=== PATIENT | male | born 1930 | race Caucasian/White ===

== ENCOUNTER → 2017-01-24 | Outpatient (CLI) | payer MEDICARE ==
[~2017-01-24] MED LIST: ALLO100T51 PO; ASPI-558 PO; CARV25TA28 PO; Famotidine; LORTAB; LOSA50TA17 PO; PROSTATE MEDICATION; SIMV20TA89 PO; Vitamin C; multivitamin
== END ==
LOC: NEU 09:52
PROVIDERS: ATTEND Psychiatry & Neurology Neurology
DX: M47.812 Spondylosis without myelopathy or radiculopathy, cervical region (principal); G56.03 Carpal tunnel syndrome, bilateral upper limbs
CPT/HCPCS: 95886; 95911

== ENCOUNTER → 2017-02-15 | Outpatient (CLI) | payer MEDICARE ==
[~2017-02-15] MED LIST changes: -ALLO100T51 PO; +FAMO20TA8 PO; +FERR-70 PO; -Famotidine; +HYDR-3989 PO; -LORTAB; +LOSA100T44 PO; -LOSA50TA17 PO; +NITR4.1S SL; -PROSTATE MEDICATION; -Vitamin C; -multivitamin
== END ==
LOC: LAB 09:10
PROVIDERS: ATTEND Orthopaedic Surgery
DX: Z01.810 Encounter for preprocedural cardiovascular examination (principal); I10 Essential (primary) hypertension; Z95.1 Presence of aortocoronary bypass graft
CPT/HCPCS: 93005

== ENCOUNTER 2017-02-22 05:46 | Day surgery (SDC) | payer MEDICARE ==
--- NOTE | 2017-02-12 15:49 | NUR ---
PMH, allergies meds reviewed and documented. Admits to difficulty breathing with intake of 'too much' potatoes, states he thinks he is more sensitive to potatoes now than when he was younger. I did advise him he should avoid potatoes since his reactions are becoming more severe. Preop and DOS instructions given including handout of postop CTR instructions, handwritten instructions of which medications to take the morning of surgery along with fasting instructions, Surgical Services pamphlet, and my contact information.
--- NOTE | 2017-02-19 15:00 | NUR ---
Cardiac clearance Dr Mariscal notified that patient has admitted to having chest pain less than 2 weeks ago and is now stating it was a month ago, as well as written communication from Dr Vasquez. Dr Mariscal will plan to do the surgery under local with RN monitor. 4--17 at 0830am Patient notified of above plan and patient agrees. OR central scheduler and OR supervisor beater room notified.
[2017-02-22] VITALS (9 sets, daily range): BP systolic 104–166; BP diastolic 68–77; PULSE 58–75; RESP 16–24; TEMP 97.7; O2SAT 94–97; Ht 180.3 cm; Wt 86.7 kg
[~2017-02-22] VITALS: Ht 180.3 cm; Wt 86.7 kg
[~2017-02-22 05:46] MED LIST changes: +NAPR220T61 PO
--- OUTSIDE RECORDS SUMMARY | 2017-02-22 05:50 | XMS REPORT | Continuity of Care Document ---
Author Author [facility] Amb[facility] Address [address] [place] [address] Phone Unavailable Care Team Providers Care Surface Room Shop Optician Name Role Phone Tayo Gee PP Unavailable Payers Payer name Insurance type Covered republican ID Authorization(s) Unknown Problems Condition Effective Dates (start - stop) Clinical Status Skin nodule - *Acute Hypertension - *Chronic CAD (coronary artery disease) - *Chronic Actinic keratoses - *Chronic Stable angina - *Stable Serous otitis media - *Resolved BPH (benign prostatic hyperplasia) - *Stable Hypercholesterolemia - *Chronic CAD (coronary artery disease) - *Chronic Hypertension - *Chronic Hypercholesterolemia - *Controlled BPH associated with nocturia - *Chronic Osteoarthritis of left knee - *Chronic Iron deficiency anemia - *Chronic Insomnia - *Chronic DENISE on CPAP - *Controlled CAD (coronary artery disease) - *Chronic Hypertension - *Chronic Acute serous otitis media of right ear - *Acute Hypercholesterolemia - *Chronic BPH (benign prostatic hyperplasia) - *Chronic Low back pain - *Chronic Exertional angina - *Chronic Thrombocytopenia - *Chronic Angina pectoris - *Stable CAD (coronary artery disease) - *Chronic Hypertension - *Chronic Hypercholesterolemia - *Chronic Visit for suture removal - *Stable CAD, Unspecified - *Controlled AC POLIO NOS-TYPE NOS - PURE HYPERCHOLESTEROLEM - GOUT NOS - OVERWEIGHT - MALIGNANT HYPERTENSION - ANGINA PECTORIS NEC/NOS - COR ATH UNSP VSL NTV/GFT - BPH W/O URINARY OBS/LUTS - IMPOTENCE, ORGANIC ORIGN - OSTEOARTHROS NOS-ANKLE - LUMBOSACRAL SPONDYLOSIS - LUMB/LUMBOSAC DISC DEGEN - LUMBAGO - LUMBOSACRAL NEURITIS NOS - UNEQUAL LEG LENGTH - IDIOPATHIC SCOLIOSIS - ACQ SPONDYLOLISTHESIS - Diarrhea - *Acute Weight loss - *Acute CAD (coronary artery disease) - *Acute Hypertension - *Acute Other and unspecified hyperlipidemia - *Chronic Hypercholesterolemia - *Chronic Fatigue / Malaise - *Chronic Hypertension, Unspecified - *Chronic CAD, Unspecified - *Chronic Angina - *Chronic CAD (coronary artery disease) - *Chronic Hypertension - *Chronic Angina pectoris - *Stable Dizziness - *Resolved Other and unspecified hyperlipidemia - *Chronic Diarrhea - *Resolved CAD (coronary artery disease) - *Chronic Actinic keratosis - *Chronic Hypertension - *Chronic Other and unspecified hyperlipidemia - *Chronic Angioedema - *Resolved Visit for suture removal - *Stable Actinic keratosis - CAD (coronary artery disease) - *Chronic Chest pain - Intermittent Hypertension - *Chronic Hypercholesterolemia - *Chronic Other malignant neoplasm of skin of other and unspecified parts of face - Basal cell carcinoma of nose - *Acute Dermatophytosis of nail - *Chronic Pain in limb - *Chronic Flat foot - *Chronic Hypertension, Benign - *Chronic Fatigue / Malaise - *Chronic CAD (coronary artery disease) - *Chronic Hypercholesterolemia - *Chronic Bursitis, knee - *Acute CAD (coronary artery disease) - *Chronic Angina pectoris - *Stable Cataracts, bilateral - *Chronic Hypertension - *Chronic BPH - *Controlled Flu - *Acute Gastroenteritis - *Acute Influenza Vaccine - Family History Family Member Diagnosis Age At Onset Status Father (Alive) Congestive heart failure 70 () Yes Father (Alive) CAD 62 Yes Sister (Unknown) Cancer - breast Yes Brother (Unknown) CAD Yes Maternal aunt (Unknown) CAD Yes Cousin (Alive) Cancer - breast Yes Mother (Unknown) old age Yes Mother (Unknown) multi-infarct dementia Yes Sister (Unknown) Hypertension Yes Cousin (Alive) Cancer - leukemia Yes Maternal aunt (Unknown) Cancer - leukemia Yes Mother (Unknown) Cancer - breast Yes Social History Social History Element Description Quantity Unknown Allergies, Adverse Reactions, Alerts Substance Reaction Severity Status LATEX Rash mild Medications Medication Instructions Dosage Effective Dates (start - stop) Status losartan 100 mg tablet take 1 Tablet (100MG) by oral route every day 100 MG - Active Vitamin C 250 mg tablet take 1 by Oral route every day 0 - Active ferrous sulfate ER 325 mg (65 mg iron) capsule,extended release spray 1 Capsule by Oral route every day 0 - Active multivitamin tablet take 1 by Oral route every day 0 - Active aspirin 81 mg tablet,delayed release take 1 tablet (81MG) by oral route every day 81 MG - Active simvastatin 20 mg tablet Take 1 tablet by mouth at bedtime. - Active allopurinol 100 mg tablet Take 1 tablet by mouth every day. - Active finasteride 5 mg tablet Take 1 tablet by mouth at bedtime. - Active fluticasone 50 mcg/actuation Nasal [place], Susp inhale 2 spray (100MCG) by intranasal route every day in each nostril 100 MCG - Active carvedilol 25 mg tablet Take 1 tablet by mouth 2 times a day. - Active Nitrolingual 0.4 mg/dose [place] Take as directed. - Active Lortab 5 mg-500 mg tablet Take 1 tablet by mouth twice a day as needed. - Active famotidine 20 mg tablet Take 1 tablet by mouth twice a day. - Active Immunizations Vaccine Date Status Comments Flu (split) (3 yrs or older) completed Flu (split) (3 yrs or older) completed Results Test Name Date and Time Measure Units Reference Range Abnormal Flag Comments Unknown Vital Signs Date / Time: Height Weight Pulse Rate Blood Pressure Temperature /08:45:00 69.85 in 180.00 lbs 72 /min 104/58 mm[Hg] 97.5 F Procedures Procedure Date DESTRUC BENIGN/PREMAL,1ST LESION DESTRUC BENIGN/PREMAL,2-14 LESIONS Encounters Encounter Location Date Patient Visit [facility] Patient Visit [facility] Patient Visit [facility] Patient Visit [facility] Patient Visit [facility] Patient Visit [facility] Patient Visit [facility] Patient Visit [facility] Patient Visit [facility] Patient Visit [facility] Patient [facility] Patient Visit [facility] Patient Visit [facility] Patient [facility] Patient Visit [facility] Patient Visit [facility] Patient Visit [facility] Patient Visit [facility] Patient Visit [facility] Patient Visit [facility] Pod Patient Visit [facility] Patient Visit [facility] Patient Visit [facility] Patient Visit [facility] Patient Visit [facility] Advance Directives Directive Effective Date Unknown
--- OUTSIDE RECORDS SUMMARY | 2017-02-22 05:50 | XMS REPORT | Referral Summary ---
Author Organization Unknown Address Unknown Phone Unavailable Care Team Providers Care Senior Programmer Name Role Phone Francy Gee Primary Care Physician [phone] Encounter VC Date(s): 11/17/14 - 11/17/14 [facility] Yepez, Mehran, Family Medicine [address] [place] [address] [place] [id number] Discharge Diagnosis: Benign essential hypertension Discharge Diagnosis: Hyperlipidemia Discharge Diagnosis: Lumbago Discharge Diagnosis: Chronic cough Discharge Diagnosis: Left ventricular hypertrophy Discharge Diagnosis: Bronchiectasis Discharge Diagnosis: Angina Discharge Diagnosis: CAD (coronary artery disease) Discharge Disposition: Home or Self Care Attending Physician: Tayo Gee MD Admitting Physician: Tayo Gee MD Referring Physician: Tayo Gee MD Vital Signs Most recent to 1 oldest [Reference Range]: Temperature Tympanic 35.6 degC [36.6-38.1 degC] *LOW* (11/17/14 8:24 AM) Peripheral Pulse 100 bpm Rate [60-100 bpm] (11/17/14 8:24 AM) Blood Pressure 122/58 mmHg [90-140/60-90 mmHg] (11/17/14 8:24 AM) Problem List Condition Effective Dates Status Health Status Informant L4-5 Resolved stable(Confirmed) Actinic Active keratoses(Confirmed) Acute Active bronchitis(Confirmed ) Anemia(Confirmed) Active Angina(Confirmed) Active Benign essential Active hypertension(Confirm ed) Benign prostatic Active hypertrophy(Confirme d) Bronchiectasis(Confi Active rmed) CAD (coronary artery Active disease)(Confirmed) T11 compression Active deformity(Confirmed) Degenerated disc Active lumbar(Confirmed) Erectile Active dysfunction(Confirme d) Gout(Confirmed) Active Hernia - 3 hernias Active on the left, 2 on the right(Confirmed) High Active cholesterol(Confirme d) Hyperlipidemia(Confi Active rmed) Idiopathic scoliosis Active and kyphoscoliosis(Confi rmed) Cerumen Active impaction(Confirmed) Left ventricular Active hypertrophy(Confirme d) Leg length Active discrepancy(Confirme d) Lumbago(Confirmed) Active 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 ) Osteoarthritis(Confi Active rmed) Overweight(Confirmed Active ) Polio(Confirmed) 1939 Active Primary Active hypercholesterolemia (Confirmed) Prostatism(Confirmed Active ) Thoracic or Active lumbosacral neuritis or radiculitis(Confirme d) Need for Active pneumococcal vaccine(Confirmed) Allergies, Adverse Reactions, Alerts Substance Reaction Severity Status Latex rash Active Medications allopurinol 100 mg oral tablet See Instructions, TAKE ONE TABLET BY MOUTH EVERY DAY, # 90 tabs, 3 Refill(s), eRx: [facility] #[id number], TAKE ONE TABLET BY MOUTH EVERY DAY Special Instructions: TAKE ONE TABLET BY MOUTH EVERY DAY Start Date: 08/07/14 Status: Ordered Aspirin Low Dose 81 mg, Oral, Daily, 0 Refill(s) Start Date: 07/09/14 Status: Ordered carvedilol 25 mg oral tablet 1 tabs, Oral, BID, 0 Refill(s) Start Date: 07/09/14 Status: Ordered famotidine 20 mg oral tablet 1 tabs, Oral, BID, 0 Refill(s) Start Date: 07/09/14 Status: Ordered ferrous sulfate 325 mg, Oral, Daily, 0 Refill(s) Start Date: 07/09/14 Status: Ordered fluticasone 50 mcg/inh nasal spray 2 sprays, Nasal, Daily, 0 Refill(s) Start Date: 07/09/14 Status: Ordered losartan 100 mg oral tablet 0.5 tabs, Oral, Daily, 0 Refill(s) Start Date: 07/09/14 Status: Ordered multivitamin 1 tablet, Oral, Daily, 0 Refill(s) Start Date: 07/09/14 Status: Ordered Nitromist 0.4 mg sublingual spray 0.4 mg, SubLingual, q5min, # 1 bottles, 1 Refill(s), Pharmacy: [facility] #[id number], 0.4 mg SubLingual q5min Start Date: 11/04/14 Status: Ordered Roy 5 mg-325 mg oral tablet 1 tabs, Oral, BID, as needed for pain, # 60 tabs, 0 Refill(s) Start Date: 11/17/14 Status: Ordered simvastatin 20 mg oral tablet See Instructions, TAKE ONE TABLET BY MOUTH EVERY NIGHT AT BEDTIME, # 90 tabs, 1 Refill(s), eRx: [facility] #[id number], TAKE ONE TABLET BY MOUTH EVERY NIGHT AT BEDTIME Special Instructions: TAKE ONE TABLET BY MOUTH EVERY NIGHT AT BEDTIME Start Date: 07/06/14 Status: Ordered triamcinolone 0.1% topical ointment [place], Topical, BID, to skin rash, 0 Refill(s) Start Date: 07/09/14 Status: Ordered Results No data available for this section Immunizations Vaccine Date Refusal Reason hepatitis A adult vaccine 02/27/97 hepatitis A adult vaccine 12/26/95 influenza virus vaccine, inactivated1 07/31/14 influenza virus vaccine, live 07/30/13 influenza virus vaccine, live 08/12/12 pneumococcal 13-valent conjugate vaccine 07/31/14 pneumococcal 23-polyvalent vaccine 10/11/09 pneumococcal 23-polyvalent vaccine 09/05/96 poliovirus vaccine, inactivated 03/18/97 tetanus-diphth toxoids (Td) adult/adol 05/18/06 tetanus-diphth toxoids (Td) adult/adol 02/20/00 tetanus-diphth toxoids (Td) adult/adol 12/20/94 zoster vaccine live 09/29/08 1Result Comment: [07/31/2014] See scanned document Procedures Procedure Date Related Diagnosis Body Site RT L5-S1 TRANSLAMINAR 06/10/12 LUMBAR TRANSLAMINAL L5-S1 04/10/11 RT L4-5/L5-S1 TRANSFORAMINAL 03/28/11 Cholecystectomy 2010 CABG -[address] Skelton 2008 Cardiac catheterization 2008 Placement of coronary stent 2006 Angioplasty with 2 stents 2005 Flexible sigmoidoscopy 2003 left foot synoivial cyst excision 2003 Hospital admission for chest pain 2002 Angioplasty with 2 stents 2001 left foot synoivial cyst excision 2001 Placement of 2 coronary stents 2001 Placement of coronary stent 2000 Appendectomy 1997 Cardiac catheterization 09/1997 Cardiac catheterization 03/1997 Angioplasty with 1 stent 1995 Hemorrhoid operation 1992 5 hernia repairs, maria e inguinal 1980 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 People with chronic back pain often go through certain periods that are more intense (flare-ups ). CAUSES Chronic back pain can be caused by wear and tear (degeneration ) on different structures in your back. These structures include: The bones of your spine (vertebrae ) and the joints surrounding your spinal cord and nerve roots (facets ). The strong, fibrous tissues that connect your vertebrae (ligaments ). Degeneration of these structures may result in pressure on your nerves. This can lead to constant pain. HOME CARE INSTRUCTIONS Avoid bending, heavy lifting, prolonged sitting, and activities which make the problem worse. Take brief periods of rest throughout the day to reduce your pain. Lying down or standing usually is better than sitting while you are resting. Take [id number] or prescription medicines only as directed by your caregiver. SEEK IMMEDIATE MEDICAL CARE IF: You have weakness or numbness in one of your legs or feet. You have trouble controlling your bladder or bowels. You have nausea, vomiting, abdominal pain, shortness of breath, or fainting. Document Released: 11/22/2005 Document Revised: 01/06/2013 Document Reviewed: [facility] Patient Information 2014 [employer]. Bronchiectasis Bronchiectasis is the destruction and widening of the large airways caused by mucous blockage. It is one of the chronic obstructive pulmonary diseases (COPD) . It is often complicated by bronchitis and emphysema. You can be born with it ( congenital bronchiectasis). It also may develop later in life. When the lungs cannot get rid of mucus, it gathers in the airways. The blockage leads to infection. This causes a soreness (inflammation ) in the air passageways. The inflammation causes the air passageways to weaken and widen. The weakened passages can then become scarred and deformed. This begins a cycle which may continue to worsen. CAUSES Bronchiectasis often begins in childhood and in the about half of these cases come from cystic fibrosis. Recurrent lung infections are another common cause. Abnormal lung defenses a person is born. Foreign bodies or other blockage in the lungs are other causes. Breathing in food particles regularly while eating is an example. It is also caused from a defect in the lining of the lungs. SYMPTOMS Symptoms vary from patient to patient but can include: Coughing which is worse lying down. Shortness of breath and wheezing. Weakness, weight loss, and fatigue. With infections the mucus may be discolored, contain blood and smell badly. DIAGNOSIS Tests for diagnosing bronchiectasis may include: Chest X-rays or CT scans. Breathing tests which tell your caregiver how your lungs are working. Sputum cultures to check for infection. Blood testing and tests for other related diseases or causes such as cystic fibrosis or tuberculosis may be done. HOME CARE INSTRUCTIONS Cough suppressants may be used if you cannot rest; however cough is a protective mechanism for clearing our lungs and is one reason for avoiding cough suppressants if able as they take away this protection. Your caregiver may prescribe an expectorant to loosen the mucus to be coughed up. Only take [id number] or prescription medicines for pain, discomfort, or fever as directed by your caregiver. A cold steam vaporizer or humidifier in your room or home may help loosen secretions. Cough is most often worse at night. Sleeping in a semi-upright position in a recliner or using a couple pillows will help. Obtain rest as needed. Make arrangements for a follow-up visit. Avoid cigarette smoke and lung irritants. Smoking is a common cause of bronchitis and can contribute to pneumonia. Stopping this habit is an important self help. Stay inside when pollution and ozone levels are high. Stay current with vaccinations and immunizations. Avoid sedatives and antihistamines which tend to thicken the mucus in the lungs. Always try to stay well hydrated by drinking plenty of water. Antibiotics are often given for infection. Take them as directed. Medications called bronchodilators are often used to make the air passages larger. Physical therapy methods should be learned so you can know how to clear mucus more easily from your lungs. PROGNOSIS Bronchiectasis varies in severity from patient to patient. When lung infections are treated immediately, bronchiectasis is less likely to develop. When it does develop, following the above instructions will help with the outcome. Lung transplants or removing a portion of a lung are sometimes done for severe cases. is uncommon but can be caused by massive bleeding into the lungs. SEEK IMMEDIATE MEDICAL CARE IF: You develop more pus like (purulent ) sputum, have uncontrolled temperature , or become progressively more ill (debilitated ). This is especially true if you are elderly or sick from another disease. You cannot control your cough with suppressants and are losing sleep. You begin coughing up blood. You develop chest pain or increasing shortness of breath. You develop pain which is getting worse or is uncontrolled with medications. You develop an oral temperature above 102 F (38.9 C) or as instructed, after not having a temperature for one or more days (afebrile ). If any of the symptoms which brought you initially into the emergency room are getting worse rather than better. MAKE SURE YOU: Understand these instructions. Will watch your condition. Will get help right away if you are not doing well or get worse. Document Released: 08/11/2008 Document Revised: 01/06/2013 Document Reviewed: [facility] Patient Information 2014 [employer]. No follow up information was provided. Extracted from: Title: CAD, chronic cough Author: Tayo Gee MD Date: 11/17/14 Impression and Plan Diagnosis Lumbago (ICD9 724.2, Discharge, Medical). Left ventricular hypertrophy (ICD9 429.3, Discharge, Medical). Hyperlipidemia (ICD9 272.4, Discharge, Medical). Chronic cough (ICD9 786.2, Discharge, Medical). CAD (coronary artery disease) (ICD9 414.00, Discharge, Medical). Bronchiectasis (ICD9 494.0, Discharge, Medical). Benign essential hypertension (ICD9 401.1, Discharge, Medical). Angina (ICD9 413.9, Discharge, Medical). Plan: We will try to get a CT of the chest (high resolution) approved by [employer]. This is needed to further evaluate your chronic cough and the best treatment. Get an Acapella flutter device for use at home twice a day for your bronchiectasis. Continue your present meds otherwise. See me in one month for re-evaluation of your coughing. , Consider training by respiratory therapy in pulmonary toilet.. Orders Orders (Selected) Outpatient Orders Ordered Office Visit Level 5 Est 80877: Future (On Hold) CT Chest High Resolution: . Dx/Order Association Plan: Diagnosis: Angina Comment: Ordered: Office Visit Level 5 Est [id number]; 11/17/14 8:57:00 WHISTLE PUNK, Bronchiectasis | Benign essential hypertension | Angina | CAD (coronary artery disease) | Hyperlipidemia Diagnosis: Benign essential hypertension Comment: Ordered: Office Visit Level 5 Est [id number]; 11/17/14 8:57:00 WHISTLE PUNK, Bronchiectasis | Benign essential hypertension | Angina | CAD (coronary artery disease) | Hyperlipidemia Diagnosis: Bronchiectasis Comment: Ordered: Office Visit Level 5 Est [id number]; 11/17/14 8:57:00 WHISTLE [place]UNK, Bronchiectasis | Benign essential hypertension | Angina | CAD (coronary artery disease) | Hyperlipidemia Diagnosis: CAD (coronary artery disease) Comment: Ordered: Office Visit Level 5 Est [id number]; 11/17/14 8:57:00 WHISTLE [place]UNK, Bronchiectasis | Benign essential hypertension | Angina | CAD (coronary artery disease) | Hyperlipidemia Diagnosis: Chronic cough Comment: Ordered: Office Visit Level 5 Est [id number]; 11/17/14 8:57:00 WHISTLE PUNK, Bronchiectasis | Benign essential hypertension | Angina | CAD (coronary artery disease) | Hyperlipidemia Diagnosis: Hyperlipidemia Comment: Ordered: Office Visit Level 5 Est [id number]; 11/17/14 8:57:00 WHISTLE [place]UNK, Bronchiectasis | Benign essential hypertension | Angina | CAD (coronary artery disease) | Hyperlipidemia Diagnosis: Left ventricular hypertrophy Comment: Diagnosis: Lumbago Comment: Ordered: Office Visit Level 5 Est [id number]; 11/17/14 8:57:00 WHISTLE [place]UNK, Bronchiectasis | Benign essential hypertension | Angina | CAD (coronary artery disease) | Hyperlipidemia Additional Orders: Comment: Future Orders: CT Chest High Resolution,*Est. 11/17/14 due within 1 months, Routine, Reason: Other (please specify), Bronchiectasis | Chronic cough End of Orders ."
--- OUTSIDE RECORDS SUMMARY | 2017-02-22 05:50 | XMS REPORT | Continuity of Care Document ---
Author Author [facility] Organization [facility] Address Unknown Phone Unavailable Allergies Active Description Code Type Severity Reaction Onset Reported/Identified Relationship to Patient Clinical Status Yes Latex Other N/A rash 07/09/2014 Yes Levaquin NKMA N/A tendonitis 12/01/2014 Yes Spiriva NKMA N/A dry cough and bloodshot eye 10/13/2015 Medications Problems Procedures Results Encounters ACCT No. Visit Date/Time Discharge Status Pt. Type Provider Facility Loc./Unit Complaint [id number] 12/18/2013 13:32:00 12/18/2013 23 :59:59 CLS Outpatient [id number] 11/24/2013 16:20:00 11/24/2013 23 :59:59 CLS Outpatient [id number] 11/06/2013 14:15:00 11/06/2013 23 :59:59 CLS Outpatient [id number] 08/26/2013 08:43:00 08/26/2013 23 :59:59 CLS Outpatient
--- OUTSIDE RECORDS SUMMARY | 2017-02-22 05:50 | XMS REPORT | Referral Summary ---
Author Author Via [facility] Yepez [place], Family Medicine Organization [facility] Yepez, Mehran, [facility] Address Unknown Phone Unavailable Care Team Providers Care Ring Spinner Name Role Phone Francy Gee Primary Care Physician [phone] Encounter VC Date(s): 08/03/15 - 08/03/15 [facility] SHERRON Yepez [place], [address] [place] [id number] Discharge Disposition: 01-Home or Self Care Attending Physician: Tayo Gee MD Admitting Physician: Tayo Gee MD Vital Signs Most recent to 1 oldest [Reference Range]: Temperature Tympanic 36.1 degC [36.6-38.1 degC] *LOW* (08/03/15 7:23 AM) Peripheral Pulse 68 bpm Rate [60-100 bpm] (08/03/15 7:23 AM) Blood Pressure 148/62 mmHg [90-140/60-90 mmHg] *HI* (08/03/15 7:23 AM) Problem List Condition Effective Dates Status Health Status Informant L4-5 Resolved stable(Confirmed) Actinic Active keratoses(Confirmed) Acute Active bronchitis(Confirmed ) Anemia(Confirmed) Active Angina(Confirmed) Active Benign essential Active hypertension(Confirm ed) Benign prostatic Active hypertrophy(Confirme d) Bronchiectasis(Confi Active rmed) Chronic obstructive Active pulmonary disease (COPD)(Confirmed) CAD (coronary artery Active disease)(Confirmed) T11 compression Active deformity(Confirmed) Degenerated disc Active lumbar(Confirmed) Erectile Active dysfunction(Confirme d) Gout(Confirmed) Active Hernia - 3 hernias Active on the left, 2 on the right(Confirmed) High Active cholesterol(Confirme d) Idiopathic scoliosis Active and kyphoscoliosis(Confi rmed) Cerumen Active impaction(Confirmed) Left ventricular Active hypertrophy(Confirme d) Leg length Active discrepancy(Confirme d) Lumbago(Confirmed) Active 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 ) Lung mass(Confirmed) Active Hyperlipidemia(Confi Active rmed) Need for influenza Active vaccination(Confirme d) DENISE on Active CPAP(Confirmed) Osteoarthritis(Confi Active rmed) Overweight(Confirmed Active ) Pain of right Active calf(Confirmed) Polio(Confirmed) 1939 Active Primary Active hypercholesterolemia (Confirmed) Prostatism(Confirmed Active ) Snores(Confirmed) Active Right leg Active swelling(Confirmed) Thoracic or Active lumbosacral neuritis or radiculitis(Confirme d) Need for Active pneumococcal vaccine(Confirmed) Allergies, Adverse Reactions, Alerts Substance Reaction Severity Status Latex rash Active Levaquin tendonitis Active Spiriva dry cough and bloodshot eye Active Medications allopurinol 100 mg oral tablet See Instructions, TAKE ONE TABLET BY MOUTH EVERY DAY, # 90 tabs, 2 Refill(s), eRx: [facility] #[id number], TAKE ONE TABLET BY MOUTH EVERY DAY Start Date: 08/16/15 Status: Ordered Aspirin Low Dose 81 mg, Oral, Daily, 0 Refill(s) Start Date: 07/09/14 Status: Ordered carvedilol 25 mg oral tablet See Instructions, TAKE ONE TABLET BY MOUTH THREE TIMES A DAY, # 270 tabs, 2 Refill(s), eRx: [facility] #[id number], TAKE ONE TABLET BY MOUTH THREE TIMES A DAY Start Date: 01/17/16 Status: Ordered famotidine 20 mg oral tablet See Instructions, TAKE ONE TABLET BY MOUTH TWICE A DAY, # 180 tabs, 1 Refill(s) , eRx: [facility] #[id number], TAKE ONE TABLET BY MOUTH TWICE A DAY Start Date: 06/28/15 Status: Ordered ferrous sulfate 325 mg (65 mg elemental iron) oral tablet 325 mg 1 tabs, Oral, Daily, 0 Refill(s) Start Date: 08/03/15 Status: Ordered losartan 100 mg oral tablet See Instructions, TAKE ONE TABLET BY MOUTH DAILY, # 90 tabs, eRx: [facility] #[id number], TAKE ONE TABLET BY MOUTH DAILY Start Date: 11/15/15 Status: Ordered multivitamin 1 tablet, Oral, Daily, 0 Refill(s) Start Date: 07/09/14 Status: Ordered Nitromist 0.4 mg sublingual spray 0.4 mg, SubLingual, q5min, # 1 bottles, 1 Refill(s), Pharmacy: [facility] #[id number], 0.4 mg SubLingual q5min Start Date: 11/04/14 Status: Ordered [place] 5 mg-325 mg oral tablet 1 tabs, Oral, BID, as needed for pain, # 60 tabs, 0 Refill(s) Start Date: 01/27/16 Status: Ordered ProAir HFA 90 mcg/inh inhalation aerosol 2 puffs, Inhalation, QID, as needed for wheezing, # 18 g, 11 Refill(s), Pharmacy : [facility] #[id number] Start Date: 11/03/15 Status: Ordered simvastatin 20 mg oral tablet See Instructions, TAKE ONE TABLET BY MOUTH EVERY NIGHT AT BEDTIME, # 90 tabs, 2 Refill(s), eRx: [facility] #[id number], TAKE ONE TABLET BY MOUTH EVERY NIGHT AT BEDTIME Start Date: 10/25/15 Status: Ordered Results Hematology Most recent to 1 oldest [Reference Range]: WBC [4.8-10.8 8.1 10*3/uL 10*3/uL] (08/03/15 8:53 AM) RBC [4.60-6.20] 4.49 *LOW* (08/03/15 8:53 AM) Hgb [14.0-18.0 14.1 gm/dL gm/dL] (08/03/15 8:53 AM) Hct [42.0-52.0 %] 43.0 % (08/03/15 8:53 AM) MCV [82.0-99.0 fL] 95.8 fL (08/03/15 8:53 AM) MCH [27.0-32.0 pg] 31.4 pg (08/03/15 8:53 AM) MCHC [32.0-36.0 32.8 gm/dL gm/dL] (08/03/15 8:53 AM) RDW [11.5-14.5 %] 12.5 % (08/03/15 8:53 AM) Platelet [150-400 160 10*3/uL 10*3/uL] (08/03/15 8:53 AM) MPV [8.8-14.8 fL] 11.1 fL (08/03/15 8:53 AM) Immature 0.4 % Granulocytes (08/03/15 8:53 AM) [0.0-1.0 %] Neutrophils [51-75 59 % %] (08/03/15 8:53 AM) Lymphocytes [20-46 29 % %] (08/03/15 8:53 AM) Monocytes [4-11 %] 10 % (08/03/15 8:53 AM) Eosinophils [0-4 %] 2 % (08/03/15 8:53 AM) Basophils [0-2 %] 0 % (08/03/15 8:53 AM) Neutro Absolute 4.80 10*3 [1.90-7.00 10*3] (08/03/15 8:53 AM) Lymph Absolute 2.32 10*3 [0.80-3.30 10*3] (08/03/15 8:53 AM) Arthur Absolute 0.81 10*3 [0.30-1.00 10*3] (08/03/15 8:53 AM) Eos Absolute 0.16 10*3 [0.00-0.50 10*3] (08/03/15 8:53 AM) Baso Absolute 0.01 10*3 [0.00-0.20 10*3] (08/03/15 8:53 AM) Chemistry Most recent to 1 oldest [Reference Range]: Sodium Lvl [135-144 139 mEq/L mEq/L] (08/03/15 8:53 AM) Potassium Lvl 4.2 mEq/L [3.5-5.2 mEq/L] (08/03/15 8:53 AM) Chloride [99-111 105 mEq/L mEq/L] (08/03/15 8:53 AM) CO2 [23-31 mEq/L] 26 mEq/L (08/03/15 8:53 AM) AGAP [3-20] 8 (08/03/15 8:53 AM) BUN [8-26 mg/dL] 23 mg/dL (08/03/15 8:53 AM) Glucose Lvl [70-99 112 mg/dL mg/dL] *HI* (08/03/15 8:53 AM) Creatinine Lvl 1.06 mg/dL [0.72-1.25 mg/dL] (08/03/15 8:53 AM) eGFR [>60 mL/min] >60 mL/min 1 (08/03/15 8:53 AM) Calcium Lvl 9.1 mg/dL [8.9-10.5 mg/dL] (08/03/15 8:53 AM) Albumin Lvl [3.4-4.8 4.0 gm/dL gm/dL] (08/03/15 8:53 AM) Total Protein 6.8 gm/dL [6.2-8.1 gm/dL] (08/03/15 8:53 AM) Globulin [1.8-4.0 2.8 gm/dL gm/dL] (08/03/15 8:53 AM) ALT [0-55 U/L] 26 U/L (08/03/15 8:53 AM) AST [5-34 U/L] 22 U/L (08/03/15 8:53 AM) Alk Phos [40-150 68 U/L U/L] (08/03/15 8:53 AM) Bili Total [0.2-1.2 0.6 mg/dL mg/dL] (08/03/15 8:53 AM) Chol [0-199 mg/dL] 128 mg/dL (08/03/15 8:53 AM) Trig [0-149 mg/dL] 128 mg/dL (08/03/15 8:53 AM) HDL [40-84 mg/dL] 44 mg/dL (08/03/15 8:53 AM) LDL [0-130 mg/dL] 58 mg/dL (08/03/15 8:53 AM) VLDL Cholesterol 26 mg/dL [0-28 mg/dL] (08/03/15 8:53 AM) Cardiac Risk 2.9 [0.0-5.7] (08/03/15 8:53 AM) 1Result Comment: Multiply eGFR results by 1.21 for race. Urinalysis Most recent to 1 oldest [Reference Range]: UA Color Yellow (08/03/15 9:30 AM) UA Appear Clear (08/03/15 9:30 AM) UA pH [5.0-8.0] 5.5 (08/03/15 9:30 AM) UA Leuk Est Negative [Negative] (08/03/15 9:30 AM) UA Nitrite Negative [Negative] (08/03/15 9:30 AM) UA Protein Negative [Negative] (08/03/15 9:30 AM) UA Glucose Negative [Negative] (08/03/15 9:30 AM) UA Ketones Negative [Negative] (08/03/15 9:30 AM) UA Urobilinogen 0.2 mg/dL [<1.0 mg/dL] (08/03/15 9:30 AM) UA Bili [Negative] Negative (08/03/15 9:30 AM) UA Blood [Negative] Negative (08/03/15 9:30 AM) UA Spec Grav 1.024 [1.003-1.030] (08/03/15 9:30 AM) Type Clean Catch (08/03/15 9:30 AM) Immunizations Vaccine Date Refusal Reason tetanus/diphth/pertuss (Tdap) adult/adol 10/13/15 hepatitis A adult vaccine 02/27/97 hepatitis A adult vaccine 12/26/95 influenza virus vaccine, inactivated 08/03/15 influenza virus vaccine, inactivated1 07/31/14 influenza virus [...] L5-S1 04/10/11 RT L4-5/L5-S1 TRANSFORAMINAL 03/28/11 Cholecystectomy 2009 CABG -[address] Skelton 2009 Cardiac catheterization 2008 Placement of coronary stent [...] Angioplasty with 1 stent 1995 Hemorrhoid operation 1991 5 hernia repairs, maria e inguinal 1980 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 This makes it difficult for the lungs to get rid of mucus. As a result , mucus gathers in the airways, and this often leads to lung infections. Infection can cause inflammation in the airways, which may further weaken and damage the bronchi. CAUSES Bronchiectasis may be present at (congenital) or may develop later in life. Sometimes there is no apparent cause. Some common causes include: Cystic fibrosis. Recurrent lung infections (such as pneumonia, tuberculosis, or fungal infections). Foreign bodies or other blockages in the lungs. Breathing in fluid, food, or other foreign objects (aspiration). SIGNS AND SYMPTOMS Common symptoms include: A daily cough that brings up mucus and lasts for more than 3 weeks. Frequent lung infections (such as pneumonia, tuberculosis, or fungal infections). Shortness of breath and wheezing. Weakness and fatigue. DIAGNOSIS Various tests may be done to help diagnose bronchiectasis. Tests may include: Chest X-rays or CT scans. Breathing tests to help determine how your lungs are working. Sputum cultures to check for infection. Blood tests and other tests to check for related diseases or causes, such as cystic fibrosis. TREATMENT Treatment varies depending on the severity of the condition. Medicines may be given to loosen the mucus to be coughed up (expectorants), to relax the muscles of the air passages (bronchodilators), or to prevent or treat infections ( antibiotics). Physical therapy methods may be recommended to help clear mucus from the lungs. For severe cases, surgery may be done to remove the affected part of the lung. HOME CARE INSTRUCTIONS Get plenty of rest. Only take [id number] or prescription medicines as directed by your health care provider. If antibiotic medicines were prescribed, take them as directed. Finish them even if you start to feel better. Avoid sedatives and antihistamines unless otherwise directed by your health care provider. These medicines tend to thicken the mucus in the lungs. Perform any breathing exercises or techniques to clear the lungs as directed by your health care provider. Drink enough fluids to keep your urine clear or pale yellow. Consider using a cold steam vaporizer or humidifier in your room or home to help loosen secretions. If the cough is worse at night, try sleeping in a semi-upright position in a recliner or using a couple of pillows. Avoid cigarette smoke and lung irritants. If you smoke, quit. Stay inside when pollution and ozone levels are high. Stay current with vaccinations and immunizations. Follow up with your health care provider as directed. SEEK MEDICAL CARE IF: You cough up more thick, discolored mucus (sputum) that is yellow to green in color. You have a fever or persistent symptoms for more than 23 days. You cannot control your cough and are losing sleep. SEEK IMMEDIATE MEDICAL CARE IF: You cough up blood. You have chest pain or increasing shortness of breath. You have pain that is getting worse or is uncontrolled with medicines. You have a fever and your symptoms suddenly get worse. MAKE SURE YOU: Understand these instructions. Will watch your condition. Will get help right away if you are not doing well or get worse. Document Released: 08/11/2008 Document Revised: 10/20/2014 Document Reviewed: [facility] Patient Information [address] [facility] [address] [facility]. This information is not intended to replace advice given to you by your health care provider. Make sure you discuss any questions you have with your health care provider. No follow up information was provided. Extracted from: Title: Male physical Author: Tayo Gee MD Date: 08/03/15 Impression and Plan Diagnosis Benign essential hypertension (EPI25-XF I10, Working, Medical). Benign prostatic hypertrophy (GMS70-ZA N40.0, Working, Medical). Bronchiectasis (OLX79-LY J47.9, Working, Medical). CAD (coronary artery disease) (JVG11-RS I25.10, Working, Medical). Chronic diarrhea (KNO61-VN R19.7, Working, Medical). Chronic obstructive pulmonary disease (COPD) (CSU09-NS J44.9, Working, Medical). Hyperlipidemia (GZK34-RU E78.2, Working, Medical). Need for influenza vaccination (ZQJ61-IB Z23, Working, Medical). DENISE on CPAP (BVR26-YQ G47.33, Working, Medical). Plan: 1) Flu shot today. 2) Fasting lab today. 3) Continue your routine meds the same. 4) Continue your healthy diet and exercise on most days. 5) See me in 3-4 months for recheck of everything. 6) Bilateral ear wash done today for your cerumen impaction. . Orders Orders (Selected) Outpatient Orders Ordered Office Visit Level 5 Est 85575: influenza virus vaccine, inactivated: 0.5 mL, IntraMuscular, Once Future (On Hold) CBC w/ Differential: CMP: Endomysial Antibody IgA-Jamison: Fasting Lipid Profile: Routine Urinalysis: . Dx/Order Association Plan: Diagnosis: Benign essential hypertension Comment: Ordered: Office Visit Level 5 Est 65875; 08/03/15 8:05:00 CDT, CAD (coronary artery disease) | Chronic obstructive pulmonary disease (COPD) | Benign essential hypertension | DENISE on CPAP | Chronic diarrhea Diagnosis: Benign prostatic hypertrophy Comment: Diagnosis: Bronchiectasis Comment: Diagnosis: CAD (coronary artery disease) Comment: Ordered: Office Visit Level 5 Est 90665; 08/03/15 8:05:00 CDT, CAD (coronary artery disease) | Chronic obstructive pulmonary disease (COPD) | Benign essential hypertension | DENISE on CPAP | Chronic diarrhea Diagnosis: Chronic diarrhea Comment: Ordered: Office Visit Level 5 Est 51547; 08/03/15 8:05:00 CDT, CAD (coronary artery disease) | Chronic obstructive pulmonary disease (COPD) | Benign essential hypertension | DENISE on CPAP | Chronic diarrhea Diagnosis: Chronic obstructive pulmonary disease (COPD) Comment: Ordered: Office Visit Level 5 Est 63790; 08/03/15 8:05:00 CDT, CAD (coronary artery disease) | Chronic obstructive pulmonary disease (COPD) | Benign essential hypertension | DENISE on CPAP | Chronic diarrhea Diagnosis: Hyperlipidemia Comment: Diagnosis: Need for influenza vaccination Comment: Ordered: influenza virus vaccine, inactivated; 0.5 mL, IntraMuscular, Once, First Dose: 08/03/15 8:16:00 CDT, Stop Date: 08/03/15 8:16: 00 CDT Diagnosis: DENISE on CPAP Comment: Ordered: Office Visit Level 5 Est 72174; 08/03/15 8:05:00 CDT, CAD (coronary artery disease) | Chronic obstructive pulmonary disease (COPD) | Benign essential hypertension | DENISE on CPAP | Chronic diarrhea Diagnosis: Benign prostatic hypertrophy Comment: Diagnosis: Benign essential hypertension Comment: Diagnosis: Chronic diarrhea Comment: Diagnosis: Benign essential hypertension Comment: Diagnosis: Hyperlipidemia Comment: Additional Orders: Comment: Ordered: ferrous sulfate 325 mg (65 mg elemental iron) oral tablet, 325 mg 1 tabs, Oral, Daily, 0 Refill(s) End of Orders ."
--- OUTSIDE RECORDS SUMMARY | 2017-02-22 05:50 | XMS REPORT | Referral Summary ---
Author Organization Unknown Address Unknown Phone Unavailable Care Team Providers Care Fleece Tier Name Role Phone Francy Gee Primary Care Physician [phone] Encounter VC Date(s): 12/09/14 - 12/09/14 [facility] Yepez, [place], Pulmonary [address] [place], [place] [address] Discharge Diagnosis: Lung mass Discharge Disposition: Home or Self Care Attending Physician: Luisa Raymond MD Admitting Physician: Luisa Raymond MD Vital Signs No data available for this section Problem List Condition Effective Dates Status Health [...] Status Latex rash Active Levaquin tendonitis Active Medications allopurinol 100 mg oral tablet See Instructions, TAKE ONE TABLET BY MOUTH EVERY DAY, # 90 tabs, 3 Refill(s), eRx: [facility] #[id number], TAKE ONE TABLET BY MOUTH EVERY DAY Special Instructions: TAKE ONE TABLET BY MOUTH EVERY DAY Start Date: 08/07/14 Status: Ordered Aspirin Low Dose 81 mg, Oral, Daily, 0 Refill(s) Start Date: 07/09/14 Status: Ordered carvedilol 25 mg oral tablet 1 tabs, Oral, TID, # 270 tabs, 3 Refill(s), Pharmacy: [facility] #[id number], DOSAGE CHANGE, 1 tabs Oral TID Start Date: 11/30/14 Status: Ordered famotidine 20 mg oral tablet See Instructions, TAKE ONE TABLET BY MOUTH TWICE A DAY, # 180 tabs, 2 Refill(s) , eRx: [facility] #[id number], TAKE ONE TABLET BY MOUTH TWICE A DAY Special Instructions: TAKE ONE TABLET BY MOUTH TWICE A DAY Start Date: 11/30/14 Status: Ordered ferrous sulfate 325 mg, Oral, [...] q5min, # 1 bottles, 1 Refill(s), Pharmacy: [facility] #[id number], 0.4 mg SubLingual q5min Start Date: 11/04/14 Status: Ordered [place] 5 mg-325 mg oral tablet 1 tabs, Oral, BID, as needed for pain, # 60 tabs, 0 Refill(s) Start Date: 11/17/14 Status: Ordered simvastatin 20 mg oral tablet See Instructions, TAKE ONE TABLET BY MOUTH EVERY NIGHT AT BEDTIME, # 90 tabs, 1 Refill(s), eRx: [facility] #[id number], TAKE ONE TABLET BY MOUTH EVERY NIGHT [...] left hand 194 Hospital admission for polio 0 Tonsillectomy 1935 CIII LEFT ANKLE PAIN CIII LLE CELLULITIS Colonoscopy Herniorrhaphy - 3 total, 1 on the left and 2 on the right1 15 hernia repairs: 3 on the left, 2 on the right, between 1965 and 1979 Social History Social History Type Response Smoking Status Never smoker Assessment and Plan No data available for this section
--- OUTSIDE RECORDS SUMMARY | 2017-02-22 05:51 | XMS REPORT | Referral Summary ---
Author Author [facility] [place], Family Medicine Organization [facility] Yepez, Mehran, [facility] Address Unknown Phone Unavailable Care Team Providers Care Water Softener Servicer And Installer Name Role Phone Francy Gee Primary Care Physician [phone] Encounter VC Date(s): 11/03/15 - 11/03/15 [facility]ERR[facility] Yepez [place], [address] [place] [id number] Discharge Disposition: 01-Home or Self Care Attending Physician: Tayo Gee MD Admitting Physician: aTyo Gee MD Vital Signs Most recent to 1 oldest [Reference Range]: Temperature Tympanic 35.9 degC [36.6-38.1 degC] *LOW* (11/03/15 8:23 AM) Peripheral Pulse 72 bpm Rate [60-100 bpm] (11/03/15 8:23 AM) Blood Pressure 154/84 mmHg [90-140/60-90 mmHg] *HI* (11/03/15 8:23 AM) SpO2 98 % (11/03/15 8:23 AM) Problem List Condition Effective Dates Status [...] ) Pain of right Active calf(Confirmed) Polio(Confirmed) 194 Active Primary Active hypercholesterolemia (Confirmed) Prostatism(Confirmed Active [...] DAY, # 90 tabs, 2 Refill(s), eRx: [facility] #[id number], TAKE ONE TABLET BY MOUTH EVERY DAY Start Date: 08/16/15 Status: Ordered Aspirin Low Dose 81 mg, Oral, Daily, 0 Refill(s) Start Date: 07/09/14 Status: Ordered carvedilol 25 mg oral tablet 25 mg 1 tabs, Oral, BID, # 270 tabs, 3 Refill(s), Pharmacy: [facility] # [id number], 1 tabs Oral TID Start Date: 11/30/14 Status: Ordered famotidine 20 mg oral tablet See Instructions, TAKE ONE TABLET BY MOUTH TWICE A DAY, # 180 tabs, 1 Refill(s) , eRx: [facility] #[id number], TAKE ONE TABLET BY MOUTH TWICE A DAY Start Date: 06/28/15 Status: Ordered ferrous sulfate 325 mg (65 mg elemental iron) oral tablet 325 mg 1 tabs, Oral, Daily, 0 Refill(s) Start Date: 08/03/15 Status: Ordered losartan 100 mg oral tablet See Instructions, TAKE ONE HALF TABLET BY MOUTH EVERY DAY, # 90 tabs, 1 Refill(s ), eRx: [facility] #[id number], TAKE ONE TABLET BY MOUTH EVERY DAY Start Date: 01/18/15 Status: Ordered multivitamin 1 tablet, Oral, Daily, 0 Refill(s) Start Date: 07/09/14 Status: Ordered Nitromist 0.4 mg sublingual spray 0.4 mg, SubLingual, q5min, # 1 bottles, 1 Refill(s), Pharmacy: [facility] #[id number], 0.4 mg SubLingual q5min Start Date: 11/04/14 Status: Ordered [place] 5 mg-325 mg oral tablet 1 tabs, Oral, BID, as needed for pain, # 60 tabs, 0 Refill(s) Start Date: 10/26/15 Status: Ordered ProAir HFA 90 mcg/inh inhalation aerosol 2 puffs, Inhalation, QID, as needed for wheezing, # 18 g, 11 Refill(s), Pharmacy : [facility] #[id number] Start Date: 11/03/15 Status: Ordered simvastatin 20 mg oral tablet See Instructions, TAKE ONE TABLET BY MOUTH EVERY NIGHT AT BEDTIME, # 90 tabs, 2 Refill(s), eRx: [facility] #[id number], TAKE ONE TABLET BY MOUTH EVERY NIGHT AT BEDTIME Start Date: 10/25/15 Status: Ordered Results No data available for this section Immunizations Vaccine Date Refusal Reason tetanus/diphth/pertuss (Tdap) [...] Cholecystectomy 2010 CABG -[address] Skelton 2009 Cardiac [...] left hand 1949 Hospital admission for polio 1940 Tonsillectomy 1936 CIII LEFT ANKLE PAIN CIII LLE CELLULITIS Colonoscopy Herniorrhaphy - 3 total, 1 on the left and 2 on the right1 15 hernia repairs: 3 on the left, 2 on the right, between 1965 and 1979 Social History Social History Type Response Smoking Status Never smoker Assessment and Plan Extracted from: Title: Ambulatory Patient Education Author: Tayo Gee MD Date: Family Medicine Bronchiectasis Bronchiectasis is a condition [...] INSTRUCTIONS Get plenty of rest. Only take [id number] or prescription medicines as directed by your [...] Released: 08/11/2008 Document Revised: 10/20/2014 Document Reviewed: [employer] Patient Information 2015 [employer]. This information is not intended to replace advice given to you by your health care provider. Make sure you discuss any questions you have with your health care provider. Home Health Care Cellulitis Cellulitis is an infection of the skin and the tissue beneath it. The infected area is usually red and tender. Cellulitis occurs most often in the arms and lower legs. CAUSES Cellulitis is caused by bacteria that enter the skin through cracks or cuts in the skin. The most common types of bacteria that cause cellulitis are staphylococci and streptococci. SIGNS AND SYMPTOMS Redness and warmth. Swelling. Tenderness or pain. Fever. DIAGNOSIS Your health care provider can usually determine what is wrong based on a physical exam. Blood tests may also be done. TREATMENT Treatment usually involves taking an antibiotic medicine. HOME CARE INSTRUCTIONS Take your antibiotic medicine as directed by your health care provider. Finish the antibiotic even if you start to feel better. Keep the infected arm or leg elevated to reduce swelling. Apply a warm cloth to the affected area up to 4 times per day to relieve pain. Take medicines only as directed by your health care provider. Keep all follow-up visits as directed by your health care provider. SEEK MEDICAL CARE IF: You notice red streaks coming from the infected area. Your red area gets larger or turns dark in color. Your bone or joint underneath the infected area becomes painful after the skin has healed. Your infection returns in the same area or another area. You notice a swollen bump in the infected area. You develop new symptoms. You have a fever. SEEK IMMEDIATE MEDICAL CARE IF: You feel very sleepy. You develop vomiting or diarrhea. You have a general ill feeling (malaise) with muscle aches and pains. MAKE SURE YOU: Understand these instructions. Will watch your condition. Will get help right away if you are not doing well or get worse. Document Released: 07/25/2006 Document Revised: 03/01/2015 Document Reviewed: [facility] Patient Information 2015 [facility]. This information is not intended to replace advice given to you by your health care provider. Make sure you discuss any questions you have with your health care provider. No follow up information was provided. Extracted from: Title: CAD, HTN Author: Tayo Gee MD Date: 11/03/15 Impression and Plan Diagnosis Cellulitis of left foot (OWQ18-SG L03.116, Working, Medical). CAD (coronary artery disease) (BZW52-VI I25.10, Working, Medical). Benign essential hypertension (GLR26-UH I10, Working, Medical). Primary hypercholesterolemia (ZBX18-KE E78.0, Working, Medical). Bronchiectasis (QED35-JO J47.9, Working, Medical). Plan: 1) Continue your current meds. 2) Use the Mupirocin ointment to the left foot for 2-3 more weeks. 3) See me in 6 months and as needed.. Orders Orders (Selected) Outpatient Orders Ordered Office Visit Level 4 Est 25809: Prescriptions Prescribed ProAir HFA 90 mcg/inh inhalation aerosol: 2 puffs, Inhalation, QID, PRN: as needed for wheezing, 18 g, 11 Refill(s). Dx/Order Association Plan: Diagnosis: Benign essential hypertension Comment: Ordered: Office Visit Level 4 Est 04222; 11/03/15 8:47:00 FERRY HAND, Cellulitis of left foot | CAD (coronary artery disease) | Bronchiectasis | Benign essential hypertension Diagnosis: Bronchiectasis Comment: Ordered: Office Visit Level 4 Est 49100; 11/03/15 8:47:00 FERRY HAND, Cellulitis of left foot | CAD (coronary artery disease) | Bronchiectasis | Benign essential hypertension Diagnosis: CAD (coronary artery disease) Comment: Ordered: Office Visit Level 4 Est 20020; 11/03/15 8:47:00 FERRY HAND, Cellulitis of left foot | CAD (coronary artery disease) | Bronchiectasis | Benign essential hypertension Diagnosis: Cellulitis of left foot Comment: Ordered: Office Visit Level 4 Est 57549; 11/03/15 8:47:00 FERRY HAND, Cellulitis of left foot | CAD (coronary artery disease) | Bronchiectasis | Benign essential hypertension Diagnosis: Primary hypercholesterolemia Comment: Additional Orders: Comment: Ordered: ProAir HFA 90 mcg/inh inhalation aerosol,2 puffs, Inhalation, QID, as needed for wheezing, # 18 g, 11 Refill(s), Pharmacy: [facility] #[id number] End of Orders ."
--- OUTSIDE RECORDS SUMMARY | 2017-02-22 05:51 | XMS REPORT | Referral Summary ---
Author Author [facility] Ye[facility] [place], Pulmonary Organization [facility] [place], Pulmonary Address Unknown Phone Unavailable Care Team Providers Care White Work Cleaner Name Role Phone Francy Gee Primary Care Physician [phone] Encounter [facility] [id number] Date(s): 04/06/15 - 04/06/15 [facility] [address] [place] [address] Discharge Diagnosis: Emphysema/COPD Discharge Diagnosis: Abnormal chest CT Discharge Diagnosis: Cough Discharge Disposition: 01-Home or Self Care Attending Physician: Luisa Raymond MD Admitting Physician: Luisa Raymond MD Vital Signs Most recent to 1 oldest [Reference Range]: Peripheral Pulse 68 bpm Rate [60-100 bpm] (04/06/15 9:18 AM) Respiratory Rate 20 br/min [14-20 br/min] (04/06/15 9:18 AM) Blood Pressure 112/60 mmHg [90-140/60-90 mmHg] (04/06/15 9:18 AM) SpO2 95 % (04/06/15 9:18 AM) Problem List Condition Effective Dates Status [...] DAY, # 90 tabs, 2 Refill(s), eRx: [facility] #[id number], TAKE ONE TABLET BY MOUTH EVERY DAY Start Date: 08/16/15 Status: Ordered Aspirin Low Dose 81 mg, Oral, Daily, 0 Refill(s) Start Date: 07/09/14 Status: Ordered carvedilol 25 mg oral tablet 25 mg 1 tabs, Oral, BID, # 270 tabs, 3 Refill(s), Pharmacy: [facility] # [id number], 1 tabs Oral TID Start Date: 11/30/14 Status: Ordered famotidine 20 mg oral tablet See Instructions, TAKE ONE TABLET BY MOUTH TWICE A DAY, # 180 tabs, 1 Refill(s) , eRx: [facility] #[id number], TAKE ONE TABLET BY MOUTH TWICE A DAY Start Date: 06/28/15 Status: Ordered ferrous sulfate 325 mg (65 mg elemental iron) oral tablet 325 mg 1 tabs, Oral, Daily, 0 Refill(s) Start Date: 08/03/15 Status: Ordered losartan 100 mg oral tablet See Instructions, TAKE ONE HALF TABLET BY MOUTH EVERY DAY, # 90 tabs, 1 Refill(s ), eRx: [facility] #[id number], TAKE ONE TABLET BY MOUTH EVERY DAY Start Date: 01/18/15 Status: Ordered multivitamin 1 tablet, Oral, Daily, 0 Refill(s) Start Date: 07/09/14 Status: Ordered Nitromist 0.4 mg sublingual spray 0.4 mg, SubLingual, q5min, # 1 bottles, 1 Refill(s), Pharmacy: [facility] #[id number], 0.4 mg SubLingual q5min Start Date: 11/04/14 Status: Ordered [place] 5 mg-325 mg oral tablet 1 tabs, Oral, BID, as needed for pain, # 60 tabs, 0 Refill(s) Start Date: 08/26/15 Status: Ordered ProAir HFA 90 mcg/inh inhalation aerosol 2 puffs, Inhalation, QID, as needed for wheezing, 0 Refill(s) Start Date: 12/21/14 Status: Ordered simvastatin 20 mg oral tablet See Instructions, TAKE ONE TABLET BY MOUTH EVERY NIGHT AT BEDTIME, # 90 tabs, eRx: [facility] #[id number], TAKE ONE TABLET BY MOUTH EVERY NIGHT AT BEDTIME Start Date: 07/19/15 Status: Ordered Spiriva 2.5 mcg, Inhalation, Daily, 0 Refill(s) Start Date: 08/17/15 Status: Ordered Spiriva Respimat 60 inhalation aerosol 2 puffs, Inhalation, Daily, # 1 Each, 3 Refill(s), Pharmacy: [facility] # [id number] Start Date: 08/12/15 Status: Ordered Results No data available for [...] 1995 Hemorrhoid operation 1991 5 hernia repairs, mari ae inguinal 1980 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 It can help heal the body or may be a reaction to an irritated airway. A cough may only last 2 or 3 weeks (acute ) or may last more than 8 weeks (chronic ). CAUSES Acute cough: Viral or bacterial infections. Chronic cough: Infections. Allergies. Asthma. Post-nasal drip. Smoking. Heartburn or acid reflux. Some medicines. Chronic lung problems (COPD). Cancer. SYMPTOMS Cough. Fever. Chest pain. Increased breathing rate. High-pitched whistling sound when breathing (wheezing ). Colored mucus that you cough up (sputum ). TREATMENT A bacterial cough may be treated with antibiotic medicine. A viral cough must run its course and will not respond to antibiotics. Your caregiver may recommend other treatments if you have a chronic cough. HOME CARE INSTRUCTIONS Only take [id number] or prescription medicines for pain, discomfort, or fever as directed by your caregiver. Use cough suppressants only as directed by your caregiver. Use a cold steam vaporizer or humidifier in your bedroom or home to help loosen secretions. Sleep in a semi-upright position if your cough is worse at night. Rest as needed. Stop smoking if you smoke. SEEK IMMEDIATE MEDICAL CARE IF: You have pus in your sputum. Your cough starts to worsen. You cannot control your cough with suppressants and are losing sleep. You begin coughing up blood. You have difficulty breathing. You develop pain which is getting worse or is uncontrolled with medicine. You have a fever. MAKE SURE YOU: Understand these instructions. Will watch your condition. Will get help right away if you are not doing well or get worse. Document Released: 04/12/2012 Document Revised: 01/06/2013 Document Reviewed: [facility] Patient Information 2014 [employer]. No follow up information was provided. Extracted from: Title: Office Visit Note Author: Luisa Raymond Date: 04/06/15 Alea CANTU Assessment/Plan 1.Emphysema/COPD Improved exercise capacity Controlled Noexacerbations advised to use rescue inhaler when needed 2.Abnormal chest CT Improved aeration with no change in size of the pleural based lesion. 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 repeat ct chest in 6 months. 3.Cough DDX post nasal drip vs acid reflux disease advised to use Flonase for 1 month and call with any change in status continue with H2 blockers, might need to add a PPI.
--- OUTSIDE RECORDS SUMMARY | 2017-02-22 05:51 | XMS REPORT | Continuity of Care Document ---
Author Author Stuart Vasquez MD Ambulatory Address [address] [place] [address] Phone Care Team Providers Care High Wire Artist Name Role Phone Tayo Gee PP Unavailable Payers Payer name Insurance type Covered alliance party ID Authorization(s) Unknown Problems Condition Effective Dates (start - stop) Clinical Status CAD, Unspecified - Uncertain CAD (coronary artery disease) - *Chronic Hypertension [...] *Chronic Visit for suture removal - *Stable Skin nodule - *Acute Diarrhea - *Chronic Rectal bleeding - Intermittent Stable angina - *Stable CAD (coronary artery disease) - *Chronic Eczema - Intermittent CAD, Unspecified - *Chronic Angina effort - *Chronic [place] (myocardial infarction) - *Chronic History of coronary artery bypass surgery - *Chronic Essential hypertension - *Chronic CAD, Unspecified - *Controlled AC POLIO NOS-TYPE [...] limb - *Chronic Flat foot - *Chronic Skin nodule - *Acute Hypertension - *Chronic CAD (coronary artery disease) - *Chronic Actinic keratoses - *Chronic Stable angina - *Stable Serous otitis media - *Resolved BPH (benign prostatic hyperplasia) - *Stable Hypercholesterolemia - *Chronic Hypertension, Benign - *Chronic Fatigue / Malaise - *Chronic CAD (coronary artery disease) - *Chronic Hypercholesterolemia - *Chronic Bursitis, knee - *Acute CAD (coronary artery disease) - *Chronic Angina pectoris - *Stable Cataracts, bilateral - *Chronic Hypertension - *Chronic BPH - *Controlled Flu - *Acute Gastroenteritis - *Acute Dermatophytosis of nail - *Chronic Pain in limb - *Chronic Influenza Vaccine - Family History Family Member [...] Dosage Effective Dates (start - stop) Status Vitamin C 250 mg tablet take 1 [...] route every day 81 MG - Active allopurinol 100 mg tablet Take 1 tablet by mouth every day. - Active fluticasone 50 mcg/actuation nasal spray,suspension inhale 2 spray (100MCG) by intranasal route every day in each nostril 100 MCG - Active Nitrolingual 0.4 mg/dose spray Take as directed. - Active famotidine 20 mg tablet Take 1 tablet by mouth twice a day. - Active triamcinolone acetonide 0.1 % topical ointment apply by topical route 2 times every day a thin layer to the affected area(s) 0 - Active simvastatin 20 mg tablet Take 1 tablet by mouth at bedtime. - Active losartan 100 mg tablet take 1 Tablet (100MG) by oral route every day 100 MG - Active carvedilol 25 mg tablet take 1 tablet (25MG) by oral route 3 times every day with food 25 MG - Active [place] 5 mg-325 mg tablet take 1 tablet by oral route 2 times every day as needed for pain - Active Immunizations Vaccine Date Status Comments Flu (split) (3 yrs or older) completed Flu (split) (3 yrs or older) completed Results Test Name Date and Time Measure Units Reference Range Abnormal Flag Comments Unknown Vital Signs Date / Time: Height Weight Pulse Rate Blood Pressure Temperature /13:32:00 69.85 in 188.00 lbs 72 /min 150/77 mm[Hg] Procedures Procedure Date HT MUSCLE IMAGE SPECT, MULT Encounters Encounter Location Date Patient Visit [facility] [place] Patient Visit [facility] Patient Visit [facility] Advance Directives Directive Effective Date Unknown
--- OUTSIDE RECORDS SUMMARY | 2017-02-22 05:51 | XMS REPORT | Referral Summary ---
Author Author [facility], Family Medicine Organization [facility] Yepez [place], [facility] Address Unknown Phone Unavailable Care Team Providers Care Supervisor Metal Hanging Name Role Phone Francy Gee Primary Care Physician [phone] Encounter [facility] Date(s): 03/28/16 - 03/28/16 [facility]ERRON Yepez [place], [address] [place] [id number] Discharge Diagnosis: Cellulitis of great toe, right Discharge Disposition: 01-Home or Self Care Attending Physician: Carmelita Howard APRN Admitting Physician: Carmelita Howard APRN Vital Signs Most recent to 1 oldest [Reference Range]: Temperature Tympanic 36.0 degC [36.6-38.1 degC] *LOW* (03/28/16 10:04 AM) Peripheral Pulse 68 bpm Rate [60-100 bpm] (03/28/16 10:04 AM) Respiratory Rate 16 br/min [14-20 br/min] (03/28/16 10:04 AM) Blood Pressure 160/76 mmHg [90-140/60-90 mmHg] *HI* (03/28/16 10:04 AM) Problem List Condition Effective Dates Status [...] rmed) Need for influenza Active vaccination(Confirme d) DNEISE on Active CPAP(Confirmed) Osteoarthritis(Confi Active rmed) Overweight(Confirmed [...] dry cough and bloodshot eye Active Medications Aleve 220 mg oral tablet 220 mg 1 tabs, Oral, q8hr, as needed for pain, 0 Refill(s) Start Date: 02/15/16 Status: Ordered allopurinol 100 mg oral tablet See Instructions, TAKE ONE TABLET BY MOUTH EVERY DAY, # 90 tabs, 2 Refill(s), eRx: [facility] #[id number], TAKE ONE TABLET BY MOUTH EVERY DAY Start Date: 08/16/15 Status: Ordered Aspirin Low Dose 81 mg, Oral, Daily, 0 Refill(s) Start Date: 07/09/14 Status: Ordered carvedilol 25 mg oral tablet See Instructions, TAKE ONE TABLET BY MOUTH THREE TIMES A DAY, # 270 tabs, 2 Refill(s), eRx: [facility] #[id number], TAKE ONE TABLET BY MOUTH THREE TIMES A DAY Start Date: 01/17/16 Status: Ordered famotidine 20 mg oral tablet See Instructions, TAKE ONE TABLET BY MOUTH TWICE A DAY, # 180 tabs, 1 Refill(s) , eRx: [facility] #[id number], TAKE ONE TABLET BY MOUTH TWICE A DAY Start Date: 06/28/15 Status: Ordered ferrous sulfate 325 mg (65 mg elemental iron) oral tablet 325 mg 1 tabs, Oral, Daily, 0 Refill(s) Start Date: 08/03/15 Status: Ordered Keflex 500 mg oral capsule 500 mg 1 caps, Oral, q8hr, X 10 days, # 30 caps, 0 Refill(s), Pharmacy: [facility] #[id number], 1 caps Oral q8hr,x10 days Start Date: 03/28/16 Stop Date: 04/07/16 Status: Ordered losartan 100 mg oral tablet See Instructions, TAKE ONE TABLET BY MOUTH DAILY, # 90 tabs, eRx: [facility] #[id number], TAKE ONE TABLET BY MOUTH DAILY Start Date: 11/15/15 Status: Ordered multivitamin 1 tablet, Oral, Daily, 0 Refill(s) Start Date: 07/09/14 Status: Ordered Nitromist 0.4 mg sublingual spray 0.4 mg, SubLingual, q5min, # 1 bottles, 1 Refill(s), Pharmacy: [facility] #[id number], 0.4 mg SubLingual q5min Start Date: 11/04/14 Status: Ordered [place] 5 mg-325 mg oral tablet 1 tabs, Oral, BID, as needed for pain, # 60 tabs, 0 Refill(s) Start Date: 03/28/16 Status: Ordered ProAir HFA 90 mcg/inh inhalation aerosol 2 puffs, Inhalation, QID, as needed for wheezing, # 18 g, 11 Refill(s), Pharmacy : [facility] #[id number] Start Date: 11/03/15 Status: Ordered simvastatin 20 mg oral tablet See Instructions, TAKE ONE TABLET BY MOUTH EVERY NIGHT AT BEDTIME, # 90 tabs, 2 Refill(s), eRx: [facility] #[id number], TAKE ONE TABLET BY MOUTH EVERY NIGHT [...] 1991 5 hernia repairs, maria e inguinal 1979 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 Recommend he soak it for 10 minutesonce a day to keep the nail bed soft as it grows out. Keep clean and dry. Protect with the dressing. Call the office if fails to improve. Refill for [place] provided for chronic pain. Ordered: Office Visit Level 3 Est 13043 Orders: cephalexin, 500 mg 1 caps, Oral, q8hr, X 10 days, # 30 caps, 0 Refill( s), Pharmacy: [facility] #[id number], 1 caps Oral q8hr,x10 days HYDROcodone-acetaminophen, 1 tabs, Oral, BID, as needed for pain, # 60 tabs, 0 Refill(s) Addendum I reviewed this chart, the patient's medical history, and the by Douglas, Resident's/BIOMEDICAL EQUIPMENT TECH's/PA/RN's/PharmD's documented findings, and concur with the assessment and [place] DO plan as above. on March 28, 2016 13:55:39 CDT
--- OUTSIDE RECORDS SUMMARY | 2017-02-22 05:51 | XMS REPORT | Referral Summary ---
Author Author [facility] Organization [facility] [employer] [place] Address Unknown Phone Unavailable Care Team Providers Care Patent Leather Sorter Name Role Phone Francy Gee Primary Care Physician [phone] Encounter Date(s): 07/07/15 - 07/07/15 [facility] [place] [address], [place] [address] Discharge Diagnosis: Obstructive sleep apnea (adult) (pediatric) Discharge Disposition: 01-Home or Self Care Attending Physician: Rufino Shoemaker MD Admitting Physician: Rufino Shoemaker MD Vital Signs No data available for [...] DAY, # 90 tabs, 2 Refill(s), eRx: [facility] #[id number], TAKE ONE TABLET BY MOUTH EVERY DAY Start Date: 08/16/15 Status: Ordered Aspirin Low Dose 81 mg, Oral, Daily, 0 Refill(s) Start Date: 07/09/14 Status: Ordered carvedilol 25 mg oral tablet 25 mg 1 tabs, Oral, BID, # 270 tabs, 3 Refill(s), Pharmacy: [facility] # [id number], 1 tabs Oral TID Start Date: 11/30/14 Status: Ordered cephalexin 500 mg oral capsule 500 mg 1 caps, Oral, TID, X 10 days, # 30 caps, 0 Refill(s), Pharmacy: [facility] #[id number], 1 caps Oral TID,x10 days Start Date: 01/12/16 Stop Date: 01/22/16 Status: Ordered famotidine 20 mg oral tablet See Instructions, TAKE ONE TABLET BY MOUTH TWICE A DAY, # 180 tabs, 1 Refill(s) , eRx: [facility] #[id number], TAKE ONE TABLET BY MOUTH TWICE A DAY Start Date: 06/28/15 Status: Ordered ferrous sulfate 325 mg (65 mg elemental iron) oral tablet 325 mg 1 tabs, Oral, Daily, 0 Refill(s) Start Date: 08/03/15 Status: Ordered losartan 100 mg oral tablet See Instructions, TAKE ONE TABLET BY MOUTH DAILY, # 90 tabs, eRx: [facility] #[id number], TAKE ONE TABLET BY MOUTH DAILY Start Date: 11/15/15 Status: Ordered multivitamin 1 tablet, Oral, Daily, 0 Refill(s) Start Date: 07/09/14 Status: Ordered Nitromist 0.4 mg sublingual spray 0.4 mg, SubLingual, q5min, # 1 bottles, 1 Refill(s), Pharmacy: [facility] #[id number], 0.4 mg SubLingual q5min Start Date: 11/04/14 Status: Ordered [place] 5 mg-325 mg oral tablet 1 tabs, Oral, BID, as needed for pain, # 60 tabs, 0 Refill(s) Start Date: 12/27/15 Status: Ordered ProAir HFA 90 mcg/inh inhalation aerosol 2 puffs, Inhalation, QID, as needed for wheezing, # 18 g, 11 Refill(s), Pharmacy : [facility] #[id number] Start Date: 11/03/15 Status: Ordered simvastatin 20 mg oral tablet See Instructions, TAKE ONE TABLET BY MOUTH EVERY NIGHT AT BEDTIME, # 90 tabs, 2 Refill(s), eRx: [facility] #[id number], TAKE ONE TABLET BY MOUTH EVERY NIGHT [...] -[address] Skelton 2009 Cardiac catheterization 2009 Placement of coronary stent 2007 Angioplasty with 2 stents 2006 Flexible sigmoidoscopy 2003 left foot synoivial cyst [...] left hand 194 Hospital admission for polio 1939 Tonsillectomy 1935 [...]
--- OUTSIDE RECORDS SUMMARY | 2017-02-22 05:51 | XMS REPORT | Referral Summary ---
Author Author [facility] Organization [facility], [facility] Address Unknown Phone Unavailable Care Team Providers Care Door Cutter Name Role Phone Francy Gee Primary Care Physician [phone] Encounter VC Date(s): 10/13/15 - 10/13/15 [facility], [address] [place] [address] Discharge Disposition: 01-Home or Self Care Attending Physician: Tayo Gee MD Admitting Physician: Tayo Gee MD Vital Signs Most recent to 1 oldest [Reference Range]: Temperature Tympanic 35.8 degC [36.6-38.1 degC] *LOW* (10/13/15 10:48 AM) Peripheral Pulse 71 bpm Rate [60-100 bpm] (10/13/15 10:48 AM) Blood Pressure 126/70 mmHg [90-140/60-90 mmHg] (10/13/15 10:48 AM) SpO2 97 % (10/13/15 10:48 AM) Problem List Condition Effective Dates Status [...] DAY, # 90 tabs, 2 Refill(s), eRx: [facility] #[id number], TAKE ONE TABLET BY MOUTH EVERY DAY Start Date: 08/16/15 Status: Ordered Aspirin Low Dose 81 mg, Oral, Daily, 0 Refill(s) Start Date: 07/09/14 Status: Ordered carvedilol 25 mg oral tablet 25 mg 1 tabs, Oral, BID, # 270 tabs, 3 Refill(s), Pharmacy: [facility] # [id number], 1 tabs Oral TID Start Date: 11/30/14 Status: Ordered famotidine 20 mg oral tablet See Instructions, TAKE ONE TABLET BY MOUTH TWICE A DAY, # 180 tabs, 1 Refill(s) , eRx: [facility] #[id number], TAKE ONE TABLET BY MOUTH TWICE A DAY Start Date: 06/28/15 Status: Ordered ferrous sulfate 325 mg (65 mg elemental iron) oral tablet 325 mg 1 tabs, Oral, Daily, 0 Refill(s) Start Date: 08/03/15 Status: Ordered losartan 100 mg oral tablet See Instructions, TAKE ONE HALF TABLET BY MOUTH EVERY DAY, # 90 tabs, 1 Refill(s ), eRx: [facility] #[id number], TAKE ONE TABLET BY MOUTH EVERY DAY Start Date: 01/18/15 Status: Ordered multivitamin 1 tablet, Oral, Daily, 0 Refill(s) Start Date: 07/09/14 Status: Ordered mupirocin 2% topical ointment 1 camilo, Topical, BID, # 22 g, 0 Refill(s), Pharmacy: [facility] #[id number] Start Date: 10/13/15 Stop Date: 10/31/15 Status: Ordered Nitromist 0.4 mg sublingual spray 0.4 mg, SubLingual, q5min, # 1 bottles, 1 Refill(s), Pharmacy: [facility] #[id number], 0.4 mg SubLingual q5min Start Date: 11/04/14 Status: Ordered [place] 5 mg-325 mg oral tablet 1 tabs, Oral, BID, as needed for pain, # 60 tabs, 0 Refill(s) Start Date: 09/27/15 Status: Ordered ProAir HFA 90 mcg/inh inhalation aerosol 2 puffs, Inhalation, QID, as needed for wheezing, 0 Refill(s) Start Date: 12/21/14 Status: Ordered simvastatin 20 mg oral tablet See Instructions, TAKE ONE TABLET BY MOUTH EVERY NIGHT AT BEDTIME, # 90 tabs, eRx: [facility] #[id number], TAKE ONE TABLET BY MOUTH EVERY NIGHT AT BEDTIME Start Date: 07/19/15 Status: Ordered Spiriva 2.5 mcg, Inhalation, Daily, 0 Refill(s) Start Date: 08/17/15 Status: Ordered Spiriva Respimat 60 inhalation aerosol 2 puffs, Inhalation, Daily, # 1 Each, 3 Refill(s), Pharmacy: [facility] # [id number] Start Date: 08/12/15 Status: Ordered sulfamethoxazole-trimethoprim 800 mg-160 mg oral tablet 1 tabs, Oral, BID, X 7 days, # 14 tabs, 0 Refill(s), Pharmacy: [facility] #[id number] Start Date: 10/13/15 Stop Date: 10/20/15 Status: Ordered Results No data available for [...] Cholecystectomy 2009 CABG -[address] Skelton 2008 Cardiac [...] Patient Education Author: Tayo Gee MD Date: Home Health Care Cellulitis Cellulitis is an [...] Released: 07/25/2006 Document Revised: 03/01/2015 Document Reviewed: Exit[employer] Patient Information 2015 [employer] This information is not intended to replace advice given to you by your health care provider. Make sure you discuss any questions you have with your health care provider. No follow up information was provided. Extracted from: Title: cellulitis, left foot, CAD, Author: Tayo Gee MD Date: 10/13 HTN Impression and Plan Diagnosis Laceration of left foot (SUC30-VE S91.312A, Working, Medical). Cellulitis of foot, left (PXY41-FA L03.116, Working, Medical). CAD (coronary artery disease) (ZIU79-KE I25.10, Working, Medical). Benign essential hypertension (YQX47-GG I10, Working, Medical). Primary hypercholesterolemia (DTQ37-QJ E78.0, Working, Medical). Bronchiectasis (RAA72-TU J47.9, Working, Medical). Plan: 1) Tdap given today. 2) use the Mupirocin ointment to the left foot infection twice a day until it' s healed. 3) Take the sulfa antibiotic for 7 days. 4) Continue your routine meds. 5) See me in October, as scheduled.. Orders Orders (Selected) Outpatient Orders Ordered Boostrix (Tdap): 0.5 mL, IntraMuscular, Once Office Visit Level 4 Est 65563: Prescriptions Prescribed mupirocin 2% topical ointment: 1 camilo, Topical, BID, 22 g, 0 Refill(s) sulfamethoxazole-trimethoprim 800 mg-160 mg oral tablet: 1 tabs, Oral, BID, for 7 days, 14 tabs, 0 Refill(s). Dx/Order Association Plan: Diagnosis: Benign essential hypertension Comment: Ordered: Office Visit Level 4 Est 07241; 10/13/15 11:11:00 PHOTOGRAPHIC PRINTER, Laceration of left foot | Cellulitis of foot, left | CAD (coronary artery disease) | Benign essential hypertension Diagnosis: Bronchiectasis Comment: Diagnosis: CAD (coronary artery disease) Comment: Ordered: Office Visit Level 4 Est 82204; 10/13/15 11:11:00 PHOTOGRAPHIC PRINTER, Laceration of left foot | Cellulitis of foot, left | CAD (coronary artery disease) | Benign essential hypertension Diagnosis: Cellulitis of foot, left Comment: Ordered: Office Visit Level 4 Est 89309; 10/13/15 11:11:00 PHOTOGRAPHIC PRINTER, Laceration of left foot | Cellulitis of foot, left | CAD (coronary artery disease) | Benign essential hypertension Diagnosis: Laceration of left foot Comment: Ordered: Boostrix (Tdap); 0.5 mL, IntraMuscular, Once, First Dose : 10/13/15 12:00:00 PHOTOGRAPHIC PRINTER, Stop Date: 10/13/15 12:00:00 PHOTOGRAPHIC PRINTER Office Visit Level 4 Est 19425; 10/13/15 11:11:00 PHOTOGRAPHIC PRINTER, Laceration of left foot | Cellulitis of foot, left | CAD (coronary artery disease) | Benign essential hypertension Diagnosis: Primary hypercholesterolemia Comment: Additional Orders: Comment: Ordered: mupirocin 2% topical ointment,1 camilo, Topical, BID, # 22 g , 0 Refill(s), Pharmacy: [facility] #[id number] Ordered: sulfamethoxazole-trimethoprim 800 mg-160 mg oral tablet,1 tabs, Oral, BID, X 7 days, # 14 tabs, 0 Refill(s), Pharmacy: [facility] # [id number] End of Orders ."
--- OUTSIDE RECORDS SUMMARY | 2017-02-22 05:51 | XMS REPORT | Referral Summary ---
Author Author [facility] Organization [facility] [place] Address Unknown Phone Unavailable Care Team Providers Care Club Attendant Name Role Phone Francy Gee Primary Care Physician [phone] Encounter Date(s): 04/25/16 - 04/25/16 [facility] [place] [address] [place], [place] [address] Discharge Diagnosis: DENISE on CPAP Discharge Disposition: 01-Home or Self Care Attending Physician: Rufino Shoemaker MD Admitting Physician: Rufino Shoemaker MD Vital Signs Most recent to 1 oldest [Reference Range]: Peripheral Pulse 64 bpm Rate [60-100 bpm] (04/25/16 11:12 AM) Blood Pressure 120/70 mmHg [90-140/60-90 mmHg] (04/25/16 11:12 AM) SpO2 95 % (04/25/16 11:12 AM) Problem List Condition Effective Dates Status [...] DAY, # 90 tabs, 2 Refill(s), eRx: [facility] #[id number], TAKE ONE TABLET BY MOUTH EVERY DAY Start Date: 08/16/15 Status: Ordered Aspirin Low Dose 81 mg, Oral, Daily, 0 Refill(s) Start Date: 07/09/14 Status: Ordered carvedilol 25 mg oral tablet See Instructions, TAKE ONE TABLET BY MOUTH THREE TIMES A DAY, # 270 tabs, 2 Refill(s), eRx: [facility] #[id number], TAKE ONE TABLET BY MOUTH THREE TIMES A DAY Start Date: 01/17/16 Status: Ordered famotidine 20 mg oral tablet See Instructions, TAKE ONE TABLET BY MOUTH TWICE A DAY, # 180 tabs, 1 Refill(s) , eRx: [facility] #[id number], TAKE ONE TABLET BY MOUTH TWICE A DAY Start Date: 04/10/16 Status: Ordered ferrous sulfate 325 mg (65 mg elemental iron) oral tablet 325 mg 1 tabs, Oral, Daily, 0 Refill(s) Start Date: 08/03/15 Status: Ordered losartan 100 mg oral tablet See Instructions, TAKE ONE TABLET BY MOUTH DAILY, # 90 tabs, eRx: [facility] #[id number], TAKE ONE TABLET BY MOUTH DAILY Start Date: 04/24/16 Status: Ordered multivitamin 1 tablet, Oral, Daily, 0 Refill(s) Start Date: 07/09/14 Status: Ordered Nitromist 0.4 mg sublingual spray 0.4 mg, SubLingual, q5min, # 1 bottles, 1 Refill(s), Pharmacy: [facility] #[id number], 0.4 mg SubLingual q5min Start Date: 11/04/14 Status: Ordered [place] 5 mg-325 mg oral tablet 1 tabs, Oral, BID, as needed for pain, # 60 tabs, 0 Refill(s) Start Date: 03/28/16 Status: Ordered ProAir HFA 90 mcg/inh inhalation aerosol 2 puffs, Inhalation, QID, as needed for wheezing, # 18 g, 11 Refill(s), Pharmacy : [facility] #[id number] Start Date: 11/03/15 Status: Ordered simvastatin 20 mg oral tablet See Instructions, TAKE ONE TABLET BY MOUTH EVERY NIGHT AT BEDTIME, # 90 tabs, 2 Refill(s), eRx: [facility] #[id number], TAKE ONE TABLET BY MOUTH EVERY NIGHT [...] and Plan Extracted from: Title: Office Visit Note Author: Rufino Shoemaker Date: 04/25/16 Assessment/Plan 1.DENISE on CPAP - Excellent compliance with occasional persistent sleepiness. - Patient is used to naps. Advised to keep these no longer than 30 minutes. - Needs new hose. - Patient reports controlled symptoms with CPAP use. - Objective therapy report from CPAP unit confirms compliance and controlled AHI. - Patient is advised to avoid driving or other potentially harmful activities if sleepy, drowsy or otherwise impaired. - Weight loss recommended. - Follow up yearly.
--- OUTSIDE RECORDS SUMMARY | 2017-02-22 05:52 | XMS REPORT | Referral Summary ---
Author Author [facility] Organization [facility] Address Unknown Phone Unavailable Care Team Providers Care Legal Nurse Consultant Name Role Phone Francy Gee Primary Care Physician [phone] Encounter Date(s): 04/28/15 - 04/28/15 [facility] [address] [place] [address] [place] [id number] Discharge Diagnosis: Coronary heart disease Discharge Diagnosis: Essential hypertension Discharge Diagnosis: History of coronary artery bypass surgery Discharge Diagnosis: Dyspnea Discharge Diagnosis: Hypercholesterolemia Discharge Disposition: -Home or Self Care Attending Physician: Stuart Vasquez MD Admitting Physician: Stuart Vasquez MD Referring Physician: Tayo Gee MD Vital Signs Most recent to 1 oldest [Reference Range]: Peripheral Pulse 68 bpm Rate [60-100 bpm] (04/28/15 1:45 PM) Blood Pressure 130/70 mmHg [90-140/60-90 mmHg] (04/28/15 1:45 PM) Problem List Condition Effective Dates Status Health [...] DAY, # 90 tabs, 2 Refill(s), eRx: [facility] #[id number], TAKE ONE TABLET BY MOUTH EVERY DAY Start Date: 08/16/15 Status: Ordered Aspirin Low Dose 81 mg, Oral, Daily, 0 Refill(s) Start Date: 07/09/14 Status: Ordered carvedilol 25 mg oral tablet 25 mg 1 tabs, Oral, BID, # 270 tabs, 3 Refill(s), Pharmacy: [facility] # [id number], 1 tabs Oral TID Start Date: 11/30/14 Status: Ordered famotidine 20 mg oral tablet See Instructions, TAKE ONE TABLET BY MOUTH TWICE A DAY, # 180 tabs, 1 Refill(s) , eRx: [facility] #[id number], TAKE ONE TABLET BY MOUTH TWICE A DAY Start Date: 06/28/15 Status: Ordered ferrous sulfate 325 mg (65 mg elemental iron) oral tablet 325 mg 1 tabs, Oral, Daily, 0 Refill(s) Start Date: 08/03/15 Status: Ordered losartan 100 mg oral tablet See Instructions, TAKE ONE HALF TABLET BY MOUTH EVERY DAY, # 90 tabs, 1 Refill(s ), eRx: [facility] #[id number], TAKE ONE TABLET BY MOUTH EVERY DAY Start Date: 01/18/15 Status: Ordered multivitamin 1 tablet, Oral, Daily, 0 Refill(s) Start Date: 07/09/14 Status: Ordered Nitromist 0.4 mg sublingual spray 0.4 mg, SubLingual, q5min, # 1 bottles, 1 Refill(s), Pharmacy: [facility] #[id number], 0.4 mg SubLingual q5min Start Date: 11/04/14 Status: Ordered [place] 5 mg-325 mg oral tablet 1 tabs, [...] NIGHT AT BEDTIME, # 90 tabs, eRx: [facility] #[id number], TAKE ONE TABLET BY MOUTH EVERY NIGHT AT BEDTIME Start Date: 07/19/15 Status: Ordered Spiriva 2.5 mcg, Inhalation, Daily, 0 Refill(s) Start Date: 08/17/15 Status: Ordered Spiriva Respimat 60 inhalation aerosol 2 puffs, Inhalation, Daily, # 1 Each, 3 Refill(s), Pharmacy: [facility] # [id number] Start Date: 08/12/15 Status: Ordered Results No [...] Extracted from: Title: Office Visit Note Author: Stuart Vasquez MD Date: 04/28/15 Assessment/Plan 1.Coronary heart disease 2.History of coronary artery bypass surgery 3.Essential hypertension 4.Hypercholesterolemia 5.Dyspnea Discussion: Overall, this man seems to be very stable with regard to his heart. I didn't make any changes in his therapy. I advised him to see me again in 1 year. He is to call if he has any difficulty in the meantime.
--- OUTSIDE RECORDS SUMMARY | 2017-02-22 05:52 | XMS REPORT | Referral Summary ---
Author Author [facility] [place] Organization [facility] [place] Address Unknown Phone Unavailable Care Team Providers Care Reservations Agent Name Role Phone Francy Gee Primary Care Physician [phone] Encounter Date(s): 06/25/15 - 06/25/15 [facility] [place] [address] [place], [place] [address] Discharge Diagnosis: Hypersomnia Discharge Diagnosis: Snores Discharge Diagnosis: Chronic obstructive pulmonary disease (COPD) Discharge Diagnosis: CAD (coronary artery disease) Discharge Disposition: 01-Home or Self Care Attending Physician: Rufino Shoemaker MD Admitting Physician: Rufino Shoemaker MD Vital Signs Most recent to 1 oldest [Reference Range]: Peripheral Pulse 67 bpm Rate [60-100 bpm] (06/25/15 8:30 AM) Blood Pressure 122/64 mmHg [90-140/60-90 mmHg] (06/25/15 8:30 AM) SpO2 94 % (06/25/15 8:30 AM) Problem List Condition Effective Dates Status [...] DAY, # 90 tabs, 2 Refill(s), eRx: [facility] #[id number], TAKE ONE TABLET BY MOUTH EVERY DAY Start Date: 08/16/15 Status: Ordered Aspirin Low Dose 81 mg, Oral, Daily, 0 Refill(s) Start Date: 07/09/14 Status: Ordered carvedilol 25 mg oral tablet 25 mg 1 tabs, Oral, BID, # 270 tabs, 3 Refill(s), Pharmacy: [facility] # [id number], 1 tabs Oral TID Start Date: 11/30/14 Status: Ordered famotidine 20 mg oral tablet See Instructions, TAKE ONE TABLET BY MOUTH TWICE A DAY, # 180 tabs, 1 Refill(s) , eRx: [facility] #[id number], TAKE ONE TABLET BY MOUTH TWICE A DAY Start Date: 06/28/15 Status: Ordered ferrous sulfate 325 mg (65 mg elemental iron) oral tablet 325 mg 1 tabs, Oral, Daily, 0 Refill(s) Start Date: 08/03/15 Status: Ordered losartan 100 mg oral tablet See Instructions, TAKE ONE TABLET BY MOUTH DAILY, # 90 tabs, eRx: [facility] #[id number], TAKE ONE TABLET BY MOUTH DAILY Start Date: 11/15/15 Status: Ordered multivitamin 1 tablet, Oral, Daily, 0 Refill(s) Start Date: 07/09/14 Status: Ordered Nitromist 0.4 mg sublingual spray 0.4 mg, SubLingual, q5min, # 1 bottles, 1 Refill(s), Pharmacy: [facility] #[id number], 0.4 mg SubLingual q5min Start Date: 11/04/14 Status: Ordered [place] 5 mg-325 mg oral tablet 1 tabs, Oral, BID, as needed for pain, # 60 tabs, 0 Refill(s) Start Date: 12/27/15 Status: Ordered ProAir HFA 90 mcg/inh inhalation aerosol 2 puffs, Inhalation, QID, as needed for wheezing, # 18 g, 11 Refill(s), Pharmacy : [facility] #[id number] Start Date: 11/03/15 Status: Ordered simvastatin 20 mg oral tablet See Instructions, TAKE ONE TABLET BY MOUTH EVERY NIGHT AT BEDTIME, # 90 tabs, 2 Refill(s), eRx: [facility] #[id number], TAKE ONE TABLET BY MOUTH EVERY NIGHT [...] 1949 Hospital admission for polio 1940 Tonsillectomy 193 CIII LEFT ANKLE PAIN CIII LLE CELLULITIS Colonoscopy Herniorrhaphy - 3 total, 1 on the left and 2 on the right1 15 hernia repairs: 3 on the left, 2 on the right, between 1965 and 1979 Social History Social History Type Response Smoking Status Never smoker Assessment and Plan Extracted from: Title: Office Visit Note Author: Rufino Shoemaker Date: 06/25/15 Assessment/Plan 1.Snores 2.Hypersomnia CAD (coronary artery disease) Chronic obstructive pulmonary disease (COPD) - Excellent compliance and adequate response to therapy. - Patient reports controlled symptoms with CPAP use. - - Patient is advised to avoid driving or other potentially harmful activities if sleepy, drowsy or otherwise impaired. - - Addendum - Unit damaged, original study >15yo and not available. by Berny - Lost to follow up for DENISE. Kleber, - Needs new DME. Rufino Cramer - Split night test ASAP. CANTU on - Follow up 6 weeks after test for compliance. June 25, 2015 09:19:33 CDT
--- OUTSIDE RECORDS SUMMARY | 2017-02-22 05:52 | XMS REPORT | Referral Summary ---
Author Author [facility], [facility] Organization [facility] Address Unknown Phone Unavailable Care Team Providers Care Yield Engineer Name Role Phone Francy Gee Primary Care Physician [phone] Encounter VC Date(s): 08/07/16 - 08/07/16 [facility], [address] [place] [address] Discharge Disposition: 01-Home or Self Care Attending Physician: Carmelita Howard APRN Admitting Physician: Carmelita Howard APRN Vital Signs No data available for this [...] BY MOUTH EVERY DAY, # 90 tabs, eRx: [facility] #[id number], TAKE ONE TABLET BY MOUTH EVERY DAY Start Date: 07/17/16 Status: Ordered Aspirin Low Dose 81 mg, Oral, Daily, 0 Refill(s) Start Date: 07/09/14 Status: Ordered Benadryl 25 mg, Oral, Daily, as needed for food allergy symptoms, 0 Refill(s) Start Date: 06/22/16 Status: Ordered carvedilol 25 mg oral tablet 25 mg 1 tabs, Oral, BID, # 270 tabs, 2 Refill(s), eRx: [facility] #[id number] , TAKE ONE TABLET BY MOUTH THREE TIMES A DAY Start Date: 01/17/16 Status: Ordered famotidine 20 mg oral tablet See Instructions, TAKE ONE TABLET BY MOUTH TWICE A DAY, # 180 tabs, 1 Refill(s) , eRx: [facility] #[id number], TAKE ONE TABLET BY MOUTH TWICE A DAY Start Date: 04/10/16 Status: Ordered ferrous sulfate 325 mg (65 mg elemental iron) oral tablet 325 mg 1 tabs, Oral, Daily, 0 Refill(s) Start Date: 08/03/15 Status: Ordered losartan 100 mg oral tablet See Instructions, TAKE ONE TABLET BY MOUTH DAILY, # 90 tabs, eRx: [facility] #[id number], TAKE ONE TABLET BY MOUTH DAILY Start Date: 04/24/16 Status: Ordered multivitamin 1 tablet, Oral, Daily, 0 Refill(s) Start Date: 07/09/14 Status: Ordered Nitromist 0.4 mg sublingual spray 0.4 mg, SubLingual, q5min, # 1 bottles, 1 Refill(s), Pharmacy: [facility] #[id number], 0.4 mg SubLingual q5min Start Date: 11/04/14 Status: Ordered [place] 5 mg-325 mg oral tablet 1 tabs, Oral, BID, as needed for pain, # 60 tabs, 0 Refill(s) Start Date: 07/27/16 Status: Ordered simvastatin 20 mg oral tablet See Instructions, TAKE ONE TABLET BY MOUTH EVERY NIGHT AT BEDTIME, # 90 tabs, eRx: [facility] #[id number], TAKE ONE TABLET BY MOUTH EVERY NIGHT AT BEDTIME Start Date: 07/17/16 Status: Ordered Results No data available for this section Immunizations Vaccine Date Refusal Reason tetanus/diphth/pertuss (Tdap) adult/adol 10/13/15 hepatitis A adult vaccine 02/27/97 hepatitis A adult vaccine 12/26/95 influenza virus vaccine, inactivated 08/07/16 influenza virus vaccine, inactivated 08/03/15 influenza virus [...]
--- OUTSIDE RECORDS SUMMARY | 2017-02-22 05:52 | XMS REPORT | Continuity of Care Document ---
Author Author Estella Cervantes Ambulatory Address Unknown Phone Unavailable Care Team Providers Care Overlocker Name Role Phone Tayo Gee PP Unavailable Payers Payer name Insurance type Covered democrat ID Authorization(s) Unknown Problems Condition Effective Dates (start - stop) Clinical Status Dermatophytosis of nail - *Chronic Pain in limb - *Chronic CAD (coronary artery disease) - [...] - *Chronic Angina effort - *Chronic Old DC (myocardial infarction) - *Chronic History of coronary [...] *Acute Other and unspecified hyperlipidemia - *Chronic CAD, Unspecified - Uncertain Hypercholesterolemia - *Chronic Fatigue / Malaise - [...] day with food 25 MG - Active Rayle 5 mg-325 mg tablet take 1 tablet [...] Height Weight Pulse Rate Blood Pressure Temperature Unknown Procedures Procedure Date Unknown Encounters Encounter Location Date Patient Visit [facility] New Pod Patient Visit [facility] Patient Visit [facility] Patient Visit [facility] Patient Visit [facility] Patient Visit [facility] Patient Visit [facility] Patient Visit [facility] Patient [facility] Advance Directives Directive Effective Date Unknown
--- OUTSIDE RECORDS SUMMARY | 2017-02-22 05:52 | XMS REPORT | Referral Summary ---
Author Author [facility] Organization [facility] Address Unknown Phone Unavailable Care Team Providers Care Sales Floor Team Leader Name Role Phone Francy Gee Primary Care Physician [phone] Encounter Date(s): 04/28/15 - 04/28/15 [facility] [address] [place] [address] [place] Isidro [id number] Discharge Diagnosis: Coronary heart disease Discharge [...] DAY, # 90 tabs, 2 Refill(s), eRx: [facility] #[id number], TAKE ONE TABLET BY MOUTH EVERY DAY Start Date: 08/16/15 Status: Ordered Aspirin Low Dose 81 mg, Oral, Daily, 0 Refill(s) Start Date: 07/09/14 Status: Ordered carvedilol 25 mg oral tablet 25 mg 1 tabs, Oral, BID, # 270 tabs, 3 Refill(s), Pharmacy: [facility] # [id number], 1 tabs Oral TID Start Date: 11/30/14 Status: Ordered famotidine 20 mg oral tablet See Instructions, TAKE ONE TABLET BY MOUTH TWICE A DAY, # 180 tabs, 1 Refill(s) , eRx: [facility] #[id number], TAKE ONE TABLET BY MOUTH TWICE A DAY Start Date: 06/28/15 Status: Ordered ferrous sulfate 325 mg (65 mg elemental iron) oral tablet 325 mg 1 tabs, Oral, Daily, 0 Refill(s) Start Date: 08/03/15 Status: Ordered losartan 100 mg oral tablet See Instructions, TAKE ONE HALF TABLET BY MOUTH EVERY DAY, # 90 tabs, 1 Refill(s ), eRx: [facility] #[id number], TAKE ONE TABLET BY MOUTH EVERY DAY Start Date: 01/18/15 Status: Ordered multivitamin 1 tablet, Oral, Daily, 0 Refill(s) Start Date: 07/09/14 Status: Ordered Nitromist 0.4 mg sublingual spray 0.4 mg, SubLingual, q5min, # 1 bottles, 1 Refill(s), Pharmacy: [facility] #[id number], 0.4 mg SubLingual q5min Start Date: 11/04/14 Status: Ordered [place] 5 mg-325 mg oral tablet 1 tabs, Oral, BID, as needed for pain, # 60 tabs, 0 Refill(s) Start Date: 10/26/15 Status: Ordered ProAir HFA 90 mcg/inh inhalation aerosol 2 puffs, Inhalation, QID, as needed for wheezing, # 18 g, 11 Refill(s), Pharmacy : [facility] #[id number] Start Date: 11/03/15 Status: Ordered simvastatin 20 mg oral tablet See Instructions, TAKE ONE TABLET BY MOUTH EVERY NIGHT AT BEDTIME, # 90 tabs, 2 Refill(s), eRx: [facility] #[id number], TAKE ONE TABLET BY MOUTH EVERY NIGHT [...] Angioplasty with 2 stents 2006 Flexible sigmoidoscopy 2004 left foot synoivial cyst excision 2003 Hospital [...]
--- OUTSIDE RECORDS SUMMARY | 2017-02-22 05:52 | XMS REPORT | Referral Summary ---
Author Author [facility] Organization [facility] Address Unknown Phone Unavailable Care Team Providers Care Door To Door Salesman Name Role Phone Francy Gee Primary Care Physician [phone] Encounter Date(s): 04/28/15 - 04/28/15 [facility] [address] [place] [address] [place] [id number] Discharge Diagnosis: Coronary heart [...] DAY, # 90 tabs, 2 Refill(s), eRx: [facility] #[id number], TAKE ONE TABLET BY MOUTH EVERY DAY Start Date: 08/16/15 Status: Ordered Aspirin Low Dose 81 mg, Oral, Daily, 0 Refill(s) Start Date: 07/09/14 Status: Ordered carvedilol 25 mg oral tablet 25 mg 1 tabs, Oral, BID, # 270 tabs, 3 Refill(s), Pharmacy: [facility] # [id number], 1 tabs Oral TID Start Date: 11/30/14 Status: Ordered famotidine 20 mg oral tablet See Instructions, TAKE ONE TABLET BY MOUTH TWICE A DAY, # 180 tabs, 1 Refill(s) , eRx: [facility] #[id number], TAKE ONE TABLET BY MOUTH TWICE A DAY Start Date: 06/28/15 Status: Ordered ferrous sulfate 325 mg (65 mg elemental iron) oral tablet 325 mg 1 tabs, Oral, Daily, 0 Refill(s) Start Date: 08/03/15 Status: Ordered losartan 100 mg oral tablet See Instructions, TAKE ONE HALF TABLET BY MOUTH EVERY DAY, # 90 tabs, 1 Refill(s ), eRx: [facility] #[id number], TAKE ONE TABLET BY MOUTH EVERY DAY Start Date: 01/18/15 Status: Ordered multivitamin 1 tablet, Oral, Daily, 0 Refill(s) Start Date: 07/09/14 Status: Ordered Nitromist 0.4 mg sublingual spray 0.4 mg, SubLingual, q5min, # 1 bottles, 1 Refill(s), Pharmacy: [facility] #[id number], 0.4 mg SubLingual q5min Start Date: 11/04/14 Status: Ordered [place] 5 mg-325 mg oral tablet 1 tabs, [...] NIGHT AT BEDTIME, # 90 tabs, eRx: [facility] #[id number], TAKE ONE TABLET BY MOUTH EVERY NIGHT AT BEDTIME Start Date: 07/19/15 Status: Ordered Spiriva 2.5 mcg, Inhalation, Daily, 0 Refill(s) Start Date: 08/17/15 Status: Ordered Spiriva Respimat 60 inhalation aerosol 2 puffs, Inhalation, Daily, # 1 Each, 3 Refill(s), Pharmacy: [facility] # [id number] Start Date: 08/12/15 Status: Ordered Results No [...]
--- OUTSIDE RECORDS SUMMARY | 2017-02-22 05:52 | XMS REPORT | Referral Summary ---
Author Author [facility] Organization [facility] Address Unknown Phone Unavailable Care Team Providers Care Manager Reliability Name Role Phone Francy Gee Primary Care Physician [phone] Encounter [facility] [id number] Date(s): 04/06/15 - 04/06/15 [facility] [address] [place] [address] Discharge Diagnosis: Emphysema/COPD Discharge Diagnosis: Abnormal [...] DAY, # 90 tabs, 2 Refill(s), eRx: [facility] #[id number], TAKE ONE TABLET BY MOUTH EVERY DAY Start Date: 08/16/15 Status: Ordered Aspirin Low Dose 81 mg, Oral, Daily, 0 Refill(s) Start Date: 07/09/14 Status: Ordered carvedilol 25 mg oral tablet 25 mg 1 tabs, Oral, BID, # 270 tabs, 3 Refill(s), Pharmacy: [facility] # [id number], 1 tabs Oral TID Start Date: 11/30/14 Status: Ordered famotidine 20 mg oral tablet See Instructions, TAKE ONE TABLET BY MOUTH TWICE A DAY, # 180 tabs, 1 Refill(s) , eRx: [facility] #[id number], TAKE ONE TABLET BY MOUTH TWICE A DAY Start Date: 06/28/15 Status: Ordered ferrous sulfate 325 mg (65 mg elemental iron) oral tablet 325 mg 1 tabs, Oral, Daily, 0 Refill(s) Start Date: 08/03/15 Status: Ordered losartan 100 mg oral tablet See Instructions, TAKE ONE HALF TABLET BY MOUTH EVERY DAY, # 90 tabs, 1 Refill(s ), eRx: [facility] #[id number], TAKE ONE TABLET BY MOUTH EVERY DAY Start Date: 01/18/15 Status: Ordered multivitamin 1 tablet, Oral, Daily, 0 Refill(s) Start Date: 07/09/14 Status: Ordered Nitromist 0.4 mg sublingual spray 0.4 mg, SubLingual, q5min, # 1 bottles, 1 Refill(s), Pharmacy: [facility] #[id number], 0.4 mg SubLingual q5min Start Date: 11/04/14 Status: Ordered [place] 5 mg-325 mg oral tablet 1 tabs, [...] NIGHT AT BEDTIME, # 90 tabs, eRx: [facility] #[id number], TAKE ONE TABLET BY MOUTH EVERY NIGHT AT BEDTIME Start Date: 07/19/15 Status: Ordered Spiriva 2.5 mcg, Inhalation, Daily, 0 Refill(s) Start Date: 08/17/15 Status: Ordered Spiriva Respimat 60 inhalation aerosol 2 puffs, Inhalation, Daily, # 1 Each, 3 Refill(s), Pharmacy: [facility] # [id number] Start Date: 08/12/15 Status: Ordered Results No [...] chronic cough. HOME CARE INSTRUCTIONS Only take [id number] or prescription medicines for pain, discomfort, or [...] Released: 04/12/2012 Document Revised: 01/06/2013 Document Reviewed: [facility] Patient Information 2014 [employer]. No follow up information was provided. Extracted [...]
--- OUTSIDE RECORDS SUMMARY | 2017-02-22 05:53 | XMS REPORT | Referral Summary ---
Author Author [facility] Organization [facility] Address Unknown Phone Unavailable Care Team Providers Care Family Centered Specialist Name Role Phone Francy Gee Primary Care Physician [phone] Encounter [facility] [id number] Date(s): 04/06/15 - 04/06/15 [facility] [address] [place] [address] Discharge Diagnosis: Emphysema/COPD Discharge Diagnosis: Abnormal chest [...] DAY, # 90 tabs, 2 Refill(s), eRx: [facility] #[id number], TAKE ONE TABLET BY MOUTH EVERY DAY Start Date: 08/16/15 Status: Ordered Aspirin Low Dose 81 mg, Oral, Daily, 0 Refill(s) Start Date: 07/09/14 Status: Ordered carvedilol 25 mg oral tablet 25 mg 1 tabs, Oral, BID, # 270 tabs, 3 Refill(s), Pharmacy: [facility] # [id number], 1 tabs Oral TID Start Date: 11/30/14 Status: Ordered famotidine 20 mg oral tablet See Instructions, TAKE ONE TABLET BY MOUTH TWICE A DAY, # 180 tabs, 1 Refill(s) , eRx: [facility] #[id number], TAKE ONE TABLET BY MOUTH TWICE A DAY Start Date: 06/28/15 Status: Ordered ferrous sulfate 325 mg (65 mg elemental iron) oral tablet 325 mg 1 tabs, Oral, Daily, 0 Refill(s) Start Date: 08/03/15 Status: Ordered losartan 100 mg oral tablet See Instructions, TAKE ONE HALF TABLET BY MOUTH EVERY DAY, # 90 tabs, 1 Refill(s ), eRx: [facility] #[id number], TAKE ONE TABLET BY MOUTH EVERY DAY Start Date: 01/18/15 Status: Ordered multivitamin 1 tablet, Oral, Daily, 0 Refill(s) Start Date: 07/09/14 Status: Ordered Nitromist 0.4 mg sublingual spray 0.4 mg, SubLingual, q5min, # 1 bottles, 1 Refill(s), Pharmacy: [facility] #[id number], 0.4 mg SubLingual q5min Start Date: 11/04/14 Status: Ordered [place] 5 mg-325 mg oral tablet 1 tabs, [...] NIGHT AT BEDTIME, # 90 tabs, eRx: [facility] #[id number], TAKE ONE TABLET BY MOUTH EVERY NIGHT AT BEDTIME Start Date: 07/19/15 Status: Ordered Spiriva 2.5 mcg, Inhalation, Daily, 0 Refill(s) Start Date: 08/17/15 Status: Ordered Spiriva Respimat 60 inhalation aerosol 2 puffs, Inhalation, Daily, # 1 Each, 3 Refill(s), Pharmacy: [facility] # [id number] Start Date: 08/12/15 Status: Ordered Results No [...] chronic cough. HOME CARE INSTRUCTIONS Only take [id number] or prescription medicines for pain, discomfort, or [...] 04/12/2012 Document Revised: 01/06/2013 Document Reviewed: [facility] Patient Information 2014 [employer]. No follow up information was provided. Extracted [...]
--- OUTSIDE RECORDS SUMMARY | 2017-02-22 05:53 | XMS REPORT | Referral Summary ---
Author Author [facility] Organization [facility], [place] Address Unknown Phone Unavailable Care Team Providers Care Associate Dean Name Role Phone Francy Gee Primary Care Physician [phone] Encounter Date(s): 08/17/15 - 08/17/15 [facility] [place] [address] [place], [place] [address] Discharge Diagnosis: DENISE on CPAP Discharge Disposition: 01-Home or Self Care Attending Physician: Rufino Shoemaker MD Admitting Physician: Rufino Shoemaker MD Vital Signs Most recent to 1 oldest [Reference Range]: Peripheral Pulse 67 bpm Rate [60-100 bpm] (08/17/15 10:01 AM) Blood Pressure 122/74 mmHg [90-140/60-90 mmHg] (08/17/15 10:01 AM) SpO2 93 % (08/17/15 10:01 AM) Problem List Condition Effective Dates Status [...] 90 tabs, 2 Refill(s), eRx: [facility] #[id number], TAKE ONE TABLET BY MOUTH EVERY DAY Start Date: 08/16/15 Status: Ordered Aspirin Low Dose 81 mg, Oral, Daily, 0 Refill(s) Start Date: 07/09/14 Status: Ordered carvedilol 25 mg oral tablet 25 mg 1 tabs, Oral, BID, # 270 tabs, 3 Refill(s), Pharmacy: [facility] # [id number], 1 tabs Oral TID Start Date: 11/30/14 Status: Ordered famotidine 20 mg oral tablet See Instructions, TAKE ONE TABLET BY MOUTH TWICE A DAY, # 180 tabs, 1 Refill(s) , eRx: [facility] #[id number], TAKE ONE TABLET BY MOUTH TWICE A DAY Start Date: 06/28/15 Status: Ordered ferrous sulfate 325 mg (65 mg elemental iron) oral tablet 325 mg 1 tabs, Oral, Daily, 0 Refill(s) Start Date: 08/03/15 Status: Ordered losartan 100 mg oral tablet See Instructions, TAKE ONE HALF TABLET BY MOUTH EVERY DAY, # 90 tabs, 1 Refill(s ), eRx: [facility] #[id number], TAKE ONE TABLET BY MOUTH EVERY DAY Start Date: 01/18/15 Status: Ordered multivitamin 1 tablet, Oral, Daily, 0 Refill(s) Start Date: 07/09/14 Status: Ordered Nitromist 0.4 mg sublingual spray 0.4 mg, SubLingual, q5min, # 1 bottles, 1 Refill(s), Pharmacy: [facility] #[id number], 0.4 mg SubLingual q5min Start Date: 11/04/14 Status: Ordered [place] 5 mg-325 mg oral tablet 1 tabs, Oral, BID, as needed for pain, # 60 tabs, 0 Refill(s) Start Date: 07/27/15 Status: Ordered ProAir HFA 90 mcg/inh inhalation aerosol 2 puffs, Inhalation, QID, as needed for wheezing, 0 Refill(s) Start Date: 12/21/14 Status: Ordered simvastatin 20 mg oral tablet See Instructions, TAKE ONE TABLET BY MOUTH EVERY NIGHT AT BEDTIME, # 90 tabs, eRx: [facility] #[id number], TAKE ONE TABLET BY MOUTH EVERY NIGHT AT BEDTIME Start Date: 07/19/15 Status: Ordered Spiriva 2.5 mcg, Inhalation, Daily, 0 Refill(s) Start Date: 08/17/15 Status: Ordered Spiriva Respimat 60 inhalation aerosol 2 puffs, Inhalation, Daily, # 1 Each, 3 Refill(s), Pharmacy: [facility] # [id number] Start Date: 08/12/15 Status: Ordered Results No [...] Office Visit Note Author: Rufino Shoemaker Date: 08/17/15 Assessment/Plan 1.DENISE on CPAP - Sub-optimal compliance. - Discussed strategies to increase use. -Discussed goals of >4 hours per night and > 70% of nights>4h. - Importance of CPAP use for cardiovascular. cerebrovascular, cancer and other health/mood benefits discussed. - All other questions answered. - Follow up in 1-2 month to recheck compliance.
--- OUTSIDE RECORDS SUMMARY | 2017-02-22 05:53 | XMS REPORT | Referral Summary ---
Author Author [facility], Family Medicine Organization [facility], [facility] Address Unknown Phone Unavailable Care Team Providers Care Vp Hr Diversity Name Role Phone Francy Gee Primary Care Physician [phone] Encounter VC Date(s): 05/24/15 - 05/24/15 [facility] [place], [address] [place] [id number] Discharge Diagnosis: Actinic keratoses Discharge Disposition: 01-Home or Self Care Attending Physician: Tayo Gee MD Admitting Physician: Tayo Gee MD Vital Signs Most recent to 1 oldest [Reference Range]: Temperature Tympanic 36.2 degC [36.6-38.1 degC] *LOW* (05/24/15 11:04 AM) Peripheral Pulse 64 bpm Rate [60-100 bpm] (05/24/15 11:04 AM) Respiratory Rate 16 br/min [14-20 br/min] (05/24/15 11:04 AM) Blood Pressure 120/70 mmHg [90-140/60-90 mmHg] (05/24/15 11:04 AM) Problem List Condition Effective Dates Status [...] DAY, # 90 tabs, 2 Refill(s), eRx: [facility] #[id number], TAKE ONE TABLET BY MOUTH EVERY DAY Start Date: 08/16/15 Status: Ordered Aspirin Low Dose 81 mg, Oral, Daily, 0 Refill(s) Start Date: 07/09/14 Status: Ordered carvedilol 25 mg oral tablet 25 mg 1 tabs, Oral, BID, # 270 tabs, 3 Refill(s), Pharmacy: [facility] # [id number], 1 tabs Oral TID Start Date: 11/30/14 Status: Ordered famotidine 20 mg oral tablet See Instructions, TAKE ONE TABLET BY MOUTH TWICE A DAY, # 180 tabs, 1 Refill(s) , eRx: [facility] #[id number], TAKE ONE TABLET BY MOUTH TWICE A DAY Start Date: 06/28/15 Status: Ordered ferrous sulfate 325 mg (65 mg elemental iron) oral tablet 325 mg 1 tabs, Oral, Daily, 0 Refill(s) Start Date: 08/03/15 Status: Ordered losartan 100 mg oral tablet See Instructions, TAKE ONE TABLET BY MOUTH DAILY, # 90 tabs, eRx: [facility] #[id number], TAKE ONE TABLET BY MOUTH DAILY Start Date: 11/15/15 Status: Ordered multivitamin 1 tablet, Oral, Daily, 0 Refill(s) Start Date: 07/09/14 Status: Ordered Nitromist 0.4 mg sublingual spray 0.4 mg, SubLingual, q5min, # 1 bottles, 1 Refill(s), Pharmacy: [facility] #[id number], 0.4 mg SubLingual q5min Start Date: 11/04/14 Status: Ordered Mayport 5 mg-325 mg oral tablet 1 tabs, Oral, BID, as needed for pain, # 60 tabs, 0 Refill(s) Start Date: 11/26/15 Status: Ordered ProAir HFA 90 mcg/inh inhalation aerosol 2 puffs, Inhalation, QID, as needed for wheezing, # 18 g, 11 Refill(s), Pharmacy : [facility] #[id number] Start Date: 11/03/15 Status: Ordered simvastatin 20 mg oral tablet See Instructions, TAKE ONE TABLET BY MOUTH EVERY NIGHT AT BEDTIME, # 90 tabs, 2 Refill(s), eRx: [facility] #[id number], TAKE ONE TABLET BY MOUTH EVERY NIGHT [...] Procedures Procedure Date Related Diagnosis Body Site Destruction (eg, laser surgery, 05/24/15 electrosurgery, cryosurgery, chemosurgery, surgical curettement), premalignant lesions (eg, actinic keratoses); first lesion Destruction (eg, laser surgery, 05/24/15 electrosurgery, cryosurgery, chemosurgery, surgical curettement), premalignant lesions (eg, actinic keratoses); second through 14 lesions, each (List separately in addition to code for first lesion).. Destruction (eg, laser surgery, 05/24/15 electrosurgery, cryosurgery, chemosurgery, surgical curettement), premalignant lesions (eg, actinic keratoses); second through 14 lesions, each (List separately in addition to code for first lesion).. Destruction (eg, laser surgery, 05/24/15 electrosurgery, cryosurgery, chemosurgery, surgical curettement), premalignant lesions (eg, actinic keratoses); second through 14 lesions, each (List separately in addition to code for first lesion).. Destruction (eg, laser surgery, 05/24/15 electrosurgery, cryosurgery, chemosurgery, surgical curettement), premalignant lesions (eg, actinic keratoses); second through 14 lesions, each (List separately in addition to code for first lesion).. Destruction (eg, laser surgery, 05/24/15 electrosurgery, cryosurgery, chemosurgery, surgical curettement), premalignant lesions (eg, actinic keratoses); second through 14 lesions, each (List separately in addition to code for first lesion).. RT L5-S1 TRANSLAMINAR 06/10/12 LUMBAR TRANSLAMINAL L5-S1 [...] left hand 1948 Hospital admission for polio 0 Tonsillectomy 1935 [...] Patient Education Author: Tayo Gee MD Date: 05/24 Family Medicine Actinic Keratosis Actinic keratosis is a precancerous growth on the skin. This means it could develop into skin cancer if it is not treated. About 1% of actinic keratoses turn into skin cancer within a year. It is important to have all such growths removed to prevent them from developing into skin cancer. CAUSES Actinic keratosis is caused by getting too much ultraviolet (UV) radiation from the sun or other UV light sources. RISK FACTORS Factors that increase your chances of getting actinic keratosis include: Having light-colored skin and blue eyes. Having blonde or red hair. Spending a lot of time in the sun. Age. The risk of actinic keratosis increases with age. SYMPTOMS Actinic keratosis growths look like scaly, rough spots of skin. They can be as small as a pinhead or as big as a quarter. They may itch, hurt, or feel sensitive. Sometimes there is a little tag of pink or mari skin growing off them. In some cases, actinic keratoses are easier felt than seen. They do not go away with the use of moisturizing lotions or creams. Actinic keratoses appear most often on areas of skin that get a lot of sun exposure. These areas include the: Scalp. Face. Ears. Lips. Upper back. Backs of the hands. Forearms. DIAGNOSIS Your caregiver can usually tell what is wrong by performing a physical exam. A tissue sample (biopsy) may also be taken and examined under a microscope. TREATMENT Actinic keratosis can be treated several ways. Most treatments can be done in your caregiver's office. Treatment options may include: Curettage. A tool is used to gently scrape off the growth. Cryosurgery. Liquid nitrogen is applied to the growth to freeze it. The growth eventually falls off the skin. Medicated creams, such as 5-fluorouracil or imiquimod. The medicine destroys the cells in the growth. Chemical peels. Chemicals are applied to the growth and the outer layers of skin are peeled off. Photodynamic therapy. A drug that makes your skin more sensitive to light is applied to the skin. A strong, blue light is aimed at the skin and destroys the growth. PREVENTION To prevent future sun damage: Try to avoid the sun between 10:00 a.m. and 4:00 p.m. when it is the strongest. Use a sunscreen or sunblock with SPF 30 or greater. Apply sunscreen at least 30 minutes before exposure to the sun. Always wear protective hats, clothing, and sunglasses with UV protection. Avoid medicines, herbs, and foods that increase your sensitivity to sunlight. Avoid tanning beds. HOME CARE INSTRUCTIONS If your skin was covered with a bandage, change and remove the bandage as directed by your caregiver. Keep the treated area dry as directed by your caregiver. Apply any creams as prescribed by your caregiver. Follow the directions carefully. Check your skin regularly for any changes. Visit a skin doctor (cloth painter) every year for a skin exam. SEEK MEDICAL CARE IF: Your skin does not heal and becomes irritated, red, or bleeds. You notice any changes or new growths on your skin. Document Released: 01/11/2010 Document Revised: 01/06/2013 Document Reviewed: [facility] Patient Information 2015 [employer]. This information is not intended to replace advice given to you by your health care provider. Make sure you discuss any questions you have with your health care provider. Chronic Obstructive Pulmonary Disease Chronic obstructive pulmonary disease (COPD) is a common lung problem. In COPD, the flow of air from the lungs is limited. The way your lungs work will probably never return to normal, but there are things you can do to improve you lungs and make yourself feel better. HOME CARE Take all medicines as told by your doctor. Only take [id number]-[id number] or prescription medicines as told by your doctor. Avoid medicines or cough syrups that dry up your airway (such as antihistamines) and do not allow you to get rid of thick spit. You do not need to avoid them if told differently by your doctor. If you smoke, stop. Smoking makes the problem worse. Avoid being around things that make your breathing worse (like smoke, chemicals, and fumes). Use oxygen therapy and therapy to help improve your lungs (pulmonary rehabilitation) if told by your doctor. If you need home oxygen therapy, ask your doctor if you should buy a tool to measure your oxygen level (oximeter). Avoid people who have a sickness you can catch (contagious). Avoid going outside when it is very hot, cold, or humid. Eat healthy foods. Eat smaller meals more often. Rest before meals. Stay active, but remember to also rest. Make sure to get all the shots (vaccines) your doctor recommends. Ask your doctor if you need a pneumonia shot. Learn and use tips on how to relax. Learn and use tips on how to control your breathing as told by your doctor. Try: Breathing in (inhaling) through your nose for 1 second. Then, pucker your lips and breath out (exhale) through your lips for 2 seconds. Putting one hand on your belly (abdomen). Breathe in slowly through your nose for 1 second. Your hand on your belly should move out. Pucker your lips and breathe out slowly through your lips. Your hand on your belly should move in as you breathe out. Learn and use controlled coughing to clear thick spit from your lungs. 1. Lean your head a little forward. 2. Breathe in deeply. 3. Try to hold your breath for 3 seconds. 4. Keep your mouth slightly open while coughing 2 times. 5. Spit any thick spit out into a tissue. 6. Rest and do the steps again 1 or 2 times as needed. GET HELP IF: You cough up more thick spit than usual. There is a change in the color or thickness of the spit. It is harder to breathe than usual. Your breathing is faster than usual. GET HELP RIGHT AWAY IF: You have shortness of breath while resting. You have shortness of breath that stops you from: Being able to talk. Doing normal activities. You chest hurts for longer than 5 minutes. Your skin color is more blue than usual. Your pulse oximeter shows that you have low oxygen for longer than 5 minutes. MAKE SURE YOU: Understand these instructions. Will watch your condition. Will get help right away if you are not doing well or get worse. Document Released: 04/02/2009 Document Revised: 08/05/2014 Document Reviewed: [employer] Patient Information 2015 [employer]. This information is not intended to replace advice given to you by your health care provider. Make sure you discuss any questions you have with your health care provider. No follow up information was provided. Extracted from: Title: CAD, HTN, AKs Author: Tayo Gee MD Date: 05/24/15 Impression and Plan Diagnosis Actinic keratoses (ICD9 702.0, Discharge, Medical). Benign essential hypertension (ICD9 401.1, Working, Medical). Bronchiectasis (ICD9 494.0, Working, Medical). CAD (coronary artery disease) (ICD9 414.9, Working, Medical). Chronic obstructive pulmonary disease (COPD) (ICD9 496, Working, Medical). Hyperlipidemia (ICD9 272.4, Working, Medical). Plan: A total of 6 AKs were treated on his face, using liquid nitrogen with a freeze, thaw, refreeze technique which he tolerated well., Continue your current meds and treatments and see me for a physical in 3 months and as needed. . Orders Orders (Selected) Outpatient Orders Ordered Destruction premalignant lesion 1st 58293: Destruction premalignant lesion 2-14, Each 29586: Destruction premalignant lesion 2-14, Each 62763: Destruction premalignant lesion 2-14, Each 49108: Destruction premalignant lesion 2-14, Each 50668: Destruction premalignant lesion 2-14, Each 42061: Office Visit Level 4 Est 99833: Prescriptions Prescribed Mayport 5 mg-325 mg oral tablet: 1 tabs, Oral, BID, PRN: as needed for pain, 60 tabs, 0 Refill(s). Dx/Order Association Plan: Diagnosis: Actinic keratoses Comment: Ordered: Destruction premalignant lesion 2-14, Each 92632; 18:21:00 CDT, 1, Actinic keratoses Destruction premalignant lesion 2-14, Each 73497; 05/24/15 18:20:00 CDT, 1, Actinic keratoses Destruction premalignant lesion 2-14, Each 05842; 05/24/15 18:20:00 CDT, 1, Actinic keratoses Destruction premalignant lesion 2-14, Each 03786; 05/24/15 18:20:00 CDT, 1, Actinic keratoses Destruction premalignant lesion 2-14, Each 36816; 05/24/15 18:20:00 CDT, 1, Actinic keratoses Destruction premalignant lesion 1st 12328; 18:20:00 CDT, 1, Actinic keratoses Office Visit Level 4 Est 11953; 05/24/15 18:20:00 CDT, 25, CAD (coronary artery disease) | Chronic obstructive pulmonary disease ( COPD) | Bronchiectasis | Benign essential hypertension | Hyperlipidemia Diagnosis: Benign essential hypertension Comment: Ordered: Office Visit Level 4 Est 10060; 05/24/15 18:20:00 CDT, 25 , CAD (coronary artery disease) | Chronic obstructive pulmonary disease (COPD) | Bronchiectasis | Benign essential hypertension | Hyperlipidemia Diagnosis: Bronchiectasis Comment: Ordered: Office Visit Level 4 Est 31764; 05/24/15 18:20:00 CDT, 25 , CAD (coronary artery disease) | Chronic obstructive pulmonary disease (COPD) | Bronchiectasis | Benign essential hypertension | Hyperlipidemia Diagnosis: CAD (coronary artery disease) Comment: Ordered: Office Visit Level 4 Est 21845; 05/24/15 18:20:00 CDT, 25 , CAD (coronary artery disease) | Chronic obstructive pulmonary disease (COPD) | Bronchiectasis | Benign essential hypertension | Hyperlipidemia Diagnosis: Chronic obstructive pulmonary disease (COPD) Comment: Ordered: Office Visit Level 4 Est 04536; 05/24/15 18:20:00 CDT, 25 , CAD (coronary artery disease) | Chronic obstructive pulmonary disease (COPD) | Bronchiectasis | Benign essential hypertension | Hyperlipidemia Diagnosis: Hyperlipidemia Comment: Ordered: Office Visit Level 4 Est [id number]; 05/24/15 18:20:00 CDT, 25 , CAD (coronary artery disease) | Chronic obstructive pulmonary disease (COPD) | Bronchiectasis | Benign essential hypertension | Hyperlipidemia Additional Orders: Comment: Ordered: Mayport 5 mg-325 mg oral tablet,1 tabs, Oral, BID, as needed for pain, # 60 tabs, 0 Refill(s) End of Orders ."
--- OUTSIDE RECORDS SUMMARY | 2017-02-22 05:53 | XMS REPORT | Referral Summary ---
Author Author [facility] [place], Family Medicine Organization [facility], Mehran, [facility] Address Unknown Phone Unavailable Care Team Providers Care Design Studio Consultant Name Role Phone Francy Gee Primary Care Physician [phone] Encounter VC Date(s): 05/23/16 - 05/23/16 [facility] [place], [address] [place] [id number] Discharge Disposition: 01-Home or Self Care Attending Physician: Tayo Gee MD Admitting Physician: Tayo Gee MD Vital Signs Most recent to 1 oldest [Reference Range]: Temperature Tympanic 36.5 degC [36.6-38.1 degC] *LOW* (05/23/16 10:50 AM) Peripheral Pulse 72 bpm Rate [60-100 bpm] (05/23/16 10:50 AM) Blood Pressure 140/66 mmHg [90-140/60-90 mmHg] (05/23/16 10:50 AM) Problem List Condition Effective Dates Status [...] DAY, # 90 tabs, 2 Refill(s), eRx: [facility] #[id number], TAKE ONE TABLET BY MOUTH EVERY DAY Start Date: 08/16/15 Status: Ordered Aspirin Low Dose 81 mg, Oral, Daily, 0 Refill(s) Start Date: 07/09/14 Status: Ordered carvedilol 25 mg oral tablet 25 mg 1 tabs, Oral, BID, # 270 tabs, 2 Refill(s), eRx: [facility] #[id number] , TAKE ONE TABLET BY MOUTH THREE TIMES A DAY Start Date: 01/17/16 Status: Ordered famotidine 20 mg oral tablet See Instructions, TAKE ONE TABLET BY MOUTH TWICE A DAY, # 180 tabs, 1 Refill(s) , eRx: [facility] #[id number], TAKE ONE TABLET BY MOUTH TWICE A DAY Start Date: 04/10/16 Status: Ordered ferrous sulfate 325 mg (65 mg elemental iron) oral tablet 325 mg 1 tabs, Oral, Daily, 0 Refill(s) Start Date: 08/03/15 Status: Ordered losartan 100 mg oral tablet See Instructions, TAKE ONE TABLET BY MOUTH DAILY, # 90 tabs, eRx: [facility] #[id number], TAKE ONE TABLET BY MOUTH DAILY Start Date: 04/24/16 Status: Ordered multivitamin 1 tablet, Oral, Daily, 0 Refill(s) Start Date: 07/09/14 Status: Ordered Nitromist 0.4 mg sublingual spray 0.4 mg, SubLingual, q5min, # 1 bottles, 1 Refill(s), Pharmacy: [facility] #[id number], 0.4 mg SubLingual q5min Start Date: 11/04/14 Status: Ordered [place] 5 mg-325 mg oral tablet 1 tabs, Oral, BID, as needed for pain, # 60 tabs, 0 Refill(s) Start Date: 05/23/16 Status: Ordered simvastatin 20 mg oral tablet See Instructions, TAKE ONE TABLET BY MOUTH EVERY NIGHT AT BEDTIME, # 90 tabs, 2 Refill(s), eRx: [facility] #[id number], TAKE ONE TABLET BY MOUTH EVERY NIGHT AT BEDTIME Start Date: 10/25/15 Status: Ordered Results Hematology Most recent to 1 oldest [Reference Range]: WBC [4.8-10.8 6.6 10*3/uL 10*3/uL] (05/23/16 11:25 AM) RBC [4.60-6.20] 4.27 *LOW* (05/23/16 11:25 AM) Hgb [14.0-18.0 13.5 gm/dL gm/dL] *LOW* (05/23/16 11:25 AM) Hct [42.0-52.0 %] 40.2 % *LOW* (05/23/16 11:25 AM) MCV [82.0-99.0 fL] 94.1 fL (05/23/16 11:25 AM) MCH [27.0-32.0 pg] 31.6 pg (05/23/16 11:25 AM) MCHC [32.0-36.0 33.6 gm/dL gm/dL] (05/23/16 11:25 AM) RDW [11.5-14.5 %] 12.8 % (05/23/16 11:25 AM) Platelet [150-400 163 10*3/uL 10*3/uL] (05/23/16 11:25 AM) MPV [8.8-14.8 fL] 10.7 fL (05/23/16 11:25 AM) Immature 0.2 % Granulocytes (05/23/16 11:25 AM) [0.0-1.0 %] Neutrophils [51-75 41 % %] *LOW* (05/23/16 11:25 AM) Lymphocytes [20-46 37 % %] (05/23/16 1125 AM) Monocytes [4-11 %] 15 % *HI* (05/23/1625 AM) Eosinophils [0-4 %] 7 % *HI* (05/23/16 AM) Basophils [0-2 %] 1 % (05/23/16 1125 AM) Neutro Absolute 2.70 10*3 [1.90-7.00 10*3] (05/23/16:25 AM) Lymph Absolute 2.46 10*3 [0.80-3.30 10*3] (05/23/16 11:25 AM) Stevens Absolute 0.98 10*3 [0.30-1.00 10*3] (05/23/16 11: AM) Eos Absolute 0.46 10*3 [0.00-0.50 10*3] (05/23/16 11:25 AM) Baso Absolute 0.03 10*3 [0.00-0.20 10*3] (05/23/16 11: AM) Chemistry Most recent to 1 oldest [Reference Range]: Sodium Lvl [135-144 140 mEq/L mEq/L] (05/23/16 AM) Potassium Lvl 4.5 mEq/L [3.5-5.2 mEq/L] (05/23/16 AM) Chloride [99-111 107 mEq/L mEq/L] (05/23/16 AM) CO2 [23-31 mEq/L] 26 mEq/L (05/23/16 AM) AGAP [3-20] 7 (05/23/16 AM) BUN [8-26 mg/dL] 23 mg/dL (05/23/16:25 AM) Glucose Lvl [70-99 96 mg/dL mg/dL] (05/23/16 AM) Creatinine Lvl 1.15 mg/dL [0.72-1.25 mg/dL] (05/23/16 11:25 AM) eGFR [>60 mL/min] >60 mL/min 1 (05/23/16 AM) Calcium Lvl 8.6 mg/dL [8.9-10.5 mg/dL] *LOW* (05/23/16 11:25 AM) Albumin Lvl [3.4-4.8 3.8 gm/dL gm/dL] (05/23/16 11:25 AM) Total Protein 6.3 gm/dL 2 [6.0-7.6 gm/dL] (05/23/16 11:25 AM) Globulin [1.8-4.0 2.5 gm/dL gm/dL] (05/23/16 11:25 AM) ALT [0-55 U/L] 26 U/L (05/23/16 11:25 AM) AST [5-34 U/L] 21 U/L (05/23/16 11:25 AM) Alk Phos [40-150 76 U/L U/L] (05/23/16 11:25 AM) Bili Total [0.2-1.2 0.4 mg/dL mg/dL] (05/23/16 11:25 AM) LDL Direct [0-129 55 mg/dL mg/dL] (05/23/16 11:25 AM) 1Result Comment: Multiply eGFR results by 1.21 for race. 2Result Comment: Please note new reference range for adult Protein. Immunizations Vaccine Date Refusal Reason tetanus/diphth/pertuss (Tdap) [...] 194 Hospital admission for polio 1939 Tonsillectomy 1936 CIII LEFT ANKLE PAIN CIII LLE CELLULITIS Colonoscopy Herniorrhaphy - 3 total, 1 on the left and 2 on the right1 15 hernia repairs: 3 on the left, 2 on the right, between 1965 and 1979 Social History Social History Type Response Smoking Status Never smoker Assessment and Plan Extracted from: Title: Ambulatory Patient Education Author: Tayo Gee MD Date: 05/23 Preventive Medicine Heart Disease Prevention Heart disease is a leading cause of . There are many things you can do to help prevent heart disease. BE PHYSICALLY ACTIVE Physical activity is good for your heart. It helps control your blood pressure, cholesterol levels, and weight. Try to be physically active every day. Ask your health care provider what activities are best for you. BE A HEALTHY WEIGHT Extra weight can strain your heart and affect your blood pressure and cholesterol levels. Lose weight with diet and exercise if recommended by your health care provider. EAT HEART-HEALTHY FOODS Follow a healthy eating plan as recommended by your health care provider or dietitian. Heart-healthy foods include: High-fiber foods. These include oat bran, oatmeal, and whole-grain breads and cereals. Fruits and vegetables. Avoid: Alcohol. Fried foods. Foods high in saturated fat. These include meats, butter, whole dairy products, shortening, and coconut or palm oil. Salty foods. These include canned food, luncheon meat, salty snacks, and fast food. KEEP YOUR CHOLESTEROL LEVELS UNDER CONTROL Cholesterol is a substance that is used for many important functions. When your cholesterol levels are high, cholesterol can stick to the insides of your blood vessels, making them narrow or clog. This can lead to chest pain (angina) and a heart attack. Keep your cholesterol levels under control as recommended by your health care provider. Have your cholesterol checked at least once a year. Target cholesterol levels (in mg/dL) for most people are: Total cholesterol below 200. LDL cholesterol below 100. HDL cholesterol above 40 in men and above 50 in women. Triglycerides below 150. KEEP YOUR BLOOD PRESSURE UNDER CONTROL Having high blood pressure (hypertension) puts you at risk for stroke and other forms of heart disease. Keep your blood pressure under control as recommended by your health care provider. Ask your health care provider if you need treatment to lower your blood pressure. If you are 1839 years of age, have your blood pressure checked every 35 years. If you are 40 years of age or older, have your blood pressure checked every year. DO NOT USE TOBACCO PRODUCTS Tobacco smoke can damage your heart and blood vessels. Do not use any tobacco products including cigarettes, chewing tobacco, or electronic cigarettes. If you need help quitting, ask your health care provider. TAKE MEDICINES DIRECTED Take medicines only as directed by your health care provider. Ask your health care provider whether you should take an aspirin every day. Taking aspirin can help reduce your risk of heart disease and stroke. FOR MORE INFORMATION To find out more about heart disease, visit the [place] [employer]'s website at www.americanheart.org This information is not intended to replace advice given to you by your health care provider. Make sure you discuss any questions you have with your health care provider. Document Released: 05/29/2005 Document Revised: 11/05/2015 Document Reviewed: [facility] Patient Information 2016 [employer] No follow up information was provided. Extracted from: Title: CAD, HTN Author: Tyao Gee MD Date: 05/23/16 Impression and Plan Diagnosis CAD (coronary artery disease) (NTW33-JE I25.10, Working, Medical). Benign essential hypertension (LTO20-AS I10, Working, Medical). Primary hypercholesterolemia (CZK81-RI E78.0, Working, Medical). Bronchiectasis (CIK17-XO J47.9, Working, Medical). BPPV (benign paroxysmal positional vertigo) (FNQ72-MZ H81.12, Working, Medical). Anemia (ZZX54-SV D64.9, Working, Medical). DENISE on CPAP (LPE22-CQ G47.33, Working, Medical). Paresthesia of right arm (VHY64-OF R20.2, Working, Medical). Plan: 1) Try heat to your neck to see if this helps the numbness of the right arm. 2) Consider NCTs of the arms. 3) Continue your current meds. 4) See me in 3-4 months for your physical. ) Non-fasting lab ordered today.. Orders Orders (Selected) Outpatient Orders Ordered Office Visit Level 4 Est 19777: Future (On Hold) CBC w/ Differential: CMP: LDL Direct: . Dx/Order Association Plan: Diagnosis: Anemia Comment: Diagnosis: BPPV (benign paroxysmal positional vertigo) Comment: Diagnosis: Benign essential hypertension Comment: Ordered: Office Visit Level 4 Est 07370; 05/23/16 10:56:00 CDT, CAD (coronary artery disease) | Benign essential hypertension | Primary hypercholesterolemia | Bronchiectasis | Paresthesia of right arm Diagnosis: Bronchiectasis Comment: Ordered: Office Visit Level 4 Est 07973; 05/23/16 10:56:00 CDT, CAD (coronary artery disease) | Benign essential hypertension | Primary hypercholesterolemia | Bronchiectasis | Paresthesia of right arm Diagnosis: CAD (coronary artery disease) Comment: Ordered: Office Visit Level 4 Est 31482; 05/23/16 10:56:00 CDT, CAD (coronary artery disease) | Benign essential hypertension | Primary hypercholesterolemia | Bronchiectasis | Paresthesia of right arm Diagnosis: DENISE on CPAP Comment: Diagnosis: Paresthesia of right arm Comment: Ordered: Office Visit Level 4 Est 59528; 05/23/16 10:56:00 CDT, CAD (coronary artery disease) | Benign essential hypertension | Primary hypercholesterolemia | Bronchiectasis | Paresthesia of right arm Diagnosis: Primary hypercholesterolemia Comment: Ordered: Office Visit Level 4 Est 43998; 05/23/16 10:56:00 CDT, CAD (coronary artery disease) | Benign essential hypertension | Primary hypercholesterolemia | Bronchiectasis | Paresthesia of right arm Diagnosis: Benign essential hypertension Comment: Diagnosis: Anemia Comment: Diagnosis: CAD (coronary artery disease) Comment: Diagnosis: Bronchiectasis Comment: Diagnosis: Benign essential hypertension Comment: Diagnosis: Primary hypercholesterolemia Comment: Diagnosis: CAD (coronary artery disease) Comment: Diagnosis: Primary hypercholesterolemia Comment: Diagnosis: CAD (coronary artery disease) Comment: End of Orders ."
--- OUTSIDE RECORDS SUMMARY | 2017-02-22 05:53 | XMS REPORT | Referral Summary ---
Author Author [facility] [place], Family Medicine Organization [facility], Mehran, [facility] Address Unknown Phone Unavailable Care Team Providers Care Tea Tree Farmer Name Role Phone Francy Gee Primary Care Physician [phone] Encounter VC Date(s): 02/15/16 - 02/15/16 [facility] [place], [address] [place] [id number] Discharge Disposition: 01-Home or Self Care Attending Physician: Tayo Gee MD Admitting Physician: Tayo Gee MD Vital Signs Most recent to 1 oldest [Reference Range]: Temperature Tympanic 36.1 degC [36.6-38.1 degC] *LOW* (02/15/16 3:14 PM) Peripheral Pulse 72 bpm Rate [60-100 bpm] (02/15/16 3:14 PM) Blood Pressure 140/62 mmHg [90-140/60-90 mmHg] (02/15/16 3:14 PM) Problem List Condition Effective Dates Status [...] DAY, # 90 tabs, 2 Refill(s), eRx: [facility] #[id number], TAKE ONE TABLET BY MOUTH EVERY DAY Start Date: 08/16/15 Status: Ordered Aspirin Low Dose 81 mg, Oral, Daily, 0 Refill(s) Start Date: 07/09/14 Status: Ordered carvedilol 25 mg oral tablet See Instructions, TAKE ONE TABLET BY MOUTH THREE TIMES A DAY, # 270 tabs, 2 Refill(s), eRx: [facility] #[id number], TAKE ONE TABLET BY MOUTH THREE TIMES A DAY Start Date: 01/17/16 Status: Ordered famotidine 20 mg oral tablet See Instructions, TAKE ONE TABLET BY MOUTH TWICE A DAY, # 180 tabs, 1 Refill(s) , eRx: [facility] #[id number], TAKE ONE TABLET BY MOUTH TWICE A DAY Start Date: 06/28/15 Status: Ordered ferrous sulfate 325 mg (65 mg elemental iron) oral tablet 325 mg 1 tabs, Oral, Daily, 0 Refill(s) Start Date: 08/03/15 Status: Ordered losartan 100 mg oral tablet See Instructions, TAKE ONE TABLET BY MOUTH DAILY, # 90 tabs, eRx: [facility] #[id number], TAKE ONE TABLET BY MOUTH DAILY Start Date: 11/15/15 Status: Ordered multivitamin 1 tablet, Oral, Daily, 0 Refill(s) Start Date: 07/09/14 Status: Ordered Nitromist 0.4 mg sublingual spray 0.4 mg, SubLingual, q5min, # 1 bottles, 1 Refill(s), Pharmacy: [facility] #[id number], 0.4 mg SubLingual q5min Start Date: 11/04/14 Status: Ordered [place] 5 mg-325 mg oral tablet 1 tabs, Oral, BID, as needed for pain, # 60 tabs, 0 Refill(s) Start Date: 01/27/16 Status: Ordered ProAir HFA 90 mcg/inh inhalation aerosol 2 puffs, Inhalation, QID, as needed for wheezing, # 18 g, 11 Refill(s), Pharmacy : [facility] #[id number] Start Date: 11/03/15 Status: Ordered simvastatin 20 mg oral tablet See Instructions, TAKE ONE TABLET BY MOUTH EVERY NIGHT AT BEDTIME, # 90 tabs, 2 Refill(s), eRx: [facility] #[id number], TAKE ONE TABLET BY MOUTH EVERY NIGHT [...] Patient Education Author: Tayo Gee MD Date: 02/14 Family Medicine Benign Positional Vertigo Vertigo means you feel like you or your surroundings are moving when they are not. Benign positional vertigo is the most common form of vertigo. Benign means that the cause of your condition is not serious. Benign positional vertigo is more common in older adults. CAUSES Benign positional vertigo is the result of an upset in the labyrinth system. This is an area in the middle ear that helps control your balance. This may be caused by a viral infection, head injury, or repetitive motion. However, often no specific cause is found. SYMPTOMS Symptoms of benign positional vertigo occur when you move your head or eyes in different directions. Some of the symptoms may include: Loss of balance and falls. Vomiting. Blurred vision. Dizziness. Nausea. Involuntary eye movements (nystagmus). DIAGNOSIS Benign positional vertigo is usually diagnosed by physical exam. If the specific cause of your benign positional vertigo is unknown, your caregiver may perform imaging tests, such as magnetic resonance imaging (MRI) or computed tomography (CT). TREATMENT Your caregiver may recommend movements or procedures to correct the benign positional vertigo. Medicines such as meclizine, benzodiazepines, and medicines for nausea may be used to treat your symptoms. In rare cases, if your symptoms are caused by certain conditions that affect the inner ear, you may need surgery. HOME CARE INSTRUCTIONS Follow your caregiver's instructions. Move slowly. Do not make sudden body or head movements. Avoid driving. Avoid operating heavy machinery. Avoid performing any tasks that would be dangerous to you or others during a vertigo episode. Drink enough fluids to keep your urine clear or pale yellow. SEEK IMMEDIATE MEDICAL CARE IF: You develop problems with walking, weakness, numbness, or using your arms , hands, or legs. You have difficulty speaking. You develop severe headaches. Your nausea or vomiting continues or gets worse. You develop visual changes. Your family or friends notice any behavioral changes. Your condition gets worse. You have a fever. You develop a stiff neck or sensitivity to light. MAKE SURE YOU: Understand these instructions. Will watch your condition. Will get help right away if you are not doing well or get worse. This information is not intended to replace advice given to you by your health care provider. Make sure you discuss any questions you have with your health care provider. Document Released: 07/23/2007 Document Revised: 01/06/2013 Document Reviewed: [facility] Patient Information 2015 [employer]. No follow up information was provided. Extracted from: Title: vertigo, CAD, left great Author: Tayo Gee MD Date: 02/15/16 toenail excision, hand abscess Impression and Plan Diagnosis BPPV (benign paroxysmal positional vertigo) (UTY28-VO H81.10, Working, Medical). Abscess of left hand (JBU10-JM L02.512, Working, Medical). CAD (coronary artery disease) (ACC28-ZR I25.10, Working, Medical). Status post excisional debridement (SKY67-FK Z98.89, Working, Medical). Primary hypercholesterolemia (TJK51-LG E78.0, Working, Medical). Plan: 1) Use STAR to the left hand abscess TID until healed. 2) Continue dressings to the left great toe until the drainage stops (2-4 more weeks expected). 3) Silvino maneuvers explained in detail to the patient. Handout provided. 4) See me in 2 months and as needed. 5) No change to your routine meds otherwise.. Orders Orders (Selected) Outpatient Orders Order Office Visit Level 4 Est 11588: . Dx/Order Association Plan: Diagnosis: Abscess of left hand Comment: Ordered: Office Visit Level 4 Est 35349; 02/15/16 16:29:00 CDT, Status post excisional debridement | BPPV (benign paroxysmal positional vertigo ) | Abscess of left hand | CAD (coronary artery disease) | Primary hypercholesterolemia Diagnosis: BPPV (benign paroxysmal positional vertigo) Comment: Ordered: Office Visit Level 4 Est 92049; 02/15/16 16:29:00 CDT, Status post excisional debridement | BPPV (benign paroxysmal positional vertigo ) | Abscess of left hand | CAD (coronary artery disease) | Primary hypercholesterolemia Diagnosis: CAD (coronary artery disease) Comment: Ordered: Office Visit Level 4 Est 07785; 02/15/16 16:29:00 CDT, Status post excisional debridement | BPPV (benign paroxysmal positional vertigo ) | Abscess of left hand | CAD (coronary artery disease) | Primary hypercholesterolemia Diagnosis: Primary hypercholesterolemia Comment: Ordered: Office Visit Level 4 Est 94097; 02/15/16 16:29:00 CDT, Status post excisional debridement | BPPV (benign paroxysmal positional vertigo ) | Abscess of left hand | CAD (coronary artery disease) | Primary hypercholesterolemia Diagnosis: Status post excisional debridement Comment: Ordered: Office Visit Level 4 Est 61669; 02/15/16 16:29:00 CDT, Status post excisional debridement | BPPV (benign paroxysmal positional vertigo ) | Abscess of left hand | CAD (coronary artery disease) | Primary hypercholesterolemia End of Orders ."
--- OUTSIDE RECORDS SUMMARY | 2017-02-22 05:53 | XMS REPORT | Referral Summary ---
Author Organization Unknown Address Unknown Phone Unavailable Care Team Providers Care Skirt Clipper Name Role Phone Francy Gee Primary Care Physician [phone] Encounter VC Date(s): 02/22/15 - 02/22/15 [facility] [address] [place] [address] [place] Isidro [id number] Discharge Diagnosis: Chronic obstructive pulmonary disease (COPD) Discharge Diagnosis: Benign essential hypertension Discharge Diagnosis: Lumbago Discharge Diagnosis: Hyperlipidemia Discharge Diagnosis: Lung mass Discharge Diagnosis: CAD (coronary artery disease) Discharge Disposition: Home or Self Care Attending Physician: Tayo Gee MD Admitting Physician: Tayo Gee MD Vital Signs Most recent to 1 oldest [Reference Range]: Temperature Tympanic 36.1 degC [36.6-38.1 degC] *LOW* (02/22/15 11:01 AM) Peripheral Pulse 68 bpm Rate [60-100 bpm] (02/22/15 11:01 AM) Blood Pressure 136/72 mmHg [90-140/60-90 mmHg] (02/22/15 11:01 AM) Problem List Condition Effective Dates Status [...] 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 ) Lung mass(Confirmed) Active Osteoarthritis(Confi Active rmed) Overweight(Confirmed Active ) Pain of right Active calf(Confirmed) Polio(Confirmed) 1939 Active Primary Active hypercholesterolemia (Confirmed) Prostatism(Confirmed Active ) Right leg Active swelling(Confirmed) Thoracic or Active lumbosacral neuritis or radiculitis(Confirme d) Need for Active pneumococcal vaccine(Confirmed) Allergies, Adverse Reactions, Alerts Substance Reaction Severity Status Latex rash Active Levaquin tendonitis Active Medications allopurinol 100 mg oral tablet See Instructions, TAKE ONE TABLET BY MOUTH EVERY DAY, # 90 tabs, 3 Refill(s), eRx: [facility] #[id number], TAKE ONE TABLET BY MOUTH EVERY DAY Special Instructions: TAKE ONE TABLET BY MOUTH EVERY DAY Start Date: 08/07/14 Status: Ordered Aspirin Low Dose 81 mg, Oral, Daily, 0 Refill(s) Start Date: 07/09/14 Status: Ordered carvedilol 25 mg oral tablet 1 tabs, Oral, TID, # 270 tabs, 3 Refill(s), Pharmacy: [facility] #[id number], 1 tabs Oral TID Start Date: 11/30/14 Status: Ordered famotidine 20 mg oral tablet See Instructions, TAKE ONE TABLET BY MOUTH TWICE A DAY, # 180 tabs, 2 Refill(s) , eRx: [facility] #[id number], TAKE ONE TABLET BY MOUTH TWICE A DAY Special Instructions: TAKE ONE TABLET BY MOUTH TWICE A DAY Start Date: 11/30/14 Status: Ordered ferrous sulfate 325 mg, Oral, Daily, 0 Refill(s) Start Date: 07/09/14 Status: Ordered fluticasone 50 mcg/inh nasal spray 2 sprays, Nasal, Daily, as needed for allegy symptoms, 0 Refill(s) Start Date: 07/09/14 Status: Ordered losartan 100 mg oral tablet See Instructions, TAKE ONE HALF TABLET BY MOUTH EVERY DAY, # 90 tabs, 1 Refill(s ), eRx: [facility] #[id number], TAKE ONE TABLET BY MOUTH EVERY DAY Special Instructions: TAKE ONE HALF TABLET BY MOUTH EVERY DAY Start Date: 01/18/15 Status: Ordered multivitamin 1 tablet, Oral, Daily, 0 Refill(s) Start Date: 07/09/14 Status: Ordered Nitromist 0.4 mg sublingual spray 0.4 mg, SubLingual, q5min, # 1 bottles, 1 Refill(s), Pharmacy: [facility] #[id number], 0.4 mg SubLingual q5min Start Date: 11/04/14 Status: Ordered [place] 5 mg-325 mg oral tablet 1 tabs, Oral, BID, as needed for pain, # 60 tabs, 0 Refill(s) Start Date: 02/22/15 Status: Ordered ProAir HFA 90 mcg/inh inhalation aerosol 2 puffs, Inhalation, QID, as needed for wheezing, 0 Refill(s) Start Date: 12/21/14 Status: Ordered simvastatin 20 mg oral tablet See Instructions, TAKE ONE TABLET BY MOUTH EVERY NIGHT AT BEDTIME, # 90 tabs, 1 Refill(s), eRx: [facility] #[id number], TAKE ONE TABLET BY MOUTH EVERY NIGHT AT BEDTIME Special Instructions: TAKE ONE TABLET BY MOUTH EVERY NIGHT AT BEDTIME Start Date: 01/18/15 Status: Ordered Spiriva Respimat 14 Dose See Instructions, 2 inhalations daily, 0 Refill(s) Special Instructions: 2 inhalations daily Start Date: 12/21/14 Status: Ordered triamcinolone 0.1% topical ointment camilo, Topical, BID, as needed for skin rash, 0 Refill(s) Start Date: 07/09/14 [...] Patient Education Author: Tayo Gee MD Date: 02/22 Family Medicine Chronic Obstructive Pulmonary Disease Chronic obstructive pulmonary disease (COPD) is a common lung condition in which airflow from the lungs is limited. COPD is a general term that can be used to describe many different lung problems that limit airflow, including both chronic bronchitis and emphysema. If you have COPD, your lung function will probably never return to normal, but there are measures you can take to improve lung function and make yourself feel better. CAUSES Smoking (common). Exposure to secondhand smoke. Genetic problems. Chronic inflammatory lung diseases or recurrent infections. SYMPTOMS Shortness of breath, especially with physical activity. Deep, persistent (chronic ) cough with a large amount of thick mucus. Wheezing. Rapid breaths (tachypnea ). [place] or bluish discoloration (cyanosis ) of the skin, especially in fingers , toes, or lips. Fatigue. Weight loss. Frequent infections or episodes when breathing symptoms become much worse ( exacerbations ). Chest tightness. DIAGNOSIS Your healthcare provider will take a medical history and perform a physical examination to make the initial diagnosis. Additional tests for COPD may include: Lung (pulmonary ) function tests. Chest X-ray. CT scan. Blood tests. TREATMENT Treatment available to help you feel better when you have COPD include: Inhaler and nebulizer medicines. These help manage the symptoms of COPD and make your breathing more comfortable Supplemental oxygen. Supplemental oxygen is only helpful if you have a low oxygen level in your blood. Exercise and physical activity. These are beneficial for nearly all people with COPD. Some people may also benefit from a pulmonary rehabilitation program. HOME CARE INSTRUCTIONS Take all medicines (inhaled or pills) as directed by your health care provider. Only take [id number] or prescription medicines for pain, fever, or discomfort as directed by your health care provider. Avoid [id number] medicines or cough syrups that dry up your airway ( such as antihistamines) and slow down the elimination of secretions unless instructed otherwise by your healthcare provider. If you are a smoker, the most important thing that you can do is stop smoking. Continuing to smoke will cause further lung damage and breathing trouble. Ask your health care provider for help with quitting smoking. He or she can direct you to community resources or hospitals that provide support. Avoid exposure to irritants such as smoke, chemicals, and fumes that aggravate your breathing. Use oxygen therapy and pulmonary rehabilitation if directed by your health care provider. If you require home oxygen therapy, ask your healthcare provider whether you should purchase a pulse oximeter to measure your oxygen level at home. Avoid contact with individuals who have a contagious illness. Avoid extreme temperature and humidity changes. Eat healthy foods. Eating smaller, more frequent meals and resting before meals may help you maintain your strength. Stay active, but balance activity with periods of rest. Exercise and physical activity will help you maintain your ability to do things you want to do. Preventing infection and hospitalization is very important when you have COPD. Make sure to receive all the vaccines your health care provider recommends , especially the pneumococcal and influenza vaccines. Ask your healthcare provider whether you need a pneumonia vaccine. Learn and use relaxation techniques to manage stress. Learn and use controlled breathing techniques as directed by your health care provider. Controlled breathing techniques include: Pursed lip breathing. Start by breathing in (inhaling ) through your nose for 1 second. Then, purse your lips as if you were going to whistle and breathe out (exhale ) through the pursed lips for 2 seconds. Diaphragmatic breathing. Start by putting one hand on your abdomen just above your waist. Inhale slowly through your nose. The hand on your abdomen should move out. Then purse your lips and exhale slowly. You should be able to feel the hand on your abdomen moving in as you exhale. Learn and use controlled coughing to clear mucus from your lungs. Controlled coughing is a series of short, progressive coughs. The steps of controlled coughing are: 1. Lean your head slightly forward. 2. Breathe in deeply using diaphragmatic breathing. 3. Try to hold your breath for 3 seconds. 4. Keep your mouth slightly open while coughing twice. 5. Spit any mucus out into a tissue. 6. Rest and repeat the steps once or twice as needed. SEEK MEDICAL CARE IF: You are coughing up more mucus than usual. There is a change in the color or thickness of your mucus. Your breathing is more labored than usual. Your breathing is faster than usual. SEEK IMMEDIATE MEDICAL CARE IF: You have shortness of breath while you are resting. You have shortness of breath that prevents you from: Being able to talk. Performing your usual physical activities. You have chest pain lasting longer than 5 minutes. Your skin color is more cyanotic than usual. You measure low oxygen saturations for longer than 5 minutes with a pulse oximeter. MAKE SURE YOU: Understand these instructions. Will watch your condition. Will get help right away if you are not doing well or get worse. Document Released: 07/25/2006 Document Revised: 08/05/2014 Document Reviewed: [facility] Patient Information 2014 [facility], [facility]. No follow up information was provided. Extracted from: Title: COPD, CAD, Lung mass, HTN Author: Tayo Gee MD Date: Impression and Plan Diagnosis Benign essential hypertension (ICD9 401.1, Discharge, Medical). CAD (coronary artery disease) (ICD9 414.9, Discharge, Medical). Chronic obstructive pulmonary disease (COPD) (ICD9 496, Discharge, Medical). Hyperlipidemia (ICD9 272.4, Discharge, Medical). Lumbago (ICD9 724.2, Discharge, Medical). Lung mass (ICD9 786.6, Discharge, Medical). Plan: Continue your present meds. Get the CT of the chest as planned, in 3 months. See me in 3 months and as needed. . Orders Orders (Selected) Outpatient Orders Ordered Office Visit Level 4 Est 81261: Future (On Hold) CT Chest w/o Contrast: Prescriptions Prescribed [place] 5 mg-325 mg oral tablet: 1 tabs, Oral, BID, 60 tabs, PRN: as needed for pain. Dx/Order Association Plan: Diagnosis: Benign essential hypertension Comment: Ordered: Office Visit Level 4 Est 82193; 02/22/15 11:41:00 CDT, Benign essential hypertension | CAD (coronary artery disease) | Chronic obstructive pulmonary disease (COPD) | Hyperlipidemia | Lumbago Diagnosis: CAD (coronary artery disease) Comment: Ordered: Office Visit Level 4 Est [id number]; 02/22/15 11:41:00 CDT, Benign essential hypertension | CAD (coronary artery disease) | Chronic obstructive pulmonary disease (COPD) | Hyperlipidemia | Lumbago Diagnosis: Chronic obstructive pulmonary disease (COPD) Comment: Ordered: Office Visit Level 4 Est [id number]; 02/22/15 11:41:00 CDT, Benign essential hypertension | CAD (coronary artery disease) | Chronic obstructive pulmonary disease (COPD) | Hyperlipidemia | Lumbago Diagnosis: Hyperlipidemia Comment: Ordered: Office Visit Level 4 Est [id number]; 02/22/15 11:41:00 CDT, Benign essential hypertension | CAD (coronary artery disease) | Chronic obstructive pulmonary disease (COPD) | Hyperlipidemia | Lumbago Diagnosis: Lumbago Comment: Ordered: Office Visit Level 4 Est [id number]; 02/22/15 11:41:00 CDT, Benign essential hypertension | CAD (coronary artery disease) | Chronic obstructive pulmonary disease (COPD) | Hyperlipidemia | Lumbago Diagnosis: Lung mass Comment: Ordered: Office Visit Level 4 Est [id number]; 02/22/15 11:41:00 CDT, Benign essential hypertension | CAD (coronary artery disease) | Chronic obstructive pulmonary disease (COPD) | Hyperlipidemia | Lumbago End of Orders ."
--- OUTSIDE RECORDS SUMMARY | 2017-02-22 05:53 | XMS REPORT | Referral Summary ---
Author Author [facility] [place] Organization [facility] Address Unknown Phone Unavailable Care Team Providers Care Photocomposing Machine Operator Name Role Phone Francy Gee Primary Care Physician [phone] Encounter Date(s): 04/28/15 - 04/28/15 [facility] [place] [address] [place] [address] [place] Isidro [id number] Discharge Diagnosis: Coronary heart disease [...] DAY, # 90 tabs, 2 Refill(s), eRx: [facility] #[id number], TAKE ONE TABLET BY MOUTH EVERY DAY Start Date: 08/16/15 Status: Ordered Aspirin Low Dose 81 mg, Oral, Daily, 0 Refill(s) Start Date: 07/09/14 Status: Ordered carvedilol 25 mg oral tablet 25 mg 1 tabs, Oral, BID, # 270 tabs, 3 Refill(s), Pharmacy: [facility] # [id number], 1 tabs Oral TID Start Date: 11/30/14 Status: Ordered famotidine 20 mg oral tablet See Instructions, TAKE ONE TABLET BY MOUTH TWICE A DAY, # 180 tabs, 1 Refill(s) , eRx: [facility] #[id number], TAKE ONE TABLET BY MOUTH TWICE A DAY Start Date: 06/28/15 Status: Ordered ferrous sulfate 325 mg (65 mg elemental iron) oral tablet 325 mg 1 tabs, Oral, Daily, 0 Refill(s) Start Date: 08/03/15 Status: Ordered losartan 100 mg oral tablet See Instructions, TAKE ONE HALF TABLET BY MOUTH EVERY DAY, # 90 tabs, 1 Refill(s ), eRx: [facility] #[id number], TAKE ONE TABLET BY MOUTH EVERY DAY Start Date: 01/18/15 Status: Ordered multivitamin 1 tablet, Oral, Daily, 0 Refill(s) Start Date: 07/09/14 Status: Ordered Nitromist 0.4 mg sublingual spray 0.4 mg, SubLingual, q5min, # 1 bottles, 1 Refill(s), Pharmacy: [facility] #[id number], 0.4 mg SubLingual q5min Start Date: 11/04/14 Status: Ordered [place] 5 mg-325 mg oral tablet 1 tabs, [...] NIGHT AT BEDTIME, # 90 tabs, eRx: [facility] #[id number], TAKE ONE TABLET BY MOUTH EVERY NIGHT AT BEDTIME Start Date: 07/19/15 Status: Ordered Spiriva 2.5 mcg, Inhalation, Daily, 0 Refill(s) Start Date: 08/17/15 Status: Ordered Spiriva Respimat 60 inhalation aerosol 2 puffs, Inhalation, Daily, # 1 Each, 3 Refill(s), Pharmacy: [facility] # [id number] Start Date: 08/12/15 Status: Ordered Results No [...]
--- OUTSIDE RECORDS SUMMARY | 2017-02-22 05:54 | XMS REPORT | Referral Summary ---
Author Author [facility] [place] Organization [facility] [place] Address Unknown Phone Unavailable Care Team Providers Care Parakeet Raiser Name Role Phone Francy Gee Primary Care Physician [phone] Encounter Date(s): 10/12/15 - 10/12/15 [facility] [place] [address] [place] [address] Discharge Diagnosis: DENISE on CPAP Discharge Disposition: 01-Home or Self Care Attending Physician: Rufino Shoemaker MD Admitting Physician: Rufino Shoemaker MD Vital Signs Most recent to 1 oldest [Reference Range]: Peripheral Pulse 74 bpm Rate [60-100 bpm] (10/12/15 1:43 PM) Blood Pressure 130/74 mmHg [90-140/60-90 mmHg] (10/12/15 1:43 PM) SpO2 95 % (10/12/15 1:43 PM) Problem List Condition Effective Dates Status [...] DAY, # 90 tabs, 2 Refill(s), eRx: [facility] #[id number], TAKE ONE TABLET BY MOUTH EVERY DAY Start Date: 08/16/15 Status: Ordered Aspirin Low Dose 81 mg, Oral, Daily, 0 Refill(s) Start Date: 07/09/14 Status: Ordered carvedilol 25 mg oral tablet 25 mg 1 tabs, Oral, BID, # 270 tabs, 3 Refill(s), Pharmacy: [facility] # [id number], 1 tabs Oral TID Start Date: 11/30/14 Status: Ordered famotidine 20 mg oral tablet See Instructions, TAKE ONE TABLET BY MOUTH TWICE A DAY, # 180 tabs, 1 Refill(s) , eRx: [facility] #[id number], TAKE ONE TABLET BY MOUTH TWICE A DAY Start Date: 06/28/15 Status: Ordered ferrous sulfate 325 mg (65 mg elemental iron) oral tablet 325 mg 1 tabs, Oral, Daily, 0 Refill(s) Start Date: 08/03/15 Status: Ordered losartan 100 mg oral tablet See Instructions, TAKE ONE HALF TABLET BY MOUTH EVERY DAY, # 90 tabs, 1 Refill(s ), eRx: [facility] #[id number], TAKE ONE TABLET BY MOUTH EVERY DAY Start Date: 01/18/15 Status: Ordered multivitamin 1 tablet, Oral, Daily, 0 Refill(s) Start Date: 07/09/14 Status: Ordered Nitromist 0.4 mg sublingual spray 0.4 mg, SubLingual, q5min, # 1 bottles, 1 Refill(s), Pharmacy: [facility] #[id number], 0.4 mg SubLingual q5min Start Date: 11/04/14 Status: Ordered [place] 5 mg-325 mg oral tablet 1 tabs, [...] NIGHT AT BEDTIME, # 90 tabs, eRx: [facility] #[id number], TAKE ONE TABLET BY MOUTH EVERY NIGHT AT BEDTIME Start Date: 07/19/15 Status: Ordered Spiriva 2.5 mcg, Inhalation, Daily, 0 Refill(s) Start Date: 08/17/15 Status: Ordered Spiriva Respimat 60 inhalation aerosol 2 puffs, Inhalation, Daily, # 1 Each, 3 Refill(s), Pharmacy: [facility] # [id number] Start Date: 08/12/15 Status: Ordered Results No [...] Office Visit Note Author: Rufino Shoemaker Date: 10/12/15 Assessment/Plan 1.DENISE on CPAP - Excellent compliance and adequate response to therapy. - Patient reports controlled symptoms with CPAP use. Although ESS reflects persistent sleepiness. - Objective therapy report from CPAP unit confirms compliance and controlled AHI. - Patient is advised to avoid driving or other potentially harmful activities if sleepy, drowsy or otherwise impaired. - Follow up in 6 months, sooner if needed, mainly to assess/confirm resolution of sleepiness.
--- OUTSIDE RECORDS SUMMARY | 2017-02-22 05:54 | XMS REPORT | Referral Summary ---
Author Organization Unknown Address Unknown Phone Unavailable Care Team Providers Care Power Nut Runner Operator Name Role Phone Francy Gee Primary Care Physician [phone] Encounter Date(s): 12/09/14 - 12/09/14 [facility], [place], Pulmonary [address] [place] [address] Discharge Diagnosis: Abnormal CXR Discharge Diagnosis: Rounded radiologic density Discharge Diagnosis: COPD, moderate Discharge Disposition: Home or Self Care Attending Physician: Luisa Raymond MD Admitting Physician: Luisa Raymond MD Referring Physician: Luisa Raymond MD Vital Signs Most recent to 1 oldest [Reference Range]: Peripheral Pulse 70 bpm Rate [60-100 bpm] (12/09/14 1:39 PM) Respiratory Rate 16 br/min [14-20 br/min] (12/09/14 1:39 PM) Blood Pressure 134/78 mmHg [90-140/60-90 mmHg] (12/09/14 1:39 PM) Most recent to 1 oldest [Reference Range]: SpO2 95 % (12/09/14 1:39 PM) Problem List Condition Effective Dates Status [...] DAY, # 90 tabs, 3 Refill(s), eRx: [facility] #[id number], TAKE ONE TABLET BY MOUTH EVERY DAY Special Instructions: TAKE ONE TABLET BY MOUTH EVERY DAY Start Date: 08/07/14 Status: Ordered Aspirin Low Dose 81 mg, Oral, Daily, 0 Refill(s) Start Date: 07/09/14 Status: Ordered carvedilol 25 mg oral tablet 1 tabs, Oral, TID, # 270 tabs, 3 Refill(s), Pharmacy: [facility] #[id number], DOSAGE CHANGE, 1 tabs Oral TID Start Date: 11/30/14 Status: Ordered famotidine 20 mg oral tablet See Instructions, TAKE ONE TABLET BY MOUTH TWICE A DAY, # 180 tabs, 2 Refill(s) , eRx: [facility] #[id number], TAKE ONE TABLET BY MOUTH TWICE A [...] 1 Refill(s), Pharmacy: [facility] #[id number], 0.4 mg SubLingual q5min Start Date: 11/04/14 Status: Ordered Herreid 5 mg-325 mg oral tablet 1 tabs, Oral, BID, as needed for pain, # 60 tabs, 0 Refill(s) Start Date: 11/17/14 Status: Ordered simvastatin 20 mg oral tablet See Instructions, TAKE ONE TABLET BY MOUTH EVERY NIGHT AT BEDTIME, # 90 tabs, 1 Refill(s), eRx: [facility] #[id number], TAKE ONE TABLET BY MOUTH EVERY NIGHT [...] Cardiac catheterization 2008 Placement of coronary stent 2007 Angioplasty with 2 stents 2005 Flexible sigmoidoscopy [...] 1980 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 The lungs become damaged. This makes it hard to get air in and out of your lungs. The damage to your lungs cannot be changed. There are things you can do to improve the lungs and make you feel better. HOME CARE Take all medicines as told by your doctor. Use medicines that you breathe in (inhale ) as told by your doctor. Avoid medicines or cough syrups that dry up your airway (antihistamines ) and do not allow you to get rid of thick spit. If you smoke, stop. Avoid being around smoke, chemicals, and fumes that bother your breathing. Avoid people that have a catchy (contagious ) sickness. Avoid going outside when it is very hot, cold, or humid. Use humidifiers in your home and near your bedside if it helps your breathing. Drink enough fluids to keep your pee (urine ) clear or pale yellow. Eat healthy foods. Eat smaller meals more often and rest before meals. Ask your doctor if it is okay to take vitamins or pills with minerals ( supplements ). Exercise and stay active. Rest with activity. Get into a comfortable position when you have trouble breathing. Learn and use tips on how to relax. Learn and use tips on how to control your breathing as told by your doctor. Try: Breathing in through your nose for 1 second. Then, breath out (exhale ) through your puckered (like a whistle) lips for 2 seconds. Putting one hand on your belly (abdomen ). Breathe in slowly through your nose. Your hand on your belly should move out. Breathe out slowly through your puckered lips. Your hand on your belly should move in as you breathe out. Learn and use controlled coughing to clear thick spit from your lungs. 1. Lean your head slightly forward. 2. Breathe in deeply. 3. Try to hold your breath for 3 seconds. 4. Keep your mouth slightly open while coughing 2 times. 5. Spit any thick spit out into a tissue. 6. Rest and do the steps again 1 or 2 times as needed. Get all shots (vaccines ) a told by your doctor. Learn how to manage stress. Schedule and go to all follow-up doctor visits. Go to therapy that can help you improve your lungs (pulmonary rehabilitation ) as told by your doctor. Use oxygen at home as told by your doctor. GET HELP RIGHT AWAY IF: You can feel your heart beating really fast. You have shortness of breath while resting. You have shortness of breath that stops you from being able to talk. You have shortness of breath that stops you from doing normal activities. You have chest pain lasting longer than 5 minutes. You start to shake uncontrollably (seizure ). Your family or friends notice that you are flustered or confused. You cough up more thick spit than usual. There is a change in the color or thickness of the spit. Breathing is more difficult than usual. Your breathing is faster than usual. Your skin color is more blueish than usual. You are running out of the medicine you take for breathing. You are anxious, uneasy, fearful, or restless. You have a fever. MAKE SURE YOU: Understand these instructions. Will watch your condition. Will get help right away if you are not doing well or get worse. Document Released: 04/02/2009 Document Revised: 10/01/2013 Document Reviewed: [employer] Patient Information 2014 [employer]. No follow up information was provided. Extracted from: Title: Pt request for Medication Author: Catalina Fenton RN Date: 12/09/14 List Home Medications (12) Active allopurinol 100 mg oral tablet See Instructions Aspirin Low Dose 81 mg, Oral, Daily carvedilol 25 mg oral tablet 25 mg=1 tabs, Oral, TID famotidine 20 mg oral tablet See Instructions ferrous sulfate 325 mg, Oral, Daily fluticasone 50 mcg/inh nasal spray 2 sprays, Nasal, Daily losartan 100 mg oral tablet 50 mg=0.5 tabs, Oral, Daily multivitamin 1 tablet, Oral, Daily Nitromist 0.4 mg sublingual spray 0.4 mg, SubLingual, q5min Herreid 5 mg-325 mg oral tablet 1 tabs, PRN, Oral, BID simvastatin 20 mg oral tablet See Instructions triamcinolone 0.1% topical ointment , PRN, Topical, BID
--- OUTSIDE RECORDS SUMMARY | 2017-02-22 05:54 | XMS REPORT | Referral Summary ---
Author Author [facility] [place], [facility] Medicine Organization [facility] [place], [facility] Address Unknown Phone Unavailable Care Team Providers Care Sinter Feeder Name Role Phone Francy Gee Primary Care Physician [phone] Encounter Date(s): 09/04/16 - 09/04/16 [facility] [place], [address] [place] [address]- Discharge Diagnosis: Ataxic gait Discharge Diagnosis: DENISE on CPAP Discharge Diagnosis: Gastroesophageal reflux disease Discharge Diagnosis: Chronic obstructive pulmonary disease Discharge Diagnosis: CAD (coronary artery disease) Discharge Diagnosis: Right cervical radiculopathy Discharge Diagnosis: Benign prostatic hypertrophy Discharge Diagnosis: Left inguinal hernia Discharge Diagnosis: Bronchiectasis Discharge Diagnosis: Benign essential hypertension Discharge Diagnosis: Hyperlipidemia Discharge Diagnosis: Actinic keratoses Discharge Diagnosis: Umbilical hernia Discharge Diagnosis: Chronic low back pain Discharge Disposition: 01-Home or Self Care Attending Physician: Tayo Gee MD Admitting Physician: Tayo Gee MD Vital Signs Most recent to 1 oldest [Reference Range]: Temperature Tympanic 36.0 degC [36.6-38.1 degC] *LOW* (09/04/16 7:10 AM) Peripheral Pulse 75 bpm Rate [60-100 bpm] (09/04/16 7:10 AM) Blood Pressure 172/76 mmHg [90-140/60-90 mmHg] *HI* (09/04/16 7:10 AM) Problem List Condition Effective Dates Status [...] MOUTH EVERY DAY, # 90 tabs, eRx: [facility] #[id number], TAKE ONE TABLET BY MOUTH EVERY DAY Start Date: 07/17/16 Status: Ordered Aspirin Low Dose 81 mg, Oral, Daily, 0 Refill(s) Start Date: 07/09/14 Status: Ordered Benadryl 25 mg, Oral, Daily, as needed for food allergy symptoms, 0 Refill(s) Start Date: 06/22/16 Status: Ordered carvedilol 25 mg oral tablet 25 mg 1 tabs, Oral, BID, # 270 tabs, 2 Refill(s), [facility]: [facility] #[id number] , TAKE ONE TABLET BY MOUTH THREE TIMES A DAY Start Date: 01/17/16 Status: Ordered famotidine 20 mg oral tablet See Instructions, TAKE ONE TABLET BY MOUTH TWICE A DAY, # 180 tabs, 1 Refill(s) , eRx: [facility] #[id number], TAKE ONE TABLET BY MOUTH TWICE A DAY Start Date: 04/10/16 Status: Ordered ferrous sulfate 325 mg (65 mg elemental iron) oral tablet 325 mg 1 tabs, Oral, Daily, 0 Refill(s) Start Date: 08/03/15 Status: Ordered ibuprofen 200 mg oral tablet 200 mg 1 tabs, Oral, Daily, as needed for general pain, usually once a week, 0 Refill(s) Start Date: 09/04/16 Status: Ordered losartan 100 mg oral tablet See Instructions, TAKES half TABLET 5 days/week, and 1 tab on . and Sat., # 90 tabs, eRx: [facility] #[id number], TAKE ONE TABLET BY MOUTH DAILY Start Date: 04/24/16 Status: Ordered multivitamin 1 tablet, Oral, Daily, 0 Refill(s) Start Date: 07/09/14 Status: Ordered Nitromist 0.4 mg sublingual spray 0.4 mg, SubLingual, q5min, # 1 bottles, 1 Refill(s), Pharmacy: [facility] #[id number], 0.4 mg SubLingual q5min Start Date: 11/04/14 Status: Ordered [place] 5 mg-325 mg oral tablet 1 tabs, Oral, BID, as needed for pain, # 60 tabs, 0 Refill(s) Start Date: 08/25/16 Status: Ordered ProAir RespiClick 90 mcg/inh inhalation powder 2 puffs, Inhalation, Daily, as needed before exercise, # 1 Each, 0 Refill(s) Start Date: 09/04/16 Status: Ordered simvastatin 20 mg oral tablet See Instructions, TAKE ONE TABLET BY MOUTH EVERY NIGHT AT BEDTIME, # 90 tabs, eRx: [facility] #[id number], TAKE ONE TABLET BY MOUTH EVERY NIGHT AT BEDTIME Start Date: 07/17/16 Status: Ordered Vitamin C 250 mg oral tablet 250 mg 1 tabs, Oral, Daily, # 30 tabs, 11 Refill(s) Start Date: 09/04/16 Status: Ordered Results Chemistry Most recent to 1 oldest [Reference Range]: Sodium Lvl [135-144 141 mEq/L mEq/L] (09/04/16 8:32 AM) Potassium Lvl 4.6 mEq/L [3.5-5.2 mEq/L] (09/04/16 8:32 AM) Chloride [99-111 106 mEq/L mEq/L] (09/04/16 8:32 AM) CO2 [23-31 mEq/L] 26 mEq/L (09/04/16 8:32 AM) AGAP [3-20] 9 (09/04/16 8:32 AM) BUN [8-26 mg/dL] 26 mg/dL (09/04/16 8:32 AM) Glucose Lvl [70-99 107 mg/dL mg/dL] *HI* (09/04/16 8:32 AM) Creatinine Lvl 1.18 mg/dL [0.72-1.25 mg/dL] (09/04/16 8:32 AM) eGFR [>60 mL/min] 59 mL/min 1 *ABN* (09/04/16 8:32 AM) Calcium Lvl 9.1 mg/dL [8.9-10.5 mg/dL] (09/04/16 8:32 AM) Chol [0-199 mg/dL] 137 mg/dL (09/04/16 8:32 AM) Trig [0-149 mg/dL] 149 mg/dL (09/04/16 8:32 AM) HDL [40-84 mg/dL] 39 mg/dL *LOW* (09/04/16 8:32 AM) LDL [0-130 mg/dL] 68 mg/dL (09/04/16 8:32 AM) VLDL Cholesterol 30 mg/dL [0-28 mg/dL] *HI* (09/04/16 8:32 AM) Cardiac Risk 3.5 [0.0-5.7] (09/04/16 8:32 AM) 1Result Comment: Multiply eGFR results by 1.21 for race. Immunizations Vaccine Date Refusal Reason tetanus/diphth/pertuss (Tdap) [...] Patient Education Author: Tayo Gee MD Date: 09/04 Family Medicine Actinic Keratosis Actinic keratosis is [...] Backs of the hands. Forearms. DIAGNOSIS Your health care provider can usually tell what is wrong by performing a physical exam. A tissue sample (biopsy) may also be taken and examined under a microscope. TREATMENT Actinic keratosis can be treated several ways. Most treatments can be done in your health care provider's office. Treatment options may include: Curettage. A [...] remove the bandage as directed by your health care provider. Keep the treated area dry as directed by your health care provider. Apply any creams as prescribed by your health care provider. Follow the directions carefully. Check your skin regularly for any changes. Visit a skin doctor (senior mechanical development engineer) every year for a skin exam. SEEK MEDICAL CARE IF: Your skin does not heal and becomes irritated, red, or bleeds. You notice any changes or new growths on your skin. This information is not intended to replace advice given to you by your health care provider. Make sure you discuss any questions you have with your health care provider. Document Released: 01/11/2010 Document Revised: 11/05/2015 Document Reviewed: [employer] Patient Education 2016 [employer] No follow up information was provided. Extracted from: Title: Male physical Author: Tayo Gee MD Date: 09/04/16 Impression and Plan Diagnosis Actinic keratoses (YUQ77-JD L57.0, Discharge, Medical). Ataxic gait (LEV15-AY R26.0, Discharge, Medical). Benign essential hypertension (XSE24-PX I10, Discharge, Medical). Benign prostatic hypertrophy (RDG56-VO N40.0, Discharge, Medical). Bronchiectasis (REI71-EI J47.9, Discharge, Medical). CAD (coronary artery disease) (GYQ97-FX I25.10, Discharge, Medical). Chronic low back pain (DIP88-XR M54.5, Discharge, Medical). Chronic obstructive pulmonary disease (RGR49-DJ J44.9, Discharge, Medical). Gastroesophageal reflux disease (LSV82-OQ K21.9, Discharge, Medical). Hyperlipidemia (GEE64-MU E78.2, Discharge, Medical). Left inguinal hernia (FOM78-KR K40.90, Discharge, Medical). DENISE on CPAP (AXP07-ID G47.33, Discharge, Medical). Right cervical radiculopathy (PTM90-AK M54.12, Discharge, Medical). Umbilical hernia (BAX95-GI K42.9, Discharge, Medical). Plan: 1) Daily water exercise or PT would help your knee pains. 2) See me in 2 months to treat your actinic keratoses. 3) Fasting lab ordered today. 4) MRI scan ordered of the neck at the hospital. 5) Continue your current meds, although less or zero ibuprofen is recommended.. Orders Orders (Selected) Outpatient Orders Ordered Office Visit Level 5 Est 62032: Future (On Hold) BMP: Fasting Lipid Profile: . Dx/Order Association Plan: Diagnosis: Actinic keratoses Comment: Ordered: Office Visit Level 5 Est 12619; 09/04/16 8:05:00 DRY CANS OPERATOR, Right cervical radiculopathy | Left inguinal hernia | CAD (coronary artery disease) | Benign essential hypertension | Ataxic gait | Actinic keratoses | Bronchiectasis | Chronic low back pain | Chronic obstructive pulmonary diseas... Diagnosis: Ataxic gait Comment: Ordered: Office Visit Level 5 Est 11085; 09/04/16 8:05:00 DRY CANS OPERATOR, Right cervical radiculopathy | Left inguinal hernia | CAD (coronary artery disease) | Benign essential hypertension | Ataxic gait | Actinic keratoses | Bronchiectasis | Chronic low back pain | Chronic obstructive pulmonary diseas... Diagnosis: Benign essential hypertension Comment: Ordered: Office Visit Level 5 Est 39743; 09/04/16 8:05:00 DRY CANS OPERATOR, Right cervical radiculopathy | Left inguinal hernia | CAD (coronary artery disease) | Benign essential hypertension | Ataxic gait | Actinic keratoses | Bronchiectasis | Chronic low back pain | Chronic obstructive pulmonary diseas... Diagnosis: Benign prostatic hypertrophy Comment: Diagnosis: Bronchiectasis Comment: Ordered: Office Visit Level 5 Est 13193; 09/04/16 8:05:00 DRY CANS OPERATOR, Right cervical radiculopathy | Left inguinal hernia | CAD (coronary artery disease) | Benign essential hypertension | Ataxic gait | Actinic keratoses | Bronchiectasis | Chronic low back pain | Chronic obstructive pulmonary diseas... Diagnosis: CAD (coronary artery disease) Comment: Ordered: Office Visit Level 5 Est 57455; 09/04/16 8:05:00 DRY CANS OPERATOR, Right cervical radiculopathy | Left inguinal hernia | CAD (coronary artery disease) | Benign essential hypertension | Ataxic gait | Actinic keratoses | Bronchiectasis | Chronic low back pain | Chronic obstructive pulmonary diseas... Diagnosis: Chronic low back pain Comment: Ordered: Office Visit Level 5 Est 26770; 09/04/16 8:05:00 DRY CANS OPERATOR, Right cervical radiculopathy | Left inguinal hernia | CAD (coronary artery disease) | Benign essential hypertension | Ataxic gait | Actinic keratoses | Bronchiectasis | Chronic low back pain | Chronic obstructive pulmonary diseas... Diagnosis: Chronic obstructive pulmonary disease Comment: Ordered: Office Visit Level 5 Est 60935; 09/04/16 8:05:00 DRY CANS OPERATOR, Right cervical radiculopathy | Left inguinal hernia | CAD (coronary artery disease) | Benign essential hypertension | Ataxic gait | Actinic keratoses | Bronchiectasis | Chronic low back pain | Chronic obstructive pulmonary diseas... Diagnosis: Gastroesophageal reflux disease Comment: Ordered: Office Visit Level 5 Est 18789; 09/04/16 8:05:00 DRY CANS OPERATOR, Right cervical radiculopathy | Left inguinal hernia | CAD (coronary artery disease) | Benign essential hypertension | Ataxic gait | Actinic keratoses | Bronchiectasis | Chronic low back pain | Chronic obstructive pulmonary diseas... Diagnosis: Hyperlipidemia Comment: Ordered: Office Visit Level 5 Est 30562; 09/04/16 8:05:00 DRY CANS OPERATOR, Right cervical radiculopathy | Left inguinal hernia | CAD (coronary artery disease) | Benign essential hypertension | Ataxic gait | Actinic keratoses | Bronchiectasis | Chronic low back pain | Chronic obstructive pulmonary diseas... Diagnosis: Left inguinal hernia Comment: Ordered: Office Visit Level 5 Est 49162; 09/04/16 8:05:00 DRY CANS OPERATOR, Right cervical radiculopathy | Left inguinal hernia | CAD (coronary artery disease) | Benign essential hypertension | Ataxic gait | Actinic keratoses | Bronchiectasis | Chronic low back pain | Chronic obstructive pulmonary diseas... Diagnosis: DENISE on CPAP Comment: Ordered: Office Visit Level 5 Est 12228; 09/04/16 8:05:00 DRY CANS OPERATOR, Right cervical radiculopathy | Left inguinal hernia | CAD (coronary artery disease) | Benign essential hypertension | Ataxic gait | Actinic keratoses | Bronchiectasis | Chronic low back pain | Chronic obstructive pulmonary diseas... Diagnosis: Right cervical radiculopathy Comment: Ordered: Office Visit Level 5 Est 65074; 09/04/16 8:05:00 DRY CANS OPERATOR, Right cervical radiculopathy | Left inguinal hernia | CAD (coronary artery disease) | Benign essential hypertension | Ataxic gait | Actinic keratoses | Bronchiectasis | Chronic low back pain | Chronic obstructive pulmonary diseas... Diagnosis: Umbilical hernia Comment: Diagnosis: Benign essential hypertension Comment: Diagnosis: CAD (coronary artery disease) Comment: Diagnosis: Hyperlipidemia Comment: Diagnosis: Benign essential hypertension Comment: Diagnosis: CAD (coronary artery disease) Comment: Additional Orders: Comment: Ordered: ProAir RespiClick 90 mcg/inh inhalation powder,2 puffs, Inhalation, Daily, as needed before exercise, # 1 Each, 0 Refill(s) Ordered: Vitamin C 250 mg oral tablet,250 mg 1 tabs, Oral, Daily, # 30 tabs, 11 Refill(s) Ordered: ibuprofen 200 mg oral tablet,200 mg 1 tabs, Oral, Daily, as needed for general pain, usually once a week, 0 Refill(s) End of Orders ."
--- OUTSIDE RECORDS SUMMARY | 2017-02-22 05:54 | XMS REPORT | Referral Summary ---
Author Author [facility], Family Medicine Organization [facility] Address Unknown Phone Unavailable Care Team Providers Care Telecommunicator Supervisor Name Role Phone Francy Gee Primary Care Physician [phone] Encounter VC Date(s): 11/17/16 - 11/17/16 [facility], [address] [place] [address] Discharge Diagnosis: Right cervical radiculopathy Discharge Diagnosis: CAD (coronary artery disease) Discharge Diagnosis: Benign essential hypertension Discharge Diagnosis: Actinic keratoses Discharge Diagnosis: Hyperlipidemia Discharge Diagnosis: Exertional angina Discharge Disposition: 01-Home or Self Care Attending Physician: Tayo Gee MD Admitting Physician: Tayo Gee MD Vital Signs Most recent to 1 oldest [Reference Range]: Temperature Tympanic 36.5 degC [36.6-38.1 degC] *LOW* (11/17/16 3:27 PM) Peripheral Pulse 76 bpm Rate [60-100 bpm] (11/17/16 3:27 PM) Blood Pressure 136/62 mmHg [90-140/60-90 mmHg] (11/17/16 3:27 PM) Problem List Condition Effective Dates Status [...] MOUTH EVERY DAY, # 90 tabs, eRx: [facility] #[id number], TAKE ONE TABLET BY MOUTH EVERY DAY Start Date: 07/17/16 Status: Ordered Aspirin Low Dose 81 mg, Oral, Daily, 0 Refill(s) Start Date: 07/09/14 Status: Ordered Benadryl 25 mg, Oral, Daily, as needed for food allergy symptoms, 0 Refill(s) Start Date: 06/22/16 Status: Ordered carvedilol 25 mg oral tablet 25 mg 1 tabs, Oral, BID, # 270 tabs, 2 Refill(s), eRx: [facility] #[id number] , TAKE ONE TABLET BY MOUTH THREE TIMES A DAY Start Date: 01/17/16 Status: Ordered famotidine 20 mg oral tablet See Instructions, TAKE ONE TABLET BY MOUTH TWICE A DAY, # 180 tabs, 1 Refill(s) , Pharmacy: [facility] #[id number], TAKE ONE TABLET BY MOUTH TWICE A DAY Start Date: 10/09/16 Status: Ordered ferrous sulfate 325 mg (65 [...] TABLET BY MOUTH DAILY, # 90 tabs, 3 Refill(s), eRx: [facility] #[id number], TAKE ONE TABLET BY MOUTH DAILY Start Date: 09/11/16 Status: Ordered multivitamin 1 tablet, Oral, Daily, 0 Refill(s) Start Date: 07/09/14 Status: Ordered Nitromist 0.4 mg sublingual spray 0.4 mg, SubLingual, q5min, # 1 bottles, 1 Refill(s), Pharmacy: [facility] #[id number], 0.4 mg SubLingual q5min Start Date: 11/04/14 Status: Ordered [place] 5 mg-325 mg oral tablet 1 tabs, Oral, BID, as needed for pain, # 60 tabs, 0 Refill(s) Start Date: 10/26/16 Status: Ordered ProAir RespiClick 90 mcg/inh inhalation powder 2 puffs, Inhalation, Daily, as needed before exercise, # 1 Each, 0 Refill(s) Start Date: 09/04/16 Status: Ordered simvastatin 20 mg oral tablet See Instructions, TAKE ONE TABLET BY MOUTH EVERY NIGHT AT BEDTIME, # 90 tabs, eRx: [facility] #[id number] Start Date: 10/09/16 Status: Ordered Vitamin C 250 mg oral tablet 250 mg 1 tabs, Oral, Daily, # 30 tabs, 11 Refill(s) Start Date: 09/04/16 Status: Ordered Results No data available for this section Immunizations Given and Recorded Vaccine Date Status Refusal Reason tetanus/diphth/pertuss (Tdap) adult/adol 10/13/15 Given hepatitis A adult vaccine 02/27/97 Recorded hepatitis A adult vaccine 12/26/95 Recorded influenza virus vaccine, inactivated 08/07/16 Given influenza virus vaccine, inactivated 08/03/15 Given influenza virus vaccine, inactivated1 07/31/14 Recorded influenza virus vaccine, live 07/30/13 Given influenza virus vaccine, live 08/12/12 Given pneumococcal 13-valent conjugate vaccine 07/31/14 Given pneumococcal 23-polyvalent vaccine 10/11/09 Recorded pneumococcal 23-polyvalent vaccine 09/05/96 Recorded poliovirus vaccine, inactivated 03/18/97 Recorded tetanus-diphth toxoids (Td) adult/adol 05/18/06 Recorded tetanus-diphth toxoids (Td) adult/adol 02/20/00 Recorded tetanus-diphth toxoids (Td) adult/adol 12/20/94 Recorded zoster vaccine live 09/29/08 Recorded 1Result Comment: [07/31/2014] See scanned document Procedures Procedure Date Related Diagnosis Body Site Destruction (eg, laser surgery, 11/17/16 electrosurgery, cryosurgery, chemosurgery, surgical curettement), premalignant lesions (eg, actinic keratoses); first lesion Destruction (eg, laser surgery, 11/17/16 electrosurgery, cryosurgery, chemosurgery, surgical curettement), premalignant lesions (eg, actinic keratoses); second through 14 lesions, each (List separately in addition to code for first lesion) Destruction (eg, laser surgery, 11/17/16 electrosurgery, cryosurgery, chemosurgery, surgical curettement), premalignant lesions (eg, actinic keratoses); second through 14 lesions, each (List separately in addition to code for first lesion) Destruction (eg, laser surgery, 11/17/16 electrosurgery, cryosurgery, chemosurgery, surgical curettement), premalignant lesions (eg, actinic keratoses); second through 14 lesions, each (List separately in addition to code for first lesion) Destruction (eg, laser surgery, 11/17/16 electrosurgery, cryosurgery, chemosurgery, surgical curettement), premalignant lesions (eg, actinic keratoses); second through 14 lesions, each (List separately in addition to code for first lesion) Destruction (eg, laser surgery, 11/17/16 electrosurgery, cryosurgery, chemosurgery, surgical curettement), premalignant lesions (eg, actinic keratoses); second through 14 lesions, each (List separately in addition to code for first lesion) RT L5-S1 TRANSLAMINAR 06/10/12 LUMBAR TRANSLAMINAL L5-S1 04/10/11 RT L4-5/L5-S1 TRANSFORAMINAL 03/28/11 Cholecystectomy 2010 CABG -[address] Skelton 2008 Cardiac catheterization 2008 Placement of coronary stent 2006 Angioplasty with 2 stents 2005 Flexible sigmoidoscopy 2003 left foot synoivial cyst excision 2003 Hospital admission for chest pain 2002 Angioplasty with 2 stents 2001 left foot synoivial cyst excision 2002 Placement of 2 coronary stents 2001 Placement [...] Education Author: Tayo Gee MD Date: 11/17 Anesthesiology Cervical Radiculopathy Cervical radiculopathy happens when a nerve in the neck is pinched or bruised by a slipped (herniated) disk or by arthritic changes in the bones of the cervical spine. This can occur due to an injury or as part of the normal aging process. Pressure on the cervical nerves can cause pain or numbness that runs from your neck all the way down into your arm and fingers. CAUSES There are many possible causes, including: Injury. Muscle tightness in the neck from overuse. Swollen, painful joints (arthritis). Breakdown or degeneration in the bones and joints of the spine ( spondylosis) due to aging. Bone spurs that may develop near the cervical nerves. SYMPTOMS Symptoms include pain, weakness, or numbness in the affected arm and hand. Pain can be severe or irritating. Symptoms may be worse when extending or turning the neck. DIAGNOSIS Your caregiver will ask about your symptoms and do a physical exam. He or she may test your strength and reflexes. X-rays, CT scans, and MRI scans may be needed in cases of injury or if the symptoms do not go away after a period of time. Electromyography (EMG) or nerve conduction testing may be done to study how your nerves and muscles are working. TREATMENT Your caregiver may recommend certain exercises to help relieve your symptoms. Cervical radiculopathy can, and often does, get better with time and treatment. If your problems continue, treatment options may include: Wearing a soft collar for short periods of time. Physical therapy to strengthen the neck muscles. Medicines, such as nonsteroidal anti-inflammatory drugs (NSAIDs), oral corticosteroids, or spinal injections. Surgery. Different types of surgery may be done depending on the cause of your problems. HOME CARE INSTRUCTIONS Put ice on the affected area. Put ice in a plastic bag. Place a towel between your skin and the bag. Leave the ice on for 15-20 minutes, 03-04 times a day or as directed by your caregiver. If ice does not help, you can try using heat. Take a warm shower or bath , or use a hot water bottle as directed by your caregiver. You may try a gentle neck and shoulder massage. Use a flat pillow when you sleep. Only take ctyj-vve-ywiprhr or prescription medicines for pain, discomfort , or fever as directed by your caregiver. If physical therapy was prescribed, follow your caregiver's directions. If a soft collar was prescribed, use it as directed. SEEK IMMEDIATE MEDICAL CARE IF: Your pain gets much worse and cannot be controlled with medicines. You have weakness or numbness in your hand, arm, face, or leg. You have a high fever or a stiff, rigid neck. You lose bowel or bladder control (incontinence). You have trouble with walking, balance, or speaking. MAKE SURE YOU: Understand these instructions. Will watch your condition. Will get help right away if you are not doing well or get worse. This information is not intended to replace advice given to you by your health care provider. Make sure you discuss any questions you have with your health care provider. Document Released: 07/10/2002 Document Revised: 01/06/2013 Document Reviewed: [employer] Patient Education 2016 [employer] Family Medicine Actinic Keratosis Actinic keratosis is [...] for any changes. Visit a skin doctor (wood cut engraver) every year for a skin exam. SEEK [...] Released: 01/11/2010 Document Revised: 11/05/2015 Document Reviewed: [employer] Patient Education 2016 [employer] No follow up information was provided. Extracted from: Title: multiple problems Author: Tayo Gee MD Date: 11/17/16 Impression and Plan Diagnosis CAD (coronary artery disease) ([id number]-LA I25.10, Discharge, Medical). Benign essential hypertension ([id number]-[id number] I10, Discharge, Medical). Actinic keratoses (OBX77-UQ L57.0, Discharge, Medical). Hyperlipidemia (GBR54-XC E78.2, Discharge, Medical). Right cervical radiculopathy (VOW25-EX M54.12, Discharge, Medical). Exertional angina (ZPK45-VY I20.8, Discharge, Medical). Plan: 1) Six actinic keratoses were treated on the face and scalp using liquid nitrogen: freeze, thaw, refreeze technique used, which was well tolerated. 2) Try the TENS unit for your neck pain and right hand numbness. 3) Your PT noted was reviewed. 4) Continue your present meds. 5) See me in 5 months and as needed.. Orders Orders (Selected) Outpatient Orders Ordered Destruction premalignant lesion 1st 08961: Destruction premalignant lesion 2-14, Each 29972: Destruction premalignant lesion 2-14, Each 11151: Destruction premalignant lesion 2-14, Each 39399: Destruction premalignant lesion 2-14, Each 43099: Destruction premalignant lesion 2-14, Each 17884: Office Visit Level 3 Est 82466: . Dx/Order Association Plan: Diagnosis: Actinic keratoses Comment: Ordered: Destruction premalignant lesion 2-14, Each 34293; 16:06:00 INVESTIGATOR VICE, 1, Actinic keratoses Destruction premalignant lesion 2-14, Each 27394; 11/17/16 16:06:00 INVESTIGATOR VICE, 1, Actinic keratoses Destruction premalignant lesion 2-14, Each 19789; 11/17/16 16:06:00 INVESTIGATOR VICE, 1, Actinic keratoses Destruction premalignant lesion 2-14, Each 57293; 11/17/16 16:06:00 INVESTIGATOR VICE, 1, Actinic keratoses Destruction premalignant lesion 2-14, Each 76706; 11/17/16 16:06:00 INVESTIGATOR VICE, 1, Actinic keratoses Destruction premalignant lesion 1st 91604; 16:06:00 INVESTIGATOR VICE, 1, Actinic keratoses Diagnosis: Benign essential hypertension Comment: Ordered: Office Visit Level 3 Est 46261; 11/17/16 16:06:00 INVESTIGATOR VICE, 25 , Right cervical radiculopathy | Exertional angina | CAD (coronary artery disease) | Benign essential hypertension | Hyperlipidemia Diagnosis: CAD (coronary artery disease) Comment: Ordered: Office Visit Level 3 Est 33241; 11/17/16 16:06:00 INVESTIGATOR VICE, 25 , Right cervical radiculopathy | Exertional angina | CAD (coronary artery disease) | Benign essential hypertension | Hyperlipidemia Diagnosis: Exertional angina Comment: Ordered: Office Visit Level 3 Est 88814; 11/17/16 16:06:00 INVESTIGATOR VICE, 25 , Right cervical radiculopathy | Exertional angina | CAD (coronary artery disease) | Benign essential hypertension | Hyperlipidemia Diagnosis: Hyperlipidemia Comment: Ordered: Office Visit Level 3 Est 95086; 11/17/16 16:06:00 INVESTIGATOR VICE, 25 , Right cervical radiculopathy | Exertional angina | CAD (coronary artery disease) | Benign essential hypertension | Hyperlipidemia Diagnosis: Right cervical radiculopathy Comment: Ordered: Office Visit Level 3 Est 39731; 11/17/16 16:06:00 INVESTIGATOR VICE, 25 , Right cervical radiculopathy | Exertional angina | CAD (coronary artery disease) | Benign essential hypertension | Hyperlipidemia End of Orders ."
--- OUTSIDE RECORDS SUMMARY | 2017-02-22 05:54 | XMS REPORT | Referral Summary ---
Author Author [facility], Family Medicine Organization [facility], Mehran, [facility] Address Unknown Phone Unavailable Care Team Providers Care Case Picker Name Role Phone Francy Gee Primary Care Physician [phone] Encounter VC Date(s): 02/02/16 - 02/02/16 [facility], [address] [place] [address] Discharge Disposition: 01-Home or Self Care Attending Physician: Tayo Gee MD Admitting Physician: Tayo Gee MD Vital Signs Most recent to 1 oldest [Reference Range]: Temperature Tympanic 35.7 degC [36.6-38.1 degC] *LOW* (02/02/16 10:41 AM) Peripheral Pulse 64 bpm Rate [60-100 bpm] (02/02/16 10:41 AM) Blood Pressure 132/68 mmHg [90-140/60-90 mmHg] (02/02/16 10:41 AM) Problem List Condition Effective Dates Status [...] [facility] #[id number], TAKE ONE TABLET BY MOUTH EVERY DAY Start Date: 08/16/15 Status: Ordered Aspirin Low Dose 81 mg, Oral, Daily, 0 Refill(s) Start Date: 07/09/14 Status: Ordered carvedilol 25 mg oral tablet See Instructions, TAKE ONE TABLET BY MOUTH THREE TIMES A DAY, # 270 tabs, 2 Refill(s), eRx: [facility] #[id number], TAKE ONE TABLET BY MOUTH THREE TIMES A DAY Start Date: 01/17/16 Status: Ordered famotidine 20 mg oral tablet See Instructions, TAKE ONE TABLET BY MOUTH TWICE A DAY, # 180 tabs, 1 Refill(s) , eRx: [facility] #[id number], TAKE ONE TABLET BY MOUTH TWICE A DAY Start Date: 06/28/15 Status: Ordered ferrous sulfate 325 mg (65 mg elemental iron) oral tablet 325 mg 1 tabs, Oral, Daily, 0 Refill(s) Start Date: 08/03/15 Status: Ordered losartan 100 mg oral tablet See Instructions, TAKE ONE TABLET BY MOUTH DAILY, # 90 tabs, eRx: [facility] #[id number], TAKE ONE TABLET BY MOUTH DAILY Start Date: 11/15/15 Status: Ordered multivitamin 1 tablet, Oral, Daily, 0 Refill(s) Start Date: 07/09/14 Status: Ordered Nitromist 0.4 mg sublingual spray 0.4 mg, SubLingual, q5min, # 1 bottles, 1 Refill(s), Pharmacy: [facility] #[id number], 0.4 mg SubLingual q5min Start Date: 11/04/14 Status: Ordered [place] 5 mg-325 mg oral tablet 1 tabs, Oral, BID, as needed for pain, # 60 tabs, 0 Refill(s) Start Date: 01/27/16 Status: Ordered ProAir HFA 90 mcg/inh inhalation aerosol 2 puffs, Inhalation, QID, as needed for wheezing, # 18 g, 11 Refill(s), Pharmacy : [facility] #[id number] Start Date: 11/03/15 Status: Ordered simvastatin 20 mg oral tablet See Instructions, TAKE ONE TABLET BY MOUTH EVERY NIGHT AT BEDTIME, # 90 tabs, 2 Refill(s), eRx: [facility] #[id number], TAKE ONE TABLET BY MOUTH EVERY NIGHT [...] Procedures Procedure Date Related Diagnosis Body Site Excision of nail and nail matrix, partial or 02/02/16 complete (eg, ingrown or deformed nail), for permanent removal; RT L5-S1 TRANSLAMINAR 06/10/12 LUMBAR TRANSLAMINAL L5-S1 [...] Author: Tayo Gee MD Date: Family Medicine Toenail Removal Toenails may need to be removed because of injury, infections, or to correct abnormal growth. A special non-stick bandage will likely be put tightly on your toe to prevent bleeding. Often times a new nail will grow back. Sometimes the new nail may be deformed. Most of the time when a nail is lost, it will gradually heal, but may be sensitive for a long time. HOME CARE INSTRUCTIONS Keep your foot elevated to relieve pain and swelling. This will require lying in bed or on a couch with the leg on pillows or sitting in a recliner with the leg up. Walking or letting your leg dangle may increase swelling, slow healing, and cause throbbing pain. Keep your bandage dry and clean. Change your bandage in 24 hours. After your bandage is changed, soak your foot in warm, soapy water for 10 to 20 minutes. Do this 3 times per day. This helps reduce pain and swelling. After soaking your foot apply a clean, dry bandage. Change your bandage if it is wet or dirty. Only take [id number] or prescription medicines for pain, discomfort , or fever as directed by your caregiver. See your caregiver as needed for problems. You might need a tetanus shot now if: You have no idea when you had the last one. You have never had a tetanus shot before. The injured area had dirt in it. If you need a tetanus shot, and you decide not to get one, there is a rare chance of getting tetanus. Sickness from tetanus can be serious. If you did get a tetanus shot, your arm may swell, get red and warm to the touch at the shot site. This is common and not a problem. SEEK IMMEDIATE MEDICAL CARE IF: You have increased pain, swelling, redness, warmth, drainage, or bleeding. You have a fever. You have swelling that spreads from your toe into your foot. This information is not intended to replace advice given to you by your health care provider. Make sure you discuss any questions you have with your health care provider. Document Released: 07/13/2004 Document Revised: 01/06/2013 Document Reviewed: ExitCare Patient Information 2015 [employer]. No follow up information was provided. 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 Orders (Selected) Outpatient Orders Ordered Excision Of Nail Matrix, Permanent Removal 33652: . Counseled: 1) Elevate the leg and avoid over exertion. 2) Ice off and on to the toe. 3) Dressing changes as needed. 4) Hold your aspirin for 2 days, then resume. 5) See me in 2 weeks and as needed..
--- OUTSIDE RECORDS SUMMARY | 2017-02-22 05:54 | XMS REPORT | Referral Summary ---
Author Author [facility], Pulmonary Organization [facility], [facility] Address Unknown Phone Unavailable Care Team Providers Care Supplier Engineer Name Role Phone Francy Gee Primary Care Physician [phone] Encounter [facility] [id number] Date(s): 04/06/15 - 04/06/15 [facility] [address] [place] [place] [address] Discharge Diagnosis: Emphysema/COPD Discharge Diagnosis: Abnormal chest CT Discharge Diagnosis: Cough Discharge Disposition: 01-Home or Self Care Attending Physician: Luisa Raymond MD Admitting Physician: Luias Raymond MD Vital Signs Most recent to [...] DAY, # 90 tabs, 2 Refill(s), eRx: [facility] #[id number], TAKE ONE TABLET BY MOUTH EVERY DAY Start Date: 08/16/15 Status: Ordered Aspirin Low Dose 81 mg, Oral, Daily, 0 Refill(s) Start Date: 07/09/14 Status: Ordered carvedilol 25 mg oral tablet 25 mg 1 tabs, Oral, BID, # 270 tabs, 3 Refill(s), Pharmacy: [facility] # [id number], 1 tabs Oral TID Start Date: 11/30/14 Status: Ordered famotidine 20 mg oral tablet See Instructions, TAKE ONE TABLET BY MOUTH TWICE A DAY, # 180 tabs, 1 Refill(s) , eRx: [facility] #[id number], TAKE ONE TABLET BY MOUTH TWICE A DAY Start Date: 06/28/15 Status: Ordered ferrous sulfate 325 mg (65 mg elemental iron) oral tablet 325 mg 1 tabs, Oral, Daily, 0 Refill(s) Start Date: 08/03/15 Status: Ordered losartan 100 mg oral tablet See Instructions, TAKE ONE HALF TABLET BY MOUTH EVERY DAY, # 90 tabs, 1 Refill(s ), eRx: [facility] #[id number], TAKE ONE TABLET BY MOUTH EVERY DAY Start Date: 01/18/15 Status: Ordered multivitamin 1 tablet, Oral, Daily, 0 Refill(s) Start Date: 07/09/14 Status: Ordered mupirocin 2% topical ointment 1 camilo, Topical, BID, # 22 g, 0 Refill(s), Pharmacy: [facility] #[id number] Start Date: 10/13/15 Stop Date: 10/31/15 Status: Ordered Nitromist 0.4 mg sublingual spray 0.4 mg, SubLingual, q5min, # 1 bottles, 1 Refill(s), Pharmacy: [facility] #[id number], 0.4 mg SubLingual q5min Start Date: 11/04/14 Status: Ordered [place] 5 mg-325 mg oral tablet 1 tabs, [...] NIGHT AT BEDTIME, # 90 tabs, eRx: [facility] #[id number], TAKE ONE TABLET BY MOUTH EVERY NIGHT AT BEDTIME Start Date: 07/19/15 Status: Ordered Spiriva 2.5 mcg, Inhalation, Daily, 0 Refill(s) Start Date: 08/17/15 Status: Ordered Spiriva Respimat 60 inhalation aerosol 2 puffs, Inhalation, Daily, # 1 Each, 3 Refill(s), Pharmacy: [facility] # [id number] Start Date: 08/12/15 Status: Ordered sulfamethoxazole-trimethoprim 800 mg-160 mg oral tablet 1 tabs, Oral, BID, X 7 days, # 14 tabs, 0 Refill(s), Pharmacy: [facility] #[id number] Start Date: 10/13/15 Stop Date: 10/20/15 Status: Ordered Results No data available for this section Immunizations Vaccine Date Refusal Reason tetanus/diphth/pertuss (Tdap) adult/adol 10/13/15 hepatitis A adult vaccine 02/27/97 hepatitis A adult vaccine 12/26/95 influenza virus vaccine, inactivated 10/6/15 influenza virus vaccine, inactivated1 07/31/14 influenza virus [...] chronic cough. HOME CARE INSTRUCTIONS Only take [id number] or prescription medicines for pain, discomfort, or [...] Released: 04/12/2012 Document Revised: 01/06/2013 Document Reviewed: ExitCare Patient Information 2014 [employer]. No follow up information was provided. Extracted [...]
--- OUTSIDE RECORDS SUMMARY | 2017-02-22 05:54 | XMS REPORT | Referral Summary ---
Author Organization Unknown Address Unknown Phone Unavailable Care Team Providers Care Date Pitter Name Role Phone Francy Gee Primary Care Physician [phone] Encounter VC Date(s): 12/21/14 - 12/21/14 [facility]ERR[facility] Yepez, Mehran, Family Medicine [address] [place] [address] [place] [id number] Discharge Diagnosis: CAD (coronary artery disease) Discharge Diagnosis: Chronic obstructive pulmonary disease (COPD) Discharge Diagnosis: Bronchiectasis Discharge Diagnosis: Right leg swelling Discharge Diagnosis: Lung mass Discharge Diagnosis: Pain of right calf Discharge Diagnosis: Benign essential hypertension Discharge Diagnosis: Hyperlipidemia Discharge Disposition: Home or Self Care Attending Physician: Tayo Gee MD Admitting Physician: Tayo Gee MD Vital Signs Most recent to 1 oldest [Reference Range]: Temperature Tympanic 35.7 degC [36.6-38.1 degC] *LOW* (12/21/14 10:54 AM) Peripheral Pulse 68 bpm Rate [60-100 bpm] (12/21/14 10:54 AM) Blood Pressure 162/70 mmHg [90-140/60-90 mmHg] *HI* (12/21/14 10:54 AM) Problem List Condition Effective Dates Status [...] ) Osteoarthritis(Confi Active rmed) Overweight(Confirmed Active ) Pain [...] # 90 tabs, 3 Refill(s), eRx: [facility] #[id number], TAKE ONE TABLET BY MOUTH EVERY DAY Special Instructions: TAKE ONE TABLET BY MOUTH EVERY DAY Start Date: 08/07/14 Status: Ordered Aspirin Low Dose 81 mg, Oral, Daily, 0 Refill(s) Start Date: 07/09/14 Status: Ordered carvedilol 25 mg oral tablet 1 tabs, Oral, BID, # 270 tabs, 3 Refill(s), Pharmacy: [facility] #[id number], DOSAGE CHANGE, 1 tabs Oral TID Start Date: 11/30/14 Status: Ordered famotidine 20 mg oral tablet See Instructions, TAKE ONE TABLET BY MOUTH TWICE A DAY, # 180 tabs, 2 Refill(s) , eRx: [facility] #[id number], TAKE ONE TABLET BY MOUTH TWICE A [...] Refill(s), Pharmacy: [facility] #[id number], 0.4 mg SubLingual q5min Start Date: 11/04/14 Status: Ordered Maple 5 mg-325 mg oral tablet 1 tabs, Oral, BID, as needed for pain, # 60 tabs, 0 Refill(s) Start Date: 12/21/14 Status: Ordered ProAir HFA 90 mcg/inh inhalation aerosol 2 puffs, Inhalation, QID, as needed for wheezing, 0 Refill(s) Start Date: 12/21/14 Status: Ordered simvastatin 20 mg oral tablet See Instructions, TAKE ONE TABLET BY MOUTH EVERY NIGHT AT BEDTIME, # 90 tabs, 1 Refill(s), eRx: [facility] #[id number], TAKE ONE TABLET BY MOUTH EVERY NIGHT AT BEDTIME Special Instructions: TAKE ONE TABLET BY MOUTH EVERY NIGHT AT BEDTIME Start Date: 07/06/14 Status: Ordered Spiriva Respimat 14 Dose See [...] Patient Education Author: Tayo Gee MD Date: 12/21 Family Medicine Chronic Obstructive Pulmonary Disease Chronic obstructive pulmonary disease (COPD) is a condition in which airflow from the lungs is restricted. The lungs can never return to normal, but there are measures you can take which will improve them and make you feel better. CAUSES Smoking. Exposure to secondhand smoke. Breathing in irritants such as air pollution, dust, cigarette smoke, strong odors, aerosol sprays, or paint fumes. History of lung infections. SYMPTOMS Deep, persistent (chronic) cough with a large amount of thick mucus. Wheezing. Shortness of breath, especially with physical activity. Feeling like you cannot get enough air. Difficulty breathing. Rapid breaths (tachypnea ). Villalba or bluish discoloration (cyanosis ) of the skin, especially in fingers , toes, or lips. Fatigue. Weight loss. Swelling in legs, ankles, or feet. Fast heartbeat (tachycardia ). Frequent lung infections. Chest tightness. DIAGNOSIS Initial diagnosis may be based on your history, symptoms, and physical examination. Additional tests for COPD may include: Chest X-ray. Computed tomography (CT) scan. Lung (pulmonary ) function tests. Blood tests. TREATMENT Treatment focuses on making you comfortable (supportive care ). Your caregiver may prescribe medicines (inhaled or pills) to help improve your breathing. Additional treatment options may include oxygen therapy and pulmonary rehabilitation. Treatment should also include reducing your exposure to known irritants and following a plan to stop smoking. HOME CARE INSTRUCTIONS Take all medicines, including antibiotic medicines, as directed by your caregiver. Use inhaled medicines as directed by your caregiver. Avoid medicines or cough syrups that dry up your airway (antihistamines ) and slow down the elimination of secretions. This decreases respiratory capacity and may lead to infections. If you smoke, stop smoking. Avoid exposure to smoke, chemicals, and fumes that aggravate your breathing. Avoid contact with individuals that have a contagious illness. Avoid extreme temperature and humidity changes. Use humidifiers at home and at your bedside if they do not make breathing difficult. Drink enough water and fluids to keep your urine clear or pale yellow. This loosens secretions. Eat healthy foods. Eating smaller, more frequent meals and resting before meals may help you maintain your strength. Ask your caregiver about the use of vitamins and mineral supplements. Stay active. Exercise and physical activity will help maintain your ability to do things you want to do. Balance activity with periods of rest. Assume a position of comfort if you become short of breath. Learn and use relaxation techniques. Learn and use controlled breathing techniques as directed by your caregiver. Controlled breathing techniques include: Pursed lip breathing. This breathing technique starts with breathing in ( inhaling ) through your nose for 1 second. Next, purse your lips as if you were going to whistle. Then breathe out (exhale ) through the pursed lips for 2 seconds. Diaphragmatic breathing. Start by putting one hand on your abdomen just above your waist. Inhale slowly through your nose. The hand on your abdomen should move out. Then exhale slowly through pursed lips. You should be able to feel the [...] the steps once or twice as needed. Receive all protective vaccines your caregiver suggests, especially pneumococcal and influenza vaccines. Learn to manage stress. Schedule and attend all follow-up appointments as directed by your caregiver. It is important to keep all your appointments. Participate in pulmonary rehabilitation as directed by your caregiver. Use home oxygen as suggested. SEEK MEDICAL CARE IF: You are coughing up more mucus than usual. There is a change in the color or thickness of the mucus. Breathing is more labored than usual. Your breathing is faster than usual. Your skin color is more cyanotic than usual. You are running out of the medicine you take for your breathing. You are anxious, apprehensive, or restless. You have a fever. SEEK IMMEDIATE MEDICAL CARE IF: You have a rapid heart rate. You have shortness of breath while you are resting. You have shortness of breath that prevents you from being able to talk. You have shortness of breath that prevents you from performing your usual physical activities. You have chest pain lasting longer than 5 minutes. You have a seizure. Your family or friends notice that you are agitated or confused. MAKE SURE YOU: Understand these instructions. Will watch your condition. Will get help right away if you are not doing well or get worse. Document Released: 07/25/2006 Document Revised: 07/09/2013 Document Reviewed: [facility] Patient Information 2014 [employer]. No follow up information was provided. Extracted from: Title: lung mass, CAD, COPD, HTN Author: Tayo Gee MD Date: 12/21/14 Impression and Plan Diagnosis Right leg swelling (ICD9 729.81, Discharge, Medical). Pain of right calf (ICD9 729.5, Discharge, Medical). Hyperlipidemia (ICD9 272.4, Discharge, Medical). Chronic obstructive pulmonary disease (COPD) (ICD9 496, Discharge, Medical). CAD (coronary artery disease) (ICD9 414.9, Discharge, Medical). Bronchiectasis (ICD9 494.0, Discharge, Medical). Benign essential hypertension (ICD9 401.1, Discharge, Medical). Plan: Get an ultrasound test of the right leg today to rule out a blood clot. , Continue your routine meds. Get your CT scan in 5-6 weeks. See me in a couple of months and as needed.. Orders Orders (Selected) Outpatient Orders Ordered Office Visit Level 5 Est 28559: Future (On Hold) CT Thorax w/o Contrast: US LE Venous Duplex Right: Prescriptions Prescribed Maple 5 mg-325 mg oral tablet: 1 tabs, Oral, BID, 60 tabs, PRN: as needed for pain. Dx/Order Association Plan: Diagnosis: Benign essential hypertension Comment: Ordered: Office Visit Level 5 Est 84985; 12/21/14 11:34:00 BOOKBINDING MACHINE OPERATOR, Pain of right calf | Right leg swelling | Lung mass | CAD (coronary artery disease) | Benign essential hypertension Diagnosis: Bronchiectasis Comment: Ordered: Office Visit Level 5 Est 90148; 12/21/14 11:34:00 BOOKBINDING MACHINE OPERATOR, Pain of right calf | Right leg swelling | Lung mass | CAD (coronary artery disease) | Benign essential hypertension Diagnosis: CAD (coronary artery disease) Comment: Ordered: Office Visit Level 5 Est 20758; 12/21/14 11:34:00 BOOKBINDING MACHINE OPERATOR, Pain of right calf | Right leg swelling | Lung mass | CAD (coronary artery disease) | Benign essential hypertension Diagnosis: Chronic obstructive pulmonary disease (COPD) Comment: Ordered: Office Visit Level 5 Est 35624; 12/21/14 11:34:00 BOOKBINDING MACHINE OPERATOR, Pain of right calf | Right leg swelling | Lung mass | CAD (coronary artery disease) | Benign essential hypertension Diagnosis: Hyperlipidemia Comment: Ordered: Office Visit Level 5 Est 23417; 12/21/14 11:34:00 BOOKBINDING MACHINE OPERATOR, Pain of right calf | Right leg swelling | Lung mass | CAD (coronary artery disease) | Benign essential hypertension Diagnosis: Lung mass Comment: Ordered: Office Visit Level 5 Est 11723; 12/21/14 11:34:00 BOOKBINDING MACHINE OPERATOR, Pain of right calf | Right leg swelling | Lung mass | CAD (coronary artery disease) | Benign essential hypertension Diagnosis: Pain of right calf Comment: Ordered: Office Visit Level 5 Est 83014; 12/21/14 11:34:00 BOOKBINDING MACHINE OPERATOR, Pain of right calf | Right leg swelling | Lung mass | CAD (coronary artery disease) | Benign essential hypertension Diagnosis: Right leg swelling Comment: Ordered: Office Visit Level 5 Est 90643; 12/21/14 11:34:00 BOOKBINDING MACHINE OPERATOR, Pain of right calf | Right leg swelling | Lung mass | CAD (coronary artery disease) | Benign essential hypertension Additional Orders: Comment: Future Orders: US LE Venous Duplex Right,*Est. 12/21/14 due within 2 days, Routine, Reason: Other (please specify), Reason: right calf pain and swelling, Pain of right calf | Right leg swelling End of Orders ."
--- OUTSIDE RECORDS SUMMARY | 2017-02-22 05:54 | XMS REPORT | Referral Summary ---
Author Author [facility] [place], Family Medicine Organization [facility] Yepez [place], [facility] Address Unknown Phone Unavailable Care Team Providers Care Entry Level Machine Operator Name Role Phone Francy Gee Primary Care Physician [phone] Encounter VC Date(s): 06/22/16 - 06/22/16 [facility] SHERRON Yepez [place], [address] [place] [id number] Discharge Disposition: 01-Home or Self Care Attending Physician: Tayo Gee MD Admitting Physician: Tayo Gee MD Vital Signs Most recent to 1 oldest [Reference Range]: Temperature Tympanic 36.8 degC [36.6-38.1 degC] (06/22/16 1:48 PM) Peripheral Pulse 68 bpm Rate [60-100 bpm] (06/22/16 1:48 PM) Blood Pressure 134/62 mmHg [90-140/60-90 mmHg] (06/22/16 1:48 PM) Problem List Condition Effective Dates Status [...] DAY, # 90 tabs, 2 Refill(s), eRx: [facility] #[id number], TAKE ONE TABLET BY MOUTH EVERY DAY Start Date: 08/16/15 Status: Ordered Aspirin Low Dose 81 mg, Oral, Daily, 0 Refill(s) Start Date: 07/09/14 Status: Ordered Benadryl 25 mg, Oral, Daily, as needed for food allergy symptoms, 0 Refill(s) Start Date: 06/22/16 Status: Ordered carvedilol 25 mg oral tablet 25 mg 1 tabs, Oral, BID, # 270 tabs, 2 Refill(s), eRx: [facility] #[id number] , TAKE ONE TABLET BY MOUTH THREE TIMES A DAY Start Date: 01/17/16 Status: Ordered famotidine 20 mg oral tablet See Instructions, TAKE ONE TABLET BY MOUTH TWICE A DAY, # 180 tabs, 1 Refill(s) , eRx: [facility] #[id number], TAKE ONE TABLET BY MOUTH TWICE A DAY Start Date: 04/10/16 Status: Ordered ferrous sulfate 325 mg (65 mg elemental iron) oral tablet 325 mg 1 tabs, Oral, Daily, 0 Refill(s) Start Date: 08/03/15 Status: Ordered losartan 100 mg oral tablet See Instructions, TAKE ONE TABLET BY MOUTH DAILY, # 90 tabs, eRx: [facility] #[id number], TAKE ONE TABLET BY MOUTH DAILY Start Date: 04/24/16 Status: Ordered multivitamin 1 tablet, Oral, Daily, 0 Refill(s) Start Date: 07/09/14 Status: Ordered Nitromist 0.4 mg sublingual spray 0.4 mg, SubLingual, q5min, # 1 bottles, 1 Refill(s), Pharmacy: [facility] #[id number], 0.4 mg SubLingual q5min Start Date: 11/04/14 Status: Ordered [place] 5 mg-325 mg oral tablet 1 tabs, Oral, BID, as needed for pain, # 60 tabs, 0 Refill(s) Start Date: 05/23/16 Status: Ordered simvastatin 20 mg oral tablet See Instructions, TAKE ONE TABLET BY MOUTH EVERY NIGHT AT BEDTIME, # 90 tabs, 2 Refill(s), eRx: [facility] #[id number], TAKE ONE TABLET BY MOUTH EVERY NIGHT [...] Diagnosis Body Site Destruction (eg, laser surgery, 06/22/16 electrosurgery, cryosurgery, chemosurgery, surgical curettement), premalignant lesions (eg, actinic keratoses); first lesion Destruction (eg, laser surgery, 06/22/16 electrosurgery, cryosurgery, chemosurgery, surgical curettement), premalignant lesions (eg, actinic keratoses); second through 14 lesions, each (List separately in addition to code for first lesion) Destruction (eg, laser surgery, 06/22/16 electrosurgery, cryosurgery, chemosurgery, surgical curettement), premalignant lesions (eg, actinic keratoses); second through 14 lesions, each (List separately in addition to code for first lesion) Destruction (eg, laser surgery, 06/22/16 electrosurgery, cryosurgery, chemosurgery, surgical curettement), premalignant lesions (eg, actinic keratoses); second through 14 lesions, each (List separately in addition to code for first lesion) Destruction (eg, laser surgery, 06/22/16 electrosurgery, cryosurgery, chemosurgery, surgical curettement), premalignant lesions (eg, actinic keratoses); second through 14 lesions, each (List separately in addition to code for first lesion) Destruction (eg, laser surgery, 06/22/16 electrosurgery, cryosurgery, chemosurgery, surgical curettement), premalignant lesions [...] Patient Education Author: Tayo Gee MD Date: 06/22 Family Medicine Actinic Keratosis Actinic keratosis is [...] for any changes. Visit a skin doctor (forest management teacher) every year for a skin exam. SEEK [...] Released: 01/11/2010 Document Revised: 11/05/2015 Document Reviewed: [facility] Patient Information 2016 [employer] [facility]. No follow up information was provided. Extracted from: Title: actinic keratoses X 6 Author: Tayo Gee MD Date: 06/22/16 Impression and Plan Diagnosis Actinic keratoses (JEZ91-RZ L57.0, Working, Medical). 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 Plan: 1) Six Actinic Keratoses were treated with liquid nitrogen (3 on the left face and 3 on the right face) using a freeze, thaw, refreeze technique which was well tolerated. 2) Reassurance about the seborrheic keratoses. 3) See me in July as scheduled, and as needed.. Orders Orders (Selected) Outpatient Orders Ordered Destruction premalignant lesion 1st 48223: Destruction premalignant lesion 2-14, Each 88801: Destruction premalignant lesion 2-14, Each 04326: Destruction premalignant lesion 2-14, Each 04132: Destruction premalignant lesion 2-14, Each 02381: Destruction premalignant lesion 2-14, Each 30561: Office Visit Level 2 Est 31708: . Dx/Order Association Plan: Diagnosis: Actinic keratoses Comment: Ordered: Office Visit Level 2 Est 44328; 06/22/16 18:04:00 CDT, 25 , Seborrheic keratoses | Actinic keratoses Destruction premalignant lesion 2-14, Each 95725; 06/22/16 18:03:00 CDT, 1, Actinic keratoses Destruction premalignant lesion 2-14, Each 81380; 06/22/16 18:02:00 CDT, 1, Actinic keratoses Destruction premalignant lesion 2-14, Each 29739; 06/22/16 18:02:00 CDT, 1, Actinic keratoses Destruction premalignant lesion 2-14, Each 70818; 06/22/16 18:02:00 CDT, 1, Actinic keratoses Destruction premalignant lesion 2-14, Each 18634; 06/22/16 18:02:00 CDT, 1, Actinic keratoses Destruction premalignant lesion 1st 29664; 18:02:00 CDT, 1, Actinic keratoses Diagnosis: Seborrheic keratoses Comment: Ordered: Office Visit Level 2 Est 16131; 06/22/16 18:04:00 CDT, 25 , Seborrheic keratoses | Actinic keratoses End of Orders ."
--- OUTSIDE RECORDS SUMMARY | 2017-02-22 05:55 | XMS REPORT | Referral Summary ---
Author Author [facility] [place], Family Medicine Organization [facility] Address Unknown Phone Unavailable Care Team Providers Care Lunchroom Monitor Name Role Phone Francy Gee Primary Care Physician [phone] Encounter VC Date(s): 01/12/16 - 01/12/16 [facility]ERRON Yepez [place], [address] [place] [id number] Discharge Disposition: 01-Home or Self Care Attending Physician: Tayo Gee MD Admitting Physician: Tayo Gee MD Vital Signs Most recent to 1 oldest [Reference Range]: Temperature Tympanic 35.9 degC [36.6-38.1 degC] *LOW* (01/12/16 9:29 AM) Peripheral Pulse 72 bpm Rate [60-100 bpm] (01/12/16 9:29 AM) Blood Pressure 120/56 mmHg [90-140/60-90 mmHg] (01/12/16 9:29 AM) Problem List Condition Effective Dates Status [...] 2 Refill(s), eRx: [facility] #[id number], TAKE ONE TABLET BY MOUTH EVERY DAY Start Date: 08/16/15 Status: Ordered Aspirin Low Dose 81 mg, Oral, Daily, 0 Refill(s) Start Date: 07/09/14 Status: Ordered carvedilol 25 mg oral tablet 25 mg 1 tabs, Oral, BID, # 270 tabs, 3 Refill(s), Pharmacy: [facility] # [id number], 1 tabs Oral TID Start Date: 11/30/14 Status: Ordered cephalexin 500 mg oral capsule 500 mg 1 caps, Oral, TID, X 10 days, # 30 caps, 0 Refill(s), Pharmacy: [facility] #[id number], 1 caps Oral TID,x10 days Start Date: 01/12/16 Stop Date: 01/22/16 Status: Ordered famotidine 20 mg oral tablet See Instructions, TAKE ONE TABLET BY MOUTH TWICE A DAY, # 180 tabs, 1 Refill(s) , eRx: [facility] #[id number], TAKE ONE TABLET BY MOUTH TWICE A DAY Start Date: 06/28/15 Status: Ordered ferrous sulfate 325 mg (65 mg elemental iron) oral tablet 325 mg 1 tabs, Oral, Daily, 0 Refill(s) Start Date: 08/03/15 Status: Ordered losartan 100 mg oral tablet See Instructions, TAKE ONE TABLET BY MOUTH DAILY, # 90 tabs, eRx: [facility] #[id number], TAKE ONE TABLET BY MOUTH DAILY Start Date: 11/15/15 Status: Ordered multivitamin 1 tablet, Oral, Daily, 0 Refill(s) Start Date: 07/09/14 Status: Ordered Nitromist 0.4 mg sublingual spray 0.4 mg, SubLingual, q5min, # 1 bottles, 1 Refill(s), Pharmacy: [facility] #[id number], 0.4 mg SubLingual q5min Start Date: 11/04/14 Status: Ordered [place] 5 mg-325 mg oral tablet 1 tabs, Oral, BID, as needed for pain, # 60 tabs, 0 Refill(s) Start Date: 12/27/15 Status: Ordered ProAir HFA 90 mcg/inh inhalation aerosol 2 puffs, Inhalation, QID, as needed for wheezing, # 18 g, 11 Refill(s), Pharmacy : [facility] #[id number] Start Date: 11/03/15 Status: Ordered simvastatin 20 mg oral tablet See Instructions, TAKE ONE TABLET BY MOUTH EVERY NIGHT AT BEDTIME, # 90 tabs, 2 Refill(s), eRx: [facility] #[id number], TAKE ONE TABLET BY MOUTH EVERY NIGHT [...] Patient Education Author: Tayo Gee MD Date: 01/11 Home Health Care Cellulitis Cellulitis is an [...] with your health care provider. Document Released: 07/25/2006 Document Revised: 03/01/2015 Document Reviewed: [facility] Patient Information 2015 [email or web address]). No follow up information was provided. Extracted from: Title: cellulitis of toe, CAD, HTN Author: Tayo Gee MD Date: Impression and Plan Diagnosis CAD (coronary artery disease) (HBH04-QL I25.10, Working, Medical). Benign essential hypertension (EIC44-KU I10, Working, Medical). Primary hypercholesterolemia (TCU52-VO E78.0, Working, Medical). Bronchiectasis (VCN40-SI J47.9, Working, Medical). DENISE on CPAP (AFZ37-ET G47.33, Working, Medical). Cellulitis of great toe, left (YJT97-ZI L03.032, Working, Medical). Plan: 1) Culture of the left great toe drainage was obtained. 2) Take the Cephalexin as prescribed. 3) Continue your routine meds. 4) Schedule excision of the left great toenail sometime. 5) Followup as needed, in the meantime. 6) Gently file the left great toenail down so that it is not so thick. Orders Orders (Selected) Outpatient Orders Ordered Office Visit Level 4 Est 66771: Ordered (Pending Collection) Wound Culture: Prescriptions Prescribed cephalexin 500 mg oral capsule: 500 mg=1 caps, Oral, TID, for 10 days, 30 caps, 0 Refill(s). Dx/Order Association Plan: Diagnosis: Benign essential hypertension Comment: Ordered: Office Visit Level 4 Est 63053; 01/12/16 9:45:00 CDT, Cellulitis of great toe, left | CAD (coronary artery disease) | Bronchiectasis | Benign essential hypertension Diagnosis: Bronchiectasis Comment: Ordered: Office Visit Level 4 Est 06513; 01/12/16 9:45:00 CDT, Cellulitis of great toe, left | CAD (coronary artery disease) | Bronchiectasis | Benign essential hypertension Diagnosis: CAD (coronary artery disease) Comment: Ordered: Office Visit Level 4 Est 02004; 01/12/16 9:45:00 CDT, Cellulitis of great toe, left | CAD (coronary artery disease) | Bronchiectasis | Benign essential hypertension Diagnosis: Cellulitis of great toe, left Comment: Ordered: Wound Culture; Abscess, Toe, Routine collect, 01/12/16 9: 49:00 CDT, Stop date 01/12/16 9:49:00 CDT, Nurse Collect Non-Blood, Cellulitis of great toe, left Office Visit Level 4 Est 87129; 01/12/16 9:45:00 CDT, Cellulitis of great toe, left | CAD (coronary artery disease) | Bronchiectasis | Benign essential hypertension Diagnosis: DENISE on CPAP Comment: Diagnosis: Primary hypercholesterolemia Comment: Additional Orders: Comment: Ordered: cephalexin 500 mg oral capsule,500 mg 1 caps, Oral, TID, X 10 days, # 30 caps, 0 Refill(s), Pharmacy: [facility] #[id number], 1 caps Oral TID,x10 days End of Orders ."
--- OUTSIDE RECORDS SUMMARY | 2017-02-22 05:55 | XMS REPORT | Referral Summary ---
Author Author [facility] Organization [facility] Address Unknown Phone Unavailable Care Team Providers Care Civil Technician Name Role Phone Francy Gee Primary Care Physician [phone] Encounter Date(s): 04/28/15 - 04/28/15 [facility] [address] [place] [address] DUY[place] Isidro [id number] Discharge Diagnosis: Coronary heart disease [...] # 90 tabs, 2 Refill(s), eRx: [facility] #[id number], TAKE ONE TABLET BY MOUTH EVERY DAY Start Date: 08/16/15 Status: Ordered Aspirin Low Dose 81 mg, Oral, Daily, 0 Refill(s) Start Date: 07/09/14 Status: Ordered carvedilol 25 mg oral tablet 25 mg 1 tabs, Oral, BID, # 270 tabs, 3 Refill(s), Pharmacy: [facility] # [id number], 1 tabs Oral TID Start Date: 11/30/14 Status: Ordered famotidine 20 mg oral tablet See Instructions, TAKE ONE TABLET BY MOUTH TWICE A DAY, # 180 tabs, 1 Refill(s) , eRx: [facility] #[id number], TAKE ONE TABLET BY MOUTH TWICE A DAY Start Date: 06/28/15 Status: Ordered ferrous sulfate 325 mg (65 mg elemental iron) oral tablet 325 mg 1 tabs, Oral, Daily, 0 Refill(s) Start Date: 08/03/15 Status: Ordered losartan 100 mg oral tablet See Instructions, TAKE ONE HALF TABLET BY MOUTH EVERY DAY, # 90 tabs, 1 Refill(s ), eRx: [facility] #[id number], TAKE ONE TABLET BY MOUTH EVERY DAY Start Date: 01/18/15 Status: Ordered multivitamin 1 tablet, Oral, Daily, 0 Refill(s) Start Date: 07/09/14 Status: Ordered Nitromist 0.4 mg sublingual spray 0.4 mg, SubLingual, q5min, # 1 bottles, 1 Refill(s), Pharmacy: [facility] #[id number], 0.4 mg SubLingual q5min Start Date: 11/04/14 Status: Ordered [place] 5 mg-325 mg oral tablet 1 tabs, [...] NIGHT AT BEDTIME, # 90 tabs, eRx: [facility] #[id number], TAKE ONE TABLET BY MOUTH EVERY NIGHT AT BEDTIME Start Date: 07/19/15 Status: Ordered Spiriva 2.5 mcg, Inhalation, Daily, 0 Refill(s) Start Date: 08/17/15 Status: Ordered Spiriva Respimat 60 inhalation aerosol 2 puffs, Inhalation, Daily, # 1 Each, 3 Refill(s), Pharmacy: [facility] # [id number] Start Date: 08/12/15 Status: Ordered Results No [...]
--- OUTSIDE RECORDS SUMMARY | 2017-02-22 05:55 | XMS REPORT | Referral Summary ---
Author Author [facility] Organization [facility], [facility] Address Unknown Phone Unavailable Care Team Providers Care Alcoholism Worker Name Role Phone Francy Gee Primary Care Physician [phone] Encounter Date(s): 08/17/15 - 08/17/15 [facility] [address] [place], [place] [address] Discharge Diagnosis: DENISE on CPAP Discharge [...] 2 Refill(s), eRx: [facility] #[id number], TAKE ONE TABLET BY MOUTH EVERY DAY Start Date: 08/16/15 Status: Ordered Aspirin Low Dose 81 mg, Oral, Daily, 0 Refill(s) Start Date: 07/09/14 Status: Ordered carvedilol 25 mg oral tablet See Instructions, TAKE ONE TABLET BY MOUTH THREE TIMES A DAY, # 270 tabs, 2 Refill(s), eRx: [facility] #[id number], TAKE ONE TABLET BY MOUTH THREE TIMES A DAY Start Date: 01/17/16 Status: Ordered famotidine 20 mg oral tablet See Instructions, TAKE ONE TABLET BY MOUTH TWICE A DAY, # 180 tabs, 1 Refill(s) , eRx: [facility] #[id number], TAKE ONE TABLET BY MOUTH TWICE A DAY Start Date: 06/28/15 Status: Ordered ferrous sulfate 325 mg (65 mg elemental iron) oral tablet 325 mg 1 tabs, Oral, Daily, 0 Refill(s) Start Date: 08/03/15 Status: Ordered losartan 100 mg oral tablet See Instructions, TAKE ONE TABLET BY MOUTH DAILY, # 90 tabs, eRx: [facility] #[id number], TAKE ONE TABLET BY MOUTH DAILY Start Date: 11/15/15 Status: Ordered multivitamin 1 tablet, Oral, Daily, 0 Refill(s) Start Date: 07/09/14 Status: Ordered Nitromist 0.4 mg sublingual spray 0.4 mg, SubLingual, q5min, # 1 bottles, 1 Refill(s), Pharmacy: [facility] #[id number], 0.4 mg SubLingual q5min Start Date: 11/04/14 Status: Ordered [place] 5 mg-325 mg oral tablet 1 tabs, Oral, BID, as needed for pain, # 60 tabs, 0 Refill(s) Start Date: 02/25/16 Status: Ordered ProAir HFA 90 mcg/inh inhalation aerosol 2 puffs, Inhalation, QID, as needed for wheezing, # 18 g, 11 Refill(s), Pharmacy : [facility] #[id number] Start Date: 11/03/15 Status: Ordered simvastatin 20 mg oral tablet See Instructions, TAKE ONE TABLET BY MOUTH EVERY NIGHT AT BEDTIME, # 90 tabs, 2 Refill(s), eRx: [facility] #[id number], TAKE ONE TABLET BY MOUTH EVERY NIGHT [...]
--- OUTSIDE RECORDS SUMMARY | 2017-02-22 05:55 | XMS REPORT | Referral Summary ---
Author Author [facility] Organization [facility] Address Unknown Phone Unavailable Care Team Providers Care Business Account Specialist Name Role Phone Francy Gee Primary Care Physician [phone] Encounter Date(s): 05/03/16 - 05/03/16 [facility] [address] [place] [address] [place] Isidro [id number] Discharge Diagnosis: Coronary heart disease Discharge Diagnosis: Hypercholesteremia Discharge Diagnosis: Effort angina Discharge Diagnosis: Essential hypertension Discharge Diagnosis: History of percutaneous coronary intervention Discharge Diagnosis: H/O coronary artery bypass surgery Discharge Diagnosis: Sleep apnea Discharge Disposition: 01-Home or Self Care Attending Physician: Stuart Vasquez MD Admitting Physician: Stuart Vasquez MD Referring Physician: Tayo Gee MD Vital Signs Most recent to 1 oldest [Reference Range]: Peripheral Pulse 80 bpm Rate [60-100 bpm] (05/03/16 2:26 PM) Blood Pressure 146/60 mmHg [90-140/60-90 mmHg] *HI* (05/03/16 2:26 PM) Problem List Condition Effective Dates Status [...] # 90 tabs, 2 Refill(s), eRx: [facility] #[id number], TAKE ONE TABLET BY MOUTH EVERY DAY Start Date: 08/16/15 Status: Ordered Aspirin Low Dose 81 mg, Oral, Daily, 0 Refill(s) Start Date: 07/09/14 Status: Ordered carvedilol 25 mg oral tablet See Instructions, TAKE ONE TABLET BY MOUTH THREE TIMES A DAY, # 270 tabs, 2 Refill(s), eRx: [facility] #[id number], TAKE ONE TABLET BY MOUTH THREE TIMES A DAY Start Date: 01/17/16 Status: Ordered famotidine 20 mg oral tablet See Instructions, TAKE ONE TABLET BY MOUTH TWICE A DAY, # 180 tabs, 1 Refill(s) , eRx: [facility] #[id number], TAKE ONE TABLET BY MOUTH TWICE A DAY Start Date: 04/10/16 Status: Ordered ferrous sulfate 325 mg (65 mg elemental iron) oral tablet 325 mg 1 tabs, Oral, Daily, 0 Refill(s) Start Date: 08/03/15 Status: Ordered losartan 100 mg oral tablet See Instructions, TAKE ONE TABLET BY MOUTH DAILY, # 90 tabs, eRx: [facility] #[id number], TAKE ONE TABLET BY MOUTH DAILY Start Date: 04/24/16 Status: Ordered multivitamin 1 tablet, Oral, Daily, 0 Refill(s) Start Date: 07/09/14 Status: Ordered Nitromist 0.4 mg sublingual spray 0.4 mg, SubLingual, q5min, # 1 bottles, 1 Refill(s), Pharmacy: [facility] #[id number], 0.4 mg SubLingual q5min Start Date: 11/04/14 Status: Ordered [place] 5 mg-325 mg oral tablet 1 tabs, Oral, BID, as needed for pain, # 60 tabs, 0 Refill(s) Start Date: 04/27/16 Status: Ordered ProAir HFA 90 mcg/inh inhalation aerosol 2 puffs, Inhalation, QID, as needed for wheezing, # 18 g, 11 Refill(s), Pharmacy : [facility] #[id number] Start Date: 11/03/15 Status: Ordered simvastatin 20 mg oral tablet See Instructions, TAKE ONE TABLET BY MOUTH EVERY NIGHT AT BEDTIME, # 90 tabs, 2 Refill(s), eRx: [facility] #[id number], TAKE ONE TABLET BY MOUTH EVERY NIGHT [...] 1948 Hospital admission for polio 1939 Tonsillectomy 193 CIII LEFT ANKLE PAIN CIII LLE CELLULITIS Colonoscopy Herniorrhaphy - 3 total, 1 on the left and 2 on the right1 15 hernia repairs: 3 on the left, 2 on the right, between 1965 and 1979 Social History Social History Type Response Smoking Status Never smoker Assessment and Plan Extracted from: Title: Office Visit Note Author: Stuart Vasquez MD Date: 05/03/16 Assessment/Plan 1.Coronary heart disease 2.Effort angina 3.Hypercholesteremia 4.Essential hypertension 5.History of percutaneous coronary intervention 6.H/O coronary artery bypass surgery 7.Sleep apnea Overall, this gentleman has surpassedexpectationsof survival. He seems considerably morecomfortablewith his health at this point. He has angina which is very stable. A follow-up visit in 6 months was advised that we can see him any time. I think that thesleep management has been beneficial.
--- OUTSIDE RECORDS SUMMARY | 2017-02-22 05:55 | XMS REPORT | Continuity of Care Document ---
Author Author Stuart Vasquez MD Ambulatory Address [address] [place] [address] Phone Care Team Providers Care Behavioral School Counselors Name Role Phone Tayo Gee PP Unavailable Payers Payer name Insurance type Covered green party ID Authorization(s) Unknown Problems Condition Effective Dates (start - stop) Clinical Status CAD, Unspecified - *Chronic Angina effort - *Chronic Old DE (myocardial infarction) - *Chronic History of coronary artery bypass surgery - *Chronic Essential hypertension - *Chronic CAD (coronary artery disease) - [...] *Chronic Eczema - Intermittent CAD, Unspecified - *Controlled AC POLIO NOS-TYPE [...] Dosage Effective Dates (start - stop) Status carvedilol 25 mg tablet take 1 tablet (25MG) by oral route 3 times every day with food 25 MG - Active Vitamin C 250 mg [...] route every day 100 MG - Active [place] 5 mg-325 mg tablet take 1 tablet [...] Height Weight Pulse Rate Blood Pressure Temperature /:33:00 69.85 in 188.00 lbs 68 /min 140/70 mm[Hg] /:35:00 134/70 mm[Hg] Procedures Procedure Date Unknown Encounters Encounter Location Date Patient Visit [facility] Patient Visit [facility] Patient Visit [facility] Patient Visit [facility] Advance Directives Directive Effective Date Unknown
--- OUTSIDE RECORDS SUMMARY | 2017-02-22 05:55 | XMS REPORT | Referral Summary ---
Author Author [facility] Organization [facility] Address Unknown Phone Unavailable Care Team Providers Care Leather Stripping Machine Operator Name Role Phone Francy Gee Primary Care Physician [phone] Encounter Date(s): 04/28/15 - 04/28/15 [facility] [address] [place] [address] [place] Isidro [id number] Discharge Diagnosis: Coronary heart disease Discharge Diagnosis: [...] Refill(s), eRx: [facility] #[id number], TAKE ONE TABLET BY MOUTH EVERY DAY Start Date: 08/16/15 Status: Ordered Aspirin Low Dose 81 mg, Oral, Daily, 0 Refill(s) Start Date: 07/09/14 Status: Ordered carvedilol 25 mg oral tablet 25 mg 1 tabs, Oral, BID, # 270 tabs, 3 Refill(s), Pharmacy: [facility] # [id number], 1 tabs Oral TID Start Date: 11/30/14 Status: Ordered famotidine 20 mg oral tablet See Instructions, TAKE ONE TABLET BY MOUTH TWICE A DAY, # 180 tabs, 1 Refill(s) , eRx: [facility] #[id number], TAKE ONE TABLET BY MOUTH TWICE A DAY Start Date: 06/28/15 Status: Ordered ferrous sulfate 325 mg (65 mg elemental iron) oral tablet 325 mg 1 tabs, Oral, Daily, 0 Refill(s) Start Date: 08/03/15 Status: Ordered losartan 100 mg oral tablet See Instructions, TAKE ONE HALF TABLET BY MOUTH EVERY DAY, # 90 tabs, 1 Refill(s ), eRx: [facility] #[id number], TAKE ONE TABLET BY MOUTH EVERY DAY Start Date: 01/18/15 Status: Ordered multivitamin 1 tablet, Oral, Daily, 0 Refill(s) Start Date: 07/09/14 Status: Ordered Nitromist 0.4 mg sublingual spray 0.4 mg, SubLingual, q5min, # 1 bottles, 1 Refill(s), Pharmacy: [facility] #[id number], 0.4 mg SubLingual q5min Start Date: 11/04/14 Status: Ordered [place] 5 mg-325 mg oral tablet 1 tabs, [...] NIGHT AT BEDTIME, # 90 tabs, eRx: [facility] #[id number], TAKE ONE TABLET BY MOUTH EVERY NIGHT AT BEDTIME Start Date: 07/19/15 Status: Ordered Spiriva 2.5 mcg, Inhalation, Daily, 0 Refill(s) Start Date: 08/17/15 Status: Ordered Spiriva Respimat 60 inhalation aerosol 2 puffs, Inhalation, Daily, # 1 Each, 3 Refill(s), Pharmacy: [facility] # [id number] Start Date: 08/12/15 Status: Ordered Results No [...]
--- OUTSIDE RECORDS SUMMARY | 2017-02-22 05:55 | XMS REPORT | Referral Summary ---
Author Author [facility], Family Medicine Organization [facility], [facility] Address Unknown Phone Unavailable Care Team Providers Care Packaging Clerk Name Role Phone Francy Gee Primary Care Physician [phone] Encounter VC Date(s): 12/07/15 - 12/07/15 [facility], [address] [place] [id number] [place] Discharge Disposition: 01-Home or Self Care Attending Physician: Tayo Gee MD Admitting Physician: aTyo Gee MD Vital Signs Most recent to 1 oldest [Reference Range]: Temperature Tympanic 38.5 degC [36.6-38.1 degC] *HI* (12/07/15 2:44 PM) Peripheral Pulse 83 bpm Rate [60-100 bpm] (12/07/15 2:44 PM) Blood Pressure 134/56 mmHg [90-140/60-90 mmHg] (12/07/15 2:44 PM) SpO2 96 % (12/07/15 2:44 PM) Problem List Condition Effective Dates Status [...] Refill(s), eRx: [facility] #[id number], TAKE ONE TABLET BY MOUTH EVERY DAY Start Date: 08/16/15 Status: Ordered Aspirin Low Dose 81 mg, Oral, Daily, 0 Refill(s) Start Date: 07/09/14 Status: Ordered azithromycin 250 mg oral tablet See Instructions, take 2 tabs today, then 1 tab daily for 4 days., # 6 tabs, 1 Refill(s), Pharmacy: [facility] #[id number], take 2 tabs today, then 1 tab daily for 4 days. Start Date: 12/07/15 Stop Date: 12/12/15 Status: Ordered carvedilol 25 mg oral tablet 25 mg 1 tabs, Oral, BID, # 270 tabs, 3 Refill(s), Pharmacy: [facility] # [id number], 1 tabs Oral TID Start Date: 11/30/14 Status: Ordered famotidine 20 mg oral tablet See Instructions, TAKE ONE TABLET BY MOUTH TWICE A DAY, # 180 tabs, 1 Refill(s) , eRx: [facility] #[id number], TAKE ONE TABLET BY MOUTH TWICE A DAY Start Date: 06/28/15 Status: Ordered ferrous sulfate 325 mg (65 mg elemental iron) oral tablet 325 mg 1 tabs, Oral, Daily, 0 Refill(s) Start Date: 08/03/15 Status: Ordered losartan 100 mg oral tablet See Instructions, TAKE ONE TABLET BY MOUTH DAILY, # 90 tabs, eRx: [facility] #[id number], TAKE ONE TABLET BY MOUTH DAILY Start Date: 11/15/15 Status: Ordered multivitamin 1 tablet, Oral, Daily, 0 Refill(s) Start Date: 07/09/14 Status: Ordered Nitromist 0.4 mg sublingual spray 0.4 mg, SubLingual, q5min, # 1 bottles, 1 Refill(s), Pharmacy: [facility] #[id number], 0.4 mg SubLingual q5min Start Date: 11/04/14 Status: Ordered [place] 5 mg-325 mg oral tablet 1 tabs, Oral, BID, as needed for pain, # 60 tabs, 0 Refill(s) Start Date: 11/26/15 Status: Ordered ProAir HFA 90 mcg/inh inhalation aerosol 2 puffs, Inhalation, QID, as needed for wheezing, # 18 g, 11 Refill(s), Pharmacy : [facility] #[id number] Start Date: 11/03/15 Status: Ordered simvastatin 20 mg oral tablet See Instructions, TAKE ONE TABLET BY MOUTH EVERY NIGHT AT BEDTIME, # 90 tabs, 2 Refill(s), eRx: [facility] #[id number], TAKE ONE TABLET BY MOUTH EVERY NIGHT AT BEDTIME Start Date: 10/25/15 Status: Ordered Results Hematology Most recent to 1 oldest [Reference Range]: WBC [5.0-10.0 10.4 10*3/uL 10*3/uL] *HI* (12/07/15 3:24 PM) RBC [3.70-5.20] 3.91 (12/07/15 3:24 PM) Hgb [12.0-16.0 12.5 gm/dL gm/dL] (12/07/15 3:24 PM) Hct [40.0-54.0 %] 38.1 % *LOW* (12/07/15 3:24 PM) MCV [80.0-96.0 fL] 97.4 fL *HI* (12/07/15 3:24 PM) MCH [26.0-34.0 pg] 32.0 pg (12/07/15 3:24 PM) MCHC [32.0-36.0 32.8 gm/dL gm/dL] (12/07/15 3:24 PM) RDW [0.0-14.5 %] 12.6 % (12/07/15 3:24 PM) Platelet [150-400 159 10*3/uL 10*3/uL] (12/07/15 3:24 PM) MPV [8.8-14.8 fL] 10.7 fL (12/07/15 3:24 PM) Neutrophils [50-70 65 % %] (12/07/15 3:24 PM) Lymphocytes [20-40 19 % %] *LOW* (12/07/15 3:24 PM) Monocytes [4-8 %] 15 % *HI* (12/07/15 3:24 PM) Eosinophils [0-6 %] 1 % (12/07/15 3:24 PM) Basophils [0-2 %] 0 % (12/07/15 3:24 PM) Neutro Absolute 6.79 10*3 [2.50-7.00 10*3] (12/07/15 3:24 PM) Lymph Absolute 1.98 10*3 [1.00-4.00 10*3] (12/07/15 3:24 PM) [place] Absolute 1.54 10*3 [0.20-0.80 10*3] *HI* (12/07/15 3:24 PM) Eos Absolute 0.12 10*3 [0.00-0.60 10*3] (12/07/15 3:24 PM) Baso Absolute 0.01 [0.00-0.30] (12/07/15 3:24 PM) Immunizations Vaccine Date Refusal Reason tetanus/diphth/pertuss (Tdap) [...] Patient Education Author: Tayo Gee MD Date: Allergy Sinusitis Sinusitis is redness, soreness, and inflammation of the paranasal sinuses. Paranasal sinuses are air pockets within the bones of your face (beneath the eyes, the middle of the forehead, or above the eyes). In healthy paranasal sinuses, mucus is able to drain out, and air is able to circulate through them by way of your nose. However, when your paranasal sinuses are inflamed, mucus and air can become trapped. This can allow bacteria and other germs to grow and cause infection. Sinusitis can develop quickly and last only a short time (acute) or continue over a long period (chronic). Sinusitis that lasts for more than 12 weeks is considered chronic. CAUSES Causes of sinusitis include: Allergies. Structural abnormalities, such as displacement of the cartilage that separates your nostrils (deviated septum), which can decrease the air flow through your nose and sinuses and affect sinus drainage. Functional abnormalities, such as when the small hairs (cilia) that line your sinuses and help remove mucus do not work properly or are not present. SIGNS AND SYMPTOMS Symptoms of acute and chronic sinusitis are the same. The primary symptoms are pain and pressure around the affected sinuses. Other symptoms include: Upper toothache. Earache. Headache. Bad breath. Decreased sense of smell and taste. A cough, which worsens when you are lying flat. Fatigue. Fever. Thick drainage from your nose, which often is green and may contain pus ( purulent). Swelling and warmth over the affected sinuses. DIAGNOSIS Your health care provider will perform a physical exam. During the exam, your health care provider may: Look in your nose for signs of abnormal growths in your nostrils (nasal polyps). Tap over the affected sinus to check for signs of infection. View the inside of your sinuses (endoscopy) using an imaging device that has a light attached (endoscope). If your health care provider suspects that you have chronic sinusitis, one or more of the following tests may be recommended: Allergy tests. Nasal culture. A sample of mucus is taken from your nose, sent to a lab, and screened for bacteria. Nasal cytology. A sample of mucus is taken from your nose and examined by your health care provider to determine if your sinusitis is related to an allergy. TREATMENT Most cases of acute sinusitis are related to a viral infection and will resolve on their own within 10 days. Sometimes medicines are prescribed to help relieve symptoms (pain medicine, decongestants, nasal steroid sprays, or saline sprays) . However, for sinusitis related to a bacterial infection, your health care provider will prescribe antibiotic medicines. These are medicines that will help kill the bacteria causing the infection. Rarely, sinusitis is caused by a fungal infection. In theses cases, your health care provider will prescribe antifungal medicine. For some cases of chronic sinusitis, surgery is needed. Generally, these are cases in which sinusitis recurs more than 3 times per year, despite other treatments. HOME CARE INSTRUCTIONS Drink plenty of water. Water helps thin the mucus so your sinuses can drain more easily. Use a humidifier. Inhale steam 3 to 4 times a day (for example, sit in the bathroom with the shower running). Apply a warm, moist washcloth to your face 3 to 4 times a day, or as directed by your health care provider. Use saline nasal sprays to help moisten and clean your sinuses. Take medicines only as directed by your health care provider. If you were prescribed either an antibiotic or antifungal medicine, finish it all even if you start to feel better. SEEK IMMEDIATE MEDICAL CARE IF: You have increasing pain or severe headaches. You have nausea, vomiting, or drowsiness. You have swelling around your face. You have vision problems. You have a stiff neck. You have difficulty breathing. MAKE SURE YOU: Understand these instructions. Will watch your condition. Will get help right away if you are not doing well or get worse. Document Released: 10/15/2006 Document Revised: 03/01/2015 Document Reviewed: [facility] Patient Information 2015 [employer]. This information is not intended to replace advice given to you by your health care provider. Make sure you discuss any questions you have with your health care provider. Family Medicine Acute Bronchitis Bronchitis is inflammation of the airways that extend from the windpipe into the lungs (bronchi). The inflammation often causes mucus to develop. This leads to a cough, which is the most common symptom of bronchitis. In acute bronchitis, the condition usually develops suddenly and goes away over time, usually in a couple weeks. Smoking, allergies, and asthma can make bronchitis worse. Repeated episodes of bronchitis may cause further lung problems. CAUSES Acute bronchitis is most often caused by the same virus that causes a cold. The virus can spread from person to person (contagious) through coughing, sneezing, and touching contaminated objects. SIGNS AND SYMPTOMS Cough. Fever. Coughing up mucus. Body aches. Chest congestion. Chills. Shortness of breath. Sore throat. DIAGNOSIS Acute bronchitis is usually diagnosed through a physical exam. Your health care provider will also ask you questions about your medical history. Tests, such as chest X-rays, are sometimes done to rule out other conditions. TREATMENT Acute bronchitis usually goes away in a couple weeks. Oftentimes, no medical treatment is necessary. Medicines are sometimes given for relief of fever or cough. Antibiotic medicines are usually not needed but may be prescribed in certain situations. In some cases, an inhaler may be recommended to help reduce shortness of breath and control the cough. A cool mist vaporizer may also be used to help thin bronchial secretions and make it easier to clear the chest. HOME CARE INSTRUCTIONS Get plenty of rest. Drink enough fluids to keep your urine clear or pale yellow (unless you have a medical condition that requires fluid restriction). Increasing fluids may help thin your respiratory secretions (sputum) and reduce chest congestion, and it will prevent dehydration. Take medicines only as directed by your health care provider. If you were prescribed an antibiotic medicine, finish it all even if you start to feel better. Avoid smoking and secondhand smoke. Exposure to cigarette smoke or irritating chemicals will make bronchitis worse. If you are a smoker, consider using nicotine gum or skin patches to help control withdrawal symptoms. Quitting smoking will help your lungs heal faster. Reduce the chances of another bout of acute bronchitis by washing your hands frequently, avoiding people with cold symptoms, and trying not to touch your hands to your mouth, nose, or eyes. Keep all follow-up visits as directed by your health care provider. SEEK MEDICAL CARE IF: Your symptoms do not improve after 1 week of treatment. SEEK IMMEDIATE MEDICAL CARE IF: You develop an increased fever or chills. You have chest pain. You have severe shortness of breath. You have bloody sputum. You develop dehydration. You faint or repeatedly feel like you are going to pass out. You develop repeated vomiting. You develop a severe headache. MAKE SURE YOU: Understand these instructions. Will watch your condition. Will get help right away if you are not doing well or get worse. Document Released: 11/22/2005 Document Revised: 03/01/2015 Document Reviewed: [facility] Patient Information [address] [facility]. This information is not intended to replace advice given to you by your health care provider. Make sure you discuss any questions you have with your health care provider. Bronchiectasis Bronchiectasis is a condition in which [...] INSTRUCTIONS Get plenty of rest. Only take [id number] or prescription medicines as directed by your [...] 10/20/2014 Document Reviewed: [employer] Patient Information 2015 [employer]. This information is not intended to replace advice given to you by your health care provider. Make sure you discuss any questions you have with your health care provider. No follow up information was provided. Extracted from: Title: bronchitis, sinusitis, CAD, Author: Tayo Gee MD Date: bronchiectasis, HTN Impression and Plan Diagnosis Acute bronchitis (DUM16-IN J20.9, Working, Medical). Acute sinusitis (HOR49-ZR J01.40, Working, Medical). CAD (coronary artery disease) (JDD24-TS I25.10, Working, Medical). Benign essential hypertension (WYP37-TC I10, Working, Medical). Bronchiectasis (OKO68-DM J47.9, Working, Medical). Plan: 1) Rocephin 1 gm IM given in the office today. 2) Take Azithromycin as directed. 3) Rest at home. 4) Continue your routine meds. 5) Followup as needed. 6) Lab and CXR done today.. Orders Orders (Selected) Outpatient Orders Ordered Office Visit Level 4 Est 36556: Ordered (Exam Completed) XR Chest 2 Views: Completed CBC w/ Differential: Influenza A/B: cefTRIAXone: 1 g, IntraMuscular, Once Prescriptions Prescribed azithromycin 250 mg oral tablet: See Instructions, take 2 tabs today, then 1 tab daily for 4 days., 6 tabs, 1 Refill(s). Dx/Order Association Plan: Diagnosis: Acute bronchitis Comment: Ordered: Office Visit Level 4 Est 80016; 12/07/15 17:24:00 ROTARY CUTTER, Acute bronchitis | Acute sinusitis | Bronchiectasis | CAD (coronary artery disease) Other status: cefTRIAXone; 1 g, IntraMuscular, Once, First Dose: 12/07/15 16:00:00 ROTARY CUTTER, Stop Date: 12/07/15 16:00:00 ROTARY CUTTER (Completed) Influenza A/B; Nasopharyngeal Swab, Stat collect, 12/07/15 15:07:00 ROTARY CUTTER, Once, Stop date 12/07/15 15:07:00 ROTARY CUTTER, Nurse Collect Non-Blood, Acute bronchitis (Completed) CBC w/ Differential; Blood, Stat Collect, 15:07:00 ROTARY CUTTER, Once, Stop date 12/07/15 15:07:00 ROTARY CUTTER, Lab Collect, Acute bronchitis | Acute sinusitis | Benign essential hypertension | CAD (coronary artery disease) (Completed) XR Chest 2 Views; 12/07/15 15:07:00 ROTARY CUTTER, Routine, Stop date 12/07/15 15:07:00 ROTARY CUTTER, Reason: Cough, Acute bronchitis, ABN Status: Not Required (Status Change) Diagnosis: Acute sinusitis Comment: Ordered: Office Visit Level 4 Est 50988; 12/07/15 17:24:00 ROTARY CUTTER, Acute bronchitis | Acute sinusitis | Bronchiectasis | CAD (coronary artery disease) Other status: cefTRIAXone; 1 g, IntraMuscular, Once, First Dose: 12/07/15 16:00:00 ROTARY CUTTER, Stop Date: 12/07/15 16:00:00 ROTARY CUTTER (Completed) CBC w/ Differential; Blood, Stat Collect, 15:07:00 ROTARY CUTTER, Once, Stop date 12/07/15 15:07:00 ROTARY CUTTER, Lab Collect, Acute bronchitis | Acute sinusitis | Benign essential hypertension | CAD (coronary artery disease) (Completed) Diagnosis: Benign essential hypertension Comment: Other status: CBC w/ Differential; Blood, Stat Collect, 12/07/15 15:07:00 ROTARY CUTTER, Once, Stop date 12/07/15 15:07:00 ROTARY CUTTER, Lab Collect, Acute bronchitis | Acute sinusitis | Benign essential hypertension | CAD (coronary artery disease) (Completed) Diagnosis: Bronchiectasis Comment: Ordered: Office Visit Level 4 Est 30659; 12/07/15 17:24:00 ROTARY CUTTER, Acute bronchitis | Acute sinusitis | Bronchiectasis | CAD (coronary artery disease) Diagnosis: CAD (coronary artery disease) Comment: Ordered: Office Visit Level 4 Est 07270; 12/07/15 17:24:00 ROTARY CUTTER, Acute bronchitis | Acute sinusitis | Bronchiectasis | CAD (coronary artery disease) Other status: CBC w/ Differential; Blood, Stat Collect, 12/07/15 15:07:00 ROTARY CUTTER, Once, Stop date 12/07/15 15:07:00 ROTARY CUTTER, Lab Collect, Acute bronchitis | Acute sinusitis | Benign essential hypertension | CAD (coronary artery disease) (Completed) Additional Orders: Comment: Ordered: azithromycin 250 mg oral tablet,See Instructions, take 2 tabs today, then 1 tab daily for 4 days., # 6 tabs, 1 Refill(s), Pharmacy: [facility] #[id number], take 2 tabs today, then 1 tab daily for 4 days. End of Orders ."
--- OUTSIDE RECORDS SUMMARY | 2017-02-22 05:56 | XMS REPORT | Referral Summary ---
Author Author [facility], Family Medicine Organization [facility], [facility] Address Unknown Phone Unavailable Care Team Providers Care Radiological Metallurgist Name Role Phone Francy Gee Primary Care Physician [phone] Encounter VC Date(s): 05/24/15 - 05/24/15 [facility] [place], [address] [place] [id number] Discharge Diagnosis: Actinic keratoses Discharge Disposition: [...] DAY, # 90 tabs, 2 Refill(s), eRx: [facility] #[id number], TAKE ONE TABLET BY MOUTH EVERY DAY Start Date: 08/16/15 Status: Ordered Aspirin Low Dose 81 mg, Oral, Daily, 0 Refill(s) Start Date: 07/09/14 Status: Ordered carvedilol 25 mg oral tablet 25 mg 1 tabs, Oral, BID, # 270 tabs, 3 Refill(s), Pharmacy: [facility] # [id number], 1 tabs Oral TID Start Date: 11/30/14 Status: Ordered famotidine 20 mg oral tablet See Instructions, TAKE ONE TABLET BY MOUTH TWICE A DAY, # 180 tabs, 1 Refill(s) , eRx: [facility] #[id number], TAKE ONE TABLET BY MOUTH TWICE A DAY Start Date: 06/28/15 Status: Ordered ferrous sulfate 325 mg (65 mg elemental iron) oral tablet 325 mg 1 tabs, Oral, Daily, 0 Refill(s) Start Date: 08/03/15 Status: Ordered losartan 100 mg oral tablet See Instructions, TAKE ONE HALF TABLET BY MOUTH EVERY DAY, # 90 tabs, 1 Refill(s ), eRx: [facility] #[id number], TAKE ONE TABLET BY MOUTH EVERY DAY Start Date: 01/18/15 Status: Ordered multivitamin 1 tablet, Oral, Daily, 0 Refill(s) Start Date: 07/09/14 Status: Ordered Nitromist 0.4 mg sublingual spray 0.4 mg, SubLingual, q5min, # 1 bottles, 1 Refill(s), Pharmacy: [facility] #[id number], 0.4 mg SubLingual q5min Start Date: 11/04/14 Status: Ordered [place] 5 mg-325 mg oral tablet 1 tabs, [...] NIGHT AT BEDTIME, # 90 tabs, eRx: [facility] #[id number], TAKE ONE TABLET BY MOUTH EVERY NIGHT AT BEDTIME Start Date: 07/19/15 Status: Ordered Spiriva 2.5 mcg, Inhalation, Daily, 0 Refill(s) Start Date: 08/17/15 Status: Ordered Spiriva Respimat 60 inhalation aerosol 2 puffs, Inhalation, Daily, # 1 Each, 3 Refill(s), Pharmacy: [facility] # [id number] Start Date: 08/12/15 Status: Ordered Results No [...] for any changes. Visit a skin doctor (assistant hvac mechanic) every year for a skin exam. SEEK MEDICAL CARE IF: Your skin does not heal and becomes irritated, red, or bleeds. You notice any changes or new growths on your skin. Document Released: 01/11/2010 Document Revised: 01/06/2013 Document Reviewed: [facility] Patient Information 2015 [employer]. This information is not intended to replace [...] as told by your doctor. Only take cnlk-aml-fznvioh or prescription medicines as told by your [...] Released: 04/02/2009 Document Revised: 08/05/2014 Document Reviewed: [facility] Patient Information 2015 [facility]. This information is not intended to replace [...] Outpatient Orders Ordered Destruction premalignant lesion 1st 75621: Destruction premalignant lesion 2-14, Each 46334: Destruction premalignant lesion 2-14, Each 20058: Destruction premalignant lesion 2-14, Each 84840: Destruction premalignant lesion 2-14, Each 58238: Destruction premalignant lesion 2-14, Each 09459: Office Visit Level 4 Est 16419: Prescriptions Prescribed [place] 5 mg-325 mg oral tablet: 1 tabs, Oral, BID, PRN: as needed for pain, 60 tabs, 0 Refill(s). Dx/Order Association Plan: Diagnosis: Actinic keratoses Comment: Ordered: Destruction premalignant lesion 2-14, Each 57213; 18:21:00 CDT, 1, Actinic keratoses Destruction premalignant lesion 2-14, Each 81056; 05/24/15 18:20:00 CDT, 1, Actinic keratoses Destruction premalignant lesion 2-14, Each 78468; 05/24/15 18:20:00 CDT, 1, Actinic keratoses Destruction premalignant lesion 2-14, Each 43801; 05/24/15 18:20:00 CDT, 1, Actinic keratoses Destruction premalignant lesion 2-14, Each 51951; 05/24/15 18:20:00 CDT, 1, Actinic keratoses Destruction premalignant lesion 1st 57848; 18:20:00 CDT, 1, Actinic keratoses Office Visit Level 4 Est 84403; 05/24/15 18:20:00 CDT, 25, CAD (coronary artery disease) | Chronic obstructive pulmonary disease ( COPD) | Bronchiectasis | Benign essential hypertension | Hyperlipidemia Diagnosis: Benign essential hypertension Comment: Ordered: Office Visit Level 4 Est 67793; 05/24/15 18:20:00 CDT, 25 , CAD (coronary artery disease) | Chronic obstructive pulmonary disease (COPD) | Bronchiectasis | Benign essential hypertension | Hyperlipidemia Diagnosis: Bronchiectasis Comment: Ordered: Office Visit Level 4 Est 82869; 05/24/15 18:20:00 CDT, 25 , CAD (coronary artery disease) | Chronic obstructive pulmonary disease (COPD) | Bronchiectasis | Benign essential hypertension | Hyperlipidemia Diagnosis: CAD (coronary artery disease) Comment: Ordered: Office Visit Level 4 Est 19648; 05/24/15 18:20:00 CDT, 25 , CAD (coronary artery disease) | Chronic obstructive pulmonary disease (COPD) | Bronchiectasis | Benign essential hypertension | Hyperlipidemia Diagnosis: Chronic obstructive pulmonary disease (COPD) Comment: Ordered: Office Visit Level 4 Est 62438; 05/24/15 18:20:00 CDT, 25 , CAD (coronary artery disease) | Chronic obstructive pulmonary disease (COPD) | Bronchiectasis | Benign essential hypertension | Hyperlipidemia Diagnosis: Hyperlipidemia Comment: Ordered: Office Visit Level 4 Est 27503; 05/24/15 18:20:00 CDT, 25 , CAD (coronary artery disease) | Chronic obstructive pulmonary disease (COPD) | Bronchiectasis | Benign essential hypertension | Hyperlipidemia Additional Orders: Comment: Ordered: [place] 5 mg-325 mg oral tablet,1 tabs, Oral, BID, as needed for pain, # 60 tabs, 0 Refill(s) End of Orders ."
--- OUTSIDE RECORDS SUMMARY | 2017-02-22 05:56 | XMS REPORT | Referral Summary ---
Author Author [facility] [place], Family Medicine Organization [facility], Mehran, [facility] Address Unknown Phone Unavailable Care Team Providers Care Product Analyst Name Role Phone Francy Gee Primary Care Physician [phone] Encounter VC Date(s): 08/03/15 - 08/03/15 [facility] [place], [address] [place] [id number] Discharge Disposition: 01-Home or Self Care [...] rmed) Need for influenza Active vaccination(Confirme d) Osteoarthritis(Confi Active rmed) Overweight(Confirmed Active ) Pain [...] # 90 tabs, 3 Refill(s), eRx: [facility] #[id number], TAKE ONE TABLET BY MOUTH EVERY DAY Start Date: 08/07/14 Status: Ordered Aspirin Low Dose 81 mg, Oral, Daily, 0 Refill(s) Start Date: 07/09/14 Status: Ordered carvedilol 25 mg oral tablet 25 mg 1 tabs, Oral, BID, # 270 tabs, 3 Refill(s), Pharmacy: [facility] # [id number], 1 tabs Oral TID Start Date: 11/30/14 Status: Ordered famotidine 20 mg oral tablet See Instructions, TAKE ONE TABLET BY MOUTH TWICE A DAY, # 180 tabs, 1 Refill(s) , eRx: [facility] #[id number], TAKE ONE TABLET BY MOUTH TWICE A [...] eRx: [facility] #[id number], TAKE ONE TABLET BY MOUTH EVERY DAY Start Date: 01/18/15 Status: Ordered multivitamin 1 tablet, Oral, Daily, 0 Refill(s) Start Date: 07/09/14 Status: Ordered Nitromist 0.4 mg sublingual spray 0.4 mg, SubLingual, q5min, # 1 bottles, 1 Refill(s), Pharmacy: [facility] #[id number], 0.4 mg SubLingual q5min Start Date: 11/04/14 Status: Ordered [place] 5 mg-325 mg oral tablet 1 tabs, [...] AT BEDTIME, # 90 tabs, eRx: [facility] #[id number], TAKE ONE TABLET BY MOUTH EVERY NIGHT AT BEDTIME Start Date: 07/19/15 Status: Ordered Spiriva Respimat 60 inhalation aerosol 5 mcg, Inhalation, Daily, 2 inhalation once daily, # 1 Each, 1 Refill(s) Start Date: 02/23/15 Status: Ordered Results Hematology Most recent to [...] 2.32 10*3 [0.80-3.30 10*3] (08/03/15 8:53 AM) [place] Absolute 0.81 10*3 [0.30-1.00 10*3] (08/03/15 8:53 [...] 9:30 AM) Immunizations Vaccine Date Refusal Reason hepatitis A [...] INSTRUCTIONS Get plenty of rest. Only take [id number] or prescription medicines as directed by your [...] Released: 08/11/2008 Document Revised: 10/20/2014 Document Reviewed: [facility] Patient Information 2015 [facility], [facility]. This information is not intended to replace advice given to you by your health care provider. Make sure you discuss any questions you have with your health care provider. No follow up information was provided. Extracted from: Title: Male physical Author: Tayo Gee MD Date: 08/03/15 Impression and Plan Diagnosis Benign essential hypertension (LEW25-CJ I10, Working, Medical). Benign prostatic hypertrophy (DEC89-IX N40.0, Working, Medical). Bronchiectasis (BPZ76-QY J47.9, Working, Medical). CAD (coronary artery disease) (FOY35-IG I25.10, Working, Medical). Chronic diarrhea (OAW07-MC R19.7, Working, Medical). Chronic obstructive pulmonary disease (COPD) (WNJ56-FU J44.9, Working, Medical). Hyperlipidemia (YZX87-FY E78.2, Working, Medical). Need for influenza vaccination (HXZ98-VB Z23, Working, Medical). DENISE on CPAP (XLD26-KC G47.33, Working, Medical). Plan: 1) Flu shot today. 2) Fasting lab today. 3) Continue your routine meds the same. 4) Continue your healthy diet and exercise on most days. 5) See me in 3-4 months for recheck of everything. 6) Bilateral ear wash done today for your cerumen impaction. . Orders Orders (Selected) Outpatient Orders Ordered Office Visit Level 5 Est 59085: influenza virus vaccine, inactivated: 0.5 mL, IntraMuscular, Once Future (On Hold) CBC w/ Differential: CMP: Endomysial Antibody IgA-Jamison: Fasting Lipid Profile: Routine Urinalysis: . Dx/Order Association Plan: Diagnosis: Benign essential hypertension Comment: Ordered: Office Visit Level 5 Est 97712; 08/03/15 8:05:00 CDT, CAD (coronary artery disease) | Chronic obstructive pulmonary disease (COPD) | Benign essential hypertension | DENISE on CPAP | Chronic diarrhea Diagnosis: Benign prostatic hypertrophy Comment: Diagnosis: Bronchiectasis Comment: Diagnosis: CAD (coronary artery disease) Comment: Ordered: Office Visit Level 5 Est 94680; 08/03/15 8:05:00 CDT, CAD (coronary artery disease) | Chronic obstructive pulmonary disease (COPD) | Benign essential hypertension | DENISE on CPAP | Chronic diarrhea Diagnosis: Chronic diarrhea Comment: Ordered: Office Visit Level 5 Est 65971; 08/03/15 8:05:00 CDT, CAD (coronary artery disease) | Chronic obstructive pulmonary disease (COPD) | Benign essential hypertension | DENISE on CPAP | Chronic diarrhea Diagnosis: Chronic obstructive pulmonary disease (COPD) Comment: Ordered: Office Visit Level 5 Est 20908; 08/03/15 8:05:00 CDT, CAD (coronary artery disease) [...] Comment: Ordered: Office Visit Level 5 Est 16791; 08/03/15 8:05:00 CDT, CAD (coronary artery disease) [...]
--- OUTSIDE RECORDS SUMMARY | 2017-02-22 05:56 | XMS REPORT | Referral Summary ---
Author Author [facility], Cardiology Organization [facility], Cardiology Address Unknown Phone Unavailable Care Team Providers Care Corporate Travel Expert Name Role Phone Francy Gee Primary Care Physician [phone] Encounter Date(s): 04/28/15 - 04/28/15 [facility] [place], Cardiology [address] [place] [address] [place] [id number] Discharge Diagnosis: Coronary heart disease Discharge [...] # 90 tabs, 2 Refill(s), eRx: [facility] #[id number], TAKE ONE TABLET BY MOUTH EVERY DAY Start Date: 08/16/15 Status: Ordered Aspirin Low Dose 81 mg, Oral, Daily, 0 Refill(s) Start Date: 07/09/14 Status: Ordered carvedilol 25 mg oral tablet 25 mg 1 tabs, Oral, BID, # 270 tabs, 3 Refill(s), Pharmacy: [facility] # [id number], 1 tabs Oral TID Start Date: 11/30/14 Status: Ordered famotidine 20 mg oral tablet See Instructions, TAKE ONE TABLET BY MOUTH TWICE A DAY, # 180 tabs, 1 Refill(s) , eRx: [facility] #[id number], TAKE ONE TABLET BY MOUTH TWICE A DAY Start Date: 06/28/15 Status: Ordered ferrous sulfate 325 mg (65 mg elemental iron) oral tablet 325 mg 1 tabs, Oral, Daily, 0 Refill(s) Start Date: 08/03/15 Status: Ordered losartan 100 mg oral tablet See Instructions, TAKE ONE HALF TABLET BY MOUTH EVERY DAY, # 90 tabs, 1 Refill(s ), eRx: [facility] #[id number], TAKE ONE TABLET BY MOUTH EVERY DAY Start Date: 01/18/15 Status: Ordered multivitamin 1 tablet, Oral, Daily, 0 Refill(s) Start Date: 07/09/14 Status: Ordered Nitromist 0.4 mg sublingual spray 0.4 mg, SubLingual, q5min, # 1 bottles, 1 Refill(s), Pharmacy: [facility] #[id number], 0.4 mg SubLingual q5min Start Date: 11/04/14 Status: Ordered [place] 5 mg-325 mg oral tablet 1 tabs, [...] NIGHT AT BEDTIME, # 90 tabs, eRx: [facility] #[id number], TAKE ONE TABLET BY MOUTH EVERY NIGHT AT BEDTIME Start Date: 07/19/15 Status: Ordered Spiriva 2.5 mcg, Inhalation, Daily, 0 Refill(s) Start Date: 08/17/15 Status: Ordered Spiriva Respimat 60 inhalation aerosol 2 puffs, Inhalation, Daily, # 1 Each, 3 Refill(s), Pharmacy: [facility] # [id number] Start Date: 08/12/15 Status: Ordered Results No [...]
[2017-02-22 06:45] LABS: ANION GAP 12 MEQ/L (5-15); BUN/CREATININE RATIO 19 RATIO (6-26); CALCIUM 8.9 MG/DL (8.4-10.2); CHLORIDE 107 MEQ/L (98-107); CO2 - CARBON DIOXIDE 27 MEQ/L (22-30); CREATININE 1.1 MG/DL (0.8-1.5); GLOMERULAR FILTRATION RATE 63; GLUCOSE 109 MG/DL (75-110); POTASSIUM 4.1 MEQ/L (3.6-5); SODIUM 146 MEQ/L (134-144)
--- NOTE | 2017-02-22 06:58 | NUR ---
PRE OP DR MELO IS INJECTING RIGHT WRIST ON ROOM 6
[2017-02-22] MEDS ORDERED: LR 1,000 ML IV SCH (07:00)
[2017-02-22] MEDS ORDERED: LIDOCAINE 1% (10mg/ml) 2ml SDV INJ ONE (07:00)
[2017-02-22] MEDS ORDERED: CEFAZOLIN 1 GRAM INJECTION IV ONE (08:00)
--- NOTE | 2017-02-22 09:02 | PDOPERATE ---
Operative Report Date of Operation 02/22/17 Side: Right Preoperative Diagnosis: carpal tunnel syndrome Postoperative Diagnosis Same as preoperative diagnosis. Operation/Procedure: carpal tunnel release (right) Surgeon Viktoriya Mariscal MD Complications None. Anesthesia Plan: Other (local anesthesia only) Estimated Blood Loss See Anesthesia Record. Fluids Please See Anesthesia Record. Description of Operation Mr. Weldon and his right wrist were identified and marked in the the preoperative holding area. I injected 5 cc of 1% lidocaine with epinephrine into the incision site after the wrist was prepped. He tolerated this well. His then brought back to the operating suite and the right upper joint was prepped and draped. Timeout was performed. After checking both anesthesia was adequate I proceeded with making a 3 cm incision sharply just ulnar to the thenar crease. Sharp dissection was carried down to the transverse carpal ligament which was then cut under direct visualization using scissors both proximally and distally. Once I felt adequate release was performed again both proximally and distally under direct visualization the wound was irrigated with local anesthesia and the skin incision closed with 3-0 nylon in a simple interrupted fashion. Sterile dressing was placed and the drapes removed and the knee was taken back to the recovery room under nurse's care. He tolerated the procedure well and there were no complications. VENKATESH MARISCAL MD Feb 22, 2017 09:02
== END 2017-02-22 08:15 | disposition home or self-care (01) ==
LOC: NSC 05:46
PROVIDERS: ATTEND Orthopaedic Surgery
DX: G56.01 Carpal tunnel syndrome, right upper limb (principal); G56.21 Lesion of ulnar nerve, right upper limb; G56.02 Carpal tunnel syndrome, left upper limb; I10 Essential (primary) hypertension; J44.9 Chronic obstructive pulmonary disease, unspecified; E78.00 Pure hypercholesterolemia, unspecified; G47.33 Obstructive sleep apnea (adult) (pediatric); Z99.89 Dependence on other enabling machines and devices; E66.3 Overweight; Z68.26 Body mass index [BMI] 26.0-26.9, adult; I25.119 Atherosclerotic heart disease of native coronary artery with unspecified angina pectoris; I50.9 Heart failure, unspecified; I25.2 Old myocardial infarction; K21.9 Gastro-esophageal reflux disease without esophagitis; Z95.1 Presence of aortocoronary bypass graft; Z95.5 Presence of coronary angioplasty implant and graft; Z86.12 Personal history of poliomyelitis; Z79.82 Long term (current) use of aspirin; Z79.1 Long term (current) use of non-steroidal anti-inflammatories (NSAID); Z79.899 Other long term (current) drug therapy
CPT/HCPCS: 36415; 64721; 80048; J0690; J7120

== ENCOUNTER 2017-07-05 16:18 | Inpatient (IN) ==
--- OUTSIDE RECORDS SUMMARY | 2017-07-05 16:30 | External Medical Summary | Referral Summary ---
:1930 Author Organization [facility] Address [address] [place] [address] [place] [phone] Care Team Providers Name Role Phone Tayo Gee Primary Care Physician Encounter VC Date(s): 08/03/15 - 08/03/15 [facility] [place] [place] [id number] [place] Discharge Disposition: 01-Home or Self Care Attending Physician: Tayo Gee MD Admitting Physician: Tayo Gee MD Vital Signs Most recent to oldest [Reference Range]: 1 Temperature Tympanic [36.6-38.1 degC] 36.1 degC *LOW* (08/03/15 7:23 AM) Peripheral Pulse Rate [60-100 bpm] 68 bpm (08/03/15 7:23 AM) Blood Pressure [90-140/60-90 mmHg] 148/62 mmHg *HI* (08/03/15 7:23 AM) Problem List Condition Effective Dates Status Health Status Informant L4-5 stable(Confirmed) Resolved Actinic keratoses(Confirmed) Active Acute bronchitis(Confirmed) Active Anemia(Confirmed) Active Angina(Confirmed) Active Benign essential Active hypertension(Confirmed) Benign prostatic Active hypertrophy(Confirmed) Bronchiectasis(Confirmed) Active Chronic obstructive pulmonary Active disease (COPD)(Confirmed) CAD (coronary artery Active disease)(Confirmed) T11 compression deformity(Confirmed) Active Degenerated disc lumbar(Confirmed) Active Erectile dysfunction(Confirmed) Active Gout(Confirmed) Active Hernia - 3 hernias on the left, 2 on Active the right(Confirmed) High cholesterol(Confirmed) Active Idiopathic scoliosis and Active kyphoscoliosis(Confirmed) Cerumen impaction(Confirmed) Active Left ventricular Active hypertrophy(Confirmed) Leg length discrepancy(Confirmed) Active Lumbago(Confirmed) Active 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) Lung mass(Confirmed) Active Hyperlipidemia(Confirmed) Active Need for influenza Active vaccination(Confirmed) DENISE on CPAP(Confirmed) Active Osteoarthritis(Confirmed) Active Overweight(Confirmed) Active Pain of right calf(Confirmed) Active Polio(Confirmed) 1939 Active Primary Active hypercholesterolemia(Confirmed) Prostatism(Confirmed) Active Snores(Confirmed) Active Right leg swelling(Confirmed) Active Thoracic or lumbosacral neuritis or Active radiculitis(Confirmed) Need for pneumococcal Active vaccine(Confirmed) Allergies, Adverse Reactions, Alerts Substance Reaction Severity Status Latex rash Active Levaquin tendonitis Active Spiriva dry cough and bloodshot eye Active Medications allopurinol 100 mg oral tablet See Instructions, TAKE ONE TABLET BY MOUTH EVERY DAY, # 90 tabs, 2 Refill(s), eRx: [facility] #[id number], TAKE ONE TABLET BY MOUTH EVERY DAY Start Date: 08/16/15 Status: OrderedAspirin Low Dose 81 mg, Oral, Daily, 0 Refill(s) Start Date: 07/09/14 Status: Orderedcarvedilol 25 mg oral tablet See Instructions, TAKE ONE TABLET BY MOUTH THREE TIMES A DAY, # 270 tabs, 2 Refill(s), eRx: [facility] #[id number], TAKE ONE TABLET BY MOUTH THREE TIMES A DAY Start Date: 01/17/16 Status: Orderedfamotidine 20 mg oral tablet See Instructions, TAKE ONE TABLET BY MOUTH TWICE A DAY, # 180 tabs, 1 Refill(s) , eRx: [facility] #[id number], TAKE ONE TABLET BY MOUTH TWICE A DAY Start Date: 06/28/15 Status: Orderedferrous sulfate 325 mg (65 mg elemental iron) oral tablet 325 mg 1 tabs, Oral, Daily, 0 Refill(s) Start Date: 08/03/15 Status: Orderedlosartan 100 mg oral tablet See Instructions, TAKE ONE TABLET BY MOUTH DAILY, # 90 tabs, eRx: [facility] #[id number], TAKE ONETABLET BY MOUTH DAILY Start Date: 11/15/15 Status: Orderedmultivitamin 1 tablet, Oral, Daily, 0 Refill(s) Start Date: 07/09/14 Status: OrderedNitromist 0.4 mg sublingual spray 0.4 mg, SubLingual, q5min, # 1 bottles, 1 Refill(s), Pharmacy: [facility] #[id number], 0.4 mg SubLingual q5min Start Date: 11/04/14 Status: OrderedNorco 5 mg-325 mg oral tablet 1 tabs, Oral, BID, as needed for pain, # 60 tabs, 0 Refill(s) Start Date: 01/27/16 Status: OrderedProAir HFA 90 mcg/inh inhalation aerosol 2 puffs, Inhalation, QID, as needed for wheezing, # 18 g, 11 Refill(s), Pharmacy : [facility] #[id number] Start Date: 11/03/15 Status: Orderedsimvastatin 20 mg oral tablet See Instructions, TAKE ONE TABLET BY MOUTH EVERY NIGHT AT BEDTIME, # 90 tabs, 2 Refill(s), eRx: [facility] #[id number], TAKE ONE TABLET BY MOUTH EVERY NIGHT AT BEDTIME Start Date: 10/25/15 Status: Ordered Results Hematology Most recent to oldest [Reference Range]: 1 WBC [4.8-10.8 10*3/uL] 8.1 10*3/uL (08/03/15 8:53 AM) RBC [4.60-6.20] 4.49 *LOW* (08/03/15 8:53 AM) Hgb [14.0-18.0 gm/dL] 14.1 gm/dL (08/03/15 8:53 AM) Hct [42.0-52.0 %] 43.0 % (08/03/15 8:53 AM) MCV [82.0-99.0 fL] 95.8 fL (08/03/15 8:53 AM) MCH [27.0-32.0 pg] 31.4 pg (08/03/15 8:53 AM) MCHC [32.0-36.0 gm/dL] 32.8 gm/dL (08/03/15 8:53 AM) RDW [11.5-14.5 %] 12.5 % (08/03/15 8:53 AM) Platelet [150-400 10*3/uL] 160 10*3/uL (08/03/15 8:53 AM) MPV [8.8-14.8 fL] 11.1 fL (08/03/15 8:53 AM) Immature Granulocytes [0.0-1.0 %] 0.4 % (08/03/15 8:53 AM) Neutrophils [51-75 %] 59 % (08/03/15 8:53 AM) Lymphocytes [20-46 %] 29 % (08/03/15 8:53 AM) Monocytes [4-11 %] 10 % (08/03/15 8:53 AM) Eosinophils [0-4 %] 2 % (08/03/15 8:53 AM) Basophils [0-2 %] 0 % (08/03/15 8:53 AM) Neutro Absolute [1.90-7.00 10*3] 4.80 10*3 (08/03/15 8:53 AM) Lymph Absolute [0.80-3.30 10*3] 2.32 10*3 (08/03/15 8:53 AM) [place] Absolute [0.30-1.00 10*3] 0.81 10*3 (08/03/15 8:53 AM) Eos Absolute [0.00-0.50 10*3] 0.16 10*3 (08/03/15 8:53 AM) Baso Absolute [0.00-0.20 10*3] 0.01 10*3 (08/03/15 8:53 AM) Chemistry Most recent to oldest [Reference Range]: 1 Sodium Lvl [135-144 mEq/L] 139 mEq/L (08/03/15 8:53 AM) Potassium Lvl [3.5-5.2 mEq/L] 4.2 mEq/L (08/03/15 8:53 AM) Chloride [99-111 mEq/L] 105 mEq/L (08/03/15 8:53 AM) CO2 [23-31 mEq/L] 26 mEq/L (08/03/15 8:53 AM) AGAP [3-20] 8 (08/03/15 8:53 AM) BUN [8-26 mg/dL] 23 mg/dL (08/03/15 8:53 AM) Glucose Lvl [70-99 mg/dL] 112 mg/dL *HI* (08/03/15 8:53 AM) Creatinine Lvl [0.72-1.25 mg/dL] 1.06 mg/dL (08/03/15 8:53 AM) eGFR [>60 mL/min] >60 mL/min 1 (08/03/15 8:53 AM) Calcium Lvl [8.9-10.5 mg/dL] 9.1 mg/dL (08/03/15 8:53 AM) Albumin Lvl [3.4-4.8 gm/dL] 4.0 gm/dL (08/03/15 8:53 AM) Total Protein [6.2-8.1 gm/dL] 6.8 gm/dL (08/03/15 8:53 AM) Globulin [1.8-4.0 gm/dL] 2.8 gm/dL (08/03/15 8:53 AM) ALT [0-55 U/L] 26 U/L (08/03/15 8:53 AM) AST [5-34 U/L] 22 U/L (08/03/15 8:53 AM) Alk Phos [40-150 U/L] 68 U/L (08/03/15 8:53 AM) Bili Total [0.2-1.2 mg/dL] 0.6 mg/dL (08/03/15 8:53 AM) Chol [0-199 mg/dL] 128 mg/dL (08/03/15 8:53 AM) Trig [0-149 mg/dL] 128 mg/dL (08/03/15 8:53 AM) HDL [40-84 mg/dL] 44 mg/dL (08/03/15 8:53 AM) LDL [0-130 mg/dL] 58 mg/dL (08/03/15 8:53 AM) VLDL Cholesterol [0-28 mg/dL] 26 mg/dL (08/03/15 8:53 AM) Cardiac Risk [0.0-5.7] 2.9 (08/03/15 8:53 AM) 1Result Comment: Multiply eGFR results by 1.21 for race.Urinalysis Most recent to oldest [Reference Range]: 1 UA Color Yellow (08/03/15 9:30 AM) UA Appear Clear (08/03/15 9:30 AM) UA pH [5.0-8.0] 5.5 (08/03/15 9:30 AM) UA Leuk Est [Negative] Negative (08/03/15 9:30 AM) UA Nitrite [Negative] Negative (08/03/15 9:30 AM) UA Protein [Negative] Negative (08/03/15 9:30 AM) UA Glucose [Negative] Negative (08/03/15 9:30 AM) UA Ketones [Negative] Negative (08/03/15 9:30 AM) UA Urobilinogen [<1.0 mg/dL] 0.2 mg/dL (08/03/15 9:30 AM) UA Bili [Negative] Negative (08/03/15 9:30 AM) UA Blood [Negative] Negative (08/03/15 9:30 AM) UA Spec Grav [1.003-1.030] 1.024 (08/03/15 9:30 AM) Type Clean Catch (08/03/15 [...] excision 2002 Placement of 2 coronary stents 2002 Placement of coronary stent 2000 Appendectomy 1997 Cardiac catheterization 09/1997 Cardiac catheterization 03/1997 Angioplasty with 1 stent 1995 Hemorrhoid operation 1991 5 hernia repairs, maria e inguinal 1980 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 Physical therapy methods may be recommended to help clear mucus from the lungs. For severe cases, surgery may be done to remove the affected part of the lung. HOME CARE INSTRUCTIONS Get plenty of rest. Only take [id number]-[id number] or prescription medicines as directed by your [...] Released: 08/11/2008 Document Revised: 10/20/2014 Document Reviewed: 04/22/[address] [facility] Patient Information [address] [facility]. This information is not intended to replace advice given to you by your health care provider. Make sure you discuss any questions you have with your health care provider. No follow up information was provided. Extracted from: Title: Male physical Author: Tayo Gee MD Date: 08/03/15 Impression and Plan Diagnosis Benign essential hypertension (NCP80-HA I10, Working, Medical). Benign prostatic hypertrophy (ZIQ58-YX N40.0, Working, Medical). Bronchiectasis (XWS11-WV J47.9, Working, Medical). CAD (coronary artery disease) (BLW51-FQ I25.10, Working, Medical). Chronic diarrhea (UOZ42-MD R19.7, Working, Medical). Chronic obstructive pulmonary disease (COPD) (QGX93-ZX J44.9, Working, Medical) . Hyperlipidemia (EVO47-OX E78.2, Working, Medical). Need for influenza vaccination (NLZ78-HT Z23, Working, Medical). DENISE on CPAP (ZOK43-FQ G47.33, Working, Medical). Plan: 1) Flu shot today. 2) Fasting lab today. 3) Continue your routine meds the same. 4) Continue your healthy diet and exercise on most days. 5) See me in 3-4 months for recheck of everything. 6) Bilateral ear wash done today for your cerumen impaction. . Orders Orders (Selected) Outpatient Orders Ordered Office Visit Level 5 Est 75214: influenza virus vaccine, inactivated: 0.5 mL, IntraMuscular, Once Future (On Hold) CBC w/ Differential: CMP: Endomysial Antibody IgA-Jamison: Fasting Lipid Profile: Routine Urinalysis: . Dx/Order Association Plan: Diagnosis: Benign essential hypertension Comment: Ordered: Office Visit Level 5 Est 63119; 08/03/15 8:05:00 CDT, CAD (coronary artery disease) | Chronic obstructive pulmonary disease (COPD) | Benign essential hypertension | DENISE on CPAP | Chronic diarrhea Diagnosis: Benign prostatic hypertrophy Comment: Diagnosis: Bronchiectasis Comment: Diagnosis: CAD (coronary artery disease) Comment: Ordered: Office Visit Level 5 Est 31743; 08/03/15 8:05:00 CDT, CAD (coronary artery disease) | Chronic obstructive pulmonary disease (COPD) | Benign essential hypertension | DENISE on CPAP | Chronic diarrhea Diagnosis: Chronic diarrhea Comment: Ordered: Office Visit Level 5 Est 05177; 08/03/15 8:05:00 CDT, CAD (coronary artery disease) | Chronic obstructive pulmonary disease (COPD) | Benign essential hypertension | DENISE on CPAP | Chronic diarrhea Diagnosis: Chronic obstructive pulmonary disease (COPD) Comment: Ordered: Office Visit Level 5 Est 80713; 08/03/15 8:05:00 CDT, CAD (coronary artery disease) [...] Comment: Ordered: Office Visit Level 5 Est 46989; 08/03/15 8:05:00 CDT, CAD (coronary artery disease) | Chronic obstructive pulmonary disease (COPD) | Benign essential hypertension | DENISE on CPAP | Chronic diarrhea Diagnosis: Benign prostatic hypertrophy Comment: Diagnosis: Benign essential hypertension Comment: Diagnosis: Chronic diarrhea Comment: Diagnosis: Benign essential hypertension Comment: Diagnosis: Hyperlipidemia Comment: Additional Orders: Comment: Ordered: ferrous sulfate 325 mg (65 mg elemental iron) oral tablet ,325 mg 1 tabs, Oral, Daily, 0 Refill(s) End of Orders ."
--- OUTSIDE RECORDS SUMMARY | 2017-07-05 16:31 | External Medical Summary | Referral Summary ---
:1930 Author Organization [facility] [place] Address [address] [place] [address] Care Team Providers Name Role Phone Tayo Gee Primary Care Physician Encounter [facility] [id number] Date(s): 06/25/15 - 06/25/15 [facility] [place] [address] [place] [address]- [phone] Discharge Diagnosis: Hypersomnia Discharge Diagnosis: Snores Discharge Diagnosis: Chronic obstructive pulmonary disease (COPD) Discharge Diagnosis: CAD (coronary artery disease) Discharge Disposition: 01-Home or Self Care Attending Physician: Rufino Shoemaker MD Admitting Physician: Rufino Shoemaker MD Vital Signs Most recent to oldest [Reference Range]: 1 Peripheral Pulse Rate [60-100 bpm] 67 bpm (06/25/15 8:30 AM) Blood Pressure [90-140/60-90 mmHg] 122/64 mmHg (06/25/15 8:30 AM) SpO2 94 % (06/25/15 [...] DAY, # 90 tabs, 2 Refill(s), eRx: [facility] #[id number], TAKE ONE TABLET BY MOUTH EVERY DAY Start Date: 08/16/15 Status: OrderedAspirin Low Dose 81 mg, Oral, Daily, 0 Refill(s) Start Date: 07/09/14 Status: Orderedcarvedilol 25 mg oral tablet 25 mg 1 tabs, Oral, BID, # 270 tabs, 3 Refill(s), Pharmacy: [facility] # [id number], 1 tabs Oral TID Start Date: 11/30/14 Status: Orderedfamotidine 20 mg oral tablet See Instructions, TAKE ONE TABLET BY MOUTH TWICE A DAY, # 180 tabs, 1 Refill(s) , eRx: [facility] #[id number], TAKE ONE TABLET BY MOUTH TWICE A DAY Start Date: 06/28/15 Status: Orderedferrous sulfate 325 mg (65 mg elemental iron) oral tablet 325 mg 1 tabs, Oral, Daily, 0 Refill(s) Start Date: 08/03/15 Status: Orderedlosartan 100 mg oral tablet See Instructions, TAKE ONE TABLET BY MOUTH DAILY, # 90 tabs, eRx: [facility] #[id number], TAKE ONETABLET BY MOUTH DAILY Start Date: 11/15/15 Status: Orderedmultivitamin 1 tablet, Oral, Daily, 0 Refill(s) Start Date: 07/09/14 Status: OrderedNitromist 0.4 mg sublingual spray 0.4 mg, SubLingual, q5min, # 1 bottles, 1 Refill(s), Pharmacy: [facility] #[id number], 0.4 mg SubLingual q5min Start Date: 11/04/14 Status: OrderedNorco 5 mg-325 mg oral tablet 1 tabs, Oral, BID, as needed for pain, # 60 tabs, 0 Refill(s) Start Date: 12/27/15 Status: OrderedProAir HFA 90 mcg/inh inhalation aerosol 2 puffs, Inhalation, QID, as needed for wheezing, # 18 g, 11 Refill(s), Pharmacy : [facility] #[id number] Start Date: 11/03/15 Status: Orderedsimvastatin 20 mg oral tablet See Instructions, TAKE ONE TABLET BY MOUTH EVERY NIGHT AT BEDTIME, # 90 tabs, 2 Refill(s), eRx: [facility] #[id number], TAKE ONE TABLET BY MOUTH EVERY NIGHT [...] 194 Hospital admission for polio 0 Tonsillectomy 193 CIII LEFT ANKLE PAIN CIII LLE CELLULITIS Colonoscopy Herniorrhaphy - 3 total, 1 on the left and 2 on the right1 15 hernia repairs: 3 on the left, 2 on the right, between 1965 and 1979 Social History Social History Type Response Smoking Status Never smoker Assessment and Plan Extracted from: Title: Office Visit Note Author: Rufino Shoemaker MD Date: 06/25/15 Assessment/Plan 1.Snores 2.Hypersomnia CAD (coronary artery disease) Chronic obstructive pulmonary disease (COPD) - Excellent compliance and adequate response to therapy. - Patient reports controlled symptoms with CPAP use. - - Patient is advised to avoid driving or other potentially harmful activities if sleepy, drowsy or otherwise impaired. - - Addendum by Rufino Shoemaker MD - Unit damaged, original study > 15yo and not available. on June 25, 2015 09:19:33 CDT - Lost to follow up for DENISE. - Needs new DME. - Split night test DARIO. - Follow up 6 weeks after test for compliance.
--- OUTSIDE RECORDS SUMMARY | 2017-07-05 16:31 | External Medical Summary | Referral Summary ---
:1930 Author Organization [facility] [place] Address [address] [place] [address] Care Team Providers Name Role Phone Tayo Gee Primary Care Physician Encounter [facility] [id number] Date(s): 04/25/16 - 04/25/16 [facility] [place] [address] [place] [address]- [phone] Discharge Diagnosis: DENISE on CPAP Discharge Disposition: 01-Home or Self Care Attending Physician: Rufino Shoemaker MD Admitting Physician: Rufino Shoemaker MD Vital Signs Most recent to oldest [Reference Range]: 1 Peripheral Pulse Rate [60-100 bpm] 64 bpm (04/25/16 11:12 AM) Blood Pressure [90-140/60-90 mmHg] 120/70 mmHg (04/25/16 11:12 AM) SpO2 95 % (04/25/16 [...] pain, 0 Refill(s) Start Date: 02/15/16 Status: Orderedallopurinol 100 mg oral tablet See Instructions, TAKE ONE TABLET BY MOUTH EVERY DAY, # 90 tabs, 2 Refill(s), eRx: [facility] #[id number], TAKE ONE TABLET BY MOUTH EVERY DAY Start Date: 08/16/15 Status: OrderedAspirin Low Dose 81 mg, Oral, Daily, 0 Refill(s) Start Date: 07/09/14 Status: Orderedcarvedilol 25 mg oral tablet See Instructions, TAKE ONE TABLET BY MOUTH THREE TIMES A DAY, # 270 tabs, 2 Refill(s), eRx: [facility] #[id number], TAKE ONE TABLET BY MOUTH THREE TIMES A DAY Start Date: 01/17/16 Status: Orderedfamotidine 20 mg oral tablet See Instructions, TAKE ONE TABLET BY MOUTH TWICE A DAY, # 180 tabs, 1 Refill(s) , eRx: [facility] #[id number], TAKE ONE TABLET BY MOUTH TWICE A DAY Start Date: 04/10/16 Status: Orderedferrous sulfate 325 mg (65 mg elemental iron) oral tablet 325 mg 1 tabs, Oral, Daily, 0 Refill(s) Start Date: 08/03/15 Status: Orderedlosartan 100 mg oral tablet See Instructions, TAKE ONE TABLET BY MOUTH DAILY, # 90 tabs, eRx: [facility] #[id number], TAKE ONETABLET BY MOUTH DAILY Start Date: 04/24/16 Status: Orderedmultivitamin 1 tablet, Oral, Daily, 0 Refill(s) Start Date: 07/09/14 Status: OrderedNitromist 0.4 mg sublingual spray 0.4 mg, SubLingual, q5min, # 1 bottles, 1 Refill(s), Pharmacy: [facility] #[id number], 0.4 mg SubLingual q5min Start Date: 11/04/14 Status: OrderedNorco 5 mg-325 mg oral tablet 1 tabs, Oral, BID, as needed for pain, # 60 tabs, 0 Refill(s) Start Date: 03/28/16 Status: OrderedProAir HFA 90 mcg/inh inhalation aerosol 2 puffs, Inhalation, QID, as needed for wheezing, # 18 g, 11 Refill(s), Pharmacy : [facility] #[id number] Start Date: 11/03/15 Status: Orderedsimvastatin 20 mg oral tablet See Instructions, TAKE ONE TABLET BY MOUTH EVERY NIGHT AT BEDTIME, # 90 tabs, 2 Refill(s), eRx: [facility] #[id number], TAKE ONE TABLET BY MOUTH EVERY NIGHT [...] Visit Note Author: Rufino Shoemaker MD Date: 04/25/16 Assessment/Plan 1.DENISE on CPAP - [...]
--- OUTSIDE RECORDS SUMMARY | 2017-07-05 16:31 | External Medical Summary | Referral Summary ---
:1930 Author Organization [facility] Address [address] [place] [address] Care Team Providers Name Role Phone Tayo Gee Primary Care Physician Encounter [facility] [id number] Date(s): 04/06/15 - 04/06/15 [facility] [address] [place] [address]- [place] Discharge Diagnosis: Emphysema/COPD Discharge Diagnosis: Abnormal chest CT Discharge Diagnosis: Cough Discharge Disposition: 01-Home or Self Care Attending Physician: Luisa Raymond MD Admitting Physician: Luisa Raymond MD Vital Signs Most recent to oldest [Reference Range]: 1 Peripheral Pulse Rate [60-100 bpm] 68 bpm (04/06/15 9:18 AM) Respiratory Rate [14-20 br/min] 20 br/min (04/06/15 9:18 AM) Blood Pressure [90-140/60-90 mmHg] 112/60 mmHg (04/06/15 9:18 AM) SpO2 95 % (04/06/15 [...] # 90 tabs, 2 Refill(s), eRx: [facility] #[id number], TAKE ONE TABLET BY MOUTH EVERY DAY Start Date: 08/16/15 Status: OrderedAspirin Low Dose 81 mg, Oral, Daily, 0 Refill(s) Start Date: 07/09/14 Status: Orderedcarvedilol 25 mg oral tablet 25 mg 1 tabs, Oral, BID, # 270 tabs, 3 Refill(s), Pharmacy: [facility] # [id number], 1 tabs Oral TID Start Date: 11/30/14 Status: Orderedfamotidine 20 mg oral tablet See Instructions, TAKE ONE TABLET BY MOUTH TWICE A DAY, # 180 tabs, 1 Refill(s) , eRx: [facility] #[id number], TAKE ONE TABLET BY MOUTH TWICE A DAY Start Date: 06/28/15 Status: Orderedferrous sulfate 325 mg (65 mg elemental iron) oral tablet 325 mg 1 tabs, Oral, Daily, 0 Refill(s) Start Date: 08/03/15 Status: Orderedlosartan 100 mg oral tablet See Instructions, TAKE ONE HALF TABLET BY MOUTH EVERY DAY, # 90 tabs, 1 Refill(s ), eRx: [facility] #[id number], TAKE ONE TABLET BY MOUTH EVERY DAY Start Date: 01/18/15 Status: Orderedmultivitamin 1 tablet, Oral, Daily, 0 Refill(s) Start Date: 07/09/14 Status: OrderedNitromist 0.4 mg sublingual spray 0.4 mg, SubLingual, q5min, # 1 bottles, 1 Refill(s), Pharmacy: [facility] #[id number], 0.4 mg SubLingual q5min Start Date: 11/04/14 Status: OrderedNorco 5 mg-325 mg oral tablet 1 tabs, Oral, BID, as needed for pain, # 60 tabs, 0 Refill(s) Start Date: 08/26/15 Status: OrderedProAir HFA 90 mcg/inh inhalation aerosol 2 puffs, Inhalation, QID, as needed for wheezing, 0 Refill(s) Start Date: 12/21/14 Status: Orderedsimvastatin 20 mg oral tablet See Instructions, TAKE ONE TABLET BY MOUTH EVERY NIGHT AT BEDTIME, # 90 tabs, eRx: [facility] #[id number], TAKE ONE TABLET BY MOUTH EVERY NIGHT AT BEDTIME Start Date: 07/19/15 Status: OrderedSpiriva 2.5 mcg, Inhalation, Daily, 0 Refill(s) Start Date: 08/17/15 Status: OrderedSpiriva Respimat 60 inhalation aerosol 2 puffs, Inhalation, Daily, # 1 Each, 3 Refill(s), Pharmacy: [facility] # [id number] Start Date: 08/12/15 Status: Ordered Results No [...] Title: Ambulatory Patient Education Author: Luisa Raymond Date : 04/06/15 MD Allergy Cough, Adult A cough is a [...] chronic cough. HOME CARE INSTRUCTIONS Only take [id number] or prescription medicines for pain, discomfort , [...] Released: 04/12/2012 Document Revised: 01/06/2013 Document Reviewed: 04/12/2012 [facility] Patient Information 2014 [employer]. No follow up information was provided. Extracted from: Title: Office Visit Note Author: Luisa Raymond MD Date: 04/06/15 Assessment/Plan 1.Emphysema/COPD Improved exercise capacity Controlled Noexacerbations [...]
--- OUTSIDE RECORDS SUMMARY | 2017-07-05 16:31 | External Medical Summary | Referral Summary ---
:1930 Author Organization [facility], [facility] Address [address] [place] [address] [place] [address] Care Team Providers Name Role Phone Tayo Gee Primary Care Physician Encounter [facility] Date(s): 11/03/15 - 11/03/15 [facility] [address] [place] [address] Discharge Disposition: 01-Home or Self Care Attending Physician: Tayo Gee MD Admitting Physician: Tayo Gee MD Vital Signs Most recent to oldest [Reference Range]: 1 Temperature Tympanic [36.6-38.1 degC] 35.9 degC *LOW* (11/03/15 8:23 AM) Peripheral Pulse Rate [60-100 bpm] 72 bpm (11/03/15 8:23 AM) Blood Pressure [90-140/60-90 mmHg] 154/84 mmHg *HI* (11/03/15 8:23 AM) SpO2 98 % [...] DAY, # 90 tabs, 2 Refill(s), eRx: [facility] #[id number], TAKE ONE TABLET BY MOUTH EVERY DAY Start Date: 08/16/15 Status: OrderedAspirin Low Dose 81 mg, Oral, Daily, 0 Refill(s) Start Date: 07/09/14 Status: Orderedcarvedilol 25 mg oral tablet 25 mg 1 tabs, Oral, BID, # 270 tabs, 3 Refill(s), Pharmacy: [facility] # [id number], 1 tabs Oral TID Start Date: 11/30/14 Status: Orderedfamotidine 20 mg oral tablet See Instructions, TAKE ONE TABLET BY MOUTH TWICE A DAY, # 180 tabs, 1 Refill(s) , eRx: [facility] #[id number], TAKE ONE TABLET BY MOUTH TWICE A DAY Start Date: 06/28/15 Status: Orderedferrous sulfate 325 mg (65 mg elemental iron) oral tablet 325 mg 1 tabs, Oral, Daily, 0 Refill(s) Start Date: 08/03/15 Status: Orderedlosartan 100 mg oral tablet See Instructions, TAKE ONE HALF TABLET BY MOUTH EVERY DAY, # 90 tabs, 1 Refill(s ), eRx: [facility] #[id number], TAKE ONE TABLET BY MOUTH EVERY DAY Start Date: 01/18/15 Status: Orderedmultivitamin 1 tablet, Oral, Daily, 0 Refill(s) Start Date: 07/09/14 Status: OrderedNitromist 0.4 mg sublingual spray 0.4 mg, SubLingual, q5min, # 1 bottles, 1 Refill(s), Pharmacy: [facility] #[id number], 0.4 mg SubLingual q5min Start Date: 11/04/14 Status: OrderedNorco 5 mg-325 mg oral tablet 1 tabs, Oral, BID, as needed for pain, # 60 tabs, 0 Refill(s) Start Date: 10/26/15 Status: OrderedProAir HFA 90 mcg/inh inhalation aerosol 2 puffs, Inhalation, QID, as needed for wheezing, # 18 g, 11 Refill(s), Pharmacy : [facility] #[id number] Start Date: 11/03/15 Status: Orderedsimvastatin 20 mg oral tablet See Instructions, TAKE ONE TABLET BY MOUTH EVERY NIGHT AT BEDTIME, # 90 tabs, 2 Refill(s), eRx: [facility] #[id number], TAKE ONE TABLET BY MOUTH EVERY NIGHT [...] 194 Hospital admission for polio 1939 Tonsillectomy 193 [...] Patient Education Author: Tayo Gee MD Date: 11/03/15 Family Medicine Bronchiectasis Bronchiectasis is a condition [...] INSTRUCTIONS Get plenty of rest. Only take [id number] or prescription medicines as directed by your [...] 08/11/2008 Document Revised: 10/20/2014 Document Reviewed: 04/22/2014 [employer] Patient Information 2015 [employer] [facility]. This information is not intended to replace [...] Released: 07/25/2006 Document Revised: 03/01/2015 Document Reviewed: 12/30/2012 [facility] Patient Information 2015 [employer]. This information is not intended to replace advice given to you by your health care provider. Make sure you discuss any questions you have with your health care provider. No follow up information was provided. Extracted from: Title: CAD, HTN Author: Tayo Gee MD Date: 11/03/15 Impression and Plan Diagnosis Cellulitis of left foot (VIB54-OY L03.116, Working, Medical). CAD (coronary artery disease) (EAC88-BM I25.10, Working, Medical). Benign essential hypertension (AVK83-UQ I10, Working, Medical). Primary hypercholesterolemia (RHP28-XQ E78.0, Working, Medical). Bronchiectasis (QEQ71-ZJ J47.9, Working, Medical). Plan: 1) Continue your current meds. 2) Use the Mupirocin ointment to the left foot for 2-3 more weeks. 3) See me in 6 months and as needed.. Orders Orders (Selected) Outpatient Orders Ordered Office Visit Level 4 Est 06438: Prescriptions Prescribed ProAir HFA 90 mcg/inh inhalation aerosol: 2 puffs, Inhalation, QID, PRN: as needed for wheezing, 18 g, 11 Refill(s). Dx/Order Association Plan: Diagnosis: Benign essential hypertension Comment: Ordered: Office Visit Level 4 Est 69421; 11/03/15 8:47:00 [employer], Cellulitis of left foot | CAD (coronary artery disease) | Bronchiectasis | Benign essential hypertension Diagnosis: Bronchiectasis Comment: Ordered: Office Visit Level 4 Est 98591; 11/03/15 8:47:00 [employer], Cellulitis of left foot | CAD (coronary artery disease) | Bronchiectasis | Benign essential hypertension Diagnosis: CAD (coronary artery disease) Comment: Ordered: Office Visit Level 4 Est 04331; 11/03/15 8:47:00 [employer], Cellulitis of left foot | CAD (coronary artery disease) | Bronchiectasis | Benign essential hypertension Diagnosis: Cellulitis of left foot Comment: Ordered: Office Visit Level 4 Est 93154; 11/03/15 8:47:00 [employer], Cellulitis of left foot | CAD (coronary artery disease) | Bronchiectasis | Benign essential hypertension Diagnosis: Primary hypercholesterolemia Comment: Additional Orders: Comment: Ordered: ProAir HFA 90 mcg/inh inhalation aerosol,2 puffs, Inhalation, QID, as needed for wheezing, # 18 g, 11 Refill(s), Pharmacy: [facility] #[id number] End of Orders ."
--- OUTSIDE RECORDS SUMMARY | 2017-07-05 16:31 | External Medical Summary | Referral Summary ---
:1930 Author Organization [facility] [place] Address [address] [place] [address] Care Team Providers Name Role Phone Tayo Gee Primary Care Physician Encounter [facility] [id number] Date(s): 07/07/15 - 07/07/15 [facility] [place] [address] [place] [address]- [phone] Discharge Diagnosis: Obstructive sleep apnea (adult) (pediatric) [...] # 90 tabs, 2 Refill(s), eRx: [facility] #[id number], TAKE ONE TABLET BY MOUTH EVERY DAY Start Date: 08/16/15 Status: OrderedAspirin Low Dose 81 mg, Oral, Daily, 0 Refill(s) Start Date: 07/09/14 Status: Orderedcarvedilol 25 mg oral tablet 25 mg 1 tabs, Oral, BID, # 270 tabs, 3 Refill(s), Pharmacy: [facility] # [id number], 1 tabs Oral TID Start Date: 11/30/14 Status: Orderedcephalexin 500 mg oral capsule 500 mg 1 caps, Oral, TID, X 10 days, # 30 caps, 0 Refill(s), Pharmacy: [facility] #[id number], 1 caps Oral TID,x10 days Start Date: 01/12/16 Stop Date: 01/22/16 Status: Orderedfamotidine 20 mg oral tablet See Instructions, TAKE ONE TABLET BY MOUTH TWICE A DAY, # 180 tabs, 1 Refill(s) , eRx: [facility] #[id number], TAKE ONE TABLET BY MOUTH TWICE A DAY Start Date: 06/28/15 Status: Orderedferrous sulfate 325 mg (65 mg elemental iron) oral tablet 325 mg 1 tabs, Oral, Daily, 0 Refill(s) Start Date: 08/03/15 Status: Orderedlosartan 100 mg oral tablet See Instructions, TAKE ONE TABLET BY MOUTH DAILY, # 90 tabs, eRx: [facility] #[id number], TAKE ONETABLET BY MOUTH DAILY Start Date: 11/15/15 Status: Orderedmultivitamin 1 tablet, Oral, Daily, 0 Refill(s) Start Date: 07/09/14 Status: OrderedNitromist 0.4 mg sublingual spray 0.4 mg, SubLingual, q5min, # 1 bottles, 1 Refill(s), Pharmacy: [facility] #[id number], 0.4 mg SubLingual q5min Start Date: 11/04/14 Status: OrderedNorco 5 mg-325 mg oral tablet 1 tabs, Oral, BID, as needed for pain, # 60 tabs, 0 Refill(s) Start Date: 12/27/15 Status: OrderedProAir HFA 90 mcg/inh inhalation aerosol 2 puffs, Inhalation, QID, as needed for wheezing, # 18 g, 11 Refill(s), Pharmacy : [facility] #[id number] Start Date: 11/03/15 Status: Orderedsimvastatin 20 mg oral tablet See Instructions, TAKE ONE TABLET BY MOUTH EVERY NIGHT AT BEDTIME, # 90 tabs, 2 Refill(s), eRx: [facility] #[id number], TAKE ONE TABLET BY MOUTH EVERY NIGHT [...] -[address] [place] 2008 Cardiac catheterization 2009 Placement of coronary stent [...] left hand 194 Hospital admission for polio 194 Tonsillectomy 1935 CIII LEFT ANKLE PAIN CIII [...]
--- OUTSIDE RECORDS SUMMARY | 2017-07-05 16:31 | External Medical Summary | Referral Summary ---
:1930 Author Organization [facility] Address [address] [place] [address] [place] [phone] Care Team Providers Name Role Phone Tayo Gee Primary Care Physician Encounter VC Date(s): 10/13/15 - 10/13/15 [facility] [address] [place] [phone] [place] Discharge Disposition: 01-Home or Self Care Attending Physician: Tayo Gee MD Admitting Physician: Tayo Gee MD Vital Signs Most recent to oldest [Reference Range]: 1 Temperature Tympanic [36.6-38.1 degC] 35.8 degC *LOW* (10/13/15 10:48 AM) Peripheral Pulse Rate [60-100 bpm] 71 bpm (10/13/15 10:48 AM) Blood Pressure [90-140/60-90 mmHg] 126/70 mmHg (10/13/15 10:48 AM) SpO2 97 % (10/13/15 [...] # 90 tabs, 2 Refill(s), eRx: [facility] #[id number], TAKE ONE TABLET BY MOUTH EVERY DAY Start Date: 08/16/15 Status: OrderedAspirin Low Dose 81 mg, Oral, Daily, 0 Refill(s) Start Date: 07/09/14 Status: Orderedcarvedilol 25 mg oral tablet 25 mg 1 tabs, Oral, BID, # 270 tabs, 3 Refill(s), Pharmacy: [facility] # [id number], 1 tabs Oral TID Start Date: 11/30/14 Status: Orderedfamotidine 20 mg oral tablet See Instructions, TAKE ONE TABLET BY MOUTH TWICE A DAY, # 180 tabs, 1 Refill(s) , eRx: [facility] #[id number], TAKE ONE TABLET BY MOUTH TWICE A DAY Start Date: 06/28/15 Status: Orderedferrous sulfate 325 mg (65 mg elemental iron) oral tablet 325 mg 1 tabs, Oral, Daily, 0 Refill(s) Start Date: 08/03/15 Status: Orderedlosartan 100 mg oral tablet See Instructions, TAKE ONE HALF TABLET BY MOUTH EVERY DAY, # 90 tabs, 1 Refill(s ), eRx: [facility] #[id number], TAKE ONE TABLET BY MOUTH EVERY DAY Start Date: 01/18/15 Status: Orderedmultivitamin 1 tablet, Oral, Daily, 0 Refill(s) Start Date: 07/09/14 Status: Orderedmupirocin 2% topical ointment 1 camilo, Topical, BID, # 22 g, 0 Refill(s), Pharmacy: [facility] #[id number] Start Date: 10/13/15 Stop Date: 10/31/15 Status: OrderedNitromist 0.4 mg sublingual spray 0.4 mg, SubLingual, q5min, # 1 bottles, 1 Refill(s), Pharmacy: [facility] #[id number], 0.4 mg SubLingual q5min Start Date: 11/04/14 Status: OrderedNorco 5 mg-325 mg oral tablet 1 tabs, Oral, BID, as needed for pain, # 60 tabs, 0 Refill(s) Start Date: 09/27/15 Status: OrderedProAir HFA 90 mcg/inh inhalation aerosol 2 puffs, Inhalation, QID, as needed for wheezing, 0 Refill(s) Start Date: 12/21/14 Status: Orderedsimvastatin 20 mg oral tablet See Instructions, TAKE ONE TABLET BY MOUTH EVERY NIGHT AT BEDTIME, # 90 tabs, eRx: [facility] #[id number], TAKE ONE TABLET BY MOUTH EVERY NIGHT AT BEDTIME Start Date: 07/19/15 Status: OrderedSpiriva 2.5 mcg, Inhalation, Daily, 0 Refill(s) Start Date: 08/17/15 Status: OrderedSpiriva Respimat 60 inhalation aerosol 2 puffs, Inhalation, Daily, # 1 Each, 3 Refill(s), Pharmacy: [facility] # [id number] Start Date: 08/12/15 Status: Orderedsulfamethoxazole-trimethoprim 800 mg-160 mg oral tablet 1 tabs, Oral, BID, X 7 days, # 14 tabs, 0 Refill(s), Pharmacy: [facility] #[id number] Start Date: 10/13/15 Stop Date: 10/20/15 Status: [...] 07/25/2006 Document Revised: 03/01/2015 Document Reviewed: 12/30/2012 [employer] Patient Information 2015 [employer]. This information is not intended to replace advice given to you by your health care provider. Make sure you discuss any questions you have with your health care provider. No follow up information was provided. Extracted from: Title: cellulitis, left foot, CAD, HTN Author: Tayo Gee MD Date: Impression and Plan Diagnosis Laceration of left foot (APH97-LJ S91.312A, Working, Medical). Cellulitis of foot, left (DEL46-MY L03.116, Working, Medical). CAD (coronary artery disease) (QNV70-HT I25.10, Working, Medical). Benign essential hypertension (QCY26-KP I10, Working, Medical). Primary hypercholesterolemia (INX33-HN E78.0, Working, Medical). Bronchiectasis (QPV34-BM J47.9, Working, Medical). Plan: 1) Tdap given today. 2) use the Mupirocin ointment to the left foot infection twice a day until it' s healed. 3) Take the sulfa antibiotic for 7 days. 4) Continue your routine meds. 5) See me in October, as scheduled.. Orders Orders (Selected) Outpatient Orders Ordered Boostrix (Tdap): 0.5 mL, IntraMuscular, Once Office Visit Level 4 Est 47419: Prescriptions Prescribed mupirocin 2% topical ointment: 1 camilo, Topical, BID, 22 g, 0 Refill(s) sulfamethoxazole-trimethoprim 800 mg-160 mg oral tablet: 1 tabs, Oral, BID, for 7 days, 14 tabs, 0 Refill(s). Dx/Order Association Plan: Diagnosis: Benign essential hypertension Comment: Ordered: Office Visit Level 4 Est 80636; 10/13/15 11:11:00 RECOVERY AUDITOR, Laceration of left foot | Cellulitis of foot, left | CAD (coronary artery disease) | Benign essential hypertension Diagnosis: Bronchiectasis Comment: Diagnosis: CAD (coronary artery disease) Comment: Ordered: Office Visit Level 4 Est 53686; 10/13/15 11:11:00 RECOVERY AUDITOR, Laceration of left foot | Cellulitis of foot, left | CAD (coronary artery disease) | Benign essential hypertension Diagnosis: Cellulitis of foot, left Comment: Ordered: Office Visit Level 4 Est 23090; 10/13/15 11:11:00 RECOVERY AUDITOR, Laceration of left foot | Cellulitis of foot, left | CAD (coronary artery disease) | Benign essential hypertension Diagnosis: Laceration of left foot Comment: Ordered: Boostrix (Tdap); 0.5 mL, IntraMuscular, Once, First Dose : 10/13/15 12:00:00 RECOVERY AUDITOR, Stop Date: 10/13/15 12:00:00 RECOVERY AUDITOR Office Visit Level 4 Est 59842; 10/13/15 11:11:00 RECOVERY AUDITOR, Laceration of left foot | Cellulitis of foot, left | CAD (coronary artery disease) | Benign essential hypertension Diagnosis: Primary hypercholesterolemia Comment: Additional Orders: Comment: Ordered: mupirocin 2% topical ointment,1 camilo, Topical, BID, # 22 g , 0 Refill(s), Pharmacy: [facility] #[id number] Ordered: sulfamethoxazole-trimethoprim 800 mg-160 mg oral tablet, 1 tabs, Oral, BID, X 7 days, # 14 tabs, 0 Refill(s), Pharmacy: [facility] #[id number] End of Orders ."
--- OUTSIDE RECORDS SUMMARY | 2017-07-05 16:31 | External Medical Summary | Referral Summary ---
:1930 Author Organization [facility] Address [address] [place] [address] [place] [phone] Care Team Providers Name Role Phone Gerard Tayo Francy Primary Care Physician Encounter VC Date(s): 03/28/16 - 03/28/16 [facility] [address] [place] [phone] [place] Discharge Diagnosis: Cellulitis of great toe, right Discharge Disposition: 01-Home or Self Care Attending Physician: Carmelita Howard APRN Admitting Physician: Carmelita Howard APRN Vital Signs Most recent to oldest [Reference Range]: 1 Temperature Tympanic [36.6-38.1 degC] 36.0 degC *LOW* (03/28/16 10:04 AM) Peripheral Pulse Rate [60-100 bpm] 68 bpm (03/28/16 10:04 AM) Respiratory Rate [14-20 br/min] 16 br/min (03/28/16 10:04 AM) Blood Pressure [90-140/60-90 mmHg] 160/76 mmHg *HI* (03/28/16 10:04 AM) Problem List Condition [...] Active Pain of right calf(Confirmed) Active Polio(Confirmed) 194 Active Primary Active hypercholesterolemia(Confirmed) Prostatism(Confirmed) Active Snores(Confirmed) [...] 2 Refill(s), eRx: [facility] #[id number], TAKE ONE TABLET BY MOUTH EVERY DAY Start Date: 08/16/15 Status: OrderedAspirin Low Dose 81 mg, Oral, Daily, 0 Refill(s) Start Date: 07/09/14 Status: Orderedcarvedilol 25 mg oral tablet See Instructions, TAKE ONE TABLET BY MOUTH THREE TIMES A DAY, # 270 tabs, 2 Refill(s), eRx: [facility] #[id number], TAKE ONE TABLET BY MOUTH THREE TIMES A DAY Start Date: 01/17/16 Status: Orderedfamotidine 20 mg oral tablet See Instructions, TAKE ONE TABLET BY MOUTH TWICE A DAY, # 180 tabs, 1 Refill(s) , eRx: [facility] #[id number], TAKE ONE TABLET BY MOUTH TWICE A DAY Start Date: 06/28/15 Status: Orderedferrous sulfate 325 mg (65 mg elemental iron) oral tablet 325 mg 1 tabs, Oral, Daily, 0 Refill(s) Start Date: 08/03/15 Status: OrderedKeflex 500 mg oral capsule 500 mg 1 caps, Oral, q8hr, X 10 days, # 30 caps, 0 Refill(s), Pharmacy: [facility] #[id number], 1 caps Oral q8hr,x10 days Start Date: 03/28/16 Stop Date: 04/07/16 Status: Orderedlosartan 100 mg oral tablet See Instructions, TAKE ONE TABLET BY MOUTH DAILY, # 90 tabs, eRx: [facility] #[id number], TAKE ONETABLET BY MOUTH DAILY Start Date: 11/15/15 Status: Orderedmultivitamin 1 tablet, Oral, Daily, 0 Refill(s) Start Date: 07/09/14 Status: OrderedNitromist 0.4 mg sublingual spray 0.4 mg, SubLingual, q5min, # 1 bottles, 1 Refill(s), Pharmacy: [facility] #[id number], 0.4 mg SubLingual q5min Start Date: 11/04/14 Status: OrderedNorco 5 mg-325 mg oral tablet 1 tabs, Oral, BID, as needed for pain, # 60 tabs, 0 Refill(s) Start Date: 03/28/16 Status: OrderedProAir HFA 90 mcg/inh inhalation aerosol 2 puffs, Inhalation, QID, as needed for wheezing, # 18 g, 11 Refill(s), Pharmacy : [facility] #[id number] Start Date: 11/03/15 Status: Orderedsimvastatin 20 mg oral tablet See Instructions, TAKE ONE TABLET BY MOUTH EVERY NIGHT AT BEDTIME, # 90 tabs, 2 Refill(s), eRx: [facility] #[id number], TAKE ONE TABLET BY MOUTH EVERY NIGHT [...] Office Visit Note-right toe Author: Carmelita Howard STAFFING AND SCHEDULING COORDINATOR Date: 03/28 cellulitis Assessment/Plan 1.Cellulitis of great toe, right Keflex 500 mg one by mouth twice a day 10 days. Recommend he soak it for 10 minutesonce a day to keep the nail bed soft as it grows out. Keep clean and dry . Protect with the dressing. Call the office if fails to improve. Refill for Eugene provided for chronic pain. Ordered: Office Visit Level 3 Est 55024 Orders: cephalexin, 500 mg 1 caps, Oral, q8hr, X 10 days, # 30 caps, 0 Refill (s), Pharmacy: [facility] #[id number], 1 caps Oral q8hr,x10 days HYDROcodone-acetaminophen, 1 tabs, Oral, BID, as needed for pain, # 60 tabs, 0 Refill(s) Addendum by Catracho Cole DO on I reviewed this chart, the patient's medical history, March 28, 2016 13:55:39 CDT and the Resident's/STAFFING AND SCHEDULING COORDINATOR's/PA/RN's/PharmD's documented findings, and concur with the assessment and plan as above.
--- OUTSIDE RECORDS SUMMARY | 2017-07-05 16:31 | External Medical Summary | Referral Summary ---
:1930 Author Organization [facility] Address [address] [place] [address] [place] [phone] Care Team Providers Name Role Phone Tayo Gee Primary Care Physician Encounter VC Date(s): 04/28/15 - 04/28/15 [facility] [address] [place] [address] [place] [phone] [place] Discharge Diagnosis: Coronary heart disease Discharge Diagnosis: Essential hypertension Discharge Diagnosis: History of coronary artery bypass surgery Discharge Diagnosis: Dyspnea Discharge Diagnosis: Hypercholesterolemia Discharge Disposition: -Home or Self Care Attending Physician: Stuart Vasquez MD Admitting Physician: Stuart Vasquez MD Referring Physician: Tayo Gee MD Vital Signs Most recent to oldest [Reference Range]: 1 Peripheral Pulse Rate [60-100 bpm] 68 bpm (04/28/15 1:45 PM) Blood Pressure [90-140/60-90 mmHg] 130/70 mmHg (04/28/15 1:45 PM) Problem List Condition Effective [...] Hyperlipidemia(Confirmed) Active Need for influenza Active vaccination(Confirmed) DNEISE on CPAP(Confirmed) Active Osteoarthritis(Confirmed) Active Overweight(Confirmed) Active [...] [facility] #[id number], TAKE ONE TABLET BY MOUTH EVERY DAY Start Date: 08/16/15 Status: OrderedAspirin Low Dose 81 mg, Oral, Daily, 0 Refill(s) Start Date: 07/09/14 Status: Orderedcarvedilol 25 mg oral tablet 25 mg 1 tabs, Oral, BID, # 270 tabs, 3 Refill(s), Pharmacy: [facility] # [id number], 1 tabs Oral TID Start Date: 11/30/14 Status: Orderedfamotidine 20 mg oral tablet See Instructions, TAKE ONE TABLET BY MOUTH TWICE A DAY, # 180 tabs, 1 Refill(s) , eRx: [facility] #[id number], TAKE ONE TABLET BY MOUTH TWICE A DAY Start Date: 06/28/15 Status: Orderedferrous sulfate 325 mg (65 mg elemental iron) oral tablet 325 mg 1 tabs, Oral, Daily, 0 Refill(s) Start Date: 08/03/15 Status: Orderedlosartan 100 mg oral tablet See Instructions, TAKE ONE HALF TABLET BY MOUTH EVERY DAY, # 90 tabs, 1 Refill(s ), eRx: [facility] #[id number], TAKE ONE TABLET BY MOUTH EVERY DAY Start Date: 01/18/15 Status: Orderedmultivitamin 1 tablet, Oral, Daily, 0 Refill(s) Start Date: 07/09/14 Status: OrderedNitromist 0.4 mg sublingual spray 0.4 mg, SubLingual, q5min, # 1 bottles, 1 Refill(s), Pharmacy: [facility] #[id number], 0.4 mg SubLingual q5min Start Date: 11/04/14 Status: OrderedNorco 5 mg-325 mg oral tablet 1 tabs, Oral, BID, as needed for pain, # 60 tabs, 0 Refill(s) Start Date: 10/26/15 Status: OrderedProAir HFA 90 mcg/inh inhalation aerosol 2 puffs, Inhalation, QID, as needed for wheezing, # 18 g, 11 Refill(s), Pharmacy : [facility] #[id number] Start Date: 11/03/15 Status: Orderedsimvastatin 20 mg oral tablet See Instructions, TAKE ONE TABLET BY MOUTH EVERY NIGHT AT BEDTIME, # 90 tabs, 2 Refill(s), eRx: [facility] #[id number], TAKE ONE TABLET BY MOUTH EVERY NIGHT [...]
--- OUTSIDE RECORDS SUMMARY | 2017-07-05 16:31 | External Medical Summary | Referral Summary ---
:1930 Author Organization [facility] Address [address] [place] [address] [place] [phone] Care Team Providers Name Role Phone Tayo Gee Primary Care Physician Encounter VC Date(s): 04/28/15 - 04/28/15 [facility] [address] [place] [address] [place] [phone] [place] Discharge Diagnosis: Coronary [...] DAY, # 90 tabs, 2 Refill(s), eRx: [facility] #[id number], TAKE ONE TABLET BY MOUTH EVERY DAY Start Date: 08/16/15 Status: OrderedAspirin Low Dose 81 mg, Oral, Daily, 0 Refill(s) Start Date: 07/09/14 Status: Orderedcarvedilol 25 mg oral tablet 25 mg 1 tabs, Oral, BID, # 270 tabs, 3 Refill(s), Pharmacy: [facility] # [id number], 1 tabs Oral TID Start Date: 11/30/14 Status: Orderedfamotidine 20 mg oral tablet See Instructions, TAKE ONE TABLET BY MOUTH TWICE A DAY, # 180 tabs, 1 Refill(s) , eRx: [facility] #[id number], TAKE ONE TABLET BY MOUTH TWICE A DAY Start Date: 06/28/15 Status: Orderedferrous sulfate 325 mg (65 mg elemental iron) oral tablet 325 mg 1 tabs, Oral, Daily, 0 Refill(s) Start Date: 08/03/15 Status: Orderedlosartan 100 mg oral tablet See Instructions, TAKE ONE HALF TABLET BY MOUTH EVERY DAY, # 90 tabs, 1 Refill(s ), eRx: [facility] #[id number], TAKE ONE TABLET BY MOUTH EVERY DAY Start Date: 01/18/15 Status: Orderedmultivitamin 1 tablet, Oral, Daily, 0 Refill(s) Start Date: 07/09/14 Status: OrderedNitromist 0.4 mg sublingual spray 0.4 mg, SubLingual, q5min, # 1 bottles, 1 Refill(s), Pharmacy: [facility] #[id number], 0.4 mg SubLingual q5min Start Date: 11/04/14 [...] NIGHT AT BEDTIME, # 90 tabs, eRx: [facility] #[id number], TAKE ONE TABLET BY MOUTH EVERY NIGHT AT BEDTIME Start Date: 07/19/15 Status: OrderedSpiriva 2.5 mcg, Inhalation, Daily, 0 Refill(s) Start Date: 08/17/15 Status: OrderedSpiriva Respimat 60 inhalation aerosol 2 puffs, Inhalation, Daily, # 1 Each, 3 Refill(s), Pharmacy: [facility] # [id number] Start Date: 08/12/15 Status: Ordered Results No [...]
--- OUTSIDE RECORDS SUMMARY | 2017-07-05 16:32 | External Medical Summary | Referral Summary ---
:1930 Author Organization [facility] Address [address] [place] [address] [place] [phone] Care Team Providers Name Role Phone Tayo Gee Primary Care Physician Encounter VC Date(s): 05/23/16 - 05/23/16 [facility] [address] [place] [phone] [place] Discharge Disposition: 01-Home or Self Care Attending Physician: Tayo Gee MD Admitting Physician: Tayo Gee MD Vital Signs Most recent to oldest [Reference Range]: 1 Temperature Tympanic [36.6-38.1 degC] 36.5 degC *LOW* (05/23/16 10:50 AM) Peripheral Pulse Rate [60-100 bpm] 72 bpm (05/23/16 10:50 AM) Blood Pressure [90-140/60-90 mmHg] 140/66 mmHg (05/23/16 10:50 AM) Problem List Condition Effective [...] [facility] #[id number], TAKE ONE TABLET BY MOUTH EVERY DAY Start Date: 08/16/15 Status: OrderedAspirin Low Dose 81 mg, Oral, Daily, 0 Refill(s) Start Date: 07/09/14 Status: Orderedcarvedilol 25 mg oral tablet 25 mg 1 tabs, Oral, BID, # 270 tabs, 2 Refill(s), eRx: [facility] #[id number] , TAKE ONE TABLET BY MOUTH THREE TIMES A DAY Start Date: 01/17/16 Status: Orderedfamotidine 20 mg oral tablet See Instructions, TAKE ONE TABLET BY MOUTH TWICE A DAY, # 180 tabs, 1 Refill(s) , eRx: [facility] #[id number], TAKE ONE TABLET BY MOUTH TWICE A DAY Start Date: 04/10/16 Status: Orderedferrous sulfate 325 mg (65 mg elemental iron) oral tablet 325 mg 1 tabs, Oral, Daily, 0 Refill(s) Start Date: 08/03/15 Status: Orderedlosartan 100 mg oral tablet See Instructions, TAKE ONE TABLET BY MOUTH DAILY, # 90 tabs, eRx: [facility] #[id number], TAKE ONETABLET BY MOUTH DAILY Start Date: 04/24/16 Status: Orderedmultivitamin 1 tablet, Oral, Daily, 0 Refill(s) Start Date: 07/09/14 Status: OrderedNitromist 0.4 mg sublingual spray 0.4 mg, SubLingual, q5min, # 1 bottles, 1 Refill(s), Pharmacy: [facility] #[id number], 0.4 mg SubLingual q5min Start Date: 11/04/14 Status: OrderedNorco 5 mg-325 mg oral tablet 1 tabs, Oral, BID, as needed for pain, # 60 tabs, 0 Refill(s) Start Date: 05/23/16 Status: Orderedsimvastatin 20 mg oral tablet See Instructions, TAKE ONE TABLET BY MOUTH EVERY NIGHT AT BEDTIME, # 90 tabs, 2 Refill(s), eRx: [facility] #[id number], TAKE ONE TABLET BY MOUTH EVERY NIGHT AT BEDTIME Start Date: 10/25/15 Status: Ordered Results Hematology Most recent to oldest [Reference Range]: 1 WBC [4.8-10.8 10*3/uL] 6.6 10*3/uL (05/23/16 11:25 AM) RBC [4.60-6.20] 4.27 *LOW* (05/23/16 11:25 AM) Hgb [14.0-18.0 gm/dL] 13.5 gm/dL *LOW* (05/23/16 11:25 AM) Hct [42.0-52.0 %] 40.2 % *LOW* (05/23/16 11:25 AM) MCV [82.0-99.0 fL] 94.1 fL (05/23/16 11:25 AM) MCH [27.0-32.0 pg] 31.6 pg (05/23/16 11:25 AM) MCHC [32.0-36.0 gm/dL] 33.6 gm/dL (05/23/16 11:25 AM) RDW [11.5-14.5 %] 12.8 % (05/23/16 11:25 AM) Platelet [150-400 10*3/uL] 163 10*3/uL (05/23/16 11:25 AM) MPV [8.8-14.8 fL] 10.7 fL (05/23/16 11:25 AM) Immature Granulocytes [0.0-1.0 %] 0.2 % (05/23/16 11:25 AM) Neutrophils [51-75 %] 41 % *LOW* (05/23/16 11:25 AM) Lymphocytes [20-46 %] 37 % (05/23/16 11:25 AM) Monocytes [4-11 %] 15 % *HI* (05/23/16 11:25 AM) Eosinophils [0-4 %] 7 % *HI* (05/23/16 11:25 AM) Basophils [0-2 %] 1 % (05/23/16 11:25 AM) Neutro Absolute [1.90-7.00 10*3] 2.70 10*3 (05/23/16 11:25 AM) Lymph Absolute [0.80-3.30 10*3] 2.46 10*3 (05/23/16 11:25 AM) [place] Absolute [0.30-1.00 10*3] 0.98 10*3 (05/23/16 11:25 AM) Eos Absolute [0.00-0.50 10*3] 0.46 10*3 (05/23/16 11:25 AM) Baso Absolute [0.00-0.20 10*3] 0.03 10*3 (05/23/16 11:25 AM) Chemistry Most recent to oldest [Reference Range]: 1 Sodium Lvl [135-144 mEq/L] 140 mEq/L (05/23/16 11:25 AM) Potassium Lvl [3.5-5.2 mEq/L] 4.5 mEq/L (05/23/16 11:25 AM) Chloride [99-111 mEq/L] 107 mEq/L (05/23/16 11:25 AM) CO2 [23-31 mEq/L] 26 mEq/L (05/23/16 11:25 AM) AGAP [3-20] 7 (05/23/16 11:25 AM) BUN [8-26 mg/dL] 23 mg/dL (05/23/16 11:25 AM) Glucose Lvl [70-99 mg/dL] 96 mg/dL (05/23/16 11:25 AM) Creatinine Lvl [0.72-1.25 mg/dL] 1.15 mg/dL (05/23/16 11:25 AM) eGFR [>60 mL/min] >60 mL/min 1 (05/23/16 11:25 AM) Calcium Lvl [8.9-10.5 mg/dL] 8.6 mg/dL *LOW* (05/23/16 11:25 AM) Albumin Lvl [3.4-4.8 gm/dL] 3.8 gm/dL (05/23/16 11:25 AM) Total Protein [6.0-7.6 gm/dL] 6.3 gm/dL 2 (05/23/16 11:25 AM) Globulin [1.8-4.0 gm/dL] 2.5 gm/dL (05/23/16 11:25 AM) ALT [0-55 U/L] 26 U/L (05/23/16 11:25 AM) AST [5-34 U/L] 21 U/L (05/23/16 11:25 AM) Alk Phos [40-150 U/L] 76 U/L (05/23/16 11:25 AM) Bili Total [0.2-1.2 mg/dL] 0.4 mg/dL (05/23/16 11:25 AM) LDL Direct [0-129 mg/dL] 55 mg/dL (05/23/16 11:25 AM) 1Result Comment: Multiply eGFR results by 1.21 for race.2Result Comment: Please note new reference range for [...] Patient Education Author: Tayo Gee MD Date: 05/23/16 Preventive Medicine Heart Disease Prevention Heart disease is a leading cause of . There are many things you can do to help prevent heart disease. BE PHYSICALLY ACTIVE Physical activity is good for your heart. It helps control your blood pressure , cholesterol levels, and weight. Try to be [...] by your health care provider. Ask your [facility] care provider if you need treatment to [...] out more about heart disease, visit the [place] [employer]'s website at www.americanheart.org This information is not intended to replace advice given to you by your health care provider. Make sure you discuss any questions you have with your health care provider. Document Released: 05/29/2005 Document Revised: 11/05/2015 Document Reviewed: 12/09/2014 [facility] Patient Information 2016 [employer] [facility]. No follow up information was provided. Extracted from: Title: CAD, HTN Author: Tayo Gee MD Date: 05/23/16 Impression and Plan Diagnosis CAD (coronary artery disease) (EHO31-TT I25.10, Working, Medical). Benign essential hypertension (OTQ86-JW I10, Working, Medical). Primary hypercholesterolemia (OKQ35-EA E78.0, Working, Medical). Bronchiectasis (JBN95-RN J47.9, Working, Medical). BPPV (benign paroxysmal positional vertigo) (RTZ61-MN H81.12, Working, Medical) . Anemia (OLU96-TW D64.9, Working, Medical). DENISE on CPAP (FOA46-DY G47.33, Working, Medical). Paresthesia of right arm (UPW69-IE R20.2, Working, Medical). Plan: 1) Try heat to your neck to see if this helps the numbness of the right arm. 2) Consider NCTs of the arms. 3) Continue your current meds. 4) See me in 3-4 months for your physical. ) Non-fasting lab ordered today.. Orders Orders (Selected) Outpatient Orders Ordered Office Visit Level 4 Est 60159: Future (On Hold) CBC w/ Differential: CMP: LDL Direct: . Dx/Order Association Plan: Diagnosis: Anemia Comment: Diagnosis: BPPV (benign paroxysmal positional vertigo) Comment: Diagnosis: Benign essential hypertension Comment: Ordered: Office Visit Level 4 Est 86927; 05/23/16 10:56:00 CDT, CAD (coronary artery disease) | Benign essential hypertension | Primary hypercholesterolemia | Bronchiectasis | Paresthesia of right arm Diagnosis: Bronchiectasis Comment: Ordered: Office Visit Level 4 Est 81349; 05/23/16 10:56:00 CDT, CAD (coronary artery disease) | Benign essential hypertension | Primary hypercholesterolemia | Bronchiectasis | Paresthesia of right arm Diagnosis: CAD (coronary artery disease) Comment: Ordered: Office Visit Level 4 Est 02490; 05/23/16 10:56:00 CDT, CAD (coronary artery disease) | Benign essential hypertension | Primary hypercholesterolemia | Bronchiectasis | Paresthesia of right arm Diagnosis: DENISE on CPAP Comment: Diagnosis: Paresthesia of right arm Comment: Ordered: Office Visit Level 4 Est 87757; 05/23/16 10:56:00 CDT, CAD (coronary artery disease) | Benign essential hypertension | Primary hypercholesterolemia | Bronchiectasis | Paresthesia of right arm Diagnosis: Primary hypercholesterolemia Comment: Ordered: Office Visit Level 4 Est 09924; 05/23/16 10:56:00 CDT, CAD (coronary artery disease) [...]
--- OUTSIDE RECORDS SUMMARY | 2017-07-05 16:32 | External Medical Summary | Referral Summary ---
:1930 Author Organization [facility] Address [address] [place] [address] Care Team Providers Name Role Phone Tayo Gee Primary Care Physician Encounter [facility] [id number] Date(s): 04/06/15 - 04/06/15 [facility] [address] [place] [address]- [place] Discharge Diagnosis: Emphysema/COPD Discharge [...] # 90 tabs, 2 Refill(s), eRx: [facility] #[id number], TAKE ONE TABLET BY MOUTH EVERY DAY Start Date: 08/16/15 Status: OrderedAspirin Low Dose 81 mg, Oral, Daily, 0 Refill(s) Start Date: 07/09/14 Status: Orderedcarvedilol 25 mg oral tablet 25 mg 1 tabs, Oral, BID, # 270 tabs, 3 Refill(s), Pharmacy: [facility] # [id number], 1 tabs Oral TID Start Date: 11/30/14 Status: Orderedfamotidine 20 mg oral tablet See Instructions, TAKE ONE TABLET BY MOUTH TWICE A DAY, # 180 tabs, 1 Refill(s) , eRx: [facility] #[id number], TAKE ONE TABLET BY MOUTH TWICE A DAY Start Date: 06/28/15 Status: Orderedferrous sulfate 325 mg (65 mg elemental iron) oral tablet 325 mg 1 tabs, Oral, Daily, 0 Refill(s) Start Date: 08/03/15 Status: Orderedlosartan 100 mg oral tablet See Instructions, TAKE ONE HALF TABLET BY MOUTH EVERY DAY, # 90 tabs, 1 Refill(s ), eRx: [facility] #[id number], TAKE ONE TABLET BY MOUTH EVERY DAY Start Date: 01/18/15 Status: Orderedmultivitamin 1 tablet, Oral, Daily, 0 Refill(s) Start Date: 07/09/14 Status: OrderedNitromist 0.4 mg sublingual spray 0.4 mg, SubLingual, q5min, # 1 bottles, 1 Refill(s), Pharmacy: [facility] #[id number], 0.4 mg SubLingual q5min Start Date: 11/04/14 [...] AT BEDTIME, # 90 tabs, eRx: [facility] #[id number], TAKE ONE TABLET BY MOUTH EVERY NIGHT AT BEDTIME Start Date: 07/19/15 Status: OrderedSpiriva 2.5 mcg, Inhalation, Daily, 0 Refill(s) Start Date: 08/17/15 Status: OrderedSpiriva Respimat 60 inhalation aerosol 2 puffs, Inhalation, Daily, # 1 Each, 3 Refill(s), Pharmacy: [facility] # [id number] Start Date: 08/12/15 Status: Ordered Results No [...] chronic cough. HOME CARE INSTRUCTIONS Only take xlkk-nso-dqicuvx or prescription medicines for pain, discomfort , [...] 04/12/2012 Document Revised: 01/06/2013 Document Reviewed: 04/12/2012 [facility] Patient Information 2014 [employer]. No follow up information was provided. Extracted [...]
--- OUTSIDE RECORDS SUMMARY | 2017-07-05 16:32 | External Medical Summary | Referral Summary ---
:1930 Author Organization [facility] Address [address] [place] [address] [place] [phone] Care Team Providers Name Role Phone Tayo Gee Primary Care Physician Encounter [facility] Date(s): 05/24/15 - 05/24/15 [facility] [place] [phone] [place] Discharge Diagnosis: Actinic keratoses Discharge Disposition: 01-Home or Self Care Attending Physician: Tayo Gee MD Admitting Physician: Tayo Gee MD Vital Signs Most recent to oldest [Reference Range]: 1 Temperature Tympanic [36.6-38.1 degC] 36.2 degC *LOW* (05/24/15 11:04 AM) Peripheral Pulse Rate [60-100 bpm] 64 bpm (05/24/15 11:04 AM) Respiratory Rate [14-20 br/min] 16 br/min (05/24/15 11:04 AM) Blood Pressure [90-140/60-90 mmHg] 120/70 mmHg (05/24/15 11:04 AM) Problem List Condition Effective [...] 2 Refill(s), eRx: [facility] #[id number], TAKE ONE TABLET BY MOUTH EVERY DAY Start Date: 08/16/15 Status: OrderedAspirin Low Dose 81 mg, Oral, Daily, 0 Refill(s) Start Date: 07/09/14 Status: Orderedcarvedilol 25 mg oral tablet 25 mg 1 tabs, Oral, BID, # 270 tabs, 3 Refill(s), Pharmacy: [facility] # [id number], 1 tabs Oral TID Start Date: 11/30/14 Status: Orderedfamotidine 20 mg oral tablet See Instructions, TAKE ONE TABLET BY MOUTH TWICE A DAY, # 180 tabs, 1 Refill(s) , eRx: [facility] #[id number], TAKE ONE TABLET BY MOUTH TWICE A DAY Start Date: 06/28/15 Status: Orderedferrous sulfate 325 mg (65 mg elemental iron) oral tablet 325 mg 1 tabs, Oral, Daily, 0 Refill(s) Start Date: 08/03/15 Status: Orderedlosartan 100 mg oral tablet See Instructions, TAKE ONE TABLET BY MOUTH DAILY, # 90 tabs, eRx: [facility] #[id number], TAKE ONETABLET BY MOUTH DAILY Start Date: 11/15/15 Status: Orderedmultivitamin 1 tablet, Oral, Daily, 0 Refill(s) Start Date: 9/11/14 Status: OrderedNitromist 0.4 mg sublingual spray 0.4 mg, SubLingual, q5min, # 1 bottles, 1 Refill(s), Pharmacy: [facility] #[id number], 0.4 mg SubLingual q5min Start Date: 11/04/14 Status: OrderedNorco 5 mg-325 mg oral tablet 1 tabs, Oral, BID, as needed for pain, # 60 tabs, 0 Refill(s) Start Date: 11/26/15 Status: OrderedProAir HFA 90 mcg/inh inhalation aerosol 2 puffs, Inhalation, QID, as needed for wheezing, # 18 g, 11 Refill(s), Pharmacy : [facility] #[id number] Start Date: 11/03/15 Status: Orderedsimvastatin 20 mg oral tablet See Instructions, TAKE ONE TABLET BY MOUTH EVERY NIGHT AT BEDTIME, # 90 tabs, 2 Refill(s), eRx: [facility] #[id number], TAKE ONE TABLET BY MOUTH EVERY NIGHT [...] Diagnosis Body Site Destruction (eg, laser surgery, electrosurgery, 05/24/15 cryosurgery, chemosurgery, surgical curettement), premalignant lesions (eg, actinic keratoses); first lesion Destruction (eg, laser surgery, electrosurgery, 05/24/15 cryosurgery, chemosurgery, surgical curettement), premalignant lesions (eg, actinic keratoses); second through 14 lesions, each (List separately in addition to code for first lesion).. Destruction (eg, laser surgery, electrosurgery, 05/24/15 cryosurgery, chemosurgery, surgical curettement), premalignant lesions (eg, actinic keratoses); second through 14 lesions, each (List separately in addition to code for first lesion).. Destruction (eg, laser surgery, electrosurgery, 05/24/15 cryosurgery, chemosurgery, surgical curettement), premalignant lesions (eg, actinic keratoses); second through 14 lesions, each (List separately in addition to code for first lesion).. Destruction (eg, laser surgery, electrosurgery, 05/24/15 cryosurgery, chemosurgery, surgical curettement), premalignant lesions (eg, actinic keratoses); second through 14 lesions, each (List separately in addition to code for first lesion).. Destruction (eg, laser surgery, electrosurgery, 05/24/15 cryosurgery, chemosurgery, surgical curettement), premalignant lesions (eg, [...] left, 2 on the right, between 1965 1979 Social History Social History Type Response Smoking Status Never smoker Assessment and Plan Extracted from: Title: Ambulatory Patient Education Author: Tayo Gee MD Date: 05/24/15 Family Medicine Actinic Keratosis Actinic keratosis is a precancerous growth on the skin. This means it could develop into skin cancer if it is not treated. About 1% of actinic keratoses turn into skin cancer within a year. It is import ant to have all such growths removed to [...] creams. Actinic keratoses appear most often on area s of skin that get a lot of [...] for any changes. Visit a skin doctor (container packer operator) every year for a skin exam. SEEK MEDICAL CARE IF: Your skin does not heal and becomes irritated, red, or bleeds. You notice any changes or new growths on your skin. Document Released: 01/11/2010 Document Revised: 01/06/2013 Document Reviewed: 11/25/2012 [facility] Patient Information 2015 [employer]. This information is not intended to replace advice given to you by your health care provider. Make sure you discuss any questions you have with your health care provider. Chronic Obstructive Pulmonary Disease Chronic obstructive pulmonary disease (COPD) is a common lung problem. In COPD , the flow of air from the lungs is limited. The way your lungs work will probably never return to normal, but there are thi ngs you can do to improve you lungs and make yourself feel better. HOME CARE Take all medicines as told by your doctor. Only take dutw-gtt-orcnfps or prescription medicines as told by your [...] Released: 04/02/2009 Document Revised: 08/05/2014 Document Reviewed: 06/11/2014 [facility] Patient Information 2015 [employer]. This information is not intended to replace [...] Outpatient Orders Ordered Destruction premalignant lesion 1st 57769: Destruction premalignant lesion 2-14, Each 41342: Destruction premalignant lesion 2-14, Each 68368: Destruction premalignant lesion 2-14, Each 37099: Destruction premalignant lesion 2-14, Each 33665: Destruction premalignant lesion 2-14, Each 74088: Office Visit Level 4 Est 56122: Prescriptions Prescribed Van Horne 5 mg-325 mg oral tablet: 1 tabs, Oral, BID, PRN: as needed for pain, 60 tabs, 0 Refill(s). Dx/Order Association Plan: Diagnosis: Actinic keratoses Comment: Ordered: Destruction premalignant lesion 2-14, Each 94991; 18:21:00 CDT, 1, Actinic keratoses Destruction premalignant lesion 2-14, Each 13482; 05/24/15 18:20:00 CDT, 1, Actinic keratoses Destruction premalignant lesion 2-14, Each 79353; 05/24/15 18:20:00 CDT, 1, Actinic keratoses Destruction premalignant lesion 2-14, Each 38376; 05/24/15 18:20:00 CDT, 1, Actinic keratoses Destruction premalignant lesion 2-14, Each 83445; 05/24/15 18:20:00 CDT, 1, Actinic keratoses Destruction premalignant lesion 1st 63205; 18:20:00 CDT, 1, Actinic keratoses Office Visit Level 4 Est 54223; 05/24/15 18:20:00 CDT, 25, CAD (coronary artery disease) | Chronic obstructive pulmonary disease ( COPD) | Bronchiectasis | Benign essential hypertension | Hyperlipidemia Diagnosis: Benign essential hypertension Comment: Ordered: Office Visit Level 4 Est 33136; 05/24/15 18:20:00 CDT, 25, CAD (coronary artery disease) | Chronic obstructive pulmonary disease (COPD ) | Bronchiectasis | Benign essential hypertension | Hyperlipidemia Diagnosis: Bronchiectasis Comment: Ordered: Office Visit Level 4 Est 52347; 05/24/15 18:20:00 CDT, 25, CAD (coronary artery disease) | Chronic obstructive pulmonary disease (COPD ) | Bronchiectasis | Benign essential hypertension | Hyperlipidemia Diagnosis: CAD (coronary artery disease) Comment: Ordered: Office Visit Level 4 Est 02262; 05/24/15 18:20:00 CDT, 25, CAD (coronary artery disease) | Chronic obstructive pulmonary disease (COPD ) | Bronchiectasis | Benign essential hypertension | Hyperlipidemia Diagnosis: Chronic obstructive pulmonary disease (COPD) Comment: Ordered: Office Visit Level 4 Est 51633; 05/24/15 18:20:00 CDT, 25, CAD (coronary artery disease) | Chronic obstructive pulmonary disease (COPD ) | Bronchiectasis | Benign essential hypertension | Hyperlipidemia Diagnosis: Hyperlipidemia Comment: Ordered: Office Visit Level 4 Est 57780; 05/24/15 18:20:00 CDT, 25, CAD (coronary artery disease) | Chronic obstructive pulmonary disease (COPD ) | Bronchiectasis | Benign essential hypertension | Hyperlipidemia Additional Orders: Comment: Ordered: Van Horne 5 mg-325 mg oral tablet,1 tabs, Oral, BID, as needed for pain, # 60 tabs, 0 Refill(s) End of Orders ."
--- OUTSIDE RECORDS SUMMARY | 2017-07-05 16:32 | External Medical Summary | Referral Summary ---
:1930 Author Organization [facility] [place] Address [address] [place] [address] Care Team Providers Name Role Phone Tayo Gee Primary Care Physician Encounter [facility] [id number] Date(s): 08/17/15 - 08/17/15 [facility] [place] [address] [place] [address]- [phone] Discharge Diagnosis: DENISE on CPAP Discharge Disposition: 01-Home or Self Care Attending Physician: Rufino Shoemaker MD Admitting Physician: Rufino Shoemaker MD Vital Signs Most recent to oldest [Reference Range]: 1 Peripheral Pulse Rate [60-100 bpm] 67 bpm (08/17/15 10:01 AM) Blood Pressure [90-140/60-90 mmHg] 122/74 mmHg (08/17/15 10:01 AM) SpO2 93 % (08/17/15 [...] [facility] #[id number], TAKE ONE TABLET BY MOUTH EVERY DAY Start Date: 08/16/15 Status: OrderedAspirin Low Dose 81 mg, Oral, Daily, 0 Refill(s) Start Date: 07/09/14 Status: Orderedcarvedilol 25 mg oral tablet 25 mg 1 tabs, Oral, BID, # 270 tabs, 3 Refill(s), Pharmacy: [facility] # [id number], 1 tabs Oral TID Start Date: 11/30/14 Status: Orderedfamotidine 20 mg oral tablet See Instructions, TAKE ONE TABLET BY MOUTH TWICE A DAY, # 180 tabs, 1 Refill(s) , eRx: [facility] #[id number], TAKE ONE TABLET BY MOUTH TWICE A DAY Start Date: 06/28/15 Status: Orderedferrous sulfate 325 mg (65 mg elemental iron) oral tablet 325 mg 1 tabs, Oral, Daily, 0 Refill(s) Start Date: 08/03/15 Status: Orderedlosartan 100 mg oral tablet See Instructions, TAKE ONE HALF TABLET BY MOUTH EVERY DAY, # 90 tabs, 1 Refill(s ), eRx: [facility] #[id number], TAKE ONE TABLET BY MOUTH EVERY DAY Start Date: 01/18/15 Status: Orderedmultivitamin 1 tablet, Oral, Daily, 0 Refill(s) Start Date: 07/09/14 Status: OrderedNitromist 0.4 mg sublingual spray 0.4 mg, SubLingual, q5min, # 1 bottles, 1 Refill(s), Pharmacy: [facility] #[id number], 0.4 mg SubLingual q5min Start Date: 11/04/14 Status: OrderedNorco 5 mg-325 mg oral tablet 1 tabs, Oral, BID, as needed for pain, # 60 tabs, 0 Refill(s) Start Date: 07/27/15 Status: OrderedProAir HFA 90 mcg/inh inhalation aerosol 2 puffs, Inhalation, QID, as needed for wheezing, 0 Refill(s) Start Date: 12/21/14 Status: Orderedsimvastatin 20 mg oral tablet See Instructions, TAKE ONE TABLET BY MOUTH EVERY NIGHT AT BEDTIME, # 90 tabs, eRx: [facility] #[id number], TAKE ONE TABLET BY MOUTH EVERY NIGHT AT BEDTIME Start Date: 07/19/15 Status: OrderedSpiriva 2.5 mcg, Inhalation, Daily, 0 Refill(s) Start Date: 08/17/15 Status: OrderedSpiriva Respimat 60 inhalation aerosol 2 puffs, Inhalation, Daily, # 1 Each, 3 Refill(s), Pharmacy: [facility] # [id number] Start Date: 08/12/15 Status: Ordered Results No [...] Visit Note Author: Rufino Shoemaker MD Date: 08/17/15 Assessment/Plan 1.DENISE on CPAP - Sub-optimal compliance. - Discussed strategies to increase use. -Discussed goals of >4 hours per night and > 70% of nights>4h. - Importance of CPAP use for cardiovascular. cerebrovascular, cancer and other health/mood benefits discussed. - All other questions answered. - Follow up in 1-2 month to recheck compliance.
--- OUTSIDE RECORDS SUMMARY | 2017-07-05 16:32 | External Medical Summary | Referral Summary ---
:1930 Author Organization [facility] Address [address] [place] [address] [place] [phone] Care Team Providers Name Role Phone Tayo Gee Primary Care Physician Encounter [facility] Date(s): 04/28/15 - 04/28/15 [facility] [address] [place] [address] [place] [phone] [place] Discharge Diagnosis: Coronary [...] DAY, # 90 tabs, 2 Refill(s), eRx: [facility] #[id number], TAKE ONE TABLET BY MOUTH EVERY DAY Start Date: 08/16/15 Status: OrderedAspirin Low Dose 81 mg, Oral, Daily, 0 Refill(s) Start Date: 07/09/14 Status: Orderedcarvedilol 25 mg oral tablet 25 mg 1 tabs, Oral, BID, # 270 tabs, 3 Refill(s), Pharmacy: [facility] # [id number], 1 tabs Oral TID Start Date: 11/30/14 Status: Orderedfamotidine 20 mg oral tablet See Instructions, TAKE ONE TABLET BY MOUTH TWICE A DAY, # 180 tabs, 1 Refill(s) , eRx: [facility] #[id number], TAKE ONE TABLET BY MOUTH TWICE A DAY Start Date: 06/28/15 Status: Orderedferrous sulfate 325 mg (65 mg elemental iron) oral tablet 325 mg 1 tabs, Oral, Daily, 0 Refill(s) Start Date: 08/03/15 Status: Orderedlosartan 100 mg oral tablet See Instructions, TAKE ONE HALF TABLET BY MOUTH EVERY DAY, # 90 tabs, 1 Refill(s ), eRx: [facility] #[id number], TAKE ONE TABLET BY MOUTH EVERY DAY Start Date: 01/18/15 Status: Orderedmultivitamin 1 tablet, Oral, Daily, 0 Refill(s) Start Date: 07/09/14 Status: OrderedNitromist 0.4 mg sublingual spray 0.4 mg, SubLingual, q5min, # 1 bottles, 1 Refill(s), Pharmacy: [facility] #[id number], 0.4 mg SubLingual q5min Start Date: 11/04/14 [...] NIGHT AT BEDTIME, # 90 tabs, eRx: [facility] #[id number], TAKE ONE TABLET BY MOUTH EVERY NIGHT AT BEDTIME Start Date: 07/19/15 Status: OrderedSpiriva 2.5 mcg, Inhalation, Daily, 0 Refill(s) Start Date: 08/17/15 Status: OrderedSpiriva Respimat 60 inhalation aerosol 2 puffs, Inhalation, Daily, # 1 Each, 3 Refill(s), Pharmacy: [facility] # [id number] Start Date: 08/12/15 Status: Ordered Results No [...]
--- OUTSIDE RECORDS SUMMARY | 2017-07-05 16:32 | External Medical Summary | Referral Summary ---
:1930 Author Organization [facility] Address [address] [place] [address] [place] [phone] Care Team Providers Name Role Phone Tayo Gee Primary Care Physician Encounter [facility] Date(s): 02/15/16 - 02/15/16 [facility] [place] [place] [phone] [place] Discharge Disposition: 01-Home or Self Care Attending Physician: Tayo Gee MD Admitting Physician: Tayo Gee MD Vital Signs Most recent to oldest [Reference Range]: 1 Temperature Tympanic [36.6-38.1 degC] 36.1 degC *LOW* (02/15/16 3:14 PM) Peripheral Pulse Rate [60-100 bpm] 72 bpm (02/15/16 3:14 PM) Blood Pressure [90-140/60-90 mmHg] 140/62 mmHg (02/15/16 3:14 PM) Problem List Condition Effective [...] DAY, # 90 tabs, 2 Refill(s), eRx: [facility] #[id number], TAKE ONE TABLET BY MOUTH EVERY DAY Start Date: 08/16/15 Status: OrderedAspirin Low Dose 81 mg, Oral, Daily, 0 Refill(s) Start Date: 07/09/14 Status: Orderedcarvedilol 25 mg oral tablet See Instructions, TAKE ONE TABLET BY MOUTH THREE TIMES A DAY, # 270 tabs, 2 Refill(s), eRx: [facility] #[id number], TAKE ONE TABLET BY MOUTH THREE TIMES A DAY Start Date: 01/17/16 Status: Orderedfamotidine 20 mg oral tablet See Instructions, TAKE ONE TABLET BY MOUTH TWICE A DAY, # 180 tabs, 1 Refill(s) , eRx: [facility] #[id number], TAKE ONE TABLET BY MOUTH TWICE A DAY Start Date: 06/28/15 Status: Orderedferrous sulfate 325 mg (65 mg elemental iron) oral tablet 325 mg 1 tabs, Oral, Daily, 0 Refill(s) Start Date: 08/03/15 Status: Orderedlosartan 100 mg oral tablet See Instructions, TAKE ONE TABLET BY MOUTH DAILY, # 90 tabs, eRx: [facility] #[id number], TAKE ONETABLET BY MOUTH DAILY Start Date: 11/15/15 Status: Orderedmultivitamin 1 tablet, Oral, Daily, 0 Refill(s) Start Date: 07/09/14 Status: OrderedNitromist 0.4 mg sublingual spray 0.4 mg, SubLingual, q5min, # 1 bottles, 1 Refill(s), Pharmacy: [facility] #[id number], 0.4 mg SubLingual q5min Start Date: 11/04/14 Status: OrderedNorco 5 mg-325 mg oral tablet 1 tabs, Oral, BID, as needed for pain, # 60 tabs, 0 Refill(s) Start Date: 01/27/16 Status: OrderedProAir HFA 90 mcg/inh inhalation aerosol 2 puffs, Inhalation, QID, as needed for wheezing, # 18 g, 11 Refill(s), Pharmacy : [facility] #[id number] Start Date: 11/03/15 Status: Orderedsimvastatin 20 mg oral tablet See Instructions, TAKE ONE TABLET BY MOUTH EVERY NIGHT AT BEDTIME, # 90 tabs, 2 Refill(s), eRx: [facility] #[id number], TAKE ONE TABLET BY MOUTH EVERY NIGHT [...] Patient Education Author: Tayo Gee MD Date: 02/15/16 Family Medicine Benign Positional Vertigo Vertigo means you feel like you or your surroundings are moving when they are not. Benign positional vertigo is the most common form of vertigo. Benign means that the cause of your condition is not ser ious. Benign positional vertigo is more common in older adults. CAUSES Benign positional vertigo is the result of an upset in the labyrinth system. This is an area in the middle ear that helps control your balance. This may be caused by a viral infection, head injury, or r epetitive motion. However, often no specific cause is [...] with walking, weakness, numbness, or using your arms, hands, or legs. You have difficulty speaking. [...] Released: 07/23/2007 Document Revised: 01/06/2013 Document Reviewed: 07/04/2012 [facility] Patient Information [email or web address] [facility]. No follow up information was provided. Extracted from: Title: vertigo, CAD, left great toenail Author: Tayo Gee MD Date: excision, hand abscess Impression and Plan Diagnosis BPPV (benign paroxysmal positional vertigo) (GCU54-BV H81.10, Working, Medical) . Abscess of left hand (STG54-IB L02.512, Working, Medical). CAD (coronary artery disease) (NJC48-HY I25.10, Working, Medical). Status post excisional debridement (ZEP54-CH Z98.89, Working, Medical). Primary hypercholesterolemia (CFS74-UE E78.0, Working, Medical). Plan: 1) Use STAR [...] Orders Order Office Visit Level 4 Est 23624: . Dx/Order Association Plan: Diagnosis: Abscess of left hand Comment: Ordered: Office Visit Level 4 Est 42131; 02/15/16 16:29:00 CDT, Status post excisional debridement | BPPV (benign paroxysmal positional vertigo ) | Abscess of left hand | CAD (coronary artery disease) | Primary hypercholesterolemia Diagnosis: BPPV (benign paroxysmal positional vertigo) Comment: Ordered: Office Visit Level 4 Est 54165; 02/15/16 16:29:00 CDT, Status post excisional debridement | BPPV (benign paroxysmal positional vertigo ) | Abscess of left hand | CAD (coronary artery disease) | Primary hypercholesterolemia Diagnosis: CAD (coronary artery disease) Comment: Ordered: Office Visit Level 4 Est 35393; 02/15/16 16:29:00 CDT, Status post excisional debridement | BPPV (benign paroxysmal positional vertigo ) | Abscess of left hand | CAD (coronary artery disease) | Primary hypercholesterolemia Diagnosis: Primary hypercholesterolemia Comment: Ordered: Office Visit Level 4 Est 06932; 02/15/16 16:29:00 CDT, Status post excisional debridement | BPPV (benign paroxysmal positional vertigo ) | Abscess of left hand | CAD (coronary artery disease) | Primary hypercholesterolemia Diagnosis: Status post excisional debridement Comment: Ordered: Office Visit Level 4 Est 06653; 02/15/16 16:29:00 CDT, Status post excisional debridement | BPPV (benign paroxysmal positional vertigo ) | Abscess of left hand | CAD (coronary artery disease) | Primary hypercholesterolemia End of Orders ."
--- OUTSIDE RECORDS SUMMARY | 2017-07-05 16:32 | External Medical Summary | Referral Summary ---
:1930 Author Organization [facility] Address [address] [place] [address] [place] [phone] Care Team Providers Name Role Phone Tayo Gee Primary Care Physician Encounter [facility] Date(s): 04/28/15 - 04/28/15 [facility] [address] [place] [address] [place] [phone]- [place] Discharge Diagnosis: Coronary [...] DAY, # 90 tabs, 2 Refill(s), eRx: [facility] #[id number], TAKE ONE TABLET BY MOUTH EVERY DAY Start Date: 08/16/15 Status: OrderedAspirin Low Dose 81 mg, Oral, Daily, 0 Refill(s) Start Date: 07/09/14 Status: Orderedcarvedilol 25 mg oral tablet 25 mg 1 tabs, Oral, BID, # 270 tabs, 3 Refill(s), Pharmacy: [facility] # [id number], 1 tabs Oral TID Start Date: 11/30/14 Status: Orderedfamotidine 20 mg oral tablet See Instructions, TAKE ONE TABLET BY MOUTH TWICE A DAY, # 180 tabs, 1 Refill(s) , eRx: [facility] #[id number], TAKE ONE TABLET BY MOUTH TWICE A DAY Start Date: 06/28/15 Status: Orderedferrous sulfate 325 mg (65 mg elemental iron) oral tablet 325 mg 1 tabs, Oral, Daily, 0 Refill(s) Start Date: 08/03/15 Status: Orderedlosartan 100 mg oral tablet See Instructions, TAKE ONE HALF TABLET BY MOUTH EVERY DAY, # 90 tabs, 1 Refill(s ), eRx: [facility] #[id number], TAKE ONE TABLET BY MOUTH EVERY DAY Start Date: 01/18/15 Status: Orderedmultivitamin 1 tablet, Oral, Daily, 0 Refill(s) Start Date: 07/09/14 Status: OrderedNitromist 0.4 mg sublingual spray 0.4 mg, SubLingual, q5min, # 1 bottles, 1 Refill(s), Pharmacy: [facility] #[id number], 0.4 mg SubLingual q5min Start Date: 11/04/14 [...] NIGHT AT BEDTIME, # 90 tabs, eRx: [facility] #[id number], TAKE ONE TABLET BY MOUTH EVERY NIGHT AT BEDTIME Start Date: 07/19/15 Status: OrderedSpiriva 2.5 mcg, Inhalation, Daily, 0 Refill(s) Start Date: 08/17/15 Status: OrderedSpiriva Respimat 60 inhalation aerosol 2 puffs, Inhalation, Daily, # 1 Each, 3 Refill(s), Pharmacy: [facility] # [id number] Start Date: 08/12/15 Status: Ordered Results No [...]
--- OUTSIDE RECORDS SUMMARY | 2017-07-05 16:32 | External Medical Summary | Referral Summary ---
:1930 Author [facility] Address [address] [place] [address] [place] [phone] Care Team Providers Name Role Phone Gerard Tayo Francy Primary Care Physician Encounter [facility] Date(s): 08/07/16 - 08/07/16 [facility] [place] [phone] [place] Discharge Disposition: [...] MOUTH EVERY DAY, # 90 tabs, eRx: [facility] #[id number], TAKEONE TABLET BY MOUTH EVERY DAY Start Date: 07/17/16 Status: OrderedAspirin Low Dose 81 mg, Oral, Daily, 0 Refill(s) Start Date: 07/09/14 Status: OrderedBenadryl 25 mg, Oral, Daily, as needed for food allergy symptoms, 0 Refill(s) Start Date: 06/22/16 Status: Orderedcarvedilol 25 mg oral tablet 25 mg 1 tabs, Oral, BID, # 270 tabs, 2 Refill(s), eRx: [facility] #[id number] , TAKE ONE TABLET BY MOUTH THREE TIMES A DAY Start Date: 01/17/16 Status: Orderedfamotidine 20 mg oral tablet See Instructions, TAKE ONE TABLET BY MOUTH TWICE A DAY, # 180 tabs, 1 Refill(s) , eRx: [facility] #[id number], TAKE ONE TABLET BY MOUTH TWICE A DAY Start Date: 04/10/16 Status: Orderedferrous sulfate 325 mg (65 mg elemental iron) oral tablet 325 mg 1 tabs, Oral, Daily, 0 Refill(s) Start Date: 08/03/15 Status: Orderedlosartan 100 mg oral tablet See Instructions, TAKE ONE TABLET BY MOUTH DAILY, # 90 tabs, eRx: [facility] #[id number], TAKE ONETABLET BY MOUTH DAILY Start Date: 04/24/16 Status: Orderedmultivitamin 1 tablet, Oral, Daily, 0 Refill(s) Start Date: 07/09/14 Status: OrderedNitromist 0.4 mg sublingual spray 0.4 mg, SubLingual, q5min, # 1 bottles, 1 Refill(s), Pharmacy: [facility] #[id number], 0.4 mg SubLingual q5min Start Date: 11/04/14 Status: OrderedNorco 5 mg-325 mg oral tablet 1 tabs, Oral, BID, as needed for pain, # 60 tabs, 0 Refill(s) Start Date: 07/27/16 Status: Orderedsimvastatin 20 mg oral tablet See Instructions, TAKE ONE TABLET BY MOUTH EVERY NIGHT AT BEDTIME, # 90 tabs, eRx: [facility] #[id number], TAKE ONE TABLET BY MOUTH EVERY NIGHT [...] 194 Hospital admission for polio 1940 Tonsillectomy 193 [...]
--- OUTSIDE RECORDS SUMMARY | 2017-07-05 16:33 | External Medical Summary | Referral Summary ---
:1930 Author Organization [facility] [place] Address [address] [place] [address] Care Team Providers Name Role Phone Tayo Gee Primary Care Physician Encounter [facility] [id number] Date(s): 10/12/15 - 10/12/15 [facility] [place] [address] [place] [address]- [phone] Discharge Diagnosis: DENISE on CPAP Discharge Disposition: 01-Home or Self Care Attending Physician: Rufino Shoemaker MD Admitting Physician: Rufino Shoemaker MD Vital Signs Most recent to oldest [Reference Range]: 1 Peripheral Pulse Rate [60-100 bpm] 74 bpm (10/12/15 1:43 PM) Blood Pressure [90-140/60-90 mmHg] 130/74 mmHg (10/12/15 1:43 PM) SpO2 95 % (10/12/15 [...] eRx: [facility] #[id number], TAKE ONE TABLET BY MOUTH EVERY DAY Start Date: 08/16/15 Status: OrderedAspirin Low Dose 81 mg, Oral, Daily, 0 Refill(s) Start Date: 07/09/14 Status: Orderedcarvedilol 25 mg oral tablet 25 mg 1 tabs, Oral, BID, # 270 tabs, 3 Refill(s), Pharmacy: [facility] # [id number], 1 tabs Oral TID Start Date: 11/30/14 Status: Orderedfamotidine 20 mg oral tablet See Instructions, TAKE ONE TABLET BY MOUTH TWICE A DAY, # 180 tabs, 1 Refill(s) , eRx: [facility] #[id number], TAKE ONE TABLET BY MOUTH TWICE A DAY Start Date: 06/28/15 Status: Orderedferrous sulfate 325 mg (65 mg elemental iron) oral tablet 325 mg 1 tabs, Oral, Daily, 0 Refill(s) Start Date: 08/03/15 Status: Orderedlosartan 100 mg oral tablet See Instructions, TAKE ONE HALF TABLET BY MOUTH EVERY DAY, # 90 tabs, 1 Refill(s ), eRx: [facility] #[id number], TAKE ONE TABLET BY MOUTH EVERY DAY Start Date: 01/18/15 Status: Orderedmultivitamin 1 tablet, Oral, Daily, 0 Refill(s) Start Date: 07/09/14 Status: OrderedNitromist 0.4 mg sublingual spray 0.4 mg, SubLingual, q5min, # 1 bottles, 1 Refill(s), Pharmacy: [facility] #[id number], 0.4 mg SubLingual q5min Start Date: 11/04/14 [...] eRx: [facility] #[id number], TAKE ONE TABLET BY MOUTH EVERY NIGHT AT BEDTIME Start Date: 07/19/15 Status: OrderedSpiriva 2.5 mcg, Inhalation, Daily, 0 Refill(s) Start Date: 08/17/15 Status: OrderedSpiriva Respimat 60 inhalation aerosol 2 puffs, Inhalation, Daily, # 1 Each, 3 Refill(s), Pharmacy: [facility] # [id number] Start Date: 08/12/15 Status: Ordered Results No [...] Visit Note Author: Rufino Shoemaker MD Date: 10/12/15 Assessment/Plan 1.DENISE on CPAP - [...]
--- OUTSIDE RECORDS SUMMARY | 2017-07-05 16:33 | External Medical Summary | Referral Summary ---
:1930 Author [facility] Address [address] [place] [address] [place] [phone] Care Team Providers Name Role Phone Tayo Gee Primary Care Physician Encounter [facility] [id number] Date(s): 09/04/16 - 09/04/16 [facility] [place] [phone] [place] Discharge Diagnosis: Ataxic gait Discharge Diagnosis: DENISE [...] Temperature Tympanic [36.6-38.1 degC] 36.0 degC *LOW* (09/04/16 7:10 AM) Peripheral Pulse Rate [60-100 bpm] 75 bpm (09/04/16 7:10 AM) Blood Pressure [90-140/60-90 mmHg] 172/76 mmHg *HI* (09/04/16 7:10 AM) Problem List Condition [...] MOUTH EVERY DAY, # 90 tabs, eRx: [facility] #[id number], TAKEONE TABLET BY MOUTH EVERY DAY Start Date: 07/17/16 Status: OrderedAspirin Low Dose 81 mg, Oral, Daily, 0 Refill(s) Start Date: 07/09/14 Status: OrderedBenadryl 25 mg, Oral, Daily, as needed for food allergy symptoms, 0 Refill(s) Start Date: 06/22/16 Status: Orderedcarvedilol 25 mg oral tablet 25 mg 1 tabs, Oral, BID, # 270 tabs, 2 Refill(s), eRx: [facility] #[id number] , TAKE ONE TABLET BY MOUTH THREE TIMES A DAY Start Date: 01/17/16 Status: Orderedfamotidine 20 mg oral tablet See Instructions, TAKE ONE TABLET BY MOUTH TWICE A DAY, # 180 tabs, 1 Refill(s) , eRx: [facility] #[id number], TAKE ONE TABLET BY MOUTH TWICE A DAY Start Date: 04/10/16 Status: Orderedferrous sulfate 325 mg (65 mg elemental iron) oral tablet 325 mg 1 tabs, Oral, Daily, 0 Refill(s) Start Date: 08/03/15 Status: Orderedibuprofen 200 mg oral tablet 200 mg 1 tabs, Oral, Daily, as needed for general pain, usually once a week, 0 Refill(s) Start Date: 09/04/16 Status: Orderedlosartan 100 mg oral tablet See Instructions, TAKES half TABLET 5 days/week, and 1 tab on Tu. and Sat., # 90 tabs, eRx: [facility] #[id number], TAKE ONE TABLET BY MOUTH DAILY Start Date: 04/24/16 Status: Orderedmultivitamin 1 tablet, Oral, Daily, 0 Refill(s) Start Date: 07/09/14 Status: OrderedNitromist 0.4 mg sublingual spray 0.4 mg, SubLingual, q5min, # 1 bottles, 1 Refill(s), Pharmacy: [facility] #[id number], 0.4 mg SubLingual q5min Start Date: 11/04/14 Status: OrderedNorco 5 mg-325 mg oral tablet 1 tabs, Oral, BID, as needed for pain, # 60 tabs, 0 Refill(s) Start Date: 08/25/16 Status: OrderedProAir RespiClick 90 mcg/inh inhalation powder 2 puffs, Inhalation, Daily, as needed before exercise, # 1 Each, 0 Refill(s) Start Date: 09/04/16 Status: Orderedsimvastatin 20 mg oral tablet See Instructions, TAKE ONE TABLET BY MOUTH EVERY NIGHT AT BEDTIME, # 90 tabs, eRx: [facility] #[id number], TAKE ONE TABLET BY MOUTH EVERY NIGHT AT BEDTIME Start Date: 07/17/16 Status: OrderedVitamin C 250 mg oral tablet 250 mg 1 tabs, Oral, Daily, # 30 tabs, 11 Refill(s) Start Date: 09/04/16 Status: Ordered Results Chemistry Most recent to oldest [Reference Range]: 1 Sodium Lvl [135-144 mEq/L] 141 mEq/L (09/04/16 8:32 AM) Potassium Lvl [3.5-5.2 mEq/L] 4.6 mEq/L (09/04/16 8:32 AM) Chloride [99-111 mEq/L] 106 mEq/L (09/04/16 8:32 AM) CO2 [23-31 mEq/L] 26 mEq/L (09/04/16 8:32 AM) AGAP [3-20] 9 (09/04/16 8:32 AM) BUN [8-26 mg/dL] 26 mg/dL (09/04/16 8:32 AM) Glucose Lvl [70-99 mg/dL] 107 mg/dL *HI* (09/04/16 8:32 AM) Creatinine Lvl [0.72-1.25 mg/dL] 1.18 mg/dL (09/04/16 8:32 AM) eGFR [>60 mL/min] 59 mL/min 1 *ABN* (09/04/16 8:32 AM) Calcium Lvl [8.9-10.5 mg/dL] 9.1 mg/dL (09/04/16 8:32 AM) Chol [0-199 mg/dL] 137 mg/dL (09/04/16 8:32 AM) Trig [0-149 mg/dL] 149 mg/dL (09/04/16 8:32 AM) HDL [40-84 mg/dL] 39 mg/dL *LOW* (09/04/16 8:32 AM) LDL [0-130 mg/dL] 68 mg/dL (09/04/16 8:32 AM) VLDL Cholesterol [0-28 mg/dL] 30 mg/dL *HI* (09/04/16 8:32 AM) Cardiac Risk [0.0-5.7] 3.5 (09/04/16 8:32 AM) 1Result Comment: Multiply eGFR [...] Patient Education Author: Tayo Gee MD Date: 09/04/16 Family Medicine Actinic Keratosis Actinic keratosis is [...] for any changes. Visit a skin doctor (wind energy technician) every year for a skin exam. SEEK [...] Released: 01/11/2010 Document Revised: 11/05/2015 Document Reviewed: 11/25/2012 [employer] Patient Education 2016 [employer] No follow up information was provided. Extracted from: Title: Male physical Author: Tayo Gee MD Date: 09/04/16 Impression and Plan Diagnosis Actinic keratoses (HML39-DI L57.0, Discharge, Medical). 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 Benign essential hypertension (UFH10-XN I10, Discharge, Medical). Benign prostatic hypertrophy (ZWB55-TR N40.0, Discharge, Medical). Bronchiectasis (IXY14-VJ J47.9, Discharge, Medical). CAD (coronary artery disease) (BPO97-MP I25.10, Discharge, Medical). Chronic low back pain (SNS52-ON M54.5, Discharge, Medical). Chronic obstructive pulmonary disease (YHE70-GB J44.9, Discharge, Medical). Gastroesophageal reflux disease (FCN25-ZQ K21.9, Discharge, Medical). Hyperlipidemia (DYW56-QA E78.2, Discharge, Medical). Left inguinal hernia (DWH67-PE K40.90, Discharge, Medical). DENISE on CPAP (LQE64-BG G47.33, Discharge, Medical). Right cervical radiculopathy (RJP30-[place] M54.12, Discharge, Medical). Umbilical hernia (PML69-KH K42.9, Discharge, Medical). Plan: 1) Daily water [...] Orders Ordered Office Visit Level 5 Est 96927: Future (On Hold) BMP: Fasting Lipid Profile: . Dx/Order Association Plan: Diagnosis: Actinic keratoses Comment: Ordered: Office Visit Level 5 Est 18052; 09/04/16 8:05:00 CAR PORTER, Right cervical radiculopathy | Left inguinal hernia | CAD (coronary artery disease) | Benign essential hypertension | Ataxic gait | Actinic keratoses | Bronchiectasis | Chronic low back pain | Chronic obstructive pulmonary diseas... Diagnosis: Ataxic gait Comment: Ordered: Office Visit Level 5 Est 59050; 09/04/16 8:05:00 CAR PORTER, Right cervical radiculopathy | Left inguinal hernia | CAD (coronary artery disease) | Benign essential hypertension | Ataxic gait | Actinic keratoses | Bronchiectasis | Chronic low back pain | Chronic obstructive pulmonary diseas... Diagnosis: Benign essential hypertension Comment: Ordered: Office Visit Level 5 Est 86087; 09/04/16 8:05:00 CAR PORTER, Right cervical radiculopathy | Left inguinal hernia | CAD (coronary artery disease) | Benign essential hypertension | Ataxic gait | Actinic keratoses | Bronchiectasis | Chronic low back pain | Chronic obstructive pulmonary diseas... Diagnosis: Benign prostatic hypertrophy Comment: Diagnosis: Bronchiectasis Comment: Ordered: Office Visit Level 5 Est 27471; 09/04/16 8:05:00 CAR PORTER, Right cervical radiculopathy | Left inguinal hernia | CAD (coronary artery disease) | Benign essential hypertension | Ataxic gait | Actinic keratoses | Bronchiectasis | Chronic low back pain | Chronic obstructive pulmonary diseas... Diagnosis: CAD (coronary artery disease) Comment: Ordered: Office Visit Level 5 Est 52782; 09/04/16 8:05:00 CAR PORTER, Right cervical radiculopathy | Left inguinal hernia | CAD (coronary artery disease) | Benign essential hypertension | Ataxic gait | Actinic keratoses | Bronchiectasis | Chronic low back pain | Chronic obstructive pulmonary diseas... Diagnosis: Chronic low back pain Comment: Ordered: Office Visit Level 5 Est 82690; 09/04/16 8:05:00 CAR PORTER, Right cervical radiculopathy | Left inguinal hernia | CAD (coronary artery disease) | Benign essential hypertension | Ataxic gait | Actinic keratoses | Bronchiectasis | Chronic low back pain | Chronic obstructive pulmonary diseas... Diagnosis: Chronic obstructive pulmonary disease Comment: Ordered: Office Visit Level 5 Est 73290; 09/04/16 8:05:00 CAR PORTER, Right cervical radiculopathy | Left inguinal hernia | CAD (coronary artery disease) | Benign essential hypertension | Ataxic gait | Actinic keratoses | Bronchiectasis | Chronic low back pain | Chronic obstructive pulmonary diseas... Diagnosis: Gastroesophageal reflux disease Comment: Ordered: Office Visit Level 5 Est 38476; 09/04/16 8:05:00 CAR PORTER, Right cervical radiculopathy | Left inguinal hernia | CAD (coronary artery disease) | Benign essential hypertension | Ataxic gait | Actinic keratoses | Bronchiectasis | Chronic low back pain | Chronic obstructive pulmonary diseas... Diagnosis: Hyperlipidemia Comment: Ordered: Office Visit Level 5 Est 47016; 09/04/16 8:05:00 CAR PORTER, Right cervical radiculopathy | Left inguinal hernia | CAD (coronary artery disease) | Benign essential hypertension | Ataxic gait | Actinic keratoses | Bronchiectasis | Chronic low back pain | Chronic obstructive pulmonary diseas... Diagnosis: Left inguinal hernia Comment: Ordered: Office Visit Level 5 Est 68134; 09/04/16 8:05:00 CAR PORTER, Right cervical radiculopathy | Left inguinal hernia | CAD (coronary artery disease) | Benign essential hypertension | Ataxic gait | Actinic keratoses | Bronchiectasis | Chronic low back pain | Chronic obstructive pulmonary diseas... Diagnosis: DENISE on CPAP Comment: Ordered: Office Visit Level 5 Est 28191; 09/04/16 8:05:00 CAR PORTER, Right cervical radiculopathy | Left inguinal hernia | CAD (coronary artery disease) | Benign essential hypertension | Ataxic gait | Actinic keratoses | Bronchiectasis | Chronic low back pain | Chronic obstructive pulmonary diseas... Diagnosis: Right cervical radiculopathy Comment: Ordered: Office Visit Level 5 Est 00808; 09/04/16 8:05:00 CAR PORTER, Right cervical radiculopathy | Left inguinal hernia [...]
--- OUTSIDE RECORDS SUMMARY | 2017-07-05 16:33 | External Medical Summary | Referral Summary ---
:1930 Author Organization [facility] Address [address] [place] [address] [place] [phone] Care Team Providers Name Role Phone Tayo Gee Primary Care Physician Encounter [facility] Date(s): 06/22/16 - 06/22/16 [facility] [place] [phone] [place] Discharge Disposition: 01-Home or Self Care Attending Physician: Tayo Gee MD Admitting Physician: Tayo Gee MD Vital Signs Most recent to oldest [Reference Range]: 1 Temperature Tympanic [36.6-38.1 degC] 36.8 degC (06/22/16 1:48 PM) Peripheral Pulse Rate [60-100 bpm] 68 bpm (06/22/16 1:48 PM) Blood Pressure [90-140/60-90 mmHg] 134/62 mmHg (06/22/16 1:48 PM) Problem List Condition Effective [...] 2 Refill(s), eRx: [facility] #[id number], TAKE ONE TABLET BY MOUTH EVERY DAY Start Date: 08/16/15 Status: OrderedAspirin Low Dose 81 mg, Oral, Daily, 0 Refill(s) Start Date: 07/09/14 Status: OrderedBenadryl 25 mg, Oral, Daily, as needed for food allergy symptoms, 0 Refill(s) Start Date: 06/22/16 Status: Orderedcarvedilol 25 mg oral tablet 25 mg 1 tabs, Oral, BID, # 270 tabs, 2 Refill(s), eRx: [facility] #[id number] , TAKE ONE TABLET BY MOUTH THREE TIMES A DAY Start Date: 01/17/16 Status: Orderedfamotidine 20 mg oral tablet See Instructions, TAKE ONE TABLET BY MOUTH TWICE A DAY, # 180 tabs, 1 Refill(s) , eRx: [facility] #[id number], TAKE ONE TABLET BY MOUTH TWICE A DAY Start Date: 04/10/16 Status: Orderedferrous sulfate 325 mg (65 mg elemental iron) oral tablet 325 mg 1 tabs, Oral, Daily, 0 Refill(s) Start Date: 08/03/15 Status: Orderedlosartan 100 mg oral tablet See Instructions, TAKE ONE TABLET BY MOUTH DAILY, # 90 tabs, eRx: [facility] #[id number], TAKE ONETABLET BY MOUTH DAILY Start Date: 04/24/16 Status: Orderedmultivitamin 1 tablet, Oral, Daily, 0 Refill(s) Start Date: 07/09/14 Status: OrderedNitromist 0.4 mg sublingual spray 0.4 mg, SubLingual, q5min, # 1 bottles, 1 Refill(s), Pharmacy: [facility] #[id number], 0.4 mg SubLingual q5min Start Date: 11/04/14 Status: OrderedNorco 5 mg-325 mg oral tablet 1 tabs, Oral, BID, as needed for pain, # 60 tabs, 0 Refill(s) Start Date: 05/23/16 Status: Orderedsimvastatin 20 mg oral tablet See Instructions, TAKE ONE TABLET BY MOUTH EVERY NIGHT AT BEDTIME, # 90 tabs, 2 Refill(s), eRx: [facility] #[id number], TAKE ONE TABLET BY MOUTH EVERY NIGHT [...] Body Site Destruction (eg, laser surgery, electrosurgery, 06/22/16 cryosurgery, chemosurgery, surgical curettement), premalignant lesions (eg, actinic keratoses); first lesion Destruction (eg, laser surgery, electrosurgery, 06/22/16 cryosurgery, chemosurgery, surgical curettement), premalignant lesions (eg, actinic keratoses); second through 14 lesions, each (List separately in addition to code for first lesion) Destruction (eg, laser surgery, electrosurgery, 06/22/16 cryosurgery, chemosurgery, surgical curettement), premalignant lesions (eg, actinic keratoses); second through 14 lesions, each (List separately in addition to code for first lesion) Destruction (eg, laser surgery, electrosurgery, 06/22/16 cryosurgery, chemosurgery, surgical curettement), premalignant lesions (eg, actinic keratoses); second through 14 lesions, each (List separately in addition to code for first lesion) Destruction (eg, laser surgery, electrosurgery, 06/22/16 cryosurgery, chemosurgery, surgical curettement), premalignant lesions (eg, actinic keratoses); second through 14 lesions, each (List separately in addition to code for first lesion) Destruction (eg, laser surgery, electrosurgery, 06/22/16 cryosurgery, chemosurgery, surgical curettement), premalignant lesions (eg, [...] Patient Education Author: Tayo Gee MD Date: 06/22/16 Family Medicine Actinic Keratosis Actinic keratosis is [...] for any changes. Visit a skin doctor (energy efficiency engineer) every year for a skin exam. [...] 01/11/2010 Document Revised: 11/05/2015 Document Reviewed: 11/25/2012 [facility] Patient Information 2016 [employer]. No follow up information was provided. Extracted from: Title: actinic keratoses X 6 Author: Tayo Gee MD Date: 06/22/16 Impression and Plan Diagnosis Actinic keratoses (FVE58-GQ L57.0, Working, Medical). 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 Plan: 1) Six Actinic Keratoses were treated with liquid nitrogen (3 on the left face and 3 on the right face) using a freeze, thaw, refreeze technique which was well tolerated. 2) Reassurance about the seborrheic keratoses. 3) See me in July as scheduled, and as needed.. Orders Orders (Selected) Outpatient Orders Ordered Destruction premalignant lesion 1st 30900: Destruction premalignant lesion 2-14, Each 27379: Destruction premalignant lesion 2-14, Each 32942: Destruction premalignant lesion 2-14, Each 13940: Destruction premalignant lesion 2-14, Each 43439: Destruction premalignant lesion 2-14, Each 86567: Office Visit Level 2 Est 75023: . Dx/Order Association Plan: Diagnosis: Actinic keratoses Comment: Ordered: Office Visit Level 2 Est 21753; 06/22/16 18:04:00 CDT, 25, Seborrheic keratoses | Actinic keratoses Destruction premalignant lesion 2-14, Each 13086; 06/22/16 18:03:00 CDT, 1, Actinic keratoses Destruction premalignant lesion 2-14, Each 53718; 06/22/16 18:02:00 CDT, 1, Actinic keratoses Destruction premalignant lesion 2-14, Each 94352; 06/22/16 18:02:00 CDT, 1, Actinic keratoses Destruction premalignant lesion 2-14, Each 12440; 06/22/16 18:02:00 CDT, 1, Actinic keratoses Destruction premalignant lesion 2-14, Each 97525; 06/22/16 18:02:00 CDT, 1, Actinic keratoses Destruction premalignant lesion 1st 35088; 18:02:00 CDT, 1, Actinic keratoses Diagnosis: Seborrheic keratoses Comment: Ordered: Office Visit Level 2 Est 17575; 06/22/16 18:04:00 CDT, 25, Seborrheic keratoses | Actinic keratoses End of Orders ."
--- OUTSIDE RECORDS SUMMARY | 2017-07-05 16:33 | External Medical Summary | Referral Summary ---
:1930 Author Organization [facility] Address [address] [place] [address] [place] [phone] Care Team Providers Name Role Phone Tayo Gee Primary Care Physician Encounter VC Date(s): 02/02/16 - 02/02/16 [facility] Yepez [address] [place] [phone] Discharge Disposition: 01-Home or Self Care Attending Physician: Tayo Gee MD Admitting Physician: Tayo Gee MD Vital Signs Most recent to oldest [Reference Range]: 1 Temperature Tympanic [36.6-38.1 degC] 35.7 degC *LOW* (02/02/16 10:41 AM) Peripheral Pulse Rate [60-100 bpm] 64 bpm (02/02/16 10:41 AM) Blood Pressure [90-140/60-90 mmHg] 132/68 mmHg (02/02/16 10:41 AM) Problem List Condition Effective [...] DAY, # 90 tabs, 2 Refill(s), eRx: [facility] #[id number], TAKE ONE TABLET BY MOUTH EVERY DAY Start Date: 08/16/15 Status: OrderedAspirin Low Dose 81 mg, Oral, Daily, 0 Refill(s) Start Date: 07/09/14 Status: Orderedcarvedilol 25 mg oral tablet See Instructions, TAKE ONE TABLET BY MOUTH THREE TIMES A DAY, # 270 tabs, 2 Refill(s), eRx: [facility] #[id number], TAKE ONE TABLET BY MOUTH THREE TIMES A DAY Start Date: 01/17/16 Status: Orderedfamotidine 20 mg oral tablet See Instructions, TAKE ONE TABLET BY MOUTH TWICE A DAY, # 180 tabs, 1 Refill(s) , eRx: [facility] #[id number], TAKE ONE TABLET BY MOUTH TWICE A DAY Start Date: 06/28/15 Status: Orderedferrous sulfate 325 mg (65 mg elemental iron) oral tablet 325 mg 1 tabs, Oral, Daily, 0 Refill(s) Start Date: 08/03/15 Status: Orderedlosartan 100 mg oral tablet See Instructions, TAKE ONE TABLET BY MOUTH DAILY, # 90 tabs, eRx: [facility] #[id number], TAKE ONETABLET BY MOUTH DAILY Start Date: 11/15/15 Status: Orderedmultivitamin 1 tablet, Oral, Daily, 0 Refill(s) Start Date: 07/09/14 Status: OrderedNitromist 0.4 mg sublingual spray 0.4 mg, SubLingual, q5min, # 1 bottles, 1 Refill(s), Pharmacy: [facility] #[id number], 0.4 mg SubLingual q5min Start Date: 11/04/14 Status: OrderedNorco 5 mg-325 mg oral tablet 1 tabs, Oral, BID, as needed for pain, # 60 tabs, 0 Refill(s) Start Date: 01/27/16 Status: OrderedProAir HFA 90 mcg/inh inhalation aerosol 2 puffs, Inhalation, QID, as needed for wheezing, # 18 g, 11 Refill(s), Pharmacy : [facility] #[id number] Start Date: 11/03/15 Status: Orderedsimvastatin 20 mg oral tablet See Instructions, TAKE ONE TABLET BY MOUTH EVERY NIGHT AT BEDTIME, # 90 tabs, 2 Refill(s), eRx: [facility] #[id number], TAKE ONE TABLET BY MOUTH EVERY NIGHT [...] Patient Education Author: Tayo Gee MD Date: 02/02/16 Family Medicine Toenail Removal Toenails may need to be removed because of injury, infections, or to correct abnormal growth. A special non-stick bandage will likely be put tightly on your toe to prevent bleeding. Often times a new na il will grow back. Sometimes the new nail [...] leg up. Walking or letting your leg da ngle may increase swelling, slow healing, and cause throbbing pain. Keep your bandage dry and clean. Change your bandage in 24 hours. After your bandage is changed, soak your foot in warm, soapy water for 10 to 20 minutes. Do this 3 times per day. This helps reduce pain and swelling. After soaking your foot apply a clean, dry b andage. Change your bandage if it is wet or dirty. Only take uhwk-bge-ntsnldb or prescription medicines for pain, discomfort, or [...] Released: 07/13/2004 Document Revised: 01/06/2013 Document Reviewed: 10/25/2009 [employer] Patient Information 2015 [employer]. No follow up information was provided. 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 Orders (Selected) Outpatient Orders Ordered Excision Of Nail Matrix, Permanent Removal [id number]: . Counseled: 1) Elevate the leg and avoid over exertion. 2) Ice off and on to the toe. 3) Dressing changes as needed. 4) Hold your aspirin for 2 days, then resume. 5) See me in 2 weeks and as needed..
--- OUTSIDE RECORDS SUMMARY | 2017-07-05 16:33 | External Medical Summary | Referral Summary ---
:1930 Author Organization [facility] SHERRON Yepez [facility] Address [address] [place] [address] Care Team Providers Name Role Phone Tayo Gee Primary Care Physician Encounter VC [facility] [id number] Date(s): 04/06/15 - 04/06/15 [facility] [address] [place] [phone]- [place] Discharge Diagnosis: Emphysema/COPD Discharge [...] eRx: [facility] #[id number], TAKE ONE TABLET BY MOUTH EVERY DAY Start Date: 08/16/15 Status: OrderedAspirin Low Dose 81 mg, Oral, Daily, 0 Refill(s) Start Date: 07/09/14 Status: Orderedcarvedilol 25 mg oral tablet 25 mg 1 tabs, Oral, BID, # 270 tabs, 3 Refill(s), Pharmacy: [facility] # [id number], 1 tabs Oral TID Start Date: 11/30/14 Status: Orderedfamotidine 20 mg oral tablet See Instructions, TAKE ONE TABLET BY MOUTH TWICE A DAY, # 180 tabs, 1 Refill(s) , eRx: [facility] #[id number], TAKE ONE TABLET BY MOUTH TWICE A DAY Start Date: 06/28/15 Status: Orderedferrous sulfate 325 mg (65 mg elemental iron) oral tablet 325 mg 1 tabs, Oral, Daily, 0 Refill(s) Start Date: 08/03/15 Status: Orderedlosartan 100 mg oral tablet See Instructions, TAKE ONE HALF TABLET BY MOUTH EVERY DAY, # 90 tabs, 1 Refill(s ), eRx: [facility] #[id number], TAKE ONE TABLET BY MOUTH EVERY DAY Start Date: 01/18/15 Status: Orderedmultivitamin 1 tablet, Oral, Daily, 0 Refill(s) Start Date: 07/09/14 Status: Orderedmupirocin 2% topical ointment 1 camilo, Topical, BID, # 22 g, 0 Refill(s), Pharmacy: [facility] #[id number] Start Date: 10/13/15 Stop Date: 10/31/15 Status: OrderedNitromist 0.4 mg sublingual spray 0.4 mg, SubLingual, q5min, # 1 bottles, 1 Refill(s), Pharmacy: [facility] #[id number], 0.4 mg SubLingual q5min Start Date: 11/04/14 [...] eRx: [facility] #[id number], TAKE ONE TABLET BY MOUTH EVERY NIGHT AT BEDTIME Start Date: 07/19/15 Status: OrderedSpiriva 2.5 mcg, Inhalation, Daily, 0 Refill(s) Start Date: 08/17/15 Status: OrderedSpiriva Respimat 60 inhalation aerosol 2 puffs, Inhalation, Daily, # 1 Each, 3 Refill(s), Pharmacy: [facility] # [id number] Start Date: 08/12/15 Status: Orderedsulfamethoxazole-trimethoprim 800 mg-160 mg oral tablet 1 tabs, Oral, BID, X 7 days, # 14 tabs, 0 Refill(s), Pharmacy: [facility] #[id number] Start Date: 10/13/15 Stop Date: 10/20/15 Status: [...] chronic cough. HOME CARE INSTRUCTIONS Only take gwtz-exs-sqnzixs or prescription medicines for pain, discomfort , [...] 04/12/2012 Document Revised: 01/06/2013 Document Reviewed: 04/12/2012 [facility] Patient Information 2014 [employer]. No follow up information was provided. Extracted [...]
--- OUTSIDE RECORDS SUMMARY | 2017-07-05 16:33 | External Medical Summary | Referral Summary ---
:1930 Author Care Team Providers Name Role Phone Tayo Gee Primary Care Physician Encounter VC Date(s): 02/22/15 - 02/22/15 [facility] Yepez, [facility] [address] [place] [address] [place] [id number] Discharge Diagnosis: Chronic obstructive pulmonary disease (COPD) Discharge Diagnosis: Benign essential hypertension Discharge Diagnosis: Lumbago Discharge Diagnosis: Hyperlipidemia Discharge Diagnosis: Lung mass Discharge Diagnosis: CAD (coronary artery disease) Discharge Disposition: Home or Self Care Attending Physician: Tayo Gee MD Admitting Physician: Tayo Gee MD Vital Signs Most recent to oldest [Reference Range]: 1 Temperature Tympanic [36.6-38.1 degC] 36.1 degC *LOW* (02/22/15 11:01 AM) Peripheral Pulse Rate [60-100 bpm] 68 bpm (02/22/15 11:01 AM) Blood Pressure [90-140/60-90 mmHg] 136/72 mmHg (02/22/15 11:01 AM) Problem List Condition Effective [...] on Active the right(Confirmed) High cholesterol(Confirmed) Active Hyperlipidemia(Confirmed) Active Idiopathic scoliosis and Active kyphoscoliosis(Confirmed) Cerumen impaction(Confirmed) Active Left ventricular Active hypertrophy(Confirmed) Leg length discrepancy(Confirmed) Active Lumbago(Confirmed) Active 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) Lung mass(Confirmed) Active Osteoarthritis(Confirmed) Active Overweight(Confirmed) Active Pain of right calf(Confirmed) Active Polio(Confirmed) 1939 Active Primary Active hypercholesterolemia(Confirmed) Prostatism(Confirmed) Active Right leg swelling(Confirmed) Active Thoracic or lumbosacral neuritis or Active radiculitis(Confirmed) Need for pneumococcal Active vaccine(Confirmed) Allergies, Adverse Reactions, Alerts Substance Reaction Severity Status Latex rash Active Levaquin tendonitis Active Medications allopurinol 100 mg oral tablet See Instructions, TAKE ONE TABLET BY MOUTH EVERY DAY, # 90 tabs, 3 Refill(s), eRx: [facility] #[id number], TAKE ONE TABLET BY MOUTH EVERY DAY Special Instructions: TAKE ONE TABLET BY MOUTH EVERY DAY Start Date: 08/07/14 Status: OrderedAspirin Low Dose 81 mg, Oral, Daily, 0 Refill(s) Start Date: 07/09/14 Status: Orderedcarvedilol 25 mg oral tablet 1 tabs, Oral, TID, # 270 tabs, 3 Refill(s), Pharmacy: [facility] #[id number], 1 tabs Oral TID Start Date: 11/30/14 Status: Orderedfamotidine 20 mg oral tablet See Instructions, TAKE ONE TABLET BY MOUTH TWICE A DAY, # 180 tabs, 2 Refill(s) , eRx: [facility] #[id number], TAKE ONE TABLET BY MOUTH TWICE A DAY Special Instructions: TAKE ONE TABLET BY MOUTH TWICE A DAY Start Date: 11/30/14 Status: Orderedferrous sulfate 325 mg, Oral, Daily, 0 Refill(s) Start Date: 07/09/14 Status: Orderedfluticasone 50 mcg/inh nasal spray 2 sprays, Nasal, Daily, as needed for allegy symptoms, 0 Refill(s) Start Date: 07/09/14 Status: Orderedlosartan 100 mg oral tablet See Instructions, TAKE ONE HALF TABLET BY MOUTH EVERY DAY, # 90 tabs, 1 Refill(s ), eRx: [facility] #[id number], TAKE ONE TABLET BY MOUTH EVERY DAY Special Instructions: TAKE ONE HALF TABLET BY MOUTH EVERY DAY Start Date: 01/18/15 Status: Orderedmultivitamin 1 tablet, Oral, Daily, 0 Refill(s) Start Date: 07/09/14 Status: OrderedNitromist 0.4 mg sublingual spray 0.4 mg, SubLingual, q5min, # 1 bottles, 1 Refill(s), Pharmacy: [facility] #[id number], 0.4 mg SubLingual q5min Start Date: 11/04/14 Status: OrderedNorco 5 mg-325 mg oral tablet 1 tabs, Oral, BID, as needed for pain, # 60 tabs, 0 Refill(s) Start Date: 02/22/15 Status: OrderedProAir HFA 90 mcg/inh inhalation aerosol 2 puffs, Inhalation, QID, as needed for wheezing, 0 Refill(s) Start Date: 12/21/14 Status: Orderedsimvastatin 20 mg oral tablet See Instructions, TAKE ONE TABLET BY MOUTH EVERY NIGHT AT BEDTIME, # 90 tabs, 1 Refill(s), eRx: [facility] #[id number], TAKE ONE TABLET BY MOUTH EVERY NIGHT AT BEDTIME Special Instructions: TAKE ONE TABLET BY MOUTH EVERY NIGHT AT BEDTIME Start Date: 01/18/15 Status: OrderedSpiriva Respimat 14 Dose See Instructions, 2 inhalations daily, 0 Refill(s) Special Instructions: 2 inhalations daily Start Date: 12/21/14 Status: Orderedtriamcinolone 0.1% topical ointment camilo, Topical, BID, as [...] Patient Education Author: Tayo Gee MD Date: 02/22/15 Family Medicine Chronic Obstructive Pulmonary Disease Chronic [...] (cyanosis ) of the skin, especially in fingers, toes, or lips. Fatigue. Weight loss. Frequent infections or episodes when breathing symptoms become much worse (exacerbations ). Chest tightness. DIAGNOSIS Your healthcare provider [...] by your health care provider. Only take chjs-uvb-hbefwku or prescription medicines for pain, fever, or discomfort as directed by your health care provider. Avoid nzwn-fzx-jtywuxy medicines or cough syrups that dry up [...] Released: 07/25/2006 Document Revised: 08/05/2014 Document Reviewed: 06/11/2014 [facility] Patient Information 2014 [employer] [facility]. No follow up information was provided. Extracted from: Title: COPD, CAD, Lung mass, HTN Author: Tayo Gee MD Date: 02/22/15 Impression and Plan Diagnosis Benign essential hypertension [...] Orders Ordered Office Visit Level 4 Est 13377: Future (On Hold) CT Chest w/o Contrast: Prescriptions Prescribed [place] 5 mg-325 mg oral tablet: 1 tabs, Oral, BID, 60 tabs, PRN: as needed for pain. Dx/Order Association Plan: Diagnosis: Benign essential hypertension Comment: Ordered: Office Visit Level 4 Est 70202; 02/22/15 11:41:00 CDT, Benign essential hypertension | CAD (coronary artery disease) | Chronic obstructive pulmonary disease (COPD) | Hyperlipidemia | Lumbago Diagnosis: CAD (coronary artery disease) Comment: Ordered: Office Visit Level 4 Est 34650; 02/22/15 11:41:00 CDT, Benign essential hypertension | CAD (coronary artery disease) | Chronic obstructive pulmonary disease (COPD) | Hyperlipidemia | Lumbago Diagnosis: Chronic obstructive pulmonary disease (COPD) Comment: Ordered: Office Visit Level 4 Est 64247; 02/22/15 11:41:00 CDT, Benign essential hypertension | CAD (coronary artery disease) | Chronic obstructive pulmonary disease (COPD) | Hyperlipidemia | Lumbago Diagnosis: Hyperlipidemia Comment: Ordered: Office Visit Level 4 Est 42863; 02/22/15 11:41:00 CDT, Benign essential hypertension | CAD (coronary artery disease) | Chronic obstructive pulmonary disease (COPD) | Hyperlipidemia | Lumbago Diagnosis: Lumbago Comment: Ordered: Office Visit Level 4 Est 08868; 02/22/15 11:41:00 CDT, Benign essential hypertension | CAD (coronary artery disease) | Chronic obstructive pulmonary disease (COPD) | Hyperlipidemia | Lumbago Diagnosis: Lung mass Comment: Ordered: Office Visit Level 4 Est 29034; 02/22/15 11:41:00 CDT, Benign essential hypertension | CAD (coronary artery disease) | Chronic obstructive pulmonary disease (COPD) | Hyperlipidemia | Lumbago End of Orders ."
--- OUTSIDE RECORDS SUMMARY | 2017-07-05 16:33 | External Medical Summary | Referral Summary ---
:1930 Author [facility] Address [address] [place] [address] [place] [phone] Care Team Providers Name Role Phone Tayo Gee Primary Care Physician Encounter VC Date(s): 11/17/16 - 11/17/16 [facility] [address] [place] [phone] [place] Discharge Diagnosis: Right cervical radiculopathy Discharge Diagnosis: CAD (coronary artery disease) Discharge Diagnosis: Benign essential hypertension Discharge Diagnosis: Actinic keratoses Discharge Diagnosis: Hyperlipidemia Discharge Diagnosis: Exertional angina Discharge Disposition: 01-Home or Self Care Attending Physician: Tayo Gee MD Admitting Physician: Tayo Gee MD Vital Signs Most recent to oldest [Reference Range]: 1 Temperature Tympanic [36.6-38.1 degC] 36.5 degC *LOW* (11/17/16 3:27 PM) Peripheral Pulse Rate [60-100 bpm] 76 bpm (11/17/16 3:27 PM) Blood Pressure [90-140/60-90 mmHg] 136/62 mmHg (11/17/16 3:27 PM) Problem List Condition Effective [...] MOUTH EVERY DAY, # 90 tabs, eRx: [facility] #[id number], TAKEONE TABLET BY MOUTH EVERY DAY Start Date: 07/17/16 Status: OrderedAspirin Low Dose 81 mg, Oral, Daily, 0 Refill(s) Start Date: 07/09/14 Status: OrderedBenadryl 25 mg, Oral, Daily, as needed for food allergy symptoms, 0 Refill(s) Start Date: 06/22/16 Status: Orderedcarvedilol 25 mg oral tablet 25 mg 1 tabs, Oral, BID, # 270 tabs, 2 Refill(s), eRx: [facility] #[id number] , TAKE ONE TABLET BY MOUTH THREE TIMES A DAY Start Date: 01/17/16 Status: Orderedfamotidine 20 mg oral tablet See Instructions, TAKE ONE TABLET BY MOUTH TWICE A DAY, # 180 tabs, 1 Refill(s) , Pharmacy: [facility] #[id number], TAKE ONE TABLET BY MOUTH TWICE A DAY Start Date: 10/09/16 Status: Orderedferrous sulfate 325 mg (65 mg [...] DAILY, # 90 tabs, 3 Refill(s), eRx: [facility] #[id number], TAKE ONE TABLET BY MOUTH DAILY Start Date: 09/11/16 Status: Orderedmultivitamin 1 tablet, Oral, Daily, 0 Refill(s) Start Date: 07/09/14 Status: OrderedNitromist 0.4 mg sublingual spray 0.4 mg, SubLingual, q5min, # 1 bottles, 1 Refill(s), Pharmacy: [facility] #[id number], 0.4 mg SubLingual q5min Start Date: 11/04/14 Status: OrderedNorco 5 mg-325 mg oral tablet 1 tabs, Oral, BID, as needed for pain, # 60 tabs, 0 Refill(s) Start Date: 10/26/16 Status: OrderedProAir RespiClick 90 mcg/inh inhalation powder 2 puffs, Inhalation, Daily, as needed before exercise, # 1 Each, 0 Refill(s) Start Date: 09/04/16 Status: Orderedsimvastatin 20 mg oral tablet See Instructions, TAKE ONE TABLET BY MOUTH EVERY NIGHT AT BEDTIME, # 90 tabs, eRx: [facility] #[id number] Start Date: 10/09/16 Status: OrderedVitamin C 250 mg oral tablet [...] Body Site Destruction (eg, laser surgery, electrosurgery, 11/17/16 cryosurgery, chemosurgery, surgical curettement), premalignant lesions (eg, actinic keratoses); first lesion Destruction (eg, laser surgery, electrosurgery, 11/17/16 cryosurgery, chemosurgery, surgical curettement), premalignant lesions (eg, actinic keratoses); second through 14 lesions, each (List separately in addition to code for first lesion) Destruction (eg, laser surgery, electrosurgery, 11/17/16 cryosurgery, chemosurgery, surgical curettement), premalignant lesions (eg, actinic keratoses); second through 14 lesions, each (List separately in addition to code for first lesion) Destruction (eg, laser surgery, electrosurgery, 11/17/16 cryosurgery, chemosurgery, surgical curettement), premalignant lesions (eg, actinic keratoses); second through 14 lesions, each (List separately in addition to code for first lesion) Destruction (eg, laser surgery, electrosurgery, 11/17/16 cryosurgery, chemosurgery, surgical curettement), premalignant lesions (eg, actinic keratoses); second through 14 lesions, each (List separately in addition to code for first lesion) Destruction (eg, laser surgery, electrosurgery, 11/17/16 cryosurgery, chemosurgery, surgical curettement), premalignant lesions (eg, [...] Patient Education Author: Tayo Gee MD Date: 11/17/16 Anesthesiology Cervical Radiculopathy Cervical radiculopathy happens when [...] flat pillow when you sleep. Only take nzne-smw-juxohba or prescription medicines for pain, discomfort, or [...] Released: 07/10/2002 Document Revised: 01/06/2013 Document Reviewed: 12/09/2015 [employer] Patient Education 2016 [employer] Family Medicine Actinic Keratosis Actinic keratosis [...] for any changes. Visit a skin doctor (engineer process) every year for a skin exam. SEEK [...] 01/11/2010 Document Revised: 11/05/2015 Document Reviewed: 11/25/2012 [employer] Patient Education 2016 [employer] No follow up information was provided. Extracted from: Title: multiple problems Author: Tayo Gee MD Date: 11/17/16 Impression and Plan Diagnosis CAD (coronary artery disease) (TBL26-BG I25.10, Discharge, Medical). Benign essential hypertension (LJR46-DR I10, Discharge, Medical). Actinic keratoses (THI03-SK L57.0, Discharge, Medical). Hyperlipidemia (TSE18-JW E78.2, Discharge, Medical). Right cervical radiculopathy (QEF81-BD M54.12, Discharge, Medical). Exertional angina (OMH60-II I20.8, Discharge, Medical). Plan: 1) Six actinic [...] Outpatient Orders Ordered Destruction premalignant lesion 1st 96073: Destruction premalignant lesion 2-14, Each 66330: Destruction premalignant lesion 2-14, Each 41583: Destruction premalignant lesion 2-14, Each 64984: Destruction premalignant lesion 2-14, Each 31493: Destruction premalignant lesion 2-14, Each 77072: Office Visit Level 3 Est 44666: . Dx/Order Association Plan: Diagnosis: Actinic keratoses Comment: Ordered: Destruction premalignant lesion 2-14, Each 83534; 16:06:00 LENS GENERATOR, 1, Actinic keratoses Destruction premalignant lesion 2-14, Each 84401; 11/17/16 16:06:00 LENS GENERATOR, 1, Actinic keratoses Destruction premalignant lesion 2-14, Each 75341; 11/17/16 16:06:00 LENS GENERATOR, 1, Actinic keratoses Destruction premalignant lesion 2-14, Each 01773; 11/17/16 16:06:00 LENS GENERATOR, 1, Actinic keratoses Destruction premalignant lesion 2-14, Each 41749; 11/17/16 16:06:00 LENS GENERATOR, 1, Actinic keratoses Destruction premalignant lesion 1st 87443; 16:06:00 LENS GENERATOR, 1, Actinic keratoses Diagnosis: Benign essential hypertension Comment: Ordered: Office Visit Level 3 Est 73298; 11/17/16 16:06:00 LENS GENERATOR, 25, Right cervical radiculopathy | Exertional angina | CAD (coronary artery disease) | Benign essential hypertension | Hyperlipidemia Diagnosis: CAD (coronary artery disease) Comment: Ordered: Office Visit Level 3 Est 85815; 11/17/16 16:06:00 LENS GENERATOR, 25, Right cervical radiculopathy | Exertional angina | CAD (coronary artery disease) | Benign essential hypertension | Hyperlipidemia Diagnosis: Exertional angina Comment: Ordered: Office Visit Level 3 Est 55212; 11/17/16 16:06:00 LENS GENERATOR, 25, Right cervical radiculopathy | Exertional angina | CAD (coronary artery disease) | Benign essential hypertension | Hyperlipidemia Diagnosis: Hyperlipidemia Comment: Ordered: Office Visit Level 3 Est 91798; 11/17/16 16:06:00 LENS GENERATOR, 25, Right cervical radiculopathy | Exertional angina | CAD (coronary artery disease) | Benign essential hypertension | Hyperlipidemia Diagnosis: Right cervical radiculopathy Comment: Ordered: Office Visit Level 3 Est 63507; 11/17/16 16:06:00 LENS GENERATOR, 25, Right cervical radiculopathy | Exertional angina | CAD (coronary artery disease) | Benign essential hypertension | Hyperlipidemia End of Orders ."
--- OUTSIDE RECORDS SUMMARY | 2017-07-05 16:33 | External Medical Summary | Referral Summary ---
:1930 Author Organization [facility] Address [address] [place] [address] Care Team Providers Name Role Phone Tayo Gee Primary Care Physician Encounter [facility] [id number] Date(s): 04/06/15 - 04/06/15 [facility] [address] [place] [phone]- [place] Discharge Diagnosis: Emphysema/COPD Discharge [...] DAY, # 90 tabs, 2 Refill(s), eRx: [facility] #[id number], TAKE ONE TABLET BY MOUTH EVERY DAY Start Date: 08/16/15 Status: OrderedAspirin Low Dose 81 mg, Oral, Daily, 0 Refill(s) Start Date: 07/09/14 Status: Orderedcarvedilol 25 mg oral tablet 25 mg 1 tabs, Oral, BID, # 270 tabs, 3 Refill(s), Pharmacy: [facility] # [id number], 1 tabs Oral TID Start Date: 11/30/14 Status: Orderedfamotidine 20 mg oral tablet See Instructions, TAKE ONE TABLET BY MOUTH TWICE A DAY, # 180 tabs, 1 Refill(s) , eRx: [facility] #[id number], TAKE ONE TABLET BY MOUTH TWICE A DAY Start Date: 06/28/15 Status: Orderedferrous sulfate 325 mg (65 mg elemental iron) oral tablet 325 mg 1 tabs, Oral, Daily, 0 Refill(s) Start Date: 08/03/15 Status: Orderedlosartan 100 mg oral tablet See Instructions, TAKE ONE HALF TABLET BY MOUTH EVERY DAY, # 90 tabs, 1 Refill(s ), eRx: [facility] #[id number], TAKE ONE TABLET BY MOUTH EVERY DAY Start Date: 01/18/15 Status: Orderedmultivitamin 1 tablet, Oral, Daily, 0 Refill(s) Start Date: 07/09/14 Status: OrderedNitromist 0.4 mg sublingual spray 0.4 mg, SubLingual, q5min, # 1 bottles, 1 Refill(s), Pharmacy: [facility] #[id number], 0.4 mg SubLingual q5min Start Date: 11/04/14 [...] NIGHT AT BEDTIME, # 90 tabs, eRx: [facility] #[id number], TAKE ONE TABLET BY MOUTH EVERY NIGHT AT BEDTIME Start Date: 07/19/15 Status: OrderedSpiriva 2.5 mcg, Inhalation, Daily, 0 Refill(s) Start Date: 08/17/15 Status: OrderedSpiriva Respimat 60 inhalation aerosol 2 puffs, Inhalation, Daily, # 1 Each, 3 Refill(s), Pharmacy: [facility] # [id number] Start Date: 08/12/15 Status: Ordered Results No [...] chronic cough. HOME CARE INSTRUCTIONS Only take lrsh-[id number]-[id number] or prescription medicines for pain, discomfort , [...] 04/12/2012 Document Revised: 01/06/2013 Document Reviewed: 04/12/[address] [facility] Patient Information 2014 [employer]. No follow up information was provided. Extracted [...]
--- OUTSIDE RECORDS SUMMARY | 2017-07-05 16:34 | External Medical Summary | Referral Summary ---
:1930 Author [facility] Address [address] [place] [address] [place] [phone] Care Team Providers Name Role Phone aTyo Gee Primary Care Physician Encounter [facility] Date(s): 01/12/16 - 01/12/16 [facility] [place] [phone] [place] Discharge Disposition: 01-Home or Self Care Attending Physician: Tayo Gee MD Admitting Physician: Tayo Gee MD Vital Signs Most recent to oldest [Reference Range]: 1 Temperature Tympanic [36.6-38.1 degC] 35.9 degC *LOW* (01/12/16 9:29 AM) Peripheral Pulse Rate [60-100 bpm] 72 bpm (01/12/16 9:29 AM) Blood Pressure [90-140/60-90 mmHg] 120/56 mmHg (01/12/16 9:29 AM) Problem List Condition Effective [...] 2 Refill(s), eRx: [facility] #[id number], TAKE ONE TABLET BY MOUTH EVERY DAY Start Date: 08/16/15 Status: OrderedAspirin Low Dose 81 mg, Oral, Daily, 0 Refill(s) Start Date: 07/09/14 Status: Orderedcarvedilol 25 mg oral tablet 25 mg 1 tabs, Oral, BID, # 270 tabs, 3 Refill(s), Pharmacy: [facility] # [id number], 1 tabs Oral TID Start Date: 11/30/14 Status: Orderedcephalexin 500 mg oral capsule 500 mg 1 caps, Oral, TID, X 10 days, # 30 caps, 0 Refill(s), Pharmacy: [facility] #[id number], 1 caps Oral TID,x10 days Start Date: 01/12/16 Stop Date: 01/22/16 Status: Orderedfamotidine 20 mg oral tablet See Instructions, TAKE ONE TABLET BY MOUTH TWICE A DAY, # 180 tabs, 1 Refill(s) , eRx: [facility] #[id number], TAKE ONE TABLET BY MOUTH TWICE A DAY Start Date: 06/28/15 Status: Orderedferrous sulfate 325 mg (65 mg elemental iron) oral tablet 325 mg 1 tabs, Oral, Daily, 0 Refill(s) Start Date: 08/03/15 Status: Orderedlosartan 100 mg oral tablet See Instructions, TAKE ONE TABLET BY MOUTH DAILY, # 90 tabs, eRx: [facility] #[id number], TAKE ONETABLET BY MOUTH DAILY Start Date: 11/15/15 Status: Orderedmultivitamin 1 tablet, Oral, Daily, 0 Refill(s) Start Date: 07/09/14 Status: OrderedNitromist 0.4 mg sublingual spray 0.4 mg, SubLingual, q5min, # 1 bottles, 1 Refill(s), Pharmacy: [facility] #[id number], 0.4 mg SubLingual q5min Start Date: 11/04/14 Status: OrderedNorco 5 mg-325 mg oral tablet 1 tabs, Oral, BID, as needed for pain, # 60 tabs, 0 Refill(s) Start Date: 12/27/15 Status: OrderedProAir HFA 90 mcg/inh inhalation aerosol 2 puffs, Inhalation, QID, as needed for wheezing, # 18 g, 11 Refill(s), Pharmacy : [facility] #[id number] Start Date: 11/03/15 Status: Orderedsimvastatin 20 mg oral tablet See Instructions, TAKE ONE TABLET BY MOUTH EVERY NIGHT AT BEDTIME, # 90 tabs, 2 Refill(s), eRx: [facility] #[id number], TAKE ONE TABLET BY MOUTH EVERY NIGHT [...] Patient Education Author: Tayo Gee MD Date: 01/12/16 Home Health Care Cellulitis Cellulitis is an [...] 07/25/2006 Document Revised: 03/01/2015 Document Reviewed: 12/30/2012 [facility] Patient [facility] 2015 [employer]. No follow up information was provided. Extracted from: Title: cellulitis of toe, CAD, HTN Author: Tayo Gee MD Date: 01/12/16 Impression and Plan Diagnosis CAD (coronary artery disease) (HNH52-MN I25.10, Working, Medical). Benign essential hypertension (LBH57-DH I10, Working, Medical). Primary hypercholesterolemia (LYK43-RT E78.0, Working, Medical). Bronchiectasis (NRN53-HP J47.9, Working, Medical). DENISE on CPAP (IMK31-MF G47.33, Working, Medical). Cellulitis of great toe, left (LVT80-KH L03.032, Working, Medical). Plan: 1) Culture of [...] Orders Ordered Office Visit Level 4 Est 07989: Ordered (Pending Collection) Wound Culture: Prescriptions Prescribed cephalexin 500 mg oral capsule: 500 mg=1 caps, Oral, TID, for 10 days, 30 caps , 0 Refill(s). Dx/Order Association Plan: Diagnosis: Benign essential hypertension Comment: Ordered: Office Visit Level 4 Est 34582; 01/12/16 9:45:00 CDT, Cellulitis of great toe, left | CAD (coronary artery disease) | Bronchiectasis | Benign essential hypertension Diagnosis: Bronchiectasis Comment: Ordered: Office Visit Level 4 Est 94805; 01/12/16 9:45:00 CDT, Cellulitis of great toe, left | CAD (coronary artery disease) | Bronchiectasis | Benign essential hypertension Diagnosis: CAD (coronary artery disease) Comment: Ordered: Office Visit Level 4 Est 14191; 01/12/16 9:45:00 CDT, Cellulitis of great toe, left | CAD (coronary artery disease) | Bronchiectasis | Benign essential hypertension Diagnosis: Cellulitis of great toe, left Comment: Ordered: Wound Culture; Abscess, Toe, Routine collect, 01/12/16 9 :49:00 CDT, Stop date 01/12/16 9:49:00 CDT, Nurse Collect Non-Blood, Cellulitis of great toe, left Office Visit Level 4 Est 06529; 01/12/16 9:45:00 CDT, Cellulitis of great toe, left | CAD (coronary artery disease) | Bronchiectasis | Benign essential hypertension Diagnosis: DENISE on CPAP Comment: Diagnosis: Primary hypercholesterolemia Comment: Additional Orders: Comment: Ordered: cephalexin 500 mg oral capsule,500 mg 1 caps, Oral, TID, X 10 days, # 30 caps, 0 Refill(s), Pharmacy: [facility] #[id number], 1 caps Oral TID,x10 days End of Orders ."
--- OUTSIDE RECORDS SUMMARY | 2017-07-05 16:34 | External Medical Summary | Referral Summary ---
:1930 Author Organization [facility] Address [address] [place] [address] [place] [phone] Care Team Providers Name Role Phone Tayo Gee Primary Care Physician Encounter [facility] Date(s): 04/28/15 - 04/28/15 [facility] [address] [place] [address] [place] [phone] Discharge Diagnosis: Coronary [...] DAY, # 90 tabs, 2 Refill(s), eRx: [facility] #[id number], TAKE ONE TABLET BY MOUTH EVERY DAY Start Date: 08/16/15 Status: OrderedAspirin Low Dose 81 mg, Oral, Daily, 0 Refill(s) Start Date: 07/09/14 Status: Orderedcarvedilol 25 mg oral tablet 25 mg 1 tabs, Oral, BID, # 270 tabs, 3 Refill(s), Pharmacy: [facility] # [id number], 1 tabs Oral TID Start Date: 11/30/14 Status: Orderedfamotidine 20 mg oral tablet See Instructions, TAKE ONE TABLET BY MOUTH TWICE A DAY, # 180 tabs, 1 Refill(s) , eRx: [facility] #[id number], TAKE ONE TABLET BY MOUTH TWICE A DAY Start Date: 06/28/15 Status: Orderedferrous sulfate 325 mg (65 mg elemental iron) oral tablet 325 mg 1 tabs, Oral, Daily, 0 Refill(s) Start Date: 08/03/15 Status: Orderedlosartan 100 mg oral tablet See Instructions, TAKE ONE HALF TABLET BY MOUTH EVERY DAY, # 90 tabs, 1 Refill(s ), eRx: [facility] #[id number], TAKE ONE TABLET BY MOUTH EVERY DAY Start Date: 01/18/15 Status: Orderedmultivitamin 1 tablet, Oral, Daily, 0 Refill(s) Start Date: 07/09/14 Status: OrderedNitromist 0.4 mg sublingual spray 0.4 mg, SubLingual, q5min, # 1 bottles, 1 Refill(s), Pharmacy: [facility] #[id number], 0.4 mg SubLingual q5min Start Date: 11/04/14 [...] NIGHT AT BEDTIME, # 90 tabs, eRx: [facility] #[id number], TAKE ONE TABLET BY MOUTH EVERY NIGHT AT BEDTIME Start Date: 07/19/15 Status: OrderedSpiriva 2.5 mcg, Inhalation, Daily, 0 Refill(s) Start Date: 08/17/15 Status: OrderedSpiriva Respimat 60 inhalation aerosol 2 puffs, Inhalation, Daily, # 1 Each, 3 Refill(s), Pharmacy: [facility] # [id number] Start Date: 08/12/15 Status: Ordered Results No [...]
--- OUTSIDE RECORDS SUMMARY | 2017-07-05 16:34 | External Medical Summary | Referral Summary ---
:1930 Author Organization [facility] Address [address] [place] [address] [place] [phone] Care Team Providers Name Role Phone Tayo Gee Primary Care Physician Encounter [facility] Date(s): 04/28/15 - 04/28/15 [facility] [address] [place] [address] [place] [phone] [place] Discharge Diagnosis: Coronary [...] 2 Refill(s), eRx: [facility] #[id number], TAKE ONE TABLET BY MOUTH EVERY DAY Start Date: 08/16/15 Status: OrderedAspirin Low Dose 81 mg, Oral, Daily, 0 Refill(s) Start Date: 07/09/14 Status: Orderedcarvedilol 25 mg oral tablet 25 mg 1 tabs, Oral, BID, # 270 tabs, 3 Refill(s), Pharmacy: [facility] # [id number], 1 tabs Oral TID Start Date: 11/30/14 Status: Orderedfamotidine 20 mg oral tablet See Instructions, TAKE ONE TABLET BY MOUTH TWICE A DAY, # 180 tabs, 1 Refill(s) , eRx: [facility] #[id number], TAKE ONE TABLET BY MOUTH TWICE A DAY Start Date: 06/28/15 Status: Orderedferrous sulfate 325 mg (65 mg elemental iron) oral tablet 325 mg 1 tabs, Oral, Daily, 0 Refill(s) Start Date: 08/03/15 Status: Orderedlosartan 100 mg oral tablet See Instructions, TAKE ONE HALF TABLET BY MOUTH EVERY DAY, # 90 tabs, 1 Refill(s ), eRx: [facility] #[id number], TAKE ONE TABLET BY MOUTH EVERY DAY Start Date: 01/18/15 Status: Orderedmultivitamin 1 tablet, Oral, Daily, 0 Refill(s) Start Date: 07/09/14 Status: OrderedNitromist 0.4 mg sublingual spray 0.4 mg, SubLingual, q5min, # 1 bottles, 1 Refill(s), Pharmacy: [facility] #[id number], 0.4 mg SubLingual q5min Start Date: 11/04/14 [...] 90 tabs, eRx: [facility] #[id number], TAKE ONE TABLET BY MOUTH EVERY NIGHT AT BEDTIME Start Date: 07/19/15 Status: OrderedSpiriva 2.5 mcg, Inhalation, Daily, 0 Refill(s) Start Date: 08/17/15 Status: OrderedSpiriva Respimat 60 inhalation aerosol 2 puffs, Inhalation, Daily, # 1 Each, 3 Refill(s), Pharmacy: [facility] # [id number] Start Date: 08/12/15 Status: Ordered Results No [...]
--- OUTSIDE RECORDS SUMMARY | 2017-07-05 16:34 | External Medical Summary | Referral Summary ---
:1930 Author Organization [facility] Address [address] [place] [address] [place] [phone] Care Team Providers Name Role Phone Tayo Gee Primary Care Physician Encounter [facility] Date(s): 08/03/15 - 08/03/15 [facility] [address] [place] [phone] [place] Discharge Disposition: [...] Hyperlipidemia(Confirmed) Active Need for influenza Active vaccination(Confirmed) Osteoarthritis(Confirmed) Active Overweight(Confirmed) Active Pain of right [...] DAY, # 90 tabs, 3 Refill(s), eRx: [facility] #[id number], TAKE ONE TABLET BY MOUTH EVERY DAY Start Date: 08/07/14 Status: OrderedAspirin Low Dose 81 mg, Oral, Daily, 0 Refill(s) Start Date: 07/09/14 Status: Orderedcarvedilol 25 mg oral tablet 25 mg 1 tabs, Oral, BID, # 270 tabs, 3 Refill(s), Pharmacy: [facility] # [id number], 1 tabs Oral TID Start Date: 11/30/14 Status: Orderedfamotidine 20 mg oral tablet See Instructions, TAKE ONE TABLET BY MOUTH TWICE A DAY, # 180 tabs, 1 Refill(s) , eRx: [facility] #[id number], TAKE ONE TABLET BY MOUTH TWICE A DAY Start Date: 06/28/15 Status: Orderedferrous sulfate 325 mg (65 mg elemental iron) oral tablet 325 mg 1 tabs, Oral, Daily, 0 Refill(s) Start Date: 08/03/15 Status: Orderedlosartan 100 mg oral tablet See Instructions, TAKE ONE HALF TABLET BY MOUTH EVERY DAY, # 90 tabs, 1 Refill(s ), eRx: [facility] #[id number], TAKE ONE TABLET BY MOUTH EVERY DAY Start Date: 01/18/15 Status: Orderedmultivitamin 1 tablet, Oral, Daily, 0 Refill(s) Start Date: 07/09/14 Status: OrderedNitromist 0.4 mg sublingual spray 0.4 mg, SubLingual, q5min, # 1 bottles, 1 Refill(s), Pharmacy: [facility] #[id number], 0.4 mg SubLingual q5min Start Date: 11/04/14 [...] 90 tabs, eRx: [facility] #[id number], TAKE ONE TABLET BY MOUTH EVERY NIGHT AT BEDTIME Start Date: 07/19/15 Status: OrderedSpiriva Respimat 60 inhalation aerosol 5 mcg, Inhalation, [...] [0.80-3.30 10*3] 2.32 10*3 (08/03/15 8:53 AM) [place] [facility] [0.30-1.00 10*3] 0.81 10*3 (08/03/15 8:53 [...] INSTRUCTIONS Get plenty of rest. Only take ubpm-ffm-dgjffdt or prescription medicines as directed by your [...] 08/11/2008 Document Revised: 10/20/2014 Document Reviewed: 04/22/2014 [facility] [place] [facility]. This information is not intended to replace advice given to you by your health care provider. Make sure you discuss any questions you have with your health care provider. No follow up information was provided. Extracted from: Title: Male physical Author: Tayo Gee MD Date: 08/03/15 Impression and Plan Diagnosis Benign essential hypertension (SZR82-AE I10, Working, Medical). Benign prostatic hypertrophy (UQR12-EI N40.0, Working, Medical). Bronchiectasis (WIF17-PB J47.9, Working, Medical). CAD (coronary artery disease) (RXZ63-JQ I25.10, Working, Medical). Chronic diarrhea (DQU10-YA R19.7, Working, Medical). Chronic obstructive pulmonary disease (COPD) (BCT39-XH J44.9, Working, Medical) . Hyperlipidemia (QSM95-EA E78.2, Working, Medical). Need for influenza vaccination (TUX31-IA Z23, Working, Medical). DENISE on CPAP (JLO56-FL G47.33, Working, Medical). Plan: 1) Flu shot today. 2) Fasting lab today. 3) Continue your routine meds the same. 4) Continue your healthy diet and exercise on most days. 5) See me in 3-4 months for recheck of everything. 6) Bilateral ear wash done today for your cerumen impaction. . Orders Orders (Selected) Outpatient Orders Ordered Office Visit Level 5 Est 40916: influenza virus vaccine, inactivated: 0.5 mL, IntraMuscular, Once Future (On Hold) CBC w/ Differential: CMP: Endomysial Antibody IgA-Jamison: Fasting Lipid Profile: Routine Urinalysis: . Dx/Order Association Plan: Diagnosis: Benign essential hypertension Comment: Ordered: Office Visit Level 5 Est 87043; 08/03/15 8:05:00 CDT, CAD (coronary artery disease) | Chronic obstructive pulmonary disease (COPD) | Benign essential hypertension | DENISE on CPAP | Chronic diarrhea Diagnosis: Benign prostatic hypertrophy Comment: Diagnosis: Bronchiectasis Comment: Diagnosis: CAD (coronary artery disease) Comment: Ordered: Office Visit Level 5 Est 48992; 08/03/15 8:05:00 CDT, CAD (coronary artery disease) | Chronic obstructive pulmonary disease (COPD) | Benign essential hypertension | DENISE on CPAP | Chronic diarrhea Diagnosis: Chronic diarrhea Comment: Ordered: Office Visit Level 5 Est 23385; 08/03/15 8:05:00 CDT, CAD (coronary artery disease) | Chronic obstructive pulmonary disease (COPD) | Benign essential hypertension | DENISE on CPAP | Chronic diarrhea Diagnosis: Chronic obstructive pulmonary disease (COPD) Comment: Ordered: Office Visit Level 5 Est 39643; 08/03/15 8:05:00 CDT, CAD (coronary artery disease) [...] Comment: Ordered: Office Visit Level 5 Est 55066; 08/03/15 8:05:00 CDT, CAD (coronary artery disease) [...]
--- OUTSIDE RECORDS SUMMARY | 2017-07-05 16:34 | External Medical Summary | Referral Summary ---
:1930 Author Organization [facility] Address [address] [place] [address] [place] [phone] Care Team Providers Name Role Phone Tayo Gee Primary Care Physician Encounter VC Date(s): 12/07/15 - 12/07/15 [facility] [place] [place] [phone] Discharge Disposition: 01-Home or Self Care Attending Physician: Tayo Gee MD Admitting Physician: Tayo Gee MD Vital Signs Most recent to oldest [Reference Range]: 1 Temperature Tympanic [36.6-38.1 degC] 38.5 degC *HI* (12/07/15 2:44 PM) Peripheral Pulse Rate [60-100 bpm] 83 bpm (12/07/15 2:44 PM) Blood Pressure [90-140/60-90 mmHg] 134/56 mmHg (12/07/15 2:44 PM) SpO2 96 % (12/07/15 [...] DAY, # 90 tabs, 2 Refill(s), eRx: [facility] #[id number], TAKE ONE TABLET BY MOUTH EVERY DAY Start Date: 08/16/15 Status: OrderedAspirin Low Dose 81 mg, Oral, Daily, 0 Refill(s) Start Date: 07/09/14 Status: Orderedazithromycin 250 mg oral tablet See Instructions, take 2 tabs today, then 1 tab daily for 4 days., # 6 tabs, 1 Refill(s), Pharmacy: [facility] #[id number], take 2 tabs today, then 1 tab daily for 4 days. Start Date: 12/07/15 Stop Date: 12/12/15 Status: Orderedcarvedilol 25 mg oral tablet 25 mg 1 tabs, Oral, BID, # 270 tabs, 3 Refill(s), Pharmacy: [facility] # [id number], 1 tabs Oral TID Start Date: 11/30/14 Status: Orderedfamotidine 20 mg oral tablet See Instructions, TAKE ONE TABLET BY MOUTH TWICE A DAY, # 180 tabs, 1 Refill(s) , eRx: [facility] #[id number], TAKE ONE TABLET BY MOUTH TWICE A DAY Start Date: 06/28/15 Status: Orderedferrous sulfate 325 mg (65 mg elemental iron) oral tablet 325 mg 1 tabs, Oral, Daily, 0 Refill(s) Start Date: 08/03/15 Status: Orderedlosartan 100 mg oral tablet See Instructions, TAKE ONE TABLET BY MOUTH DAILY, # 90 tabs, eRx: [facility] #[id number], TAKE ONETABLET BY MOUTH DAILY Start Date: 11/15/15 Status: Orderedmultivitamin 1 tablet, Oral, Daily, 0 Refill(s) Start Date: 07/09/14 Status: OrderedNitromist 0.4 mg sublingual spray 0.4 mg, SubLingual, q5min, # 1 bottles, 1 Refill(s), Pharmacy: [facility] #[id number], 0.4 mg SubLingual q5min Start Date: 11/04/14 Status: OrderedNorco 5 mg-325 mg oral tablet 1 tabs, Oral, BID, as needed for pain, # 60 tabs, 0 Refill(s) Start Date: 11/26/15 Status: OrderedProAir HFA 90 mcg/inh inhalation aerosol 2 puffs, Inhalation, QID, as needed for wheezing, # 18 g, 11 Refill(s), Pharmacy : [facility] #[id number] Start Date: 11/03/15 Status: Orderedsimvastatin 20 mg oral tablet See Instructions, TAKE ONE TABLET BY MOUTH EVERY NIGHT AT BEDTIME, # 90 tabs, 2 Refill(s), eRx: [facility] #[id number], TAKE ONE TABLET BY MOUTH EVERY NIGHT AT BEDTIME Start Date: 10/25/15 Status: Ordered Results Hematology Most recent to oldest [Reference Range]: 1 WBC [5.0-10.0 10*3/uL] 10.4 10*3/uL *HI* (12/07/15 3:24 PM) RBC [3.70-5.20] 3.91 (12/07/15 3:24 PM) Hgb [12.0-16.0 gm/dL] 12.5 gm/dL (12/07/15 3:24 PM) Hct [40.0-54.0 %] 38.1 % *LOW* (12/07/15 3:24 PM) MCV [80.0-96.0 fL] 97.4 fL *HI* (12/07/15 3:24 PM) MCH [26.0-34.0 pg] 32.0 pg (12/07/15 3:24 PM) MCHC [32.0-36.0 gm/dL] 32.8 gm/dL (12/07/15 3:24 PM) RDW [0.0-14.5 %] 12.6 % (12/07/15 3:24 PM) Platelet [150-400 10*3/uL] 159 10*3/uL (12/07/15 3:24 PM) MPV [8.8-14.8 fL] 10.7 fL (12/07/15 3:24 PM) Neutrophils [50-70 %] 65 % (12/07/15 3:24 PM) Lymphocytes [20-40 %] 19 % *LOW* (12/07/15 3:24 PM) Monocytes [4-8 %] 15 % *HI* (12/07/15 3:24 PM) Eosinophils [0-6 %] 1 % (12/07/15 3:24 PM) Basophils [0-2 %] 0 % (12/07/15 3:24 PM) Neutro Absolute [2.50-7.00 10*3] 6.79 10*3 (12/07/15 3:24 PM) Lymph Absolute [1.00-4.00 10*3] 1.98 10*3 (12/07/15 3:24 PM) Eddy Absolute [0.20-0.80 10*3] 1.54 10*3 *HI* (12/07/15 3:24 PM) Eos Absolute [0.00-0.60 10*3] 0.12 10*3 (12/07/15 3:24 PM) Baso Absolute [0.00-0.30] 0.01 (12/07/15 3:24 PM) Immunizations Vaccine Date Refusal [...] Patient Education Author: Tayo Gee MD Date: 12/07/15 Allergy Sinusitis Sinusitis is redness, soreness, and inflammation of the paranasal sinuses. Paranasal sinuses are air pockets within the bones of your face (beneath the eyes, the middle of the forehead, or above the eye s). In healthy paranasal sinuses, mucus is able to drain out, and air is able to circulate through them by way of your nose. However, when your paranasal sinuses are inflamed, mucus and air can become t rapped. This can allow bacteria and other germs [...] medicine, decongestants, nasal steroid sprays, or saline sprays). However, for sinusitis related to a bacterial [...] Released: 10/15/2006 Document Revised: 03/01/2015 Document Reviewed: 10/29/2012 [facility] Patient Information 2015 [employer]. This information is not intended to replace [...] or cough. Antibiotic medicines are usually not need ed but may be prescribed in certain situations. [...] fluids may help thin your respiratory secretions (sputu m) and reduce chest congestion, and it will [...] Released: 11/22/2005 Document Revised: 03/01/2015 Document Reviewed: 04/07/2014 [facility] [address] [facility]. This information is not intended to [...] INSTRUCTIONS Get plenty of rest. Only take tohc-esz-rwcpwnl or prescription medicines as directed by your [...] Document Reviewed: 04/22/2014 [employer] Patient Information 2015 [employer]. This information is not intended to replace advice given to you by your health care provider. Make sure you discuss any questions you have with your health care provider. No follow up information was provided. Extracted from: Title: bronchitis, sinusitis, CAD, Author: Tayo Gee MD Date: 12/07/15 bronchiectasis, HTN Impression and Plan Diagnosis Acute bronchitis (OEF39-TT J20.9, Working, Medical). Acute sinusitis (WQP02-DW J01.40, Working, Medical). CAD (coronary artery disease) (GVM39-SZ I25.10, Working, Medical). Benign essential hypertension (KIN18-QO I10, Working, Medical). Bronchiectasis (WJW62-VE J47.9, Working, Medical). Plan: 1) Rocephin 1 gm IM given in the office today. 2) Take Azithromycin as directed. 3) Rest at home. 4) Continue your routine meds. 5) Followup as needed. 6) Lab and CXR done today.. Orders Orders (Selected) Outpatient Orders Ordered Office Visit Level 4 Est 46791: Ordered (Exam Completed) XR Chest 2 Views: Completed CBC w/ Differential: Influenza A/B: cefTRIAXone: 1 g, IntraMuscular, Once Prescriptions Prescribed azithromycin 250 mg oral tablet: See Instructions, take 2 tabs today, then 1 tab daily for 4 days., 6 tabs, 1 Refill(s). Dx/Order Association Plan: Diagnosis: Acute bronchitis Comment: Ordered: Office Visit Level 4 Est 36170; 12/07/15 17:24:00 MANAGER ECONOMIC, Acute bronchitis | Acute sinusitis | Bronchiectasis | CAD (coronary artery disease) Other status: cefTRIAXone; 1 g, IntraMuscular, Once, First Dose: 12/07/15 16:00:00 MANAGER ECONOMIC, Stop Date: 12/07/15 16:00:00 MANAGER E[employer] (Completed) Influenza A/B; Nasopharyngeal Swab, Stat collect, 12/07/15 15:07:00 MANAGER ECONOMIC, Once, Stop date 12/07/15 15:07:00 MANAGER ECONOMIC, Nurse Collect Non-Blood, Acute bronchitis (Completed) CBC w/ Differential; Blood, Stat Collect, 12/07/15 15:07:00 MANAGER ECONOMIC, Once, Stop date 12/07/15 15:07:00 MANAGER ECONOMIC, Lab Collect, Acute bronchitis | Acute sinusitis | Benign essen tial hypertension | CAD (coronary artery disease) (Completed) XR Chest 2 Views; 12/07/15 15:07:00 MANAGER ECONOMIC, Routine, Stop date 12/07/15 15:07:00 MANAGER ECONOMIC, Reason: Cough, Acute bronchitis, ABN Status: Not Required (Status Change) Diagnosis: Acute sinusitis Comment: Ordered: Office Visit Level 4 Est 08615; 12/07/15 17:24:00 MANAGER ECONOMIC, Acute bronchitis | Acute sinusitis | Bronchiectasis | CAD (coronary artery disease) Other status: cefTRIAXone; 1 g, IntraMuscular, Once, First Dose: 12/07/15 16:00:00 MANAGER ECONOMIC, Stop Date: 12/07/15 16:00:00 MANAGER ECONOMIC (Completed) CBC w/ Differential; Blood, Stat Collect, 12/07/15 15:07:00 MANAGER ECONOMIC, Once, Stop date 12/07/15 15:07:00 MANAGER ECONOMIC, Lab Collect, Acute bronchitis | Acute sinusitis | Benign essen tial hypertension | CAD (coronary artery disease) (Completed) Diagnosis: Benign essential hypertension Comment: Other status: CBC w/ Differential; Blood, Stat Collect, 12/07/15 15:07:00 MANAGER ECONOMIC, Once, Stop date 12/07/15 15:07:00 MANAGER ECONOMIC, Lab Collect, Acute bronchitis | Acute sinusitis | Benign essential hyp ertension | CAD (coronary artery disease) (Completed) Diagnosis: Bronchiectasis Comment: Ordered: Office Visit Level 4 Est 91316; 12/07/15 17:24:00 MANAGER ECONOMIC, Acute bronchitis | Acute sinusitis | Bronchiectasis | CAD (coronary artery disease) Diagnosis: CAD (coronary artery disease) Comment: Ordered: Office Visit Level 4 Est 87875; 12/07/15 17:24:00 MANAGER ECONOMIC, Acute bronchitis | Acute sinusitis | Bronchiectasis | CAD (coronary artery disease) Other status: CBC w/ Differential; Blood, Stat Collect, 12/07/15 15:07:00 MANAGER ECONOMIC, Once, Stop date 12/07/15 15:07:00 MANAGER ECONOMIC, Lab Collect, Acute bronchitis | Acute sinusitis | Benign essential hyp ertension | CAD (coronary artery disease) (Completed) Additional Orders: Comment: Ordered: azithromycin 250 mg oral tablet,See Instructions, take 2 tabs today, then 1 tab daily for 4 days., # 6 tabs, 1 Refill(s), Pharmacy: [facility] #[id number], take 2 tabs today, then 1 tab daily for 4 days. End of Orders ."
--- OUTSIDE RECORDS SUMMARY | 2017-07-05 16:34 | External Medical Summary | Referral Summary ---
:1930 Author Organization [facility] Address [address] [place] [address] [place] [phone] Care Team Providers Name Role Phone Tayo Gee Primary Care Physician Encounter [facility] Date(s): 05/03/16 - 05/03/16 [facility] [address] [place] [address] [place] [phone]- [place] Discharge Diagnosis: Coronary [...] Range]: 1 Peripheral Pulse Rate [60-100 bpm] 80 bpm (05/03/16 2:26 PM) Blood Pressure [90-140/60-90 mmHg] 146/60 mmHg *HI* (05/03/16 2:26 PM) Problem List Condition [...] DAY, # 90 tabs, 2 Refill(s), eRx: [facility] #[id number], TAKE ONE TABLET BY MOUTH EVERY DAY Start Date: 08/16/15 Status: OrderedAspirin Low Dose 81 mg, Oral, Daily, 0 Refill(s) Start Date: 07/09/14 Status: Orderedcarvedilol 25 mg oral tablet See Instructions, TAKE ONE TABLET BY MOUTH THREE TIMES A DAY, # 270 tabs, 2 Refill(s), eRx: [facility] #[id number], TAKE ONE TABLET BY MOUTH THREE TIMES A DAY Start Date: 01/17/16 Status: Orderedfamotidine 20 mg oral tablet See Instructions, TAKE ONE TABLET BY MOUTH TWICE A DAY, # 180 tabs, 1 Refill(s) , eRx: [facility] #[id number], TAKE ONE TABLET BY MOUTH TWICE A DAY Start Date: 04/10/16 Status: Orderedferrous sulfate 325 mg (65 mg elemental iron) oral tablet 325 mg 1 tabs, Oral, Daily, 0 Refill(s) Start Date: 08/03/15 Status: Orderedlosartan 100 mg oral tablet See Instructions, TAKE ONE TABLET BY MOUTH DAILY, # 90 tabs, eRx: [facility] #[id number], TAKE ONETABLET BY MOUTH DAILY Start Date: 04/24/16 Status: Orderedmultivitamin 1 tablet, Oral, Daily, 0 Refill(s) Start Date: 07/09/14 Status: OrderedNitromist 0.4 mg sublingual spray 0.4 mg, SubLingual, q5min, # 1 bottles, 1 Refill(s), Pharmacy: [facility] #[id number], 0.4 mg SubLingual q5min Start Date: 11/04/14 Status: OrderedNorco 5 mg-325 mg oral tablet 1 tabs, Oral, BID, as needed for pain, # 60 tabs, 0 Refill(s) Start Date: 04/27/16 Status: OrderedProAir HFA 90 mcg/inh inhalation aerosol 2 puffs, Inhalation, QID, as needed for wheezing, # 18 g, 11 Refill(s), Pharmacy : [facility] #[id number] Start Date: 11/03/15 Status: Orderedsimvastatin 20 mg oral tablet See Instructions, TAKE ONE TABLET BY MOUTH EVERY NIGHT AT BEDTIME, # 90 tabs, 2 Refill(s), eRx: [facility] #[id number], TAKE ONE TABLET BY MOUTH EVERY NIGHT [...]
--- OUTSIDE RECORDS SUMMARY | 2017-07-05 16:34 | External Medical Summary | Referral Summary ---
:1930 Author Organization [facility], [facility] [place] Address [address] [place] [address] Care Team Providers Name Role Phone Tayo Gee Primary Care Physician Encounter [facility] [id number] Date(s): 08/17/15 - 08/17/15 [facility], [facility] [place] [address] [place] [address]- [phone] Discharge Diagnosis: DENISE on CPAP Discharge Disposition: [...] 2 Refill(s), eRx: [facility] #[id number], TAKE ONE TABLET BY MOUTH EVERY DAY Start Date: 08/16/15 Status: OrderedAspirin Low Dose 81 mg, Oral, Daily, 0 Refill(s) Start Date: 07/09/14 Status: Orderedcarvedilol 25 mg oral tablet See Instructions, TAKE ONE TABLET BY MOUTH THREE TIMES A DAY, # 270 tabs, 2 Refill(s), eRx: [facility] #[id number], TAKE ONE TABLET BY MOUTH THREE TIMES A DAY Start Date: 01/17/16 Status: Orderedfamotidine 20 mg oral tablet See Instructions, TAKE ONE TABLET BY MOUTH TWICE A DAY, # 180 tabs, 1 Refill(s) , eRx: [facility] #[id number], TAKE ONE TABLET BY MOUTH TWICE A DAY Start Date: 06/28/15 Status: Orderedferrous sulfate 325 mg (65 mg elemental iron) oral tablet 325 mg 1 tabs, Oral, Daily, 0 Refill(s) Start Date: 08/03/15 Status: Orderedlosartan 100 mg oral tablet See Instructions, TAKE ONE TABLET BY MOUTH DAILY, # 90 tabs, eRx: [facility] #[id number], TAKE ONETABLET BY MOUTH DAILY Start Date: 11/15/15 Status: Orderedmultivitamin 1 tablet, Oral, Daily, 0 Refill(s) Start Date: 07/09/14 Status: OrderedNitromist 0.4 mg sublingual spray 0.4 mg, SubLingual, q5min, # 1 bottles, 1 Refill(s), Pharmacy: [facility] #[id number], 0.4 mg SubLingual q5min Start Date: 11/04/14 Status: OrderedNorco 5 mg-325 mg oral tablet 1 tabs, Oral, BID, as needed for pain, # 60 tabs, 0 Refill(s) Start Date: 02/25/16 Status: OrderedProAir HFA 90 mcg/inh inhalation aerosol 2 puffs, Inhalation, QID, as needed for wheezing, # 18 g, 11 Refill(s), Pharmacy : [facility] #[id number] Start Date: 11/03/15 Status: Orderedsimvastatin 20 mg oral tablet See Instructions, TAKE ONE TABLET BY MOUTH EVERY NIGHT AT BEDTIME, # 90 tabs, 2 Refill(s), eRx: [facility] #[id number], TAKE ONE TABLET BY MOUTH EVERY NIGHT [...]
--- OUTSIDE RECORDS SUMMARY | 2017-07-05 16:35 | External Medical Summary | Referral Summary ---
:1930 Author Organization [facility] Address [address] [place] [address] [place] [phone] Care Team Providers Name Role Phone Tayo Gee Primary Care Physician Encounter [facility] Date(s): 04/28/15 - 04/28/15 [facility] [address] [place] [address] [place] [phone] [place] Discharge Diagnosis: Coronary [...] Refill(s), eRx: [facility] #[id number], TAKE ONE TABLET BY MOUTH EVERY DAY Start Date: 08/16/15 Status: OrderedAspirin Low Dose 81 mg, Oral, Daily, 0 Refill(s) Start Date: 07/09/14 Status: Orderedcarvedilol 25 mg oral tablet 25 mg 1 tabs, Oral, BID, # 270 tabs, 3 Refill(s), Pharmacy: [facility] # [id number], 1 tabs Oral TID Start Date: 11/30/14 Status: Orderedfamotidine 20 mg oral tablet See Instructions, TAKE ONE TABLET BY MOUTH TWICE A DAY, # 180 tabs, 1 Refill(s) , eRx: [facility] #[id number], TAKE ONE TABLET BY MOUTH TWICE A DAY Start Date: 06/28/15 Status: Orderedferrous sulfate 325 mg (65 mg elemental iron) oral tablet 325 mg 1 tabs, Oral, Daily, 0 Refill(s) Start Date: 08/03/15 Status: Orderedlosartan 100 mg oral tablet See Instructions, TAKE ONE HALF TABLET BY MOUTH EVERY DAY, # 90 tabs, 1 Refill(s ), eRx: [facility] #[id number], TAKE ONE TABLET BY MOUTH EVERY DAY Start Date: 01/18/15 Status: Orderedmultivitamin 1 tablet, Oral, Daily, 0 Refill(s) Start Date: 07/09/14 Status: OrderedNitromist 0.4 mg sublingual spray 0.4 mg, SubLingual, q5min, # 1 bottles, 1 Refill(s), Pharmacy: [facility] #[id number], 0.4 mg SubLingual q5min Start Date: 11/04/14 [...] tabs, eRx: [facility] #[id number], TAKE ONE TABLET BY MOUTH EVERY NIGHT AT BEDTIME Start Date: 07/19/15 Status: OrderedSpiriva 2.5 mcg, Inhalation, Daily, 0 Refill(s) Start Date: 08/17/15 Status: OrderedSpiriva Respimat 60 inhalation aerosol 2 puffs, Inhalation, Daily, # 1 Each, 3 Refill(s), Pharmacy: [facility] # [id number] Start Date: 08/12/15 Status: Ordered Results No [...]
--- OUTSIDE RECORDS SUMMARY | 2017-07-05 16:35 | External Medical Summary | Referral Summary ---
:1930 Author Organization [facility], [facility] Address [address] [place] [address] [place] [phone] Care Team Providers Name Role Phone Tayo Gee Primary Care Physician Encounter [facility] Date(s): 05/24/15 - 05/24/15 [facility] [address] [place] [phone] [place] Discharge Diagnosis: [...] DAY, # 90 tabs, 2 Refill(s), eRx: [facility] #[id number], TAKE ONE TABLET BY MOUTH EVERY DAY Start Date: 08/16/15 Status: OrderedAspirin Low Dose 81 mg, Oral, Daily, 0 Refill(s) Start Date: 07/09/14 Status: Orderedcarvedilol 25 mg oral tablet 25 mg 1 tabs, Oral, BID, # 270 tabs, 3 Refill(s), Pharmacy: [facility] # [id number], 1 tabs Oral TID Start Date: 11/30/14 Status: Orderedfamotidine 20 mg oral tablet See Instructions, TAKE ONE TABLET BY MOUTH TWICE A DAY, # 180 tabs, 1 Refill(s) , eRx: [facility] #[id number], TAKE ONE TABLET BY MOUTH TWICE A DAY Start Date: 06/28/15 Status: Orderedferrous sulfate 325 mg (65 mg elemental iron) oral tablet 325 mg 1 tabs, Oral, Daily, 0 Refill(s) Start Date: 08/03/15 Status: Orderedlosartan 100 mg oral tablet See Instructions, TAKE ONE HALF TABLET BY MOUTH EVERY DAY, # 90 tabs, 1 Refill(s ), eRx: [facility] #[id number], TAKE ONE TABLET BY MOUTH EVERY DAY Start Date: 01/18/15 Status: Orderedmultivitamin 1 tablet, Oral, Daily, 0 Refill(s) Start Date: 07/09/14 Status: OrderedNitromist 0.4 mg sublingual spray 0.4 mg, SubLingual, q5min, # 1 bottles, 1 Refill(s), Pharmacy: [facility] #[id number], 0.4 mg SubLingual q5min Start Date: 11/04/14 [...] NIGHT AT BEDTIME, # 90 tabs, eRx: [facility] #[id number], TAKE ONE TABLET BY MOUTH EVERY NIGHT AT BEDTIME Start Date: 07/19/15 Status: OrderedSpiriva 2.5 mcg, Inhalation, Daily, 0 Refill(s) Start Date: 08/17/15 Status: OrderedSpiriva Respimat 60 inhalation aerosol 2 puffs, Inhalation, Daily, # 1 Each, 3 Refill(s), Pharmacy: [facility] # [id number] Start Date: 08/12/15 Status: Ordered Results No [...] 194 Hospital admission for polio 1940 Tonsillectomy 1936 [...] for any changes. Visit a skin doctor (automation sales manager) every year for a skin exam. SEEK MEDICAL CARE IF: Your skin does not heal and becomes irritated, red, or bleeds. You notice any changes or new growths on your skin. Document Released: 01/11/2010 Document Revised: 01/06/2013 Document Reviewed: 11/25/2012 [facility] Patient Information 2015 [place]. This information is not intended to replace [...] as told by your doctor. Only take rmfa-nxn-zonvald or prescription medicines as told by your [...] 04/02/2009 Document Revised: 08/05/2014 Document Reviewed: 06/11/2014 [facility] Patient Information 2015 [employer], [facility]. This information is not intended to [...] Outpatient Orders Ordered Destruction premalignant lesion 1st 35933: Destruction premalignant lesion 2-14, Each 03881: Destruction premalignant lesion 2-14, Each 23902: Destruction premalignant lesion 2-14, Each 46562: Destruction premalignant lesion 2-14, Each 07221: Destruction premalignant lesion 2-14, Each 05622: Office Visit Level 4 Est 06277: Prescriptions Prescribed [place] 5 mg-325 mg oral tablet: 1 tabs, Oral, BID, PRN: as needed for pain, 60 tabs, 0 Refill(s). Dx/Order Association Plan: Diagnosis: Actinic keratoses Comment: Ordered: Destruction premalignant lesion 2-14, Each 17879; 18:21:00 CDT, 1, Actinic keratoses Destruction premalignant lesion 2-14, Each 13242; 05/24/15 18:20:00 CDT, 1, Actinic keratoses Destruction premalignant lesion 2-14, Each 75759; 05/24/15 18:20:00 CDT, 1, Actinic keratoses Destruction premalignant lesion 2-14, Each 65017; 05/24/15 18:20:00 CDT, 1, Actinic keratoses Destruction premalignant lesion 2-14, Each 90398; 05/24/15 18:20:00 CDT, 1, Actinic keratoses Destruction premalignant lesion 1st 03235; 18:20:00 CDT, 1, Actinic keratoses Office Visit Level 4 Est 33772; 05/24/15 18:20:00 CDT, 25, CAD (coronary artery disease) | Chronic obstructive pulmonary disease ( COPD) | Bronchiectasis | Benign essential hypertension | Hyperlipidemia Diagnosis: Benign essential hypertension Comment: Ordered: Office Visit Level 4 Est 87475; 05/24/15 18:20:00 CDT, 25, CAD (coronary artery disease) | Chronic obstructive pulmonary disease (COPD ) | Bronchiectasis | Benign essential hypertension | Hyperlipidemia Diagnosis: Bronchiectasis Comment: Ordered: Office Visit Level 4 Est 68809; 05/24/15 18:20:00 CDT, 25, CAD (coronary artery disease) | Chronic obstructive pulmonary disease (COPD ) | Bronchiectasis | Benign essential hypertension | Hyperlipidemia Diagnosis: CAD (coronary artery disease) Comment: Ordered: Office Visit Level 4 Est 77272; 05/24/15 18:20:00 CDT, 25, CAD (coronary artery disease) | Chronic obstructive pulmonary disease (COPD ) | Bronchiectasis | Benign essential hypertension | Hyperlipidemia Diagnosis: Chronic obstructive pulmonary disease (COPD) Comment: Ordered: Office Visit Level 4 Est 68448; 05/24/15 18:20:00 CDT, 25, CAD (coronary artery disease) | Chronic obstructive pulmonary disease (COPD ) | Bronchiectasis | Benign essential hypertension | Hyperlipidemia Diagnosis: Hyperlipidemia Comment: Ordered: Office Visit Level 4 Est 17147; 05/24/15 18:20:00 CDT, 25, CAD (coronary artery disease) | Chronic obstructive pulmonary disease (COPD ) | Bronchiectasis | Benign essential hypertension | Hyperlipidemia Additional Orders: Comment: Ordered: [place] 5 mg-325 mg oral tablet,1 tabs, Oral, BID, as needed for pain, # 60 tabs, 0 Refill(s) End of Orders ."
[2017-07-05] MEDS ORDERED: ATROPINE 1 MG/10 ML SYRINGE IVP ONE (17:10)
[2017-07-05] MEDS ORDERED: NS 1,000 ML IV SCH (17:17)
[2017-07-05] MEDS ORDERED: ACETAMINOPHEN 325 MG TABLET PO PRN (17:17)
[2017-07-05] MEDS ORDERED: SENNOSIDES 8.6 MG TABLET PO PRN (17:17)
[2017-07-05 17:18] VITALS: TEMP 98.1; O2SAT 100
[2017-07-05 17:24] VITALS: BMI 25.7
--- NOTE | 2017-07-05 17:57 | History & Physical Report ---
History of Present Illness Date: 07/05/17 Chief complaint: fatigue, bradycardia HPI: Mr. Weldon is an 86-year-old male with history of coronary artery disease s/p 5 vessel bypass 8 years ago. He has been angina free since that time. Over the past 6 months he's noticed increasing lethargy, weakness, dizziness, dyspnea, and decreased ambulatory ability. Ambulation is been limited to half a block and over the past couple of weeks 200 feet after which he has to stop and rest. All symptoms have worsened significantly in the past couple of weeks. He monitors his blood pressures at home and has noted that his heart rate has been in the 30s for the past 1-2 weeks low his blood pressure has been well maintained with systolic pressures elevated about 175. He was seen by Dr. Gee today where he was found to have heart block and heart rate 33. Was subsequently referred for admission and further assessment. On further questioning patient describes some exertional tightness in his chest which he indicates is different than angina in the past but has been occurring with activities fairly regularly the past week. Review of Systems Comprehensive ROS: completed and no additional positive findings except those as stated (those noted in history of present illness.) PFSH Hypertension Hyperlipidemia Coronary artery disease BPH COPD History bronchiectasis Obstructive sleep apnea with CPAP History of right lung mass-reported stable by patient/ Osteoarthritis DDD lumbar spine with spondylosis Polio T11 compression fracture Surgical History: Tonsillectomy, appendectomy, left inguinal hernia repair 3, right inguinal hernia repair 2-bilateral mesh repairs; 5 vessel CABG 2008 after angioplasty/stent 4, cholecystectomy 2009, dramatic amputation of left fingers at age 19, bilateral cataracts last spring Family History: Father-coronary artery disease, CHF Mother-heart disease, breast cancer, multi-infarct dementia Sister-hypertension, breast cancer Brother-heart disease - Social History Smoking status: Never smoker Substance use type: does not use Alcohol intake frequency: does not drink Household members: spouse 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 Tayo Gee DPOA-several of the patient's children Full code, has a living will Medications Home Medications Medication Instructions Recorded Confirmed Type Aspirin [Aspir 81] 81 mg PO HS #0 08/31/09 History Carvedilol [Coreg] 25 mg PO BID #0 08/31/09 History Simvastatin 20 mg PO HS #0 10/04/11 History Famotidine 1 tab PO BID #0 02/12/17 History Ferrous Sulfate 1 tab PO WB #0 tab 02/12/17 History Hydrocodone/Acetaminophen 1 tab PO BID #0 02/12/17 History [Hydrocodon-Acetaminophen 5-325] Losartan Potassium 1 tab PO DAILY #0 02/12/17 History Nitroglycerin [Nitromist] 1 spray SL Q5MIN PRN #0 ml 02/12/17 History Naproxen Sodium [Aleve] 220 mg PO WB #0 tab 02/21/17 History Allergies Allergy/AdvReac Type Severity Reaction Status Date / Time latex Allergy Mild RASH Verified 06/29/17 19:48 Potatoes Allergy Unknown DIFFICULTY Uncoded 06/29/17 19:48 BREATHING Exam Vital Signs: Temperature 98.1 F 07/05/17 17:00 Pulse Rate 47 L 07/05/17 17:15 Respiratory Rate 45 H 07/05/17 17:15 Blood Pressure 198/88 H 07/05/17 17:00 Pulse Oximetry 100 07/05/17 17:00 EXAM: General-NAD, alert, fluent speech Pupils round bilaterally, right 6 mm, left 5 mm, both react to light, EOMI without nystagmus, conjugate gaze, conjunctiva clear, sclera anicteric facial structures symmetric, oropharynx clear, neck supple and without adenopathy Lungs-respirations nonlabored, good airflow, breath sounds clear Cardiac-rhythm regular and very slow, S1-S2 Abd-soft, nontender, without palpable mass in the bowel sounds present Ext-trace edema Skin-without rash or wounds MS-significant degenerative changes in the small joints of the hands; amputation of the left index and ring fingers at the DIPs Neuro-MAEW, sensation intact, no tremors, cranial nerves 3-12 grossly intact Psych-calm, cooperative, pleasant Telemetry Rhythm: Second Degree AV Block Type II Mobitz I Height/Weight/BMI: Height 1.8 m Weight 83.7 kg Body Mass Index 25.7 Results - Labs CBC & Chem 7: 07/05/17 17:23 07/05/17 17:23 Labs: INR 1.07 Troponin 0.016 Liver enzymes normal TSH 2.28 - ECG Data Tracing #1 I reviewed this ECG and interpreted as documented below: (EKG reviewed with Dr. Lemus-rate in the 30s with second degree heart block with 2-1 conduction, bundle branch block and first-degree block present.) - Imaging and Cardiology Chest x-ray Status: image reviewed by me (borderline cardiomegaly, mild increased vascular markings, evidence of old sternotomy.) Assessment and Plan DVT Prophylaxis: SCD's Resuscitation Status: Full Code Assessment and Plan: Impression: Second-degree heart block, [id number] Mobitz type II Coronary artery disease with probable angina Obstructive sleep apnea Chronic kidney disease, stage 2-3 Hypernatremia Hypertension, uncontrolled COPD Plan: Patient was seen in conjunction with Dr. Lemus plans discussed with him. Patient presents with symptomatic bradycardia and probable Mobitz 2 heart block. He has had deterioration in functional ability over the past 6 months with significant worsening in the past 1-2 weeks. He is now having chest tightness suspicious for recurrent angina. Management options limited currently ; minimal response to atropine. Isuprel not available and Director Style is not currently open, OR occupied for most of the evening and emergency pacemaker cannot be placed here. Subsequently patient will be transferred to [facility] under the care of Dr. Lemus for further management. Last available creatinine was 1.1 in January 2017 at which time GFR was 63. aware of plans. Nursing staff coordinating transfer to [place] at this time were patient will be admitted to the cardiothoracic ICU. Hospital Course Summary Disclaimer: The visit summary below is not to be considered part of the above Progress Note.
--- NOTE | 2017-07-05 19:53 | Discharge Instructions ---
Discharge Plan - Med Rec/Dispo Prescriptions: Continue Carvedilol [Coreg] 25 mg PO BID #0 Losartan Potassium 1 tab PO DAILY #0 Ferrous Sulfate 1 tab PO WB #0 tab Nitroglycerin [Nitromist] 1 spray SL Q5MIN PRN #0 ml PRN Reason: CHEST PAIN Naproxen Sodium [Aleve] 220 mg PO WB #0 tab Aspirin [Aspir 81] 81 mg PO HS #0 Simvastatin 20 mg PO HS #0 Famotidine 1 tab PO BID #0 No Action Hydrocodone/Acetaminophen [Hydrocodon-Acetaminophen 5-325] 1 tab PO BID #0
[2017-07-05 20:08] VITALS: BP 156/70; PULSE 40; RESP 19
--- NOTE | 2017-07-05 22:43 | Discharge Summary ---
Discharge Information Date of admission: 07/05/17 18:18 Anticipated date of discharge: 07/05/17 Attending Physician: Maria D Campos MD Primary care physician: Tayo Gee MD Consults: Dr. Marcella Lemus - Laboratory Labs: 07/05/17 17:23 07/05/17 17:23 INR 1.07, TSH 2.28, troponin 0.016, liver enzymes unremarkable - Radiology Radiology: Portable chest x-ray with borderline cardiomegaly and slight increased vascular markings/redistribution History of Present Illness HPI: Mr. Weldon is an 86-year-old male with history of coronary artery disease s/p 5 vessel bypass 8 years ago. He has been angina free since that time. Over the past 6 months he's noticed increasing lethargy, weakness, dizziness, dyspnea, and decreased ambulatory ability. Ambulation is been limited to half a block and over the past couple of weeks 200 feet after which he has to stop and rest. All symptoms have worsened significantly in the past couple of weeks. He monitors his blood pressures at home and has noted that his heart rate has been in the 30s for the past 1-2 weeks low his blood pressure has been well maintained with systolic pressures elevated about 175. He was seen by Dr. Gee today where he was found to have heart block and heart rate 33. Was subsequently referred for admission and further assessment. On further questioning patient describes some exertional tightness in his chest which he indicates is different than angina in the past but has been occurring with activities fairly regularly the past week. Hospital Course This is a general summary of the patient's hospital course. For more details refer to the complete medical record. Hospital course: Impression: Second-degree heart block, [id number]-[id number] Mobitz type II Coronary artery disease with probable angina Obstructive sleep apnea Chronic kidney disease, stage 2-3 Hypernatremia Hypertension, uncontrolled COPD Plan: Patient was seen in conjunction with Dr. Lemus plans discussed with him. Patient presents with symptomatic bradycardia and probable Mobitz 2 heart block. He has had deterioration in functional ability over the past 6 months with significant worsening in the past 1-2 weeks. He is now having chest tightness suspicious for recurrent angina. Management options limited currently ; minimal response to atropine. Isuprel not available and Instructor Weaving is not currently open, OR occupied for most of the evening and emergency pacemaker cannot be placed here. Subsequently patient will be transferred to [facility] under the care of Dr. Lemus for further management. Last available creatinine was 1.1 in January 2017 at which time GFR was 63. aware of plans. Nursing staff coordinating transfer to [place] at this time were patient will be admitted to the cardiothoracic ICU. Discharge Plan - Med Rec/Dispo Prescriptions: Continue Carvedilol [Coreg] 25 mg PO BID #0 Losartan Potassium 1 tab PO DAILY #0 Ferrous Sulfate 1 tab PO WB #0 tab Nitroglycerin [Nitromist] 1 spray SL Q5MIN PRN #0 ml PRN Reason: CHEST PAIN Naproxen Sodium [Aleve] 220 mg PO WB #0 tab Aspirin [Aspir 81] 81 mg PO HS #0 Simvastatin 20 mg PO HS #0 Famotidine 1 tab PO BID #0 No Action Hydrocodone/Acetaminophen [Hydrocodon-Acetaminophen 5-325] 1 tab PO BID #0 - Disposition 02 To [facility] Acute Care
--- NOTE | 2017-07-06 09:04 | XRay Report ---
Indication: bradycardia PROCEDURE: XR chest 1V: Encounter: Initial Comparison: None Findings: Small left pleural effusion. Right lung appears grossly clear. No pneumothorax. Prior CABG. Cardiac silhouette is mild to moderately enlarged. Mediastinal contours are within normal limits. Pulmonary vascularity is grossly normal. Impression: 1. Small left pleural effusion 2. Enlarged cardiac silhouette could be due to cardiomegaly or pericardial effusion. .
--- NOTE | 2017-07-06 13:53 | Cardiology Consult Note ---
History of Present Illness Consult date: 07/05/17 Chief complaint: bradycardia History of present illness: Mr. Weldon is a pleasant 86-year-old male with history of CABG 5 8 years ago. He has chronic stable angina pectoris and has not been feeling well for about 6 months she's been here a expressing increased lethargy weakness and dizziness and dyspnea and decreased vibratory ability. He has walked half a block regularly up until couple weeks ago when he started walking only 200 feet after which she has to stop and rest. Skin also a and the single chest tightness status brought on by exertion and relieved quickly by rest the degree this past week has been more frequent has not had any prolonged severe episodes multivessel radiating or required nitroglycerin. He was seen by Dr. Chavira this morning due to following a presyncopal episode and running a slow pulse rate in the 30s patient was referred for admission under hospitalist . He was running running low-grade chest pressure 1-3 then spontaneously improved. Patient denies syncope or falls. He has not had any recent heart catheterization or coronary stents in the past few years although he has had extensive coronary stenting years ago , between the 2001 2008 or there about. Patient is generally active 86 years old lives at home with his and he clearly wishes for aggressive measures and management. 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 Surgical History: Tonsillectomy, appendectomy, left inguinal hernia repair 3, right inguinal hernia repair 2-bilateral mesh repairs; 5 vessel CABG 2008 after angioplasty/stent 4, cholecystectomy 2009, dramatic amputation of left fingers at age 19, bilateral cataracts last spring Family History Updates: A positive for heart disease in his brother and father - Social History Smoking status: Never smoker Alcohol intake frequency: does not drink Medications Home Medications Medication Instructions Recorded Confirmed Type Aspirin [Aspir 81] 81 mg PO HS #0 08/31/09 History Carvedilol [Coreg] 25 mg PO BID #0 08/31/09 History Simvastatin 20 mg PO HS #0 10/04/11 History Famotidine 1 tab PO BID #0 02/12/17 History Ferrous Sulfate 1 tab PO WB #0 tab 02/12/17 History Hydrocodone/Acetaminophen 1 tab PO BID #0 02/12/17 History [Hydrocodon-Acetaminophen 5-325] Losartan Potassium 1 tab PO DAILY #0 02/12/17 History Nitroglycerin [Nitromist] 1 spray SL Q5MIN PRN #0 ml 02/12/17 History Naproxen Sodium [Aleve] 220 mg PO WB #0 tab 02/21/17 History Allergies Allergy/AdvReac Type Severity Reaction Status Date / Time latex Allergy Mild RASH Verified 06/29/17 19:48 Potatoes Allergy Unknown DIFFICULTY Uncoded 06/29/17 19:48 BREATHING Exam Vital signs: Temperature 98.1 F 07/05/17 17:00 Pulse Rate 40 L 07/05/17 21:06 Respiratory Rate 19 07/05/17 20:00 Blood Pressure 156/70 H 07/05/17 20:00 Pulse Oximetry 100 07/05/17 20:00 - Constitutional no acute distress - Routine HEENT Exam Head: Present: normocephalic, atraumatic Eye: Present: EOMI, PERRL ENT: Present: mucous membranes moist - Routine Neck Exam Present: supple, normal carotid upstroke. Absent: JVD, carotid bruit, lymphadenopathy, thyromegaly - Routine Cardiovascular Exam Present: S1, S2, murmur (soft systolic murmur grade 1-2/6 best heard at the base of the heart), bradycardia. Absent: JVD - Routine Abdominal Exam Present: soft, normoactive bowel sounds, non distended, non tender. Absent: organomegaly - Routine Extremities Exam Present: edema (a trace ankle edema bilaterally). Absent: cyanosis, clubbing - Routine Skin Exam Present: dry. Absent: cyanosis, erythema - Routine Neurological Exam Present: alert, oriented X3, CN II-XII intact, hearing grossly intact, normal speech. Absent: sensory deficit, motor deficit, facial asymmetry - Routine Psychiatric Exam Present: normal affect, normal thought process, cooperative, good insight Results 07/05/17 17:23 07/05/17 17:23 Cardiac Enzymes 07/05/17 Range/Units 17:23 AST 23 (17-59) U/L Troponin I 0.016 (0-0.12) ng/ml CBC 07/05/17 Range/Units 17:23 WBC 7.4 (4.5-11.0) T/MM3 RBC 4.48 L (4.50-5.90) M/MM3 Hgb 13.9 (13.5-17.5) GM/DL Hct 42.4 (41-53) % Plt Count 137 (130-400) T/MM3 Neut # 3.1 (1.8-7.7) T/MM3 Lymph # 3.2 (1-4.8) T/MM3 Nicholas # 0.8 (0-0.8) T/MM3 Eos # 0.3 (0-0.5) T/MM3 Baso # 0.0 (0-0.2) T/MM3 Comprehensive Metabolic Panel 07/05/17 Range/Units 17:23 Sodium 147 H (134-144) MEQ/L Potassium 4.7 (3.6-5) MEQ/L Chloride 109 H (98-107) MEQ/L Carbon Dioxide 27 (22-30) MEQ/L BUN 34.0 H (9-20) MG/DL Creatinine 1.3 (0.8-1.5) MG/DL Glucose 91 (75-110) MG/DL Calcium 9.2 (8.4-10.2) MG/DL AST 23 (17-59) U/L ALT 38 (21-72) U/L Alkaline Phosphatase 63 (38-126) U/L Total Protein 7.5 (6.3-8.2) G/DL Albumin 4.4 (3.5-5.0) G/DL Intake and Output 07/05/17 07/06/17 07/06/17 22:59 06:59 14:59 Intake Total 0 / 0 Output Total 575 / 575 Balance -575 / -575 Intake: Oral 0 / 0 Output: Urine Amount (Catheter) 575 / 575 Other: Urine Appearance Clear Urine Color Dark Yellow Weight 83.7 kg EKG interpretations - Dysrhythmias Sinus rhythms and dysrhythmias: sinus rhythm - Blocks, axis, hypertrophy, ST abn AV and intraventricular conduction: 2 to 1 AV block (intermittent high-grade block), right bundle branch block (fixed/intermittent, complete/incomplete) Hospital Course Summary Disclaimer: The visit summary below is not to be considered part of the above Progress Note. 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 Lemus plans discussed with him. Patient presents with symptomatic bradycardia and probable Mobitz 2 heart block. He has had deterioration in functional ability over the past 6 months with significant worsening in the past 1-2 weeks. He is now having chest tightness suspicious for recurrent angina. Management options limited currently ; minimal response to atropine. Isuprel not available and Manager Budget is not currently open, OR occupied for most of the evening and emergency pacemaker cannot be placed here. Subsequently patient will be transferred to [facility] under the care of Dr. Lemus for further management. Last available creatinine was 1.1 in January 2017 at which time GFR was 63. aware of plans. Nursing staff coordinating transfer to [place] at this time were patient will be admitted to the cardiothoracic ICU. 07/06/17 14:04 #1 presyncope #2 second-degree AV block with bundle branch block #3 crease" exertional chest tightness consistent with a subacute unstable angina #4 coronary artery disease status post CABG 5 in 2008 and previous multiple stents prior to that #5 hypertension 6 dyslipidemia #7 chronic kidney disease #1 initial labs TSH troponin repeat EKG obtained Stat Laboratory basic metabolic profile CBC ordered discussed with hospitalist service #3 Isupril drip ordered, told by pharmacist and nurse not available or stocked in the hospital #4 test. His pacemaker on standby CCU #5 transvenous temporary pacemaker not available #6 Manager Budget staffing difficulties D0 to accommodate heart catheterization and permanent pacemaker #7 operating room at available for permanent pacemaker as a result ongoing appendectomy and a in 1 OR room only available #8 discussed with the referring physician patient and and decision to transfer to [facility] CCU bed my service service, We'll start Isopril drip without [place] by serial enzymes watch his hypertension and treat only severe readings of his profound bradycardia Echocardiogram Heart catheterization tomorrow Permanent pacemaker tomorrow, dual-chamber versus biVenrticular I will hold his Coreg Hold his 10 due to renal insufficiency severe bradycardia and expecting contrast exposure tomorrow Gentle hydration tonight to improve cardiac output No IV heparin as patient's general is better and may need an emergency procedure Sepsis Assessment - Evaluation Sepsis screening result: No Definite Risk
== END 2017-07-05 20:55 | disposition short-term general hospital (02) | DRG 309 ==
LOC: CCU
PROVIDERS: ADMIT Internal Medicine; ATTEND Internal Medicine